=== PATIENT | female | born 1965 | race Caucasian/White ===

== ENCOUNTER 2019-10-18 15:41 | Outpatient (CLI) | payer OTHER, SELFPAY ==
--- NOTE | ~2019-10-18 | MR_ITS ---
EXAMINATION: MR ankle LT wo con DATE: 10/18/2019 17:11 INDICATION: Left ankle tendon pain. TECHNIQUE: Magnetic resonance imaging (MRI) of the left ankle was performed without intravenous contr ast. Sequences included sagittal, coronal, and axial proton-density weighted fast spin echo without a nd with fat saturation. COMPARISON: None. FINDINGS: Medial ankle ligaments: Deep and superficial deltoid ligaments as well as the spring ligament are normal. Lateral ankle ligaments: The anterior and posterior inferior tibiofibular ligaments are normal. The anterior talofibular, calc aneofibular and posterior talofibular ligaments are normal. Tendons: Small enthesophytes at the calcaneal insertion of the otherwise normal-appearing Achilles tendon. Sma ll amount of increased fluid along the otherwise normal peroneus longus and brevis tendons consistent with mild tenosynovitis. The tibialis anterior and extensor hallucis longus and extensor digitorum l ongus tendons are normal. The tibialis posterior, flexor digitorum longus and flexor hallucis longus tendons are normal. Plantar fascia: Moderate-sized plantar calcaneal spur with mild thickening of the proximal plantar aponeurosis withou t appreciable increased signal consistent with mild chronic enthesopathy without acute plantar fascii tis. Bones/other: Subtle increased fluid signal between irregular cortical margins consistent with likely fiber cartila ginous 3 calcaneal coalition between the medial calcaneus and the posterior aspect of the sustentacul um mian. There is mild subarticular edema along the calcaneal side of the coalition. Marrow signal re maining joint spaces are otherwise normal. No fracture or pathologic marrow replacing process. Fluid: Physiologic amount of fluid in the joint spaces. IMPRESSION: 1. 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 2. Mild peroneal tenosynovitis with normal appearing tendons. 3. Chronic mild Achilles and plantar calcaneal enthesopathy. Reviewed, dictated and finalized at location A.
== END 2019-10-18 15:42 | disposition home or self-care (01) ==
LOC: ANHIMG 15:53
PROVIDERS: PCP Family Medicine; Visit Provider Orthopaedic Surgery
DX: M25.572 Pain in left ankle and joints of left foot (principal); M65.872 Other synovitis and tenosynovitis, left ankle and foot; M77.32 Calcaneal spur, left foot
CPT/HCPCS: 73721

== ENCOUNTER 2020-04-26 07:34 | Outpatient (CLI) | payer OTHER, SELFPAY ==
--- NOTE | ~2020-04-26 | US_ITS ---
US right upper quadrant INDICATION: Right upper quadrant abdominal pain PROCEDURE: Realtime right upper abdominal ultrasound. COMPARISON: Ultrasound dated 12/11/2013 FINDINGS: The pancreas is normal without focal mass or pancreatic ductal dilation. Liver echotexture is normal without focal mass or intrahepatic biliary dilatation. There is normal directional flow i n the portal vein. The gallbladder is normal without stones, gallbladder wall thickening or pericholecystic fluid. Comm on bile duct measures 4 mm. No sonographic Ariza's sign. IMPRESSION: 1: Normal limited abdominal ultrasound. Reviewed, dictated and finalized at location A.
== END 2020-04-26 07:35 | disposition home or self-care (01) ==
PROVIDERS: PCP Family Medicine; Visit Provider Physician Assistant
DX: R10.11 Right upper quadrant pain (principal)
CPT/HCPCS: 76705

== ENCOUNTER 2020-05-06 17:50 | Outpatient (CLI) | payer OTHER, SELFPAY ==
--- NOTE | ~2020-05-06 | MM_ITS ---
EXAMINATION: MM screening [facility] BI w chanda HISTORY: Screening TECHNIQUE: Craniocaudal and mediolateral oblique 3-D tomosynthesis images were obtained and synthetic 2-D images were generated. CAD analysis was submitted and interpreted. COMPARISON: 07/12/2013 BREAST PARENCHYMAL COMPOSITION: There are scattered areas of fibroglandular density. FINDINGS: There is no evidence of suspicious mass, calcification, or architectural distortion to sugg est malignancy in either breast. There has been no suspicious interval change. IMPRESSION: 1. No mammographic evidence of malignancy. 2. Recommend routine screening mammography in one year. BI-RADS Category 1: Negative Reviewed, dictated and finalized at location A.
== END 2020-05-06 17:51 | disposition home or self-care (01) ==
PROVIDERS: PCP Family Medicine; Visit Provider Family Medicine
DX: Z12.31 Encounter for screening mammogram for malignant neoplasm of breast (principal)
CPT/HCPCS: 77063; 77067

== ENCOUNTER 2020-07-30 07:29 | Outpatient (CLI) | payer OTHER, SELFPAY ==
--- NOTE | ~2020-07-30 | NM_ITS ---
EXAMINATION: NM hepatobiliary w pharm EXAM DATE: 07/30/2020 09:55 INDICATION: R10.11 - Right upper quadrant pain. TECHNIQUE: 4.8 mCi Tc-99m mebrofenin (Choletec) was administered intravenously. Scintigraphic images of the abdomen were obtained for one hour. At the 1 hour time point, 2.5 mcg sincalide (Kinevac) was administered by slow intravenous infusion, and imaging was continued for 30 minutes. Gallbladder eje ction fraction was calculated by the technologist. Comparison is made to prior examination from 2007. FINDINGS: There is normal clearance of radiotracer from the blood pool. There is homogeneous tracer u ptake by the liver. Activity progresses to the gallbladder and bowel. The gallbladder ejection fract ion (GBEF) is 78 % (most patients with gallbladder dysfunction have GBEF < 35%, but there is overlap with the normal range of 10-90%). IMPRESSION: Gallbladder ejection fraction 78%, within normal range. Reviewed, dictated and finalized at location B. GNMENT MANAGER
== END 2020-07-30 07:30 | disposition home or self-care (01) ==
PROVIDERS: PCP Family Medicine; Visit Provider Physician Assistant
DX: R10.11 Right upper quadrant pain (principal)
CPT/HCPCS: 78227; A9537; J2805

== ENCOUNTER → 2020-10-23 06:59 | Outpatient (CLI) | payer OTHER, SELFPAY ==
[2020-10-23 16:42] LABS: SARS-CoV-2 RNA PCR Negative
== END ==
PROVIDERS: PCP Family Medicine; Visit Provider Family Medicine
DX: Z20.822 Contact with and (suspected) exposure to COVID-19 (principal)
CPT/HCPCS: C9803; U0003; U0005

== ENCOUNTER 2022-05-13 16:27 | Outpatient (CLI) | payer OTHER, SELFPAY ==
--- NOTE | ~2022-05-13 | DEXA_ITS ---
Bone Density Report Name: JHON HALL Age: 56 Sex: Female Ethnicity: White Date of : 1965 Indication: postmenopausal; screening for osteoporosis; asthma or emphysema; Referring Provider: AMBROSIO JIMÉNEZ Study: Bone densitometry was performed. Exam Date: May 13, 2022 Accession number: [id number] Bone Density: Region BMD T-score Z-score Classification AP Spine(L1-L4) 1.253 1.9 3.1 Normal Femoral Neck (Left) 0.879 0.3 1.5 Normal Total Hip (Left) 1.240 2.4 3.3 Normal Femoral Neck (Right) 0.895 0.4 1.6 Normal Total Hip (Right) 1.231 2.4 3.2 Normal Total Hip Mean 1.236 2.4 3.3 Normal World Health Organization criteria for BMD impression classify patients as: Normal (T-score at or above -1.0), Osteopenia (T-score between -1.0 and -2.5), or Osteoporosis (T-score at or below -2.5). 10-year Fracture Risk: FRAX not reported because: All T-scores for Spine Total, Hip Total, Femoral Neck at or above -1.0 Clinical Information Provided by Patient: Has used the following medications: Vitamin D Has the following medical conditions: Asthma or Emphysema Patient maximum height was 67 Menopause Age: 46 No regular weight bearing exercise Does not regularly consume dairy products Drinks caffeinated beverages Onset of menses at age 11 Number of children 3 Impression: The patient has normal bone mass. Discussion: BONE DENSITY IS ABOVE THE MINIMUM DESIRABLE LEVEL AT ALL SKELETAL SITES TESTED. This patient?s bone mineral density is above the minimum desirable level (T-score -1.0 or better) at all sites measured. The patient should follow a healthful lifestyle (good nutrition with adequate calcium and vitamin D, and appropriate weight-bearing exercise). Follow-Up: Consider repeating this study in 5 years or sooner if there is some new clinical indication. Reported by: JONI on 05/13/2022 4:53:00 PM. Reviewed, dictated and finalized at location AChantel COLLIER
--- NOTE | ~2022-05-13 | MM_ITS ---
EXAMINATION: MM screening [facility] BI w chanda HISTORY: Screening TECHNIQUE: Craniocaudal and mediolateral oblique 3-D tomosynthesis images were obtained and synthetic 2-D images were generated. CAD analysis was submitted and interpreted. COMPARISON: 07/12/2013 BREAST PARENCHYMAL COMPOSITION: Breast composition is almost entirely fatty FINDINGS: The right breast is stable without evidence for malignancy. There is a new focal mass in th e lower inner quadrant of the left breast, middle third. IMPRESSION: 1. New focal left breast mass, lower inner quadrant. 2. Additional mammographic views and possible breast ultrasound are recommended. BI-RADS Category 0: Incomplete: Needs additional imaging evaluation. Reviewed, dictated and finalized at location A. IMPRESSION: 1. New focal left breast mass, lower inner quadrant. 2. Additional mammographic views and possible breast ultrasound are recommended . BI-RADS Category 0: Incomplete: Needs additional imaging evaluation.
== END 2022-05-13 16:28 | disposition home or self-care (01) ==
LOC: ANHIMG 16:28
PROVIDERS: PCP Emergency Medicine; Visit Provider Physician Assistant
DX: Z12.31 Encounter for screening mammogram for malignant neoplasm of breast (principal); Z78.0 Asymptomatic menopausal state; R92.8 Other abnormal and inconclusive findings on diagnostic imaging of breast
CPT/HCPCS: 77063; 77067; 77080

== ENCOUNTER 2022-05-21 12:41 | Outpatient (CLI) | payer OTHER, SELFPAY ==
--- NOTE | ~2022-05-21 | MMUS_ITS ---
EXAMINATION: MM diagnostic elmer LT w chanda, US breast LT limited HISTORY: Follow-up left breast mass TECHNIQUE: Additional 3-D tomosynthesis images of the left breast were performed and synthetic 2-D im ages were generated. CAD analysis was submitted and interpreted. High resolution Limited left breast ultrasound was performed. COMPARISON: Comparison to multiple prior studies sequentially, with oldest reviewed study dated 07/01. BREAST PARENCHYMAL COMPOSITION: Breast composition is almost entirely fatty FINDINGS: MAMMOGRAPHIC FINDINGS: There is a 5 mm mass in the upper inner quadrant of the left breast, middle third. No suspicious calc ifications or architectural distortion. ULTRASOUND: Limited left breast ultrasound: At 11:00, 7 cm from the nipple there is a 4 mm hypoechoic mass with a ntiparallel configuration, no significant posterior features or internal vascularity. This correspond s to the mammographic finding. IMPRESSION: 1. 5 mm left breast mass, upper inner quadrant. 2. Stereotactic left breast biopsy recommended given the small size of the lesion and fatty replaceme nt of the breast. BI-RADS category 4, suspicious findings. Reviewed, dictated and finalized at location A. IMPRESSION: 1. 5 mm left breast mass, upper inner quadrant. 2. Stereotactic left breast biopsy recommended given the small size of the lesi on and fatty replacement of the breast. BI-RADS category 4, suspicious findings.
== END 2022-05-21 12:42 | disposition home or self-care (01) ==
LOC: ANHIMG 12:42
PROVIDERS: PCP Emergency Medicine; Visit Provider Physician Assistant
DX: R92.8 Other abnormal and inconclusive findings on diagnostic imaging of breast (principal)
CPT/HCPCS: 76642; 77061; 77065; G0279

== ENCOUNTER 2022-09-14 16:39 | Outpatient (CLI) | payer OTHER, SELFPAY ==
--- NOTE | ~2022-09-14 | XR_ITS ---
EXAMINATION: XR chest 2V Exam Date/Time: 09/14/2022 16:51 EQUITY DIRECTOR HISTORY: E55.9 - Vitamin D deficiency, unspecified. HISTORY OF ASTHMA Comparison: 11/20/2013. RESULT: Lines, tubes, and devices: Surgical clips in the left upper quadrant. Left humeral head soft tissue anchor. Lungs and pleura: Clear. Cardiomediastinal silhouette: Stable. Other: No acute osseous or upper abdominal finding. IMPRESSION: No acute cardiopulmonary process. Reviewed, dictated and finalized at location K. TY DIRECTOR
== END 2022-09-14 16:40 | disposition home or self-care (01) ==
PROVIDERS: PCP Emergency Medicine; Visit Provider Emergency Medicine
DX: E55.9 Vitamin D deficiency, unspecified (principal)
CPT/HCPCS: 71046

== ENCOUNTER 2022-10-11 12:45 | Outpatient (CLI) | payer OTHER, SELFPAY ==
--- NOTE | 2022-10-11 16:38 | WPDPFTINT ---
PFT Procedure Performed PFT Procedure Performed Plethysmography (Lung Vol) Diffusing Cap (DLCO) Flow Vol Loop Spirometry w/o Bronchodil PFT Interpretation This is a pulmonary function test with spirometry, plethysmography and diffusing capacity. The test was performed and results interpreted in accordance with the 2019 and 2005 ATS/ERS Task Force guidelines respectively using the Global Lung Function Initiative-2012 reference equations. Patient demonstrated good effort and cooperation. Reproducibility criteria were met. The quality of the spirometry maneuver was Grade A. Findings: Spirometry: the contour the inspiratory and expiratory flow tracing are normal. The FVC is 2.93 L, 82% predicted. The FEV1 is 2.40 L, 85% predicted. The FEV1: FVC ratio is 82%. Plethysmography: The total lung capacity is 4.37, 80% predicted. The functional residual capacity is 1.77, 57% predicted. The residual volume is 1.44, 69% predicted. Diffusing capacity: The diffusing capacity unadjusted for hemoglobin and carboxyhemoglobin is 16.0, 69% predicted. The diffusing capacity adjusted for alveolar volume is 5.12, 118% predicted. Impression: The spirometry is normal without evidence of an obstructive abnormality. The lung volumes are normal. The diffusing capacity is normal. Impression: There is a mild restrictive ventilatory abnormality with a normal FEV1. The spirometry is normal without evidence of an obstructive abnormality. The diffusing capacity unadjusted for hemoglobin and carboxyhemoglobin is mildly decreased and normalizes when adjusted for alveolar volume. There are no prior studies for comparison
== END 2022-10-11 12:46 | disposition home or self-care (01) ==
LOC: ANHPFT 12:48
PROVIDERS: PCP Emergency Medicine; Visit Provider Emergency Medicine
DX: J45.40 Moderate persistent asthma, uncomplicated (principal); J45.998 Other asthma; R94.2 Abnormal results of pulmonary function studies
CPT/HCPCS: 94375; 94726; 94729

== ENCOUNTER 2022-11-24 09:15 | Outpatient (CLI) | payer OTHER, SELFPAY ==
--- NOTE | ~2022-11-24 | XR_ITS ---
EXAMINATION: XR chest 2V DATE: 11/24/2022 09:27 INDICATION: Cough. TECHNIQUE: Frontal and lateral views of the chest were obtained. COMPARISON: Chest 2 views 09/14/2022 FINDINGS: The chest demonstrates clear lungs without pneumonia, pleural effusion, or pneumothorax. Th e heart size is normal. There are surgical clips in left abdomen. There is a suture anchor in left hu meral head. IMPRESSION: 1. No acute cardiopulmonary disease. Reviewed, dictated and finalized at location A.
== END 2022-11-24 09:16 | disposition home or self-care (01) ==
LOC: ANHIMG 09:18
PROVIDERS: PCP Emergency Medicine; Visit Provider Nurse Practitioner Family
DX: R05.9 Cough, unspecified (principal)
CPT/HCPCS: 71046

== ENCOUNTER 2023-04-20 15:28 | Outpatient (CLI) | payer OTHER, SELFPAY ==
--- NOTE | ~2023-04-20 | XR_ITS ---
XR chest 2V DATE: 04/20/2023 15:45 INDICATION: Dyspnea TECHNIQUE: PA and lateral views COMPARISON: November 24, 2022 2 view chest FINDINGS: Normal heart size. No hilar or mediastinal enlargement. No pulmonary infiltrate or consolidation, pleural effusion or pulmonary vascular congestion or pneumo thorax. Surgical clips of left breast. Whiteside device of left humeral head. IMPRESSION: No active cardiopulmonary disease Reviewed, dictated and finalized at location A.
== END 2023-04-20 15:29 | disposition home or self-care (01) ==
PROVIDERS: PCP Emergency Medicine; Visit Provider Emergency Medicine
DX: R06.00 Dyspnea, unspecified (principal)
CPT/HCPCS: 71046

== ENCOUNTER 2023-05-30 18:01 | Inpatient (IN) | payer OTHER, SELFPAY ==
--- NOTE | ~2023-05-30 | CT_ITS ---
EXAMINATION: CT soft tissue neck w con DATE: 05/30/2023 19:11 INDICATION: Neck swelling. Left-sided facial and neck swelling. TECHNIQUE: Computed tomography (CT) of the neck was performed with 75 mL Omnipaque-350 intravenous co ntrast. The dose-length product was 565.95 mGy-cm. Automated exposure control and iterative reconstru ction technique were employed. COMPARISON: None FINDINGS: There is mild stranding in the superficial soft tissues overlying the left mandible. There is mild left submandibular lymph node enlargement measuring 1.4 x 1.0 cm, likely reactive. No discret e walled off fluid collection to suggest abscess. The mucosal and parapharyngeal spaces are symmetric . Thyroid gland is unremarkable. No intracranial abnormality is seen. IMPRESSION: 1. Mild soft tissue stranding anterior to the left side of the mandible with submandibular lymphadeno anel. Consider cellulitis with reactive lymphadenopathy. No evidence for abscess. Reviewed, dictated and finalized at location A. IMPRESSION: 1. Mild soft tissue stranding anterior to the left side of the mandible with garrison bmandibular lymphadenopathy. Consider cellulitis with reactive lymphadenopathy. No evidence for abscess.
[2023-05-30 18:20] VITALS: BP 146/88; PULSE 78; RESP 16; TEMP 36.8; O2SAT 99
--- NOTE | 2023-05-30 18:28 | ED.GENADULT ---
HPI - General Adult General Chief complaint: Skin/Abscess/Foreign Body Stated complaint: swelling to face, abscess in nose Time Seen by Provider: 05/31/23 00:03 Related Data Home Medications Medication Instructions Recorded Confirmed acetaminophen 325 mg tablet 650 mg PO Q6H PRN Pain (Scale 02/05/20 05/31/23 (Tylenol) Score 1-3) letrozole 2.5 mg tablet 2.5 mg PO DAILY 09/14/22 05/31/23 fluoxetine 20 mg tablet 20 mg PO DAILY 05/31/23 05/31/23 meloxicam 7.5 mg tablet 7.5 mg PO DAILY 05/31/23 05/31/23 metformin 500 mg tablet 500 mg PO DAILY 05/31/23 05/31/23 omeprazole 40 mg capsule,delayed 40 mg PO DAILY 05/31/23 05/31/23 release Allergies Allergy/AdvReac Type Severity Reaction Status Date / Time lisinopril Allergy Mild Cough Verified 05/30/23 18:22 morphine Allergy Unknown Skin Verified 05/30/23 18:22 Reaction PMFSH Past Medical History Medical History (Updated 05/31/23 @ 09:06 by Rhona Alvarado DO) Acquired heel varus of left foot Amblyopia ex anopsia of both eyes With eye surgery x2 Asthma BMI greater than 40 Cancer of left breast Chronic acquired lymphedema Bilateral lower extremity Dizziness Fibromyalgia History of DVT (deep vein thrombosis) Associated with control Idiopathic urticaria Insomnia, unspecified Left knee DJD Osteoporosis Peroneal tendinitis of left lower leg Right knee DJD Rotator cuff tendonitis Seasonal allergies Sleep apnea Uses CPAP regularly Vertigo Vitamin D deficiency Wears glasses Surgical History Surgical History (Updated 05/31/23 @ 09:02 by Rhona Alvarado DO) History of lumpectomy of left breast (08/2022) History of shoulder surgery RTC and Biceps Tear repair-Dr. Krishna Chavis History of tonsillectomy and adenoidectomy Family History Family History (Updated 05/31/23 @ 09:03 by Rhona Alvarado DO) Father Hypertension Family history of cardiovascular disease Family history of dementia Arthritis Family history of mental disorder Diffuse large B-cell lymphoma Mother Arthritis Family history of malignant neoplasm of breast Sibling Arthritis Hypertension Cerebrovascular accident Atrial fibrillation CHF (congestive heart failure) Social History Social History (Updated 05/31/23 @ 08:54 by SHERI Brice Social History: She lives with her of 38 years. They have 3 healthy children. Patient is a lifelong nonsmoker. She denies significant alcohol use. 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 Code status: Full code Surrogate decision maker: Smoking status: Never smoker Alcohol intake: never Substance use: never Lack of Transportation: No Lack of Food: Never True Current Housing: I Have Housing Concerned About Future Housing: No Difficulty Paying Gas/Electric Bills: No Difficulty Paying for Meds: No Currently Unemployed: No Education: High School Diploma/GED Difficulty w/ Childcare or Family Care: No Living arrangements: with family Occupation/Education: occupation Gender identity (if verbalized by the patient): Female Spiritual care concerns: No Course Vital Signs Vital signs: Vital Signs Temperature 36.8 C 05/30/23 18:20 Pulse Rate 78 05/30/23 18:20 Respiratory Rate 16 05/30/23 18:20 Blood Pressure 146/88 H 05/30/23 18:20 Pulse Oximetry 99 05/30/23 18:20 Temperature 36.2 C L 06/05/23 06:00 Pulse Rate 72 06/05/23 06:00 Respiratory Rate 18 06/05/23 06:00 Blood Pressure 139/66 06/05/23 06:00 Pulse Oximetry 97 06/05/23 06:00 Oxygen Delivery Room Air 06/05/23 08:00 Fraction of Inspired Oxygen 21 06/04/23 19:59 Medical Decision Making Vital Signs Vital Signs: Vital Signs Temperature 36.8 C 05/30/23 18:20 Pulse Rate 78 05/30/23 18:20 Respiratory Rate 16 05/30/23 18:20 Blood Pressure 146/88 H 05/30/23 18:20 Pulse Oximetry 99 05/30/23 18:20 Temperature 36.2 C L 06/05/23 06
[2023-05-30 18:47] LABS: Basophils Percent Auto 0.2 % (0.2-1.2); Eosinophils Absolute Auto 0.2 K/mm3 (0-0.3); Hematocrit 42.7 % (37.0-47.0); Hemoglobin 13.9 g/dL (12.0-15.0); Immature Granulocyte Percent A 0.6 % (0-0.5); Lymphocytes Absolute Auto 1.76 K/mm3 (0.9-3.2); Lymphocytes Percent Auto 10.6 % (18.3-44.2); Mean Corpuscular HGB Conc 32.6 g/dl (32-36); Mean Corpuscular Volume 92.2 fl (80-100); Mean Platelet Volume 10.9 fl (7.4-10.4); Neutrophils Absolute Auto 12.6 K/mm3 (1.3-6.7); Neutrophils Percent Auto 75.6 % (45.5-73.1); Platelet Count Result 242 k/mm3 (150-375); Red Blood Count 4.63 M/mm3 (4.2-5.4); White Blood Count 16.6 K/mm3 (4.5-10.0)
[2023-05-30 18:55] LABS: Alanine Aminotransferase 24 U/L (6-35); Albumin Level 4.1 g/dL (3.5-5.1); Alkaline Phosphatase 70 U/L (38-126); Anion Gap 6 mmol/L (8-16); Aspartate Amino Transferase 22 U/L (14-36); Bilirubin,Total 0.7 mg/dL (0.2-1.3); Blood Urea Nitrogen 15 mg/dL (7-17); Carbon Dioxide 28 mmol/L (22-30); Chloride 101 mmol/L (98-107); Estimated CRCL calculation 120 ml/min; Estimated Glomerular Filt Rate > 60; Glucose 170 mg/dL (65-110); Potassium 4.3 mmol/L (3.4-5.0); Sodium 135 mmol/L (137-145)
[2023-05-30 18:57] LABS: Lactic Acid Reflex 1.2 mmol/L (0.7-2.0)
[2023-05-31] VITALS (8 sets, daily range): BP systolic 109–150; BP diastolic 41–89; PULSE 73–81; RESP 15–20; TEMP 36.1–36.9; O2SAT 95–100; BMI 45.4
--- NOTE | 2023-05-31 00:11 | ED.SKABFB ---
HPI - Skin/Abscess/Foreign Bdy General Chief complaint: Skin/Abscess/Foreign Body Stated complaint: swelling to face, abscess in nose Time Seen by Provider: 05/31/23 00:03 History of Present Illness HPI narrative: 57-year-old female with a history of type 2 diabetes reports for evaluation for left-sided facial pain, erythema and swelling x1 day. Patient states 4 days ago, she noticed a pimple inside her nose which developed aggravation the following day. States yesterday her face began to swell with worsening pain, warmth and redness. She denies difficulty breathing or known fevers. She reports some nausea but no emesis. She has never had this happen her before. Denies dental pain or sore throat. Related Data Home Medications Medication Instructions Recorded Confirmed acetaminophen 325 mg tablet 325 mg PO Q6H PRN 02/05/20 05/24/23 (Tylenol) letrozole 2.5 mg tablet 2.5 mg PO 09/14/22 05/24/23 Allergies Allergy/AdvReac Type Severity Reaction Status Date / Time lisinopril Allergy Mild Cough Verified 05/30/23 18:22 morphine Allergy Unknown Skin Verified 05/30/23 18:22 Reaction Review of Systems Review of Systems: CONSTITUTIONAL: Denies fever, chills EYES: Denies visual changes, redness, or discharge. ENT: See HPI CARDIOVASCULAR: Denies chest pain, palpitations, or edema. RESPIRATORY: Denies cough or dyspnea. GASTROINTESTINAL: Denies abdominal pain, nausea, vomiting, or diarrhea. GENITOURINARY: Denies dysuria or hematuria. SKIN: Denies rash or itching. MUSCULOSKELETAL: Denies back pain, joint pain, or myalgia. NEUROLOGIC: Denies headache, numbness, dizziness, or weakness. PSYCHIATRIC: Denies anxiety or depression. [facility] Past Medical History Medical History Acquired heel varus of left foot Asthma BMI greater than 40 Dizziness Fibromyalgia History of DVT (deep vein thrombosis) Left knee DJD Left knee pain Osteoporosis Peroneal tendinitis of left lower leg Right knee DJD Right knee DJD Right knee pain Right shoulder pain Rotator cuff tendonitis Seasonal allergies Sleep apnea Vertigo Wears glasses Surgical History Surgical History History of lumpectomy History of shoulder surgery RTC and Biceps Tear repair-Dr. Krishna Chavis Family History Family History Father Family history of mental disorder Hypertension Family history of cardiovascular disease Family history of dementia Mother Family history of malignant neoplasm of breast in first degree relative, Onset Age: 47 Other Acute myocardial infarction Arthritis Cerebrovascular accident Family history of malignant neoplasm of breast Social History Social History Smoking status: Never smoker Alcohol intake: never Substance use: never Lack of Transportation: No Lack of Food: Never True Current Housing: I Have Housing Concerned About Future Housing: No Difficulty Paying Gas/Electric Bills: No Difficulty Paying for Meds: No Currently Unemployed: No Education: High School Diploma/GED Difficulty w/ Childcare or Family Care: No Living arrangements: with family Occupation/Education: occupation Gender identity (if verbalized by the patient): Female Exam Narrative: GENERAL: Well-appearing, in no acute distress. Patient resting comfortably in exam bed. She is pleasant and conversational. HEAD: Normocephalic EYES: PERRLA ENT: Left nare with a scab and surrounding yellow crusting. Erythema, warmth and induration medial to the nose and inferior to the left zygoma that extends just beneath the mandible. No trismus. No dental pain, or lesions. Floor mouth is soft without crepitus. No crepitus to cheek. No areas of fluctuance. No overlying vesicles or other lesions
[2023-05-31] MEDS: ONDANSETRON INJ 4 MG/2 ML VIAL IV PUSH (00:45)
[2023-05-31] MEDS: SODIUM CHLORIDE 0.9% IV 1,000 ML 999 ML IV CONT (00:45)
--- NOTE | 2023-05-31 02:40 | ADMGEN ---
This patient, Autumn Martin, was admitted to Medical Room 257-01. Patient/family oriented to hospital policies and general routines including ID bracelet, bed and alarms, visiting hours, pain management, procedures, bathroom and other care routines, personal items, smoking policy, room service/diet, and visiting hours. Information on how to activate the Rapid Response Team has been discussed. Patient/Family are encouraged to report perceived risks to care and to ask questions if they do not understand what they are told or what they should do.
--- NOTE | 2023-05-31 02:58 | PM.IMHP ---
H&P: HPI History of Present Illness Date/Time: 05/31/23 01: 50 Chief Complaint: Infection and swelling on face Narrative: 57-year-old female with past medical history of pre diabetes, obesity, hypertension and breast cancer presents to the ER with worsening erythema and swelling on the left side of her face. The patient reported that now 4 days ago she had a small pimple in the inside of her left nostril. The following day she had some swelling and erythema to the nasal labial fold. In as the next 24-48 hours progressed a erythema moved down the inside of her cheek all the way down to her chin. Her yesterday they pain became so bad that she could not open her mouth to eating came to the ER. She has never had a history of skin infections. She has not been having any fevers or chills. She has had no other ill symptoms. In the ER CT scan was performed which demonstrated cellulitis without evidence of abscess. Patient reports the pain is as 6/10 intensity unless she accidentally touches her face or is trying to eat. Drainage aching and throbbing in quality. Tylenol and naproxen have only provided minimal relief. She does have obstructive sleep apnea and uses her CPAP regularly but is unable to do so due to the pain. Review of Systems Review of Systems: 12 systems were reviewed with pertinent positives and negatives per HPI. Except as documented in the HPI, all other systems were reviewed and are negative. She reports that she has asthma symptoms every day and has to use her rescue inhaler a couple times a day. She is being followed by pulmonology. She has not noticed any increased cough. She denies shortness breath currently. She has been placed on omeprazole as they here trying to rule out of whether not reflux may be part of her asthma symptoms. She has ago that had a echocardiogram and a CT of the chest on 05/31/2023 as outpatient. [facility] Past Medical History Medical History (Updated 05/31/23 @ 09:06 by Rhona Alvarado DO) Acquired heel varus of left foot Amblyopia ex anopsia of both eyes With eye surgery x2 Asthma BMI greater than 40 Cancer of left breast Chronic acquired lymphedema Bilateral lower extremity Dizziness Fibromyalgia History of DVT (deep vein thrombosis) Associated with control Idiopathic urticaria Insomnia, unspecified Left knee DJD Osteoporosis Peroneal tendinitis of left lower leg Right knee DJD Rotator cuff tendonitis Seasonal allergies Sleep apnea Uses CPAP regularly Vertigo Vitamin D deficiency Wears glasses Surgical History Surgical History (Updated 05/31/23 @ 09:02 by Rhona Alvarado DO) History of lumpectomy of left breast (08/2022) History of shoulder surgery RTC and Biceps Tear repair-Dr. Krishna Chavis History of tonsillectomy and adenoidectomy Family History Family History (Updated 05/31/23 @ 09:03 by Rhona Alvarado DO) Father Hypertension Family history of cardiovascular disease Family history of dementia Arthritis Family history of mental disorder Diffuse large B-cell lymphoma Mother Arthritis Family history of malignant neoplasm of breast Sibling Arthritis Hypertension Cerebrovascular accident Atrial fibrillation CHF (congestive heart failure) Social History Social History (Updated 05/31/23 @ 08:54 by Rhona Alvarado DO) Social History: She lives with her of 38 years. They have 3 healthy children. Patient is a lifelong nonsmoker. She denies significant alcohol use. 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 Code status: Full code Surrogate decision maker: Smoking status: Never smoker Alcohol intake: never Substance use: never Lack of Transportation: No Lack of Food: Never True Current Housing: I Have Housing Concerned About Future Housing: No Difficulty Paying Gas/Electric Bills: No Difficulty Paying for Meds: No Currently Unemployed: No Education: High School Diploma/GED
[2023-05-31] MEDS: ACETAMINOPHEN 325 MG TABLET 650 MG PO ×2 (04:09→09:25)
[2023-05-31] MEDS: KETOROLAC 30 MG/ML VIAL (*BKC) IV PUSH ×4 (05:02→23:58)
[2023-05-31 08:27] LABS: Glucose Point of Care 119 mg/dl (65-105)
[2023-05-31] MEDS: OLMESARTAN MEDOXOMIL 20 MG TABLET PO (09:06)
[2023-05-31] MEDS: MONTELUKAST SODIUM 10 MG TABLET PO (09:06)
[2023-05-31] MEDS: PANTOPRAZOLE 40 MG TABLET PO ×2 (09:06→22:29)
[2023-05-31] MEDS: FLUoxetine HCL 20 MG CAPSULE PO (09:06)
[2023-05-31] MEDS: ENOXAPARIN 40 MG/0.4 ML SYRINGE SUB-Q (09:07)
[2023-05-31] MEDS: LETROZOLE (*CHEMO) 2.5 MG TABLET PO (09:07)
[2023-05-31] MEDS: AZELASTINE HCL NASAL 0.1% 137 MCG/SPR 30 ML BTL 1 SPRAY NASAL ×2 (09:08→22:29)
[2023-05-31 10:51] LABS: Basophils Percent Auto 0.3 % (0.2-1.2); Eosinophils Absolute Auto 0.2 K/mm3 (0-0.3); Eosinophils Percent Auto 1.8 % (0-4.4); Hematocrit 40.6 % (37.0-47.0); Hemoglobin 12.9 g/dL (12.0-15.0); Immature Granulocyte Absolute 0.07 K/mm3 (0.00-0.031); Immature Granulocyte Percent A 0.6 % (0-0.5); Lymphocytes Absolute Auto 1.56 K/mm3 (0.9-3.2); Mean Corpuscular HGB Conc 31.8 g/dl (32-36); Mean Corpuscular Hemoglobin 29.8 pg (26-34); Mean Corpuscular Volume 93.8 fl (80-100); Mean Platelet Volume 10.9 fl (7.4-10.4); Monocytes Absolute Auto 1.4 K/mm3 (0.1-0.6); Monocytes Percent Auto 11.9 % (2.6-8.5); Neutrophils Absolute Auto 8.7 K/mm3 (1.3-6.7); Neutrophils Percent Auto 72.4 % (45.5-73.1); Platelet Count Result 202 k/mm3 (150-375); Red Blood Count 4.33 M/mm3 (4.2-5.4); Red Cell Distribution Width 13.2 % (11.5-14.5)
[2023-05-31 11:04] LABS: Alanine Aminotransferase 21 U/L (6-35); Albumin Level 3.6 g/dL (3.5-5.1); Alkaline Phosphatase 69 U/L (38-126); Anion Gap 7 mmol/L (8-16); Aspartate Amino Transferase 17 U/L (14-36); Bilirubin,Total 0.7 mg/dL (0.2-1.3); Blood Urea Nitrogen 13 mg/dL (7-17); Calcium 8.4 mg/dL (8.4-10.2); Carbon Dioxide 24 mmol/L (22-30); Chloride 102 mmol/L (98-107); Estimated CRCL calculation 123 ml/min; Estimated Glomerular Filt Rate > 60; Glucose 184 mg/dL (65-110); Potassium 3.9 mmol/L (3.4-5.0); Sodium 133 mmol/L (137-145)
[2023-05-31] MEDS: MUPIROCIN 2% OINT 22 GM TUBE 1 APPLIC TOPICAL (12:09)
[2023-05-31 12:42] LABS: Glucose Point of Care 113 mg/dl (65-105)
--- NOTE | 2023-05-31 12:42 | PM.IMPN ---
Progress Note: A&P Assessment and Plan (1) Cellulitis of face: Code(s): L03.211 - Cellulitis of face Status: Acute Assessment and Plan: Patient presents to the ED due to left facial swelling. soft tissue head and neck CT with soft tissue stranding anterior to the left side of the mandible with submandibular lymphadenopathy. Consider cellulitis with reactive lymphadenopathy. No abscess. Antibiotic coverage with vancomycin. Blood cultures pending Continue PPI therapy. Analgesics as needed. MRSA swab ordered White count trending down (2) Diabetes mellitus: Qualifiers: Diabetes mellitus type: type 2 Diabetes mellitus long-term insulin use: without long-term use Diabetes mellitus complication status: without complication Qualified Code(s): E11.9 - Type 2 diabetes mellitus without complications Code(s): E11.9 - Type 2 diabetes mellitus without complications Status: Acute Assessment and Plan: Will continue the patient's home metformin. Will add Accu-Cheks a.c. HS and hypoglycemia protocol. Will also add low-dose sliding scale insulin if patient develops hyperglycemia in the setting of acute infection. (3) Moderate persistent asthma: Qualifiers: Asthma complication type: uncomplicated Qualified Code(s): J45.40 - Moderate persistent asthma, uncomplicated Code(s): J45.40 - Moderate persistent asthma, uncomplicated Status: Acute Assessment and Plan: Will monitor and continue home medications. Subjective Date/time seen: 05/31/23 12:42 Interval history: Nose lesion developed 2 days ago and when she pushed on skin the lesion would start to ooze pus. Swelling progressed all the way down patient's left cheek and into her neck. She denies any difficulty breathing. Denies fever, chills, body aches, nausea and vomiting. She has no difficulty swallowing at this time. She is eating and drinking good. MRSA swab is pending. MRSA coverage for now. Monitor labs and vital signs. Exam Narrative: GENERAL: Comfortable, no acute distress HENMT: moist mucous membranes, left sided mandibular edema and redness, skin is hot and tender, no dental infection noted, sublingual gland soft and nontender. EYES: EOM intact b/l NECK: cervical and submandibular lymphadenopathy. RESPIRATORY: clear to auscultation CARDIO: RRR GI: soft, nontender, bowel sounds present SKIN: no rashes EXTREMITIES: no edema, redness or tenderness Objective Data Vital Signs Vital Signs: Vital Signs - 24 hr 05/30/23 18:20 05/31/23 00:48 05/31/23 01:06 Temperature 98.2 F Pulse Rate 78 81 79 Respiratory Rate 16 15 Blood Pressure 146/88 H 133/68 133/68 Pulse Oximetry 99 98 99 Oxygen Delivery 05/31/23 02:27 05/31/23 02:28 05/31/23 04:30 Temperature 98.4 F 98.0 F Pulse Rate 77 77 Respiratory Rate 20 16 Blood Pressure 133/41 L 133/52 L Pulse Oximetry 98 95 Oxygen Delivery Room Air 05/31/23 09:05 05/31/23 09:00 Temperature Pulse Rate 75 Respiratory Rate Blood Pressure 150/83 H Pulse Oximetry 99 Oxygen Delivery Room Air Intake/Output Intake/Output: Intake & Output 05/28/23 05/29/23 05/30/23 05/31/23 23:59 23:59 23:59 23:59 Intake Total 2050 Output Total 800 Balance 1250 Meds/Results Medications: Active Medications Generic Name Dose Route Start Last Admin Trade Name Freq PRN Reason Stop Dose Admin Acetaminophen 650 mg 05/31/23 04:01 05/31/23 09:25 Acetaminophen 325 Mg Tablet PO 650 mg Q4H PRN Administration Mild Pain (1-3) or Fever Acetaminophen 650 mg 05/31/23 07:05 Acetaminophen 325 Mg Tablet PO Q6H PRN Pain (Scale Score 1-3) Albuterol 2.5 mg 05/31/23 07:05 Albuterol Sulfate Neb 2.5 Mg/3 Ml Inh INHALATION Q6HRT PRN SOB OR WHEEZING Azelastine HCl 1 spray 05/31/23 09:00 05/31/23 09:08 Azelastine Hcl Nasal 0.1% 137 Mcg/Spr 30 Ml Btl
[2023-05-31] MEDS: FLUTICASONE/UMECLIDIN/VILANTER 200-62.5-25 MCG ELLIPTA 1 PUFF INHALATION (13:17)
[2023-05-31 17:16] LABS: Glucose Point of Care 201 mg/dl (65-105)
[2023-05-31] MEDS: GABAPENTIN 300 MG CAPSULE 600 MG PO (17:53)
[2023-05-31 22:19] LABS: Glucose Point of Care 141 mg/dl (65-105)
[2023-06-01 04:00] VITALS: BP 129/58; PULSE 62; RESP 20; TEMP 36.4; O2SAT 97
[2023-06-01] MEDS: KETOROLAC 30 MG/ML VIAL (*BKC) IV PUSH (05:52)
[2023-06-01 06:10] LABS: Basophils Percent Auto 0.5 % (0.2-1.2); Eosinophils Absolute Auto 0.2 K/mm3 (0-0.3); Hematocrit 39.9 % (37.0-47.0); Hemoglobin 12.9 g/dL (12.0-15.0); Immature Granulocyte Absolute 0.07 K/mm3 (0.00-0.031); Immature Granulocyte Percent A 0.9 % (0-0.5); Lymphocytes Absolute Auto 1.29 K/mm3 (0.9-3.2); Lymphocytes Percent Auto 16.1 % (18.3-44.2); Mean Corpuscular HGB Conc 32.3 g/dl (32-36); Mean Corpuscular Hemoglobin 30.1 pg (26-34); Mean Platelet Volume 10.6 fl (7.4-10.4); Monocytes Absolute Auto 1.1 K/mm3 (0.1-0.6); Monocytes Percent Auto 13.1 % (2.6-8.5); Neutrophils Absolute Auto 5.3 K/mm3 (1.3-6.7); Neutrophils Percent Auto 66.4 % (45.5-73.1); Platelet Count Result 202 k/mm3 (150-375); Red Blood Count 4.29 M/mm3 (4.2-5.4); Red Cell Distribution Width 12.9 % (11.5-14.5)
[2023-06-01 06:19] LABS: Alanine Aminotransferase 21 U/L (6-35); Albumin Level 3.5 g/dL (3.5-5.1); Alkaline Phosphatase 64 U/L (38-126); Anion Gap 5 mmol/L (8-16); Aspartate Amino Transferase 20 U/L (14-36); Bilirubin,Total 0.6 mg/dL (0.2-1.3); Blood Urea Nitrogen 11 mg/dL (7-17); Calcium 8.7 mg/dL (8.4-10.2); Carbon Dioxide 26 mmol/L (22-30); Chloride 102 mmol/L (98-107); Estimated CRCL calculation 123 ml/min; Estimated Glomerular Filt Rate > 60; Glucose 129 mg/dL (65-110); Potassium 4.1 mmol/L (3.4-5.0); Sodium 133 mmol/L (137-145)
[2023-06-01 08:00] VITALS: PULSE 62; RESP 20; O2SAT 95
[2023-06-01 08:28] LABS: Glucose Point of Care 144 mg/dl (65-105)
[2023-06-01 08:38] VITALS: O2SAT 95
[2023-06-01] MEDS: FLUTICASONE/UMECLIDIN/VILANTER 200-62.5-25 MCG ELLIPTA 1 PUFF INHALATION (08:38)
--- NOTE | 2023-06-01 08:52 | PM.IMPN ---
Progress Note: A&P Assessment and Plan (1) Cellulitis of face: Code(s): L03.211 - Cellulitis of face Status: Acute Assessment and Plan: 05/31/23: (copied from the chart) Patient presents to the ED due to left facial swelling. soft tissue head and neck CT with soft tissue stranding anterior to the left side of the mandible with submandibular lymphadenopathy. Consider cellulitis with reactive lymphadenopathy. No abscess. Antibiotic coverage with vancomycin. Blood cultures pending Continue PPI therapy. Analgesics as needed. MRSA swab ordered White count trending down 06/01/23: white blood cell count 8.0 continue vancomycin blood cultures and MRSA swab pending continue with pain control (2) Diabetes mellitus: Qualifiers: Diabetes mellitus complication status: without complication Diabetes mellitus long distance operator insulin use: without long distance operator use Diabetes mellitus type: type 2 Qualified Code(s): E11.9 - Type 2 diabetes mellitus without complications Code(s): E11.9 - Type 2 diabetes mellitus without complications Status: Acute Assessment and Plan: 05/31/23: (copied from the chart) Will continue the patient's home metformin. Will add Accu-Cheks a.c. HS and hypoglycemia protocol. Will also add low-dose sliding scale insulin if patient develops hyperglycemia in the setting of acute infection. 06/01/23: blood sugars ranging 129-144 continue with current treatment plan (3) Moderate persistent asthma: Qualifiers: Asthma complication type: uncomplicated Qualified Code(s): J45.40 - Moderate persistent asthma, uncomplicated Code(s): J45.40 - Moderate persistent asthma, uncomplicated Status: Acute Assessment and Plan: 05/31/23: (copied from the chart) Will monitor and continue home medications. 06/01/23: no change to current treatment plan Time Spent With Patient Time with patient: Greater than 35 minutes Subjective Date/time seen: 06/01/23 08:52 Interval history: Interval history: This is a 57 year old female who presented to the hospital on 05/31/2023 with worsening erythema and swelling on the left side of her face. She stated that she had a small pimple in the inside of her left nostril 4 days ago that popped and then she started to notice more swelling. Work up in hospital includes a CT of the soft tissue of the neck with contrast which revealed mild soft tissue stranding anterior to the left side of the mandible with submandibular lymphadenopathy resembling cellulitis. Patient was started on Vancomycin IV. MRSA and blood cultures pending. 05/31/23: Nose lesion developed 2 days ago and when she pushed on skin the lesion would start to ooze pus. Swelling progressed all the way down patient's left cheek and into her neck. She denies any difficulty breathing. Denies fever, chills, body aches, nausea and vomiting. She has no difficulty swallowing at this time. She is eating and drinking good. MRSA swab is pending. MRSA coverage for now. Monitor labs and vital signs. 06/01/23: on examination today patient is alert and oriented x4, she denies any pain at this time. Patient states that her swelling has gotten better. vitall signs are stable, she is afebrile , on room air. She has no new complaints today. Labs today revealed white blood cell count is 8.0, hemoglobin 12.9, hematocrit 39.9, sodium 133, potassium 4.1, BUN 11, creatinine 0.6, and had sugars have been ranging 129-144. Liver enzymes were normal. MRSA and blood cultures are still pending. she remains on vancomycin. Review of Systems Review of Systems: All systems reviewed & are unremarkable except as noted in HPI and below Constitutional: Constitutional: Reports as per HPI and Reports no additional constitutional complaints Eyes: Eyes: Reports as per HPI and Reports no additional eye complaints ENT: Reports system reviewed and no additi
[2023-06-01] MEDS: MONTELUKAST SODIUM 10 MG TABLET PO (09:17)
[2023-06-01] MEDS: AZELASTINE HCL NASAL 0.1% 137 MCG/SPR 30 ML BTL 1 SPRAY NASAL ×2 (09:17→20:13)
[2023-06-01] MEDS: MUPIROCIN 2% OINT 22 GM TUBE 1 APPLIC TOPICAL ×2 (09:17→17:12)
[2023-06-01] MEDS: FLUoxetine HCL 20 MG CAPSULE PO (09:17)
[2023-06-01] MEDS: OLMESARTAN MEDOXOMIL 20 MG TABLET PO (09:17)
[2023-06-01] MEDS: LETROZOLE (*CHEMO) 2.5 MG TABLET PO (09:17)
[2023-06-01] MEDS: ENOXAPARIN 40 MG/0.4 ML SYRINGE SUB-Q (09:17)
[2023-06-01] MEDS: PANTOPRAZOLE 40 MG TABLET PO ×2 (09:17→20:14)
[2023-06-01] MEDS: ACETAMINOPHEN 325 MG TABLET 650 MG PO (09:23)
[2023-06-01 12:11] LABS: Glucose Point of Care 145 mg/dl (65-105)
[2023-06-01 12:55] LABS: Vancomycin Trough 10.8 ug/mL (10.0-20.0)
[2023-06-01 14:29] VITALS: BP 138/75; PULSE 65; RESP 12; TEMP 36.3; O2SAT 98
[2023-06-01 16:54] LABS: Glucose Point of Care 113 mg/dl (65-105)
[2023-06-01] MEDS: GABAPENTIN 300 MG CAPSULE 600 MG PO (17:22)
[2023-06-01] MEDS: KETOROLAC 15 MG/ML VIAL (*BKC) IV PUSH (18:11)
[2023-06-01 20:24] VITALS: BP 127/66; PULSE 71; RESP 16; TEMP 36.6; O2SAT 98
[2023-06-01 21:55] LABS: Glucose Point of Care 137 mg/dl (65-105)
[2023-06-02] VITALS (7 sets, daily range): BP systolic 125–139; BP diastolic 45–63; PULSE 65–84; RESP 14–18; TEMP 36.4–36.9; O2SAT 97–100
[2023-06-02] MEDS: KETOROLAC 15 MG/ML VIAL (*BKC) IV PUSH ×3 (00:39→18:53)
[2023-06-02 06:08] LABS: Hematocrit 37.3 % (37.0-47.0); Mean Corpuscular HGB Conc 32.2 g/dl (32-36); Mean Corpuscular Hemoglobin 29.6 pg (26-34); Mean Corpuscular Volume 91.9 fl (80-100); Mean Platelet Volume 10.8 fl (7.4-10.4); Platelet Count Result 194 k/mm3 (150-375); Red Blood Count 4.06 M/mm3 (4.2-5.4); Red Cell Distribution Width 12.7 % (11.5-14.5); White Blood Count 6.3 K/mm3 (4.5-10.0)
[2023-06-02 06:32] LABS: Anion Gap 5 mmol/L (8-16); Blood Urea Nitrogen 12 mg/dL (7-17); Calcium 8.5 mg/dL (8.4-10.2); Carbon Dioxide 26 mmol/L (22-30); Chloride 100 mmol/L (98-107); Estimated CRCL calculation 123 ml/min; Estimated Glomerular Filt Rate > 60; Glucose 122 mg/dL (65-110); Potassium 4.2 mmol/L (3.4-5.0); Sodium 131 mmol/L (137-145)
[2023-06-02 07:57] LABS: Glucose Point of Care 126 mg/dl (65-105)
[2023-06-02] MEDS: FLUTICASONE/UMECLIDIN/VILANTER 200-62.5-25 MCG ELLIPTA 1 PUFF INHALATION (08:10)
[2023-06-02] MEDS: ACETAMINOPHEN 325 MG TABLET 650 MG PO (08:17)
[2023-06-02] MEDS: LETROZOLE (*CHEMO) 2.5 MG TABLET PO (08:18)
[2023-06-02] MEDS: MONTELUKAST SODIUM 10 MG TABLET PO (08:18)
[2023-06-02] MEDS: MUPIROCIN 2% OINT 22 GM TUBE 1 APPLIC TOPICAL ×2 (08:19→16:39)
[2023-06-02] MEDS: OLMESARTAN MEDOXOMIL 20 MG TABLET PO (08:19)
[2023-06-02] MEDS: PANTOPRAZOLE 40 MG TABLET PO ×2 (08:19→20:41)
[2023-06-02] MEDS: FLUoxetine HCL 20 MG CAPSULE PO (08:19)
[2023-06-02] MEDS: ENOXAPARIN 40 MG/0.4 ML SYRINGE SUB-Q (08:20)
[2023-06-02] MEDS: AZELASTINE HCL NASAL 0.1% 137 MCG/SPR 30 ML BTL 1 SPRAY NASAL ×2 (08:20→20:41)
[2023-06-02 11:42] LABS: Glucose Point of Care 121 mg/dl (65-105)
[2023-06-02] MEDS: ALBUTEROL SULFATE NEB 2.5 MG/3 ML INH INHALATION (13:03)
[2023-06-02] MEDS: IPRATROPIUM BR 0.02% INH SOLN 0.5 MG/2.5 ML VIAL INHALATION (13:03)
--- NOTE | 2023-06-02 13:15 | PC.NURSE ---
On 06/02/23, the student, [Maximiliano Candelario], provided care and completed [facility] patient. I have reviewed the student's documentation and agree with the findings.
--- NOTE | 2023-06-02 14:26 | PC.NURSE ---
On 06/02/23, the student, [Saurabh Mcfarland], provided care and completed [facility] documentation on this patient. I have reviewed the student's documentation and agree with the findings.
--- NOTE | 2023-06-02 14:37 | P.PNIM_ITS ---
Progress Note: A&P Assessment and Plan (1) Cellulitis of face: Code(s): L03.211 - Cellulitis of face Status: Acute Assessment and Plan: 05/31/23: (copied from the chart) * Patient presents to the ED due to left facial swelling. soft tissue head and neck CT with soft tissue stranding anterior to the left side of the mandible with submandibular lymphadenopathy. Consider cellulitis with reactive lymphadenopathy. No abscess. * Antibiotic coverage with vancomycin. * Blood cultures pending * Continue PPI therapy. * Analgesics as needed. * MRSA swab ordered * White count trending down 06/01/23: * white blood cell count 8.0 * continue vancomycin * blood cultures and MRSA swab pending * continue with pain control 06/02/23: * White blood cell count is 6.3 * blood culture showing no growth * MRSA swab was negative * continue with IV vancomycin, will add 2 g ceftriaxone daily * continue with pain medications (2) Diabetes mellitus: Qualifiers: Diabetes mellitus complication status: without complication Diabetes mellitus intermediate project manager insulin use: without longterm use Diabetes mellitus type: type 2 Qualified Code(s): E11.9 - Type 2 diabetes mellitus without complications Code(s): E11.9 - Type 2 diabetes mellitus without complications Status: Acute Assessment and Plan: 05/31/23: (copied from the chart) * Will continue the patient's home metformin. Will add Accu-Cheks a.c. HS and hypoglycemia protocol. Will also add low-dose sliding scale insulin if pat ient develops hyperglycemia in the setting of acute infection. 06/01/23: * blood sugars ranging 129-144 * continue with current treatment plan 06/02/23: * blood sugars ranging 113-137 * no change to current treatment plan (3) Moderate persistent asthma: Qualifiers: Asthma complication type: uncomplicated Qualified Code(s): J45.40 - Moderate persistent asthma, uncomplicated Code(s): J45.40 - Moderate persistent asthma, uncomplicated Status: Acute Assessment and Plan: 05/31/23: (copied from the chart) * Will monitor and continue home medications. 06/01/23: * no change to current treatment plan Time Spent With Patient Time with patient: 25 - 35 minutes Subjective Date/time seen: 06/02/23 14:37 Interval history: Interval history: This is a 57 year old female who presented to the hospital on 05/31/2023 with worsening erythema and swelling on the left side of her face. She stated that she had a small pimple in the inside of her left nostril 4 days ago that popped and then she started to notice more swelling. Work up in hospital includes a CT of the soft tissue of the neck with contrast which revealed mild soft tissue stranding anterior to the left side of the mandible with submandibular lymphadenopathy resembling cellulitis. Patient was started on Vancomycin IV. MRSA and blood cultures pending. 05/31/23: Nose lesion developed 2 days ago and when she pushed on skin the lesion would start to ooze pus. Swelling progressed all the way down patient's left cheek and into her neck. She denies any difficulty breathing. Denies fever, chills, body aches, nausea and vomiting. She has no difficulty swallowing at this time. She is eating and drinking good. MRSA swab is pending. MRSA coverage for now. Monitor labs and vital signs. 06/01/23: on examination today patient is alert and oriented x4, she denies any pain at this time. Patient states that her swelling has gotten better.
--- NOTE | 2023-06-02 14:37 | PM.IMPN ---
Progress Note: A&P Assessment and Plan (1) Cellulitis of face: Code(s): L03.211 - Cellulitis of face Status: Acute Assessment and Plan: 05/31/23: (copied from the chart) Patient presents to the ED due to left facial swelling. soft tissue head and neck CT with soft tissue stranding anterior to the left side of the mandible with submandibular lymphadenopathy. Consider cellulitis with reactive lymphadenopathy. No abscess. Antibiotic coverage with vancomycin. Blood cultures pending Continue PPI therapy. Analgesics as needed. MRSA swab ordered White count trending down 06/01/23: white blood cell count 8.0 continue vancomycin blood cultures and MRSA swab pending continue with pain control 06/02/23: White blood cell count is 6.3 blood culture showing no growth MRSA swab was negative continue with IV vancomycin, will add 2 g ceftriaxone daily continue with pain medications (2) Diabetes mellitus: Qualifiers: Diabetes mellitus complication status: without complication Diabetes mellitus fci insulin use: without longwall foreman use Diabetes mellitus type: type 2 Qualified Code(s): E11.9 - Type 2 diabetes mellitus without complications Code(s): E11.9 - Type 2 diabetes mellitus without complications Status: Acute Assessment and Plan: 05/31/23: (copied from the chart) Will continue the patient's home metformin. Will add Accu-Cheks a.c. HS and hypoglycemia protocol. Will also add low-dose sliding scale insulin if patient develops hyperglycemia in the setting of acute infection. 06/01/23: blood sugars ranging 129-144 continue with current treatment plan 06/02/23: blood sugars ranging 113-137 no change to current treatment plan (3) Moderate persistent asthma: Qualifiers: Asthma complication type: uncomplicated Qualified Code(s): J45.40 - Moderate persistent asthma, uncomplicated Code(s): J45.40 - Moderate persistent asthma, uncomplicated Status: Acute Assessment and Plan: 05/31/23: (copied from the chart) Will monitor and continue home medications. 06/01/23: no change to current treatment plan Time Spent With Patient Time with patient: 25 - 35 minutes Subjective Date/time seen: 06/02/23 14:37 Interval history: Interval history: This is a 57 year old female who presented to the hospital on 05/31/2023 with worsening erythema and swelling on the left side of her face. She stated that she had a small pimple in the inside of her left nostril 4 days ago that popped and then she started to notice more swelling. Work up in hospital includes a CT of the soft tissue of the neck with contrast which revealed mild soft tissue stranding anterior to the left side of the mandible with submandibular lymphadenopathy resembling cellulitis. Patient was started on Vancomycin IV. MRSA and blood cultures pending. 05/31/23: Nose lesion developed 2 days ago and when she pushed on skin the lesion would start to ooze pus. Swelling progressed all the way down patient's left cheek and into her neck. She denies any difficulty breathing. Denies fever, chills, body aches, nausea and vomiting. She has no difficulty swallowing at this time. She is eating and drinking good. MRSA swab is pending. MRSA coverage for now. Monitor labs and vital signs. 06/01/23: on examination today patient is alert and oriented x4, she denies any pain at this time. Patient states that her swelling has gotten better. vitall signs are stable, she is afebrile , on room air. She has no new complaints today. Labs today revealed white blood cell count is 8.0, hemoglobin 12.9, hematocrit 39.9, sodium 133, potassium 4.1, BUN 11, creatinine 0.6, and had sugars have been ranging 129-144. Liver enzymes were normal. MRSA and blood cultures are still pending. she remains on vancomycin. 06/02/23: on examination today patient is alert and orient
[2023-06-02] MEDS: cefTRIAXone 2 GM/NS 100 ML 2 GM/100 ML BAG IVPB (15:16)
[2023-06-02 17:09] LABS: Glucose Point of Care 135 mg/dl (65-105)
[2023-06-02] MEDS: GABAPENTIN 300 MG CAPSULE 600 MG PO (17:10)
[2023-06-02 21:10] LABS: Glucose Point of Care 134 mg/dl (65-105)
[2023-06-03] MEDS: KETOROLAC 15 MG/ML VIAL (*BKC) IV PUSH ×3 (03:47→21:42)
[2023-06-03 05:38] VITALS: BP 131/68; PULSE 65; RESP 16; TEMP 36.9; O2SAT 98
[2023-06-03 06:09] LABS: Hematocrit 39.1 % (37.0-47.0); Hemoglobin 12.5 g/dL (12.0-15.0); Mean Corpuscular Hemoglobin 29.8 pg (26-34); Mean Corpuscular Volume 93.1 fl (80-100); Mean Platelet Volume 10.7 fl (7.4-10.4); Platelet Count Result 200 k/mm3 (150-375); Red Cell Distribution Width 12.9 % (11.5-14.5); White Blood Count 6.4 K/mm3 (4.5-10.0)
[2023-06-03 06:23] LABS: Anion Gap 5 mmol/L (8-16); Blood Urea Nitrogen 10 mg/dL (7-17); Calcium 8.5 mg/dL (8.4-10.2); Carbon Dioxide 26 mmol/L (22-30); Chloride 102 mmol/L (98-107); Estimated CRCL calculation 123 ml/min; Estimated Glomerular Filt Rate > 60; Glucose 117 mg/dL (65-110); Potassium 4.1 mmol/L (3.4-5.0); Sodium 133 mmol/L (137-145)
[2023-06-03] MEDS: FLUTICASONE/UMECLIDIN/VILANTER 200-62.5-25 MCG ELLIPTA 1 PUFF INHALATION (07:25)
[2023-06-03 07:26] VITALS: PULSE 82; RESP 16; O2SAT 97
--- NOTE | 2023-06-03 07:33 | P.PNIM_ITS ---
Progress Note: A&P Assessment and Plan (1) Cellulitis of face: Code(s): L03.211 - Cellulitis of face Status: Acute Assessment and Plan: 05/31/23: (copied from the chart) * Patient presents to the ED due to left facial swelling. soft tissue head and neck CT with soft tissue stranding anterior to the left side of the mandible with submandibular lymphadenopathy. Consider cellulitis with reactive lymphadenopathy. No abscess. * Antibiotic coverage with vancomycin. * Blood cultures pending * Continue PPI therapy. * Analgesics as needed. * MRSA swab ordered * White count trending down 06/01/23: * white blood cell count 8.0 * continue vancomycin * blood cultures and MRSA swab pending * continue with pain control 06/02/23: * White blood cell count is 6.3 * blood culture showing no growth * MRSA swab was negative * continue with IV vancomycin, will add 2 g ceftriaxone daily * continue with pain medications 06/03/23: * White blood cell count today is 6.4 * Blood cultures still showing no growth * Continue with vancomycin and ceftriaxone * Continue with pain management (2) Diabetes mellitus: Qualifiers: Diabetes mellitus complication status: without complication Diabetes mellitus order entry clerk insulin use: without mcc use Diabetes mellitus type: type 2 Qualified Code(s): E11.9 - Type 2 diabetes mellitus without complications Code(s): E11.9 - Type 2 diabetes mellitus without complications Status: Acute Assessment and Plan: 05/31/23: (copied from the chart) * Will continue the patient's home metformin. Will add Accu-Cheks a.c. HS and hypoglycemia protocol. Will also add low-dose sliding scale insulin if patient develops hyperglycemia in the setting of acute infection. 06/01/23: * blood sugars ranging 129-144 * continue with current treatment plan 06/02/23: * blood sugars ranging 113-137 * no change to current treatment plan 06/03/23: * Blood sugars ranging 117-135 * No change to current treatment plan (3) Moderate persistent asthma: Qualifiers: Asthma complication type: uncomplicated Qualified Code(s): J45.40 - Moderate persistent asthma, uncomplicated Code(s): J45.40 - Moderate persistent asthma, uncomplicated Status: Acute Assessment and Plan: 05/31/23: (copied from the chart) * Will monitor and continue home medications. 06/01/23: * no change to current treatment plan Time Spent With Patient Time with patient: 15 - 25 minutes Subjective Date/time seen: 06/03/23 07:33 Interval history: Interval history: This is a 57 year old female who presented to the hospital on 05/31/2023 with worsening erythema and swelling on the left side of her face. She stated that she had a small pimple in the inside of her left nostril 4 days ago that popped and then she started to notice more swelling. Work up in hospital includes a CT of the soft tissue of the neck with contrast which revealed mild soft tissue stranding anterior to the left side of the mandible with submandibular lymphadenopathy resembling cellulitis. Patient was started on Vancomycin IV. MRSA and blood cultures pending. 05/31/23: Nose lesion developed 2 days ago and when she pushed on skin the lesion would start to ooze pus. Swelling progressed all the way down patient's left cheek and into her neck. She denies any difficulty breathing. Denies fever, chills, body aches, nausea and vomiting. She has no difficulty swallowing at this time
--- NOTE | 2023-06-03 07:33 | PM.IMPN ---
Progress Note: A&P Assessment and Plan (1) Cellulitis of face: Code(s): L03.211 - Cellulitis of face Status: Acute Assessment and Plan: 05/31/23: (copied from the chart) Patient presents to the ED due to left facial swelling. soft tissue head and neck CT with soft tissue stranding anterior to the left side of the mandible with submandibular lymphadenopathy. Consider cellulitis with reactive lymphadenopathy. No abscess. Antibiotic coverage with vancomycin. Blood cultures pending Continue PPI therapy. Analgesics as needed. MRSA swab ordered White count trending down 06/01/23: white blood cell count 8.0 continue vancomycin blood cultures and MRSA swab pending continue with pain control 06/02/23: White blood cell count is 6.3 blood culture showing no growth MRSA swab was negative continue with IV vancomycin, will add 2 g ceftriaxone daily continue with pain medications 06/03/23: White blood cell count today is 6.4 Blood cultures still showing no growth Continue with vancomycin and ceftriaxone Continue with pain management (2) Diabetes mellitus: Qualifiers: Diabetes mellitus complication status: without complication 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 Will add Accu-Cheks a.c. HS and hypoglycemia protocol. Will also add low-dose sliding scale insulin if patient develops hyperglycemia in the setting of acute infection. 06/01/23: blood sugars ranging 129-144 continue with current treatment plan 06/02/23: blood sugars ranging 113-137 no change to current treatment plan 06/03/23: Blood sugars ranging 117-135 No change to current treatment plan (3) Moderate persistent asthma: Qualifiers: Asthma complication type: uncomplicated Qualified Code(s): J45.40 - Moderate persistent asthma, uncomplicated Code(s): J45.40 - Moderate persistent asthma, uncomplicated Status: Acute Assessment and Plan: 05/31/23: (copied from the chart) Will monitor and continue home medications. 06/01/23: no change to current treatment plan Time Spent With Patient Time with patient: 15 - 25 minutes Subjective Date/time seen: 06/03/23 07:33 Interval history: Interval history: This is a 57 year old female who presented to the hospital on 05/31/2023 with worsening erythema and swelling on the left side of her face. She stated that she had a small pimple in the inside of her left nostril 4 days ago that popped and then she started to notice more swelling. Work up in hospital includes a CT of the soft tissue of the neck with contrast which revealed mild soft tissue stranding anterior to the left side of the mandible with submandibular lymphadenopathy resembling cellulitis. Patient was started on Vancomycin IV. MRSA and blood cultures pending. 05/31/23: Nose lesion developed 2 days ago and when she pushed on skin the lesion would start to ooze pus. Swelling progressed all the way down patient's left cheek and into her neck. She denies any difficulty breathing. Denies fever, chills, body aches, nausea and vomiting. She has no difficulty swallowing at this time. She is eating and drinking good. MRSA swab is pending. MRSA coverage for now. Monitor labs and vital signs. 06/01/23: on examination today patient is alert and oriented x4, she denies any pain at this time. Patient states that her swelling has gotten better. vitall signs are stable, she is afebrile , on room air. She has no new complaints today. Labs today revealed white blood cell count is 8.0, hemoglobin 12.9, hematocrit 39.9, sodium 133
[2023-06-03] MEDS: FLUoxetine HCL 20 MG CAPSULE PO (08:23)
[2023-06-03] MEDS: PANTOPRAZOLE 40 MG TABLET PO ×2 (08:23→19:54)
[2023-06-03] MEDS: ENOXAPARIN 40 MG/0.4 ML SYRINGE SUB-Q (08:23)
[2023-06-03] MEDS: MONTELUKAST SODIUM 10 MG TABLET PO (08:23)
[2023-06-03] MEDS: LETROZOLE (*CHEMO) 2.5 MG TABLET PO (08:23)
[2023-06-03] MEDS: OLMESARTAN MEDOXOMIL 20 MG TABLET PO (08:23)
[2023-06-03] MEDS: AZELASTINE HCL NASAL 0.1% 137 MCG/SPR 30 ML BTL 1 SPRAY NASAL ×2 (08:24→19:55)
[2023-06-03] MEDS: MUPIROCIN 2% OINT 22 GM TUBE 1 APPLIC TOPICAL ×2 (08:24→17:02)
[2023-06-03 08:37] LABS: Glucose Point of Care 181 mg/dl (65-105)
[2023-06-03 12:08] LABS: Glucose Point of Care 112 mg/dl (65-105)
[2023-06-03 13:56] VITALS: BP 128/51; PULSE 70; RESP 16; TEMP 36.8; O2SAT 97
[2023-06-03] MEDS: GABAPENTIN 300 MG CAPSULE 600 MG PO (17:02)
[2023-06-03] MEDS: cefTRIAXone 2 GM/NS 100 ML 2 GM/100 ML BAG IVPB (17:02)
[2023-06-03 17:09] LABS: Glucose Point of Care 117 mg/dl (65-105)
[2023-06-03 20:00] VITALS: PULSE 65; RESP 16; O2SAT 100
[2023-06-03 20:48] VITALS: BP 130/61; PULSE 65; RESP 16; TEMP 36.6; O2SAT 100
[2023-06-03 22:21] LABS: Glucose Point of Care 146 mg/dl (65-105)
[2023-06-04] VITALS (7 sets, daily range): BP systolic 121–136; BP diastolic 63–70; PULSE 60–83; RESP 14–18; TEMP 36–36.6; O2SAT 99–100
[2023-06-04] MEDS: ACETAMINOPHEN 325 MG TABLET 650 MG PO (04:45)
[2023-06-04 04:57] LABS: Hematocrit 38.6 % (37.0-47.0); Hemoglobin 12.6 g/dL (12.0-15.0); Mean Corpuscular HGB Conc 32.6 g/dl (32-36); Mean Corpuscular Hemoglobin 30.1 pg (26-34); Mean Corpuscular Volume 92.1 fl (80-100); Mean Platelet Volume 10.5 fl (7.4-10.4); Platelet Count Result 209 k/mm3 (150-375); Red Blood Count 4.19 M/mm3 (4.2-5.4); Red Cell Distribution Width 12.8 % (11.5-14.5); White Blood Count 6.9 K/mm3 (4.5-10.0)
[2023-06-04 05:07] LABS: Anion Gap 2 mmol/L (8-16); Blood Urea Nitrogen 11 mg/dL (7-17); Calcium 8.5 mg/dL (8.4-10.2); Carbon Dioxide 31 mmol/L (22-30); Chloride 100 mmol/L (98-107); Estimated CRCL calculation 107 ml/min; Estimated Glomerular Filt Rate > 60; Glucose 120 mg/dL (65-110); Sodium 133 mmol/L (137-145)
--- NOTE | 2023-06-04 07:18 | P.PNIM_ITS ---
Progress Note: A&P Assessment and Plan (1) Cellulitis of face: Code(s): L03.211 - Cellulitis of face Status: Acute Assessment and Plan: 05/31/23: (copied from the chart) * Patient presents to the ED due to left facial swelling. soft tissue head and neck CT with soft tissue stranding anterior to the left side of the mandible with submandibular lymphadenopathy. Consider cellulitis with reactive lymphadenopathy. No abscess. * Antibiotic coverage with vancomycin. * Blood cultures pending * Continue PPI therapy. * Analgesics as needed. * MRSA swab ordered * White count trending down 06/01/23: * white blood cell count 8.0 * continue vancomycin * blood cultures and MRSA swab pending * continue with pain control 06/02/23: * White blood cell count is 6.3 * blood culture showing no growth * MRSA swab was negative * continue with IV vancomycin, will add 2 g ceftriaxone daily * continue with pain medications 06/03/23: * White blood cell count today is 6.4 * Blood cultures still showing no growth * Continue with vancomycin and ceftriaxone * Continue with pain management 06/04/23: * WBC 6.9 * Blood cultures still showing no growth * continue with vancomycin and ceftriaxone IV * continue with pain management * area of cellulitis looking a lot better today, swelling and redness which has shown improvement, if continues to improve likely discharge tomorrow (2) Diabetes mellitus: Qualifiers: Diabetes mellitus complication status: without complication 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 Will add Accu-Cheks a.c. HS and hypoglycemia protocol. Will also add low-dose sliding scale insulin if patient develops hyperglycemia in the setting of acute infection. 06/01/23: * blood sugars ranging 129-144 * continue with current treatment plan 06/02/23: * blood sugars ranging 113-137 * no change to current treatment plan 06/03/23: * Blood sugars ranging 117-135 * No change to current treatment plan 06/04/23: * Blood sugars ranging 112-146 * No change to current treatment plan (3) Moderate persistent asthma: Qualifiers: Asthma complication type: uncomplicated Qualified Code(s): J45.40 - Moderate persistent asthma, uncomplicated Code(s): J45.40 - Moderate persistent asthma, uncomplicated Status: Acute Assessment and Plan: 05/31/23: (copied from the chart) * Will monitor and continue home medications. 06/01/23: * no change to current treatment plan 06/04/23: * patient reporting nonproductive coughing today, requesting breathing treatment * breathing treatments ordered q.6 hours and p.r.n. Time Spent With Patient Time with patient: 15 - 25 minutes Subjective Date/time seen: 06/04/23 07:18 Interval history: Interval history: This is a 57 year old female who presented to the hospital on 05/31/2023 with worsening erythema and swelling on the left side of her face. She stated that she had a small pimple in the inside of her left nostril 4 days ago that popped and then she started to notice more swelling. Work up in hospital includes a CT of the soft tissue of
--- NOTE | 2023-06-04 07:18 | PM.IMPN ---
Progress Note: A&P Assessment and Plan (1) Cellulitis of face: Code(s): L03.211 - Cellulitis of face Status: Acute Assessment and Plan: 05/31/23: (copied from the chart) Patient presents to the ED due to left facial swelling. soft tissue head and neck CT with soft tissue stranding anterior to the left side of the mandible with submandibular lymphadenopathy. Consider cellulitis with reactive lymphadenopathy. No abscess. Antibiotic coverage with vancomycin. Blood cultures pending Continue PPI therapy. Analgesics as needed. MRSA swab ordered White count trending down 06/01/23: white blood cell count 8.0 continue vancomycin blood cultures and MRSA swab pending continue with pain control 06/02/23: White blood cell count is 6.3 blood culture showing no growth MRSA swab was negative continue with IV vancomycin, will add 2 g ceftriaxone daily continue with pain medications 06/03/23: White blood cell count today is 6.4 Blood cultures still showing no growth Continue with vancomycin and ceftriaxone Continue with pain management 06/04/23: WBC 6.9 Blood cultures still showing no growth continue with vancomycin and ceftriaxone IV continue with pain management area of cellulitis looking a lot better today, swelling and redness which has shown improvement, if continues to improve likely discharge tomorrow (2) Diabetes mellitus: Qualifiers: Diabetes mellitus complication status: without complication Diabetes mellitus rope rider insulin use: without rope rider use Diabetes mellitus type: type 2 Qualified Code(s): E11.9 - Type 2 diabetes mellitus without complications Code(s): E11.9 - Type 2 diabetes mellitus without complications Status: Acute Assessment and Plan: 05/31/23: (copied from the chart) Will continue the patient's home metformin. Will add Accu-Cheks a.c. HS and hypoglycemia protocol. Will also add low-dose sliding scale insulin if patient develops hyperglycemia in the setting of acute infection. 06/01/23: blood sugars ranging 129-144 continue with current treatment plan 06/02/23: blood sugars ranging 113-137 no change to current treatment plan 06/03/23: Blood sugars ranging 117-135 No change to current treatment plan 06/04/23: Blood sugars ranging 112-146 No change to current treatment plan (3) Moderate persistent asthma: Qualifiers: Asthma complication type: uncomplicated Qualified Code(s): J45.40 - Moderate persistent asthma, uncomplicated Code(s): J45.40 - Moderate persistent asthma, uncomplicated Status: Acute Assessment and Plan: 05/31/23: (copied from the chart) Will monitor and continue home medications. 06/01/23: no change to current treatment plan 06/04/23: patient reporting nonproductive coughing today, requesting breathing treatment breathing treatments ordered q.6 hours and p.r.n. Time Spent With Patient Time with patient: 15 - 25 minutes Subjective Date/time seen: 06/04/23 07:18 Interval history: Interval history: This is a 57 year old female who presented to the hospital on 05/31/2023 with worsening erythema and swelling on the left side of her face. She stated that she had a small pimple in the inside of her left nostril 4 days ago that popped and then she started to notice more swelling. Work up in hospital includes a CT of the soft tissue of the neck with contrast which revealed mild soft tissue stranding anterior to the left side of the mandible with submandibular lymphadenopathy resembling cellulitis. Patient was started on Vancomycin IV. MRSA and blood cultures pending. 05/31/23: Nose lesion developed 2 days ago and when she pushed on skin the lesion would start to ooze pus. Swelling progressed all the way down patient's left cheek and into her neck. She denies any difficulty breathing. Denies fever, chills, body aches, shanthi
[2023-06-04] MEDS: AZELASTINE HCL NASAL 0.1% 137 MCG/SPR 30 ML BTL 1 SPRAY NASAL ×2 (08:21→20:53)
[2023-06-04] MEDS: LETROZOLE (*CHEMO) 2.5 MG TABLET PO (08:21)
[2023-06-04] MEDS: PANTOPRAZOLE 40 MG TABLET PO ×2 (08:22→20:53)
[2023-06-04] MEDS: MUPIROCIN 2% OINT 22 GM TUBE 1 APPLIC TOPICAL ×2 (08:22→17:04)
[2023-06-04] MEDS: MONTELUKAST SODIUM 10 MG TABLET PO (08:22)
[2023-06-04] MEDS: ENOXAPARIN 40 MG/0.4 ML SYRINGE SUB-Q (08:22)
[2023-06-04] MEDS: OLMESARTAN MEDOXOMIL 20 MG TABLET PO (08:22)
[2023-06-04] MEDS: FLUoxetine HCL 20 MG CAPSULE PO (08:22)
[2023-06-04 08:37] LABS: Glucose Point of Care 123 mg/dl (65-105)
[2023-06-04 12:09] LABS: Glucose Point of Care 150 mg/dl (65-105)
[2023-06-04] MEDS: ALBUTEROL SULFATE NEB 2.5 MG/3 ML INH INHALATION (15:19)
[2023-06-04] MEDS: IPRATROPIUM BR 0.02% INH SOLN 0.5 MG/2.5 ML VIAL INHALATION (15:19)
[2023-06-04 16:55] LABS: Glucose Point of Care 145 mg/dl (65-105)
[2023-06-04] MEDS: cefTRIAXone 2 GM/NS 100 ML 2 GM/100 ML BAG IVPB (17:04)
[2023-06-04] MEDS: GABAPENTIN 300 MG CAPSULE 600 MG PO (17:04)
[2023-06-05] MEDS: KETOROLAC 15 MG/ML VIAL (*BKC) IV PUSH (01:12)
[2023-06-05 05:33] LABS: Hematocrit 37.5 % (37.0-47.0); Mean Corpuscular Hemoglobin 29.9 pg (26-34); Mean Corpuscular Volume 93.3 fl (80-100); Mean Platelet Volume 10.8 fl (7.4-10.4); Platelet Count Result 190 k/mm3 (150-375); Red Blood Count 4.02 M/mm3 (4.2-5.4); Red Cell Distribution Width 13.1 % (11.5-14.5); White Blood Count 7.8 K/mm3 (4.5-10.0)
[2023-06-05 05:43] LABS: Anion Gap 5 mmol/L (8-16); Blood Urea Nitrogen 9 mg/dL (7-17); Calcium 8.6 mg/dL (8.4-10.2); Carbon Dioxide 27 mmol/L (22-30); Chloride 101 mmol/L (98-107); Estimated CRCL calculation 123 ml/min; Estimated Glomerular Filt Rate > 60; Glucose 113 mg/dL (65-110); Sodium 133 mmol/L (137-145)
[2023-06-05 06:00] VITALS: BP 139/66; PULSE 72; RESP 18; TEMP 36.2; O2SAT 97
--- NOTE | 2023-06-05 07:09 | PM.DS ---
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 watermaster insulin use: without watermaster use Diabetes mellitus type: type 2 Qualified Code(s): E11.9 - Type 2 diabetes mellitus without complications Code(s): E11.9 - Type 2 diabetes mellitus without complications Status: Acute (3) Moderate persistent asthma: Qualifiers: Asthma complication type: uncomplicated Qualified Code(s): J45.40 - Moderate persistent asthma, uncomplicated Code(s): J45.40 - Moderate persistent asthma, uncomplicated Status: Acute DS: Summary Hospital Course Reason for hospitalization: cellulitis of the face Hospital Course: This is a 57 year old female who presented to the hospital on 05/31/2023 with worsening erythema and swelling on the left side of her face. Patient stated that she had a small pimple in the inside of her last nostril 4 days ago that popped and then she noticed the swelling prompting her to come in for further evaluation. Work up in the hospital included a CT of the soft tissue of the neck with contrast which revealed mild soft tissue stranding anterior to the left side of the mandible with submandibular lymphadenopathy resembling cellulitis. MRSA and blood cultures were obtained and patient was initially started on Vancomycin IV. Her MRSA swab came back negative on 06/02/23 however the swelling and erythema has not receded. Rocephin IV was added in addition to the Vancomycin. She had 3 doses of IV Rocephin and now the erythema and swelling has gone down significantly. Today she is feeling much better. VSS, she is afebrile, she is on room air. Pain is well controlled. Labs today reveal WBC 7.8, Na+ 133, K+ 4.0, Cholride 101, BUN 9, Creatinine 0.60, BG ranging 113-154. Blood cultures x2 showing no growth day 6. Patient is stable for discharge. She will be sent home on a 7 day course of Cefdinir and will need to follow up with her PCP in 1 week. Status at Discharge Cognitive/behavioral status at discharge: Alert and oriented x4 Functional status at discharge: independent ambulation Overall status at discharge: patient is progressing back to baseline Time Spent with Patient Time attestation: Total time spent providing and/or coordinating discharge services: Time spent: Greater than 30 minutes Exam Narrative: GENERAL: Comfortable, no acute distress HENMT: moist mucous membranes, left sided mandibular edema and redness, skin is warm and tender, airway crowded however EYES: EOM intact b/l, PERRLA NECK: cervical and submandibular lymphadenopathy. supple, trachea midline RESPIRATORY:lungs clear to auscultation bilaterally, no adventitious lung sounds. Currently on room air. CARDIO: RRR, normal S1 and S2 . No murmur, gallop, or friction rub. Peripheral pulses intact. GI: soft, nontender, non-distended, normoactive bowel sounds present SKIN: no rashes, skin intact.Redness and swelling significantly reduced, she does have some peeling over cellulitis area. EXTREMITIES: no edema, redness or tenderness DS: Data Data Completed and Pending Completed studies during hospitalization: Soft tussue neck CT Pending studies at discharge: None Labs on day of discharge: Labs from last 24 hours 06/05/23 06/04/23 06/04/23 04:54 16:45 12:13 WBC 7.8 RBC 4.02 L Hgb 12.0 Hct 37.5 MCV 93.3 MCH 29.9 MCHC 32.0 RDW 13.1 Plt Count 190 MPV 10.8 H Sodium 133 L Potassium 4.0 Chloride 101 Carbon Dioxide 27 Anion Gap 5 L BUN 9 Creatinine 0.60 L Estim Creat Clear Calc 123 Estimated GFR > 60 Glucose 113 H POC Capil
[2023-06-05] MEDS: ERGOCALCIFEROL 50,000 UNITS CAPSULE 50000 UNITS PO (08:10)
[2023-06-05] MEDS: OLMESARTAN MEDOXOMIL 20 MG TABLET PO (08:10)
[2023-06-05] MEDS: MUPIROCIN 2% OINT 22 GM TUBE 1 APPLIC TOPICAL (08:10)
[2023-06-05] MEDS: LETROZOLE (*CHEMO) 2.5 MG TABLET PO (08:10)
[2023-06-05] MEDS: FLUoxetine HCL 20 MG CAPSULE PO (08:10)
[2023-06-05] MEDS: MONTELUKAST SODIUM 10 MG TABLET PO (08:10)
[2023-06-05] MEDS: PANTOPRAZOLE 40 MG TABLET PO (08:10)
[2023-06-05] MEDS: AZELASTINE HCL NASAL 0.1% 137 MCG/SPR 30 ML BTL 1 SPRAY NASAL (08:10)
[2023-06-05] MEDS: ENOXAPARIN 40 MG/0.4 ML SYRINGE SUB-Q (08:11)
[2023-06-05 08:38] LABS: Glucose Point of Care 142 mg/dl (65-105)
== END 2023-06-05 10:00 | disposition home or self-care (01) | DRG 603 ==
LOC: ANHED 05-31 00:45 → ANH2MED 05-31 01:03
PROVIDERS: Internal Medicine Critical Care Medicine; Nurse Practitioner Family; Admitting Provider Internal Medicine; Emergency Provider Physician Assistant; PCP Emergency Medicine; Visit Provider Nurse Practitioner Acute Care
DX: L03.211 Cellulitis of face (principal); Z68.42 Body mass index [BMI] 45.0-49.9, adult; J45.40 Moderate persistent asthma, uncomplicated; E11.9 Type 2 diabetes mellitus without complications; M81.0 Age-related osteoporosis without current pathological fracture; G47.30 Sleep apnea, unspecified; M79.7 Fibromyalgia; R59.1 Generalized enlarged lymph nodes; M17.0 Bilateral primary osteoarthritis of knee; E66.9 Obesity, unspecified; Z23 Encounter for immunization; Z86.718 Personal history of other venous thrombosis and embolism
CPT/HCPCS: 36415; 70491; 80048; 80053; 80202; 82948; 83605; 85025; 85027; 87040; 87081; 90471; 90694; 94640; 96361; 96365; 96366; 96367; 96372; 96374; 96375; 96376; 99285; A9270; G0008; G0378; J0696; J1650; J1885; J2405; J3370; J7030; Q9967

== ENCOUNTER 2023-07-06 14:59 | Outpatient (CLI) | payer OTHER, SELFPAY ==
--- NOTE | ~2023-07-06 | CT_ITS ---
Clinical Indication: Breast cancer, cough CT Scan of the Chest with Contrast: Technique: Contiguous sections were acquired throughout the chest after intravenous administration of 75 cc of Omnipaque 350. Dose reduction technique was used on this scan by utilizing automated exposu re control and iterative reconstruction technique. The dose-length product (DLP) was 612.39 mGy-cm. Findings: Shotty superior mediastinal lymph nodes are unchanged from prior neck CT dated 05/03/2023. No axillary lymphadenopathy. Mildly enlarged subcarinal lymph node present. There is no filling defect in the pu lmonary arterial tree to suggest pulmonary embolus. There is no evidence of aortic dissection or aneu rysm. There is no evidence of pleural or pericardial effusion. The lungs are clear. No pulmonary nodules or infiltrates are noted. Images through the upper abdomen reveal probable small left hepatic lobe cysts. Impression: Mildly prominent mediastinal lymph nodes, largest in the subcarinal region. These are nonspecific. Di agnostic considerations include infectious/inflammatory reactive lymph nodes, mildly prominent normal lymph nodes, or possibly metastatic disease. Correlate with relevant treatment history. Comparison w ith any more remote chest CTs would be useful to assess for chronicity of these findings. Reviewed, dictated and finalized at [facility]. 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 The se are nonspecific. Diagnostic considerations include infectious/inflammatory r eactive lymph nodes, mildly prominent normal lymph nodes, or possibly metastati c disease. Correlate with relevant treatment history. Comparison with any more remote chest CTs would be useful to assess for chronicity of these findings.
[2023-07-06 15:37] LABS: Estimated Glomerular Filt Rate > 60
== END 2023-07-06 15:00 | disposition home or self-care (01) ==
PROVIDERS: PCP Emergency Medicine; Visit Provider Internal Medicine Pulmonary Disease
DX: C50.919 Malignant neoplasm of unspecified site of unspecified female breast (principal); J45.998 Other asthma; R93.89 Abnormal findings on diagnostic imaging of other specified body structures
CPT/HCPCS: 71260; Q9967

== ENCOUNTER 2023-07-18 15:12 | Outpatient (CLI) | payer OTHER, SELFPAY ==
--- NOTE | 2023-07-18 15:16 | ECHO_ITS ---
Patient Info Name: Autumn Martin Age: 58 years : 1965 Gender: Female Ht: 67 in Wt: 289 lbs BSA: 2.56 m2 HR: 61 bpm BP: 120 / 80 mmHg Technical Quality: Fair Exam Date: 07/18/2023 3:22 PM Exam Location: Echo Lab Patient Status: Outpatient Admit Date: 07/18/2023 Staff Ordering Physician: Norbert Gonzalez MD Attending Provider: Norbert Gonzalez MD Referring Physician: Carlos DOWNEY; Exam Type: CA echo doppler color flow Study Info Indications R06.02 - Shortness of breath Complete two-dimensional, color flow and Doppler transthoracic echocardiogram is performed. Summary 1. Complete two-dimensional, color flow and Doppler transthoracic echocardiogram is performed. 2. Left ventricular chamber dimension is normal. 3. Left ventricular systolic function is normal, estimated at 60-65%. 4. The left ventricular diastolic function is abnormal. 5. E/e' 11 is mildly elevated. 6. Left atrial chamber dimension is mildly enlarged. 7. There is trace mitral valve regurgitation. 8. There is trace tricuspid valve regurgitation. 9. No pulmonary hypertension, estimated pulmonary arterial systolic pressure is 32 mmHg. 10. There is trace pulmonic regurgitation. 11. Dilated inferior vena cava with >50% collapse upon inspiration consistent with elevated right atrial pressure, 10 mmHg. Left Ventricle E/e' 11 is mildly elevated. Left ventricular chamber dimension is normal. Left ventricular systolic function is normal, estimated at 60-65%. The left ventricular diastolic function is abnormal. Right Ventricle Right ventricular systolic function is normal and with normal TAPSE 2.8 cm. Right ventricular chamber dimension is normal. Left Atria Left atrial chamber dimension is mildly enlarged. Right Atria Right atrial chamber dimension is normal. Aortic Valve The aortic valve is trileaflet. There is no aortic valve stenosis. There is no aortic valve regurgitation. Pulmonic Valve There is trace pulmonic regurgitation. Mitral Valve There is no mitral valve stenosis. There is trace mitral valve regurgitation. Tricuspid Valve There is trace tricuspid valve regurgitation. No pulmonary hypertension, estimated pulmonary arterial systolic pressure is 32 mmHg. Pericardium/Pleural There is no pericardial effusion. Inferior Vena Cava Dilated inferior vena cava with >50% collapse upon inspiration consistent with elevated right atrial pressure, 10 mmHg. Aorta The aortic root size at the sinus of Valsalva is normal. Left Ventricular Outflow Tract Name Value Normal LVOT 2D LVOT Diameter 2.0 cm LVOT Doppler LVOT Peak Gradient 6 mmHg LVOT Mean Gradient 3 mmHg LVOT VTI 29 cm LVOT VTI/AV VTI Ratio 0.8 LVOT Stroke Volume 93 ml LVOT CO 5.8 l/min LVOT CI 2.3 l/min/m2 Pulmonic Valve Name Value Normal PV Doppler -----
== END 2023-07-18 15:13 | disposition home or self-care (01) ==
LOC: ANHCARD 15:15
PROVIDERS: PCP Emergency Medicine; Visit Provider Internal Medicine Pulmonary Disease
DX: R93.1 Abnormal findings on diagnostic imaging of heart and coronary circulation (principal); I34.0 Nonrheumatic mitral (valve) insufficiency; I07.1 Rheumatic tricuspid insufficiency; I37.1 Nonrheumatic pulmonary valve insufficiency; R06.02 Shortness of breath
CPT/HCPCS: 93306

== ENCOUNTER 2024-09-07 16:11 | Outpatient (CLI) | payer OTHER, SELFPAY ==
--- NOTE | ~2024-09-07 | US_ITS ---
EXAMINATION: US venous doppler LE RT DATE: 09/07/2024 16:55 INDICATION: Pain TECHNIQUE: Grayscale ultrasound images without and with compression and Doppler ultrasound images of the right lower extremity veins were obtained. COMPARISON: None. FINDINGS: The visualized portions of right common femoral vein, profunda (deep) femoral vein, femoral vein, pop liteal vein, peroneal veins, posterior tibial veins, and greater saphenous vein outflow are patent. IMPRESSION: 1. No deep venous thrombosis. Reviewed, dictated and finalized at location A. IC RELATIONS ANALYST
--- OUTSIDE RECORDS SUMMARY | 2024-09-07 16:14 | XMS_ITS | Referral Summary ---
Author Organization [facility] Address [address] [place] [address] Care Team Providers Care Senior Mobile Developer Name Role Phone Max Guerrero MD Primary Care Provider [phone] Sowmya Arana MD Unavailable [phone] Williams Mcfarland DO Unavailable [phone] Norbert Arreguin MD Unavailable [phone] Encounters Date Type Department Care Team Description 07/02/2024 3:45 PM SPECIALIST FIELD ENGINEER Lab [facility] at [address] [address] Malignant neoplasm of upper-inner quadrant of left breast in female, estrogen receptor positive (HCC) 07/02/2024 4:15 PM SPECIALIST FIELD ENGINEER Office Visit [facility] [address] [place] [address] [address] [place] [address] Williams Mcfarland DO Malignant neoplasm of upper-inner quadrant of left breast in female, estrogen receptor positive (HCC) (Primary Dx) from Last 3 Months Allergies Active Allergy Reactions Criticality Noted Date Comments Lisinopril Cough Low 12/01/2018 Morphine Rash Medium 03/30/2018 Medications VENTOLIN HFA 90 mcg/actuation inhaler Inhale 2 puffs every 6 (six) hours as needed 8 Active VITAMIN D2 50,000 unit capsule 1 capsule (50,000 Units total) Takes twice monthly 8 Active BREO ELLIPTA 200-25 mcg/dose diskus inhaler 1 puff daily 8 Active FLUoxetine (PROzac) 20 mg capsule Take 1 capsule (20 mg total) by mouth daily 8 Active gabapentin (NEURONTIN) 300 mg capsule Take 2 capsules (600 mg total) by mouth nightly Active metFORMIN (GLUCOPHAGE) 500 mg tablet Take 1 tablet (500 mg total) by mouth daily with breakfast 2 Active montelukast (SINGULAIR) 10 mg tablet Take 1 tablet (10 mg total) by mouth daily 2 Active olmesartan (BENICAR) 20 mg tablet Take 1 tablet (20 mg total) by mouth daily 2 Active meloxicam (MOBIC) 7.5 mg tablet Take 1 tablet (7.5 mg total) by mouth daily Active cetirizine 10 mg capsule Take 1 tablet by mouth daily Active acetaminophen ER (TYLENOL) 650 mg 8 hr tablet Take 1 tablet (650 mg total) by mouth every 8 (eight) hours as needed for pain Active ipratropium-albu teroL (DUO-NEB) 0.5-2.5 mg/3 mL nebulizer solution 3 Active azelastine (ASTELIN) 137 mcg (0.1 %) nasal spray USE 1 SPRAY IN EACH NOSTRIL EVERY 12 HOURS 3 Active Trelegy Ellipta 200-62.5-25 mcg inhaler 3 Active EPINEPHrine 0.3 mg/0.3 mL auto-injection syringe INJECT IN THE MUSCLE ONCE NEEDED DIRECTED 4 Active omeprazole (PriLOSEC) 40 mg capsule 4 Active nystatin powderIndication s:cutaneous candidiasis Apply topically 4 (four) times a day 30 g 1 4 11/15/19 25 Active benzonatate (TESSALON) 200 mg capsule TAKE 1 CAPSULE BY MOUTH THREE TIMES DAILY NEEDED FOR COUGH 4 Active triamcinolone (KENALOG) 0.1 % ointment APPLY TOPICALLY TO THE AFFECTED AREA THREE TIMES DAILY FOR 7 DAYS 4 Active vitamin E 1,000 unit capsule Take 1 capsule (1,000 Units total) by mouth daily Active tezepelumab-ekko (Tezspire) 210 mg/1.91 mL (110 mg/mL) syringe Inject 1.91 mL (210 mg total) under the skin every 28 (twenty-eight) days Active letrozole (FEMARA) 2.5 mg tablet TAKE 1 TABLET DAILY 90 tablet 2 4 Active Active Problems Problem Noted Date Diagnosed Date Personal history of radiation therapy 12/22/2022 Malignant neoplasm of upper- inner quadrant of left breast in female, estrogen receptor positive 07/16/2022 Cancer Staging:Clinical stage from 07/18/2022:Stage IA(cT1a, cN0, cM0, G2, ER+, IA+, HER2-) - Signed by Sowmya Arana MD on 07/18/2022 Pathologic stage from 10/26/2022:Stage IA(pT1a, pN0(sn), cM0, G2, ER+, IA+, HER2- ) - Signed by Sowmya Arana MD on 10/26/2022 Left leg DVT 06/09/2020 Assessment & Plan (06/09/2020 11:12 AM SPECIALIST FIELD ENGINEER): Impression: Prior DVT per patient report that was diagnosed at outside institution approximately 12 years ago. DVT scan performed today in office was negative for acute DVT. She does have mild hyperpigmentation of both lower extremities. I had a lengthy discussion with the patient on the importance of complying with a daily compression regimen for prevention of a progressive post phlebitic syndrome. Plan: No further vascular surgical workup or intervention currently needed. Recommend ongoing compression regimen consisting of medical grade knee-high compression stockings 20 30 mm mercury in strength with leg elevation p.r.n.. Patient follow-up on as-needed basis. Generalized edema 06/09/2020 Assessment & Plan (06/09/2020 11:13 AM SPECIALIST FIELD ENGINEER): Impression: Chronic lower extremity edema with subjective report of prior left lower extremity DVT. She has mild hyperpigmentation of both lower extremities. No acute DVT on scan today. She is not compliant with a formal daily compression regimen. Plan: Daily compression regimen for edema control in progression of post phlebitic syndrome. Stiffness of left shoulder joint 08/30/2018 Overview (08/30/2018): Added automatically from request for surgery [id number] Adhesive capsulitis of left shoulder 08/30/2018 Overview (08/30/2018): Added automatically from request for surgery [id number] Incomplete tear of left rotator cuff 03/07/2018 Overview (03/07/2018): Added automatically from request for surgery [id number] Left shoulder pain 03/07/2018 Overview (03/07/2018): Added automatically from request for surgery [id number] Bursitis of left shoulder 03/07/2018 Overview (03/07/2018): Added automatically from request for surgery [id number] Varicose veins of bilateral lower extremities wi th pain 06/08/2017 Essential hypertension 02/02/2013 Chest pain 02/14/2012 Difficulty breathing 02/14/2012 Immunizations Name Administration Dates Next Due Influenza, Quadrivalent, Rec ombinant, Egg Free, Preservative Free, Intramuscular 06/03/2020,05/14/2019 Influenza, Quadrivalent, Spl it, Preservative Free, Intramuscular 06/06/2018 Influenza, Trivalent, Preservative Free, Intramu scular 05/03/2016,05/21/2015 Tdap 03/21/2020 Social History Tobacco Use Types Packs/Day Years Used Date Smoking Tobacco: Never Passive Smoke Exposure: Never Smokeless Tobacco: Never Tobacco Cessation:Counseling Given: Not Answered Alcohol Use Standard Drinks/Week Comments No 0 (1 standard drink = 0.6 oz pur e alcohol) AUDIT-C Answer Date Recorded Q1: How often do you have a drink containing alcohol? Never 08/30/2022 Q2: How many drinks containi ng alcohol do you have on a typical day when you are drinking? Patient does not drink Q3: How often do you have si x or more drinks on one occasion? 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 Not on file Not on file Not on file Last Filed Vital Signs Vital Sign Reading Time Taken Comments Blood Pressure 130/82 07/02/2024 3:57 PM SPECIALIST FIELD ENGINEER Pulse 76 07/02/2024 3:57 PM SPECIALIST FIELD ENGINEER Temperature 36.5 C (97.7 F) 07/02/2024 3:57 PM SPECIALIST FIELD ENGINEER Respiratory Rate 18 07/02/2024 3:57 PM SPECIALIST FIELD ENGINEER Oxygen Saturation 98% 07/02/2024 3:57 PM SPECIALIST FIELD ENGINEER Inhaled Oxygen Concentration - - Weight 131.5 kg (290 lb) 07/02/2024 3:57 PM SPECIALIST FIELD ENGINEER with shoes Height 170.2 cm (5' 7 ) 07/04/2023 4:07 PM SPECIALIST FIELD ENGINEER Body Mass Index 45.42 07/04/2023 4:07 PM SPECIALIST FIELD ENGINEER Plan of Treatment Not on file Medical Devices Implanted Type Area Keymodule Assembly Machine Tender Device Identifier Shelf Expiration Date Model / Serial / Lot [employer] Partnership Marker Biospy Site Top Hat Shape Senomark [id number] - [id number] Implanted:Qty: 1 on 07/01/2022 at [facility] Clip Left: Breast [employer] [id number] 10/06/2022 SMARK-CE LERO-2S / / [id number] [employer] Ar-2324 Bcm Swivelock 4.75mm 24.5mm Self Punch Vent Shoulder [place] Suture - [id number] Implanted:Qty: 1 on 03/30/2018 by Charbel Chavis MD at [facility] Left: Shoulder [employer] 10/30/2019 AR-2324 BCM / / [id number] [employer] Juncos 20ga 7.5cm 2 Part Stabilizer Repositionable Depth Krishna [id number] - [id number] Implanted:Qty: 1 on 08/30/2022 at [facility] Coal [employer] [id number] 04/08/2027 [id number] / / [id number] [employer] Ligaclip Extra 6.2mm Ligate Open Large Clip Internal Titanium Latex Free Lt400 - [id number] Implanted:Qty: 1 on 08/30/2022 by Norbert Arreguin MD at [facility] [employer] LT400 / / Procedures Procedure Name Priority Date/Time Associated Diagnosis Comments EGFR Routine 07/02/2024 3:46 PM SPECIALIST FIELD ENGINEER Malignant neoplasm of upper-inner quadrant of left breast in female, estrogen receptor positive (HCC) DIFFERENTIAL AUTO Routine 07/02/2024 3:4 6 PM SPECIALIST FIELD ENGINEER Malignant neoplasm of upper-inner quadrant of left breast in female, estrogen receptor positive (HCC) CBC WITH AUTO DIFFERENTIAL Routine 07/02/2024 3:46 PM SPECIALIST FIELD ENGINEER Malignant neoplasm of upper-inner quadrant of left breast in female, estrogen receptor positive (HCC) COMPREHENSIVE METABOLIC PANEL Routine 07/02/2024 3:46 PM SPECIALIST FIELD ENGINEER Malignant neoplasm of upper-inner quadrant of left breast in female, estrogen receptor positive (HCC) DIAGNOSTIC MAMMOGRAM BILATERAL W OMAR Schedule Routine, Read Routine (OP Routine) 05/31/2024 9:19 AM CDT History of breast conservation therapy from Last 3 Months or Most Recently Relevant to Health Maintenance Results * eGFR (07/02/2024 3:46 PM SPECIALIST FIELD ENGINEER) eGFR >90 >=60 mL/min/1. 73 m2 Comment: Interpretive Data Reference Interval Normal >/= 90 mL/min/1.73m2 Mildly decreased* 60 - 89 mL/min/1.73m2 Mildly to moderately decreased 45 - 59 mL/min/1.73m2 Moderately to severely decreased 30 - 44 mL/min/1.73m2 Severely decreased 15 - 29 mL/min/1.73m2 Kidney Failure < 15 mL/min/1.73m2 *Relative to young adult level Estimated glomerular filtration rate is determined by the 2020 CKD-EPI equation recommended by the National Kidney Foundation (A Unifying Approach to GFR Estimation: Recommendations of the NKF-ASK Task Force on Reassessing the Inclusion of Race in Diagnosing Kidney Disease, JASN 2020). The CKD-EPI equation should not be used for patients with unstable renal function and has not been validated in children and those over 70. Current interpretive data was last reviewed 2021. Testing performed by: [address] [address] Blood 07/02/2024 3:46 PM SPECIALIST FIELD ENGINEER 07/02/2024 3:49 PM SPECIALIST FIELD ENGINEER us Williams Mcfarland DO LAB BLOOD ORDERABLES Final R esult [facility] [address] [facility] [place] [address] * (ABNORMAL) Differential, auto (07/02/2024 3:46 PM SPECIALIST FIELD ENGINEER) Neutrophil abs 3.7 1.5 - 6.5 K/cumm Comment:Testing performed by : [address] [address] Imm gran abs 0.0 0.0 - 0.1 K/cumm [facility] Comment:Testing performed by : [address] [address] Lymphocyte abs 2.4 0.8 - 3.3 K/cumm [facility] Comment:Testing performed by : [address] [address] Monocyte abs 1.1(H) 0.2 - 0.8 K/cumm [facility] Comment:Testing performed by : [address] [address] Eosinophil abs 0.1 0.0 - 0.5 K/cumm [facility] Comment:Testing performed by : [address] [address] Basophil abs 0.0 0.0 - 0.1 K/cumm [facility] Comment:Testing performed by : [address] [address] Neutrophil pct 50.0 % [facility] Comment: Interpretive Data Percent cell count reference ranges are not reported, since discordance with absolute values may lead to misinterpretation of CBC data. Current Interpretive Data was last revised on 2017. Testing performed by: [address] [address] Imm gran pct 0.4 % [facility] Comment: Interpretive Data Percent cell count reference ranges are not reported, since discordance with absolute values may lead to misinterpretation of CBC data. Current Interpretive Data was last revised on 2017. Testing performed by: [address] [address] Lymphocyte pct 31.8 % [facility] Comment: Interpretive Data Percent cell count reference ranges are not reported, since discordance with absolute values may lead to misinterpretation of CBC data. Current Interpretive Data was last revised on 2017. Testing performed by: [address] [address] Monocyte pct 15.4 % [facility] Comment: Interpretive Data Percent cell count reference ranges are not reported, since discordance with absolute values may lead to misinterpretation of CBC data. Current Interpretive Data was last revised on 2017. Testing performed by: [address] [address] Eosinophil pct 1.9 % [facility] Comment: Interpretive Data Percent cell count reference ranges are not reported, since discordance with absolute values may lead to misinterpretation of CBC data. Current Interpretive Data was last revised on 2017. Testing performed by: [address] [address] Basophil pct 0.5 % [facility] Comment: Interpretive Data Percent cell count reference ranges are not reported, since discordance with absolute values may lead to misinterpretation of CBC data. Current Interpretive Data was last revised on 2017. Testing performed by: [address] [address] Blood 07/02/2024 3:46 PM SPECIALIST FIELD ENGINEER 07/02/2024 3:49 PM SPECIALIST FIELD ENGINEER us Williams Mcfarland DO LAB BLOOD ORDERABLES Final R esult [facility] [address] [facility] [place] [address] * CBC with auto differential (07/02/2024 3:46 PM SPECIALIST FIELD ENGINEER) WBC 7.4 3.8 - 9.9 K/cumm Comment:Testing performed by : [address] [address] Hgb 13.7 11.9 - 15.5 g/dL [facility] Comment:Testing performed by : [address] [address] Hct 40.5 35.6 - 45.5 % [facility] Comment:Testing performed by : [address] [address] Plt 202 150 - 400 K/cumm [facility] Comment:Testing performed by : [address] [address] MPV 10.5 9.1 - 12.3 fL [facility] Comment:Testing performed by : [address], [address] RBC 4.65 3.90 - 5.20 M/cumm [facility] Comment:Testing performed by : [address] [address] MCV 87.1 81.3 - 96.4 fL [facility] Comment:Testing performed by : [address], [address] MCH 29.5 27.1 - 33.3 pg [facility] Comment:Testing performed by : [address] [address] MCHC 33.8 32.3 - 35.7 g/dL [facility] Comment:Testing performed by : [address], [address] RDW CV 13.2 11.1 - 14.9 % [facility] Comment:Testing performed by : [address], [address] RDW SD 41.5 35.7 - 48.1 fL [facility] Comment:Testing performed by : [address] [address] NRBC abs 0.00 0.00 - 0.01 K/cumm [facility] Comment:Testing performed by : [address], [address] Blood 07/02/2024 3:46 PM SPECIALIST FIELD ENGINEER 07/02/2024 3:49 PM SPECIALIST FIELD ENGINEER Williams Mcfarland DO LAB BLOOD ORDERABLES Final R esult [facility] [address] [facility] Department [place] [address] * Comprehensive metabolic panel (07/02/2024 3:46 PM SPECIALIST FIELD ENGINEER) Sodium 136 135 - 145 mmol/L Comment:Testing performed by : [address] [address] Potassium, pl 4.9 3.3 - 4.9 mmol/L [facility] Comment:Testing performed by : [address] [address] Chloride 101 97 - 110 mmol/L [facility] Comment:Testing performed by : [address] [address] CO2 25 22 - 32 mmol/L [facility] Comment:Testing performed by : [address] [address] Anion gap 10 2 - 15 mmol/L [facility] Comment:Testing performed by : [address] [address] BUN 20 6 - 25 mg/dL [facility] Comment:Testing performed by : [address] [address] Creatinine 0.70 0.60 - 1.10 mg/dL [facility] Comment:Testing performed by : [address] [address] Glucose 111 70 - 199 mg/dL [facility] Comment: Interpretive Data Fasting glucose >/= 126 mg/dl is diagnostic for diabetes. Fasting is defined as no caloric intake for at least 8 hours. Fasting glucose between 100 mg/dl to 125 mg/dl is diagnostic of prediabetes. In a patient with classic symptoms of hyperglycemia or hyperglycemic crisis, a random glucose >/= 200 mg/dl is diagnostic for diabetes. In the absence of unequivocal hyperglycemia, results should be confirmed by repeat testing. The classification and Diagnosis of Diabetes Diabetes Care 202; 46: S19-S40. Current interpretive data was last revised 2022. Testing performed by: [address] [address] Calcium 9.5 8.5 - 10.3 mg/dL [facility] Comment:Testing performed by : [address] [address] Bilirubin, total 0.3 0.1 - 1.2 mg/dL [facility] Comment:Testing performed by : [address] [address] Protein, pl 7.4 6.5 - 8.5 g/dL [facility] Comment:Testing performed by : [address] [address] Albumin 4.3 3.5 - 5.0 g/dL [facility] Comment:Testing performed by : [address] [address] Alk phos 77 40 - 130 Units/L [facility] Comment:Testing performed by : [address] [address] ALT 15 7 - 45 Units/L [facility] Comment:Testing performed by : [address] [address] AST 16 10 - 45 Units/L [facility] Comment:Testing performed by : [address] [address] Blood 07/02/2024 3:46 PM SPECIALIST FIELD ENGINEER 07/02/2024 3:49 PM SPECIALIST FIELD ENGINEER us Williams Mcfarland DO LAB BLOOD ORDERABLES Final R esult [facility] [address] [facility] Department [place] [address] * Diagnostic Mammogram Bilateral W Omar (05/31/2024 9:19 AM CDT) Anatomical Region Laterality Modality Breast Bilateral Mammography 05/31/2024 5:09 PM CDT Narrative 06/01/2024 4:02 PM CDT EXAM DESCRIPTION: DIAGNOSTIC MAMMOGRAM BILATERAL W OMAR REASON FOR STUDY: Lobular CA on the left COMPARISON: May 30, 2023 MAMMOGRAM TECHNIQUE: 2D and 3D tomosynthesis mammographic images were obtained. Computer aided detection was utilized. MAMMOGRAM FINDINGS: DENSITY: There are scattered areas of fibroglandular density. There are no suspicious masses. There are no suspicious calcifications. There is no unexplained architectural distortion. There is distortion in the lumpectomy bed with evidence of fat necrosis again noted. IMPRESSION: No findings to suggest malignancy are seen. 12 month follow-up bilateral mammogram is recommended, per hospital protocol. BI-RADS 2 - Benign findings. THIS IS AN ELECTRONICALLY VERIFIED FINAL REPORT 06/01/2024 4:02 PM - Electronically signed by Marilu Waterman M.D. LD: STEVE Report ID: [id number] Reading Location: [facility] Norbert Arreguin MD IMG MAMMO PROCEDURES Final Res ult from Last 3 Months or Most Recently Relevant to Health Maintenance Insurance [facility] Advance Directives For more information, please contact: [phone] * Full Code (Latest Code Status on File) Date Activated Date Inactivated Comments 08/30/2022 10:12 AM 08/30/2022 5:19 PM Care Teams Senior Mobile Developer Relationship Specialty Start Date End Date Max Guerrero MD PCP - General Family Medicine 05/24/22 Sowmya Arana MD Radiation Oncologist Radiation Oncology 07/18/22 Williams Mcfarland DO [address] [place] [address] Medical Oncologist/Cosmetology Educator Hematology and Oncology 07/18/22 Norbert Arreguin MD [address] [place] [address] Surgeon General Surgery 07/18/22
--- OUTSIDE RECORDS SUMMARY | 2024-09-07 16:14 | XMS_ITS | Clinical Summary ---
Author Organization [facility] Address [address] [place] [address] Care Team Providers Care Restoration Ecologist Name Role Phone Max Guerrero MD Primary Care Provider [phone] Sowmya Arana MD Unavailable [phone] Williams Mcfarland DO Unavailable [phone] Norbert Arreguin MD Unavailable [phone] Allergies Active Allergy Reactions Criticality Noted Date [...] from 07/18/2022:Stage IA(cT1a, cN0, cM0, G2, ER+, [place]+, HER2-) - Signed by Sowmya Arana MD on 07/18/2022 Pathologic stage from 10/26/2022:Stage IA(pT1a, pN0(sn), cM0, G2, ER+, OH+, HER2- ) - Signed by Sowmya Arana MD on 10/26/2022 Left leg DVT 06/09/2020 Assessment & Plan (06/09/2020 11:12 AM EASEMENT WORKER): Impression: Prior DVT per patient report that [...] 06/09/2020 Assessment & Plan (06/09/2020 11:13 AM EASEMENT WORKER): Impression: Chronic lower extremity edema with subjective [...] (08/30/2018): Added automatically from request for surgery [id number] Adhesive capsulitis of left shoulder 08/30/2018 Overview (08/30/2018): Added automatically from request for surgery [id number] Incomplete tear of left rotator cuff 03/07/2018 Overview (03/07/2018): Added automatically from request for surgery [id number] Left shoulder pain 03/07/2018 Overview (03/07/2018): Added automatically from request for surgery [id number] Bursitis of left shoulder 03/07/2018 Overview (03/07/2018): Added automatically from request for surgery [id number] Varicose veins of bilateral lower extremities wi th pain 06/08/2017 Essential hypertension 02/02/2013 Chest pain 02/14/2012 Difficulty breathing 02/14/2012 Encounters Date Type Department Care Team Description 07/02/2024 4:15 PM EASEMENT WORKER Office Visit [facility] On[facility] [address] [place] [address] [address] [place] [id number] Williams Mcfarland DO Malignant neoplasm of upper-inner quadrant of left breast in female, estrogen receptor positive (HCC) (Primary Dx) 07/02/2024 3:45 PM EASEMENT WORKER Lab [facility] at [address] [address] Malignant neoplasm of upper-inner quadrant of left breast in female, estrogen receptor positive (HCC) from Last 3 Months Immunizations Name Administration Dates Next Due Influenza, Quadrivalent, Rec ombinant, Egg Free, Preservative Free, Intramuscular 06/03/2020,05/14/2019 Influenza, Quadrivalent, Spl it, Preservative Free, Intramuscular 06/06/2018 Influenza, Trivalent, Preservative Free, Intramu scular 05/03/2016,05/21/2015 Tdap 03/21/2020 Surgical History Surgery Date Site/Laterality Comments ANAL FISSURECTOMY 08/01/2006 - 07/31/2007 Anal Fissurectomy - (Added by TW Conv) [place] DELIVERY ONLY Section - (Added by TW Conv) WISDOM TOOTH EXTRACTION TONSILLECTOMY EYE MUSCLE SURGERY Bilateral x 2; childhood and again in 2001 SHOULDER ARTHROSCOPY W/ ROTATOR CUFF REPAIR 03/01/2018 - 03/31/2018 Right FLUORO GUIDED ASPIRATION OR INJECTION INTERMEDIATE JOINT LEFT 12/26/2018 Left BREAST BIOPSY 07/01/2022 Left BREAST LUMPECTOMY Medical History Medical History Date Comments HTN (hypertension) Vertigo Asthma well controlled DVT (deep venous thrombosis) (CMS/HCC) (HCC) 200 4 left; spontaneous Neuropathy (CMS/HCC) rubi LE Fibromyalgia Edema of both legs Obesity BMI - 43.85 Seasonal allergies Sleep apnea wears cpap Arthritis Motion sickness Type 2 diabetes mellitus (HCC) Breast cancer (HCC) 2021 lobular/left History of radiation therapy lef t breast Family History Medical History Relation Name Comments Breast cancer Cousin Diffuse Large B-Cell lymphoma Father Heart disease Father Heart disease Father's Brother x3 Diabetes Father's Sister Breast cancer Mother Lung cancer Mother Breast cancer Mother's Sister x2 Diabetes Mother's Sister x2 Breast cancer Other 1 Maternal Cousin Lung cancer Other 1 Maternal Cousin Malignant Ne oplasm Bronchus and Lung - mom (Added by TW Conv) Breast cancer Other 2 Breast Cancer - mom (Added by TW Conv) Hypertension Other 3 Hypertension - 3 siblings (Added by TW Conv) Coronary artery disease Other 4 Hannah nary Artery Bypass Graft (CABG) - father (Added by TW Conv) Relation Name Status Comments Cousin Father Father's Brother x3 Father's Sister Mother Mother's Sister x2 Other 1 Maternal Cousin Other 2 Other 3 Other 4 Social History Tobacco Use Types Packs/Day Years [...] on file Legal Sex Female 12:15 AM EASEMENT WORKER Gender Identity Female 11/16/2023 1:34 PM CDT Sexual Orientation Not on file 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 Not on file Not on file Not on file Obstetrics History Para Term AB IAB SAB Ectopic Multiple Livin g Live Births 4 3 3 Date Outcome GA Total Labor Labor/2nd/3rd Weight Sex Type Anes PTL Estrella A1 A5 Name Clin Term Term Term Last Filed Vital Signs Vital Sign Reading Time Taken Comments Blood Pressure 130/82 07/02/2024 3:57 PM EASEMENT WORKER Pulse 76 07/02/2024 3:57 PM EASEMENT WORKER Temperature 36.5 C (97.7 F) 07/02/2024 3:57 PM EASEMENT WORKER Respiratory Rate 18 07/02/2024 3:57 PM EASEMENT WORKER Oxygen Saturation 98% 07/02/2024 3:57 PM EASEMENT WORKER Inhaled Oxygen Concentration - - Weight 131.5 kg (290 lb) 07/02/2024 3:57 PM EASEMENT WORKER with shoes Height 170.2 cm (5' 7 ) 07/04/2023 4:07 PM EASEMENT WORKER Body Mass Index 45.42 07/04/2023 4:07 PM EASEMENT WORKER Plan of Treatment Health Maintenance Due Date Last Done Comments Cervical Cancer Screening 1964 Colon Cancer Screening-Colonoscopy 1964 Depression Screening 1964 Hepatitis C Screening 1964 Hepatitis B Screening 1982 Regular Well Visit/Exam 18-64 1982 Zoster Vaccine (1 of 2) 1983 Breast Cancer Screening-Mammogram 05/31/2025 024, 05/30/2023 DTaP/Tdap/Td Vaccine (2 - Td or Tdap) 03/21/2030 03/21/2020 Pneumococcal vaccine <65 Completed 09/21/2023 Influenza Vaccine Completed 06/23/2024, , 06/03/2020, Additional history exists Medical Devices Implanted Type Area Real Estate Agency Licensee Device Identifier Shelf Expiration Date Model / Serial / Lot Hologic Limited Partnership Marker Biospy Site Top Hat Shape Senomark [id number] - [id number] Implanted:Qty: 1 on 07/01/2022 at [facility] Left: Breast [employer] [id number] 10/06/2022 PADMINIK-CE LERO-2S / / [id number] [employer] Ar-2324 Bcm Swivelock 4.75mm 24.5mm Self Punch Vent Shoulder Fordoche Suture - [id number] Implanted:Qty: 1 on 03/30/2018 by Charbel Chavis MD at [facility] Left: Shoulder [employer] 10/30/2019 AR-2324 BCM / / [id number] [employer] [place] 20ga 7.5cm 2 Part Stabilizer Repositionable Depth Krishna [id number] - [id number] Implanted:Qty: 1 on 08/30/2022 at [facility] [place] [employer] [id number] 04/08/2027 [id number] / / [id number] Ethicon Endo Surgery Ligaclip Extra 6.2mm Ligate Open Large Clip Internal Titanium Latex Free Lt400 - [id number] Implanted:Qty: 1 on 08/30/2022 by Norbert Arreguin MD at [facility] [place] [employer] LT400 / / Procedures Procedure Name Priority Date/Time Associated Diagnosis Comments EGFR Routine 07/02/2024 3:46 PM EASEMENT WORKER Malignant neoplasm of upper-inner quadrant of left breast in female, estrogen receptor positive (HCC) DIFFERENTIAL AUTO Routine 07/02/2024 3:4 6 PM EASEMENT WORKER Malignant neoplasm of upper-inner quadrant of left breast in female, estrogen receptor positive (HCC) CBC WITH AUTO DIFFERENTIAL Routine 07/02/2024 3:46 PM EASEMENT WORKER Malignant neoplasm of upper-inner quadrant of left breast in female, estrogen receptor positive (HCC) COMPREHENSIVE METABOLIC PANEL Routine 07/02/2024 3:46 PM EASEMENT WORKER Malignant neoplasm of upper-inner quadrant of left breast in female, estrogen receptor positive (HCC) DIAGNOSTIC MAMMOGRAM BILATERAL W GRANT Schedule Routine, Read Routine (OP Routine) 05/31/2024 9:19 AM CDT History of breast conservation therapy from Last 3 Months or Most Recently Relevant to Health Maintenance Results * eGFR (07/02/2024 3:46 PM EASEMENT WORKER) eGFR >90 >=60 mL/min/1. 73 m2 Comment: [...] was last reviewed 2021. Testing performed by: [address] [address] Blood 07/02/2024 3:46 PM EASEMENT WORKER 07/02/2024 3:49 PM EASEMENT WORKER us Williams Mcfarland DO LAB BLOOD ORDERABLES Final R esult [facility] Department [place] [address] * (ABNORMAL) Differential, auto (07/02/2024 3:46 PM EASEMENT WORKER) Neutrophil abs 3.7 1.5 - 6.5 K/cumm Comment:Testing performed by : [address] [address] Imm gran abs 0.0 0.0 - 0.1 K/cumm [facility] Comment:Testing performed by : [address] [address] Lymphocyte abs 2.4 0.8 - 3.3 K/cumm [facility] Comment:Testing performed by : [address] [address] Monocyte abs 1.1(H) 0.2 - 0.8 K/cumm [facility] Comment:Testing performed by : [address] [address] Eosinophil abs 0.1 0.0 - 0.5 K/cumm [facility] Comment:Testing performed by : [address] [address] Basophil abs 0.0 0.0 - 0.1 K/cumm [facility] Comment:Testing performed by : [address] [address] Neutrophil pct 50.0 % [facility] Comment: Interpretive Data Percent cell count reference ranges are not reported, since discordance with absolute values may lead to misinterpretation of CBC data. Current Interpretive Data was last revised on 2017. Testing performed by: [address] [address] Imm gran pct 0.4 % [facility] Comment: Interpretive Data Percent cell count reference ranges are not reported, since discordance with absolute values may lead to misinterpretation of CBC data. Current Interpretive Data was last revised on 2017. Testing performed by: [address] [address] Lymphocyte pct 31.8 % [facility] Comment: Interpretive Data Percent cell count reference ranges are not reported, since discordance with absolute values may lead to misinterpretation of CBC data. Current Interpretive Data was last revised on 2017. Testing performed by: [address] [address] Monocyte pct 15.4 % [facility] Comment: Interpretive Data Percent cell count reference ranges are not reported, since discordance with absolute values may lead to misinterpretation of CBC data. Current Interpretive Data was last revised on 2017. Testing performed by: [address] [address] Eosinophil pct 1.9 % [facility] Comment: Interpretive Data Percent cell count reference ranges are not reported, since discordance with absolute values may lead to misinterpretation of CBC data. Current Interpretive Data was last revised on 2017. Testing performed by: [address] [address] Basophil pct 0.5 % [facility] Comment: Interpretive Data Percent cell count reference ranges are not reported, since discordance with absolute values may lead to misinterpretation of CBC data. Current Interpretive Data was last revised on 2017. Testing performed by: [address] [address] Blood 07/02/2024 3:46 PM EASEMENT WORKER 07/02/2024 3:49 PM EASEMENT WORKER us Williams L. Bartolo DO LAB BLOOD ORDERABLES Final R esult [facility] [address] [facility] Department [place] [address] * CBC with auto differential (07/02/2024 3:46 PM EASEMENT WORKER) [facility] Signature WBC 7.4 3.8 - 9.9 K/cumm Comment:Testing performed by : [address] [address] Hgb 13.7 11.9 - 15.5 g/dL [facility] Comment:Testing performed by : [address] [address] Hct 40.5 35.6 - 45.5 % [facility] Comment:Testing performed by : [address] [address] Plt 202 150 - 400 K/cumm [facility] Comment:Testing performed by : [address] [address] MPV 10.5 9.1 - 12.3 fL [facility] Comment:Testing performed by : [address] [address] RBC 4.65 3.90 - 5.20 M/cumm [facility] Comment:Testing performed by : [address] [address] MCV 87.1 81.3 - 96.4 fL [facility] Comment:Testing performed by : [address] [address] MCH 29.5 27.1 - 33.3 pg [facility] Comment:Testing performed by : [address] [address] MCHC 33.8 32.3 - 35.7 g/dL [facility] Comment:Testing performed by : [address] [address] RDW CV 13.2 11.1 - 14.9 % [facility] Comment:Testing performed by : [address] [address] RDW SD 41.5 35.7 - 48.1 fL [facility] Comment:Testing performed by : [address] [address] NRBC abs 0.00 0.00 - 0.01 K/cumm [facility] Comment:Testing performed by : [address] [address] Blood 07/02/2024 3:46 PM EASEMENT WORKER 07/02/2024 3:49 PM EASEMENT WORKER Williams Mcfarland DO LAB BLOOD ORDERABLES Final R esult [facility] [address] [facility] Department [place] [address] * Comprehensive metabolic panel (07/02/2024 3:46 PM EASEMENT WORKER) Sodium 136 135 - 145 mmol/L Comment:Testing performed by : [address] [address] Potassium, pl 4.9 3.3 - 4.9 mmol/L [facility] Comment:Testing performed by : [address] [address] Chloride 101 97 - 110 mmol/L [facility] Comment:Testing performed by : [address] [address] CO2 25 22 - 32 mmol/L [facility] Comment:Testing performed by : [address] [address] Anion gap 10 2 - 15 mmol/L [facility] Comment:Testing performed by : [address] [address] BUN 20 6 - 25 mg/dL [facility] Comment:Testing performed by : [address] [address] Creatinine 0.70 0.60 - 1.10 mg/dL [facility] Comment:Testing performed by : [address] [address] Glucose 111 70 - 199 mg/dL [facility] [...] classification and Diagnosis of Diabetes Diabetes Care 2021; 46: S19-S40. Current interpretive data was last revised 2022. Testing performed by: [address] [address] Calcium 9.5 8.5 - 10.3 mg/dL [facility] Comment:Testing performed by : [address] [address] Bilirubin, total 0.3 0.1 - 1.2 mg/dL [facility] Comment:Testing performed by : [address] [address] Protein, pl 7.4 6.5 - 8.5 g/dL [facility] Comment:Testing performed by : [address] [address] Albumin 4.3 3.5 - 5.0 g/dL [facility] Comment:Testing performed by : [address] [address] Alk phos 77 40 - 130 Units/L [facility] Comment:Testing performed by : [address] [address] ALT 15 7 - 45 Units/L [facility] Comment:Testing performed by : [address] [address] AST 16 10 - 45 Units/L [facility] Comment:Testing performed by : [address] [address] Blood 07/02/2024 3:46 PM EASEMENT WORKER 07/02/2024 3:49 PM EASEMENT WORKER us Williams Mcfarland DO LAB BLOOD ORDERABLES Final R esult [facility] [address] [facility] Department of Laboratories [place], [place] [id number] [phone] * Diagnostic Mammogram Bilateral W Grant (05/31/2024 9:19 AM CDT) Anatomical Region Laterality Modality Breast Bilateral Mammography 05/31/2024 5:09 PM CDT Narrative 06/01/2024 4:02 PM CDT EXAM DESCRIPTION: DIAGNOSTIC MAMMOGRAM BILATERAL W GRANT REASON FOR STUDY: Lobular CA on the [...] Marilu Waterman M.D. LD: STEVE Report ID: [id number] Reading Location: [facility] Norbert Arreguin MD IMG MAMMO PROCEDURES Final Res ult from Last 3 Months or Most Recently Relevant to Health Maintenance Insurance [facility] CHOICE PLUS CHOICE PLUS CHOICE PLUS Advance Directives For more information, please contact: [phone] * Full Code (Latest Code Status on File) Date Activated Date Inactivated Comments 08/30/2022 10:12 AM 08/30/2022 5:19 PM Care Teams Restoration Ecologist Relationship Specialty Start Date End Date Max Guerrero MD PCP - General Family Medicine 05/24/22 Sowmya Arana MD Radiation Oncologist Radiation Oncology 07/18/22 Williams Mcfarland DO [address] [address] Medical Oncologist/Casing Flusher Hematology and Oncology 07/18/22 Norbert Arreguin MD [address] [id number] Surgeon General Surgery 07/18/22
--- OUTSIDE RECORDS SUMMARY | 2024-09-07 16:14 | XMS_ITS ---
Author Organization [facility] Address [address] [place] [address] Care Team Providers Care Forming Operator Name Role Phone Max Guerrero MD Primary Care Provider [phone] Sowmya Arana MD Unavailable [phone] Williams Mcfarland DO Unavailable [phone] Norbert Arreguin MD Unavailable Active Problems Problem Noted Date Diagnosed Date Personal history of radiation therapy 12/22/2022 Malignant neoplasm of upper- inner quadrant of left breast in female, estrogen receptor positive 07/16/2022 Cancer Staging:Clinical stage from 07/18/2022:Stage IA(cT1a, cN0, cM0, G2, ER+, [place]+, HER2-) - Signed by Sowmya Arana MD on 07/18/2022 Pathologic stage from 10/26/2022:Stage IA(pT1a, pN0(sn), cM0, G2, ER+, [place]+, HER2- ) - Signed by Sowmya Arana MD on 10/26/2022 Left leg DVT 06/09/2020 Assessment & Plan (06/09/2020 11:12 AM RADIATION SAFETY OFFICER): Impression: Prior DVT per patient report that [...] 06/09/2020 Assessment & Plan (06/09/2020 11:13 AM RADIATION SAFETY OFFICER): Impression: Chronic lower extremity edema with subjective [...] (08/30/2018): Added automatically from request for surgery [id number] Adhesive capsulitis of left shoulder 08/30/2018 Overview (08/30/2018): Added automatically from request for surgery [id number] Incomplete tear of left rotator cuff 03/07/2018 Overview (03/07/2018): Added automatically from request for surgery [id number] Left shoulder pain 03/07/2018 Overview (03/07/2018): Added automatically from request for surgery [id number] Bursitis of left shoulder 03/07/2018 Overview (03/07/2018): Added automatically from request for surgery [id number] Varicose veins of bilateral lower extremities wi th pain 06/08/2017 Essential hypertension 02/02/2013 Chest pain 02/14/2012 Difficulty breathing 02/14/2012 Current Oncology Plans No current plan information found. Past Plans No past plan information found. Radiation Treatments * Plan Last Treated On Elapsed Days Fractions Treated Prescribed Fraction Dose Prescribed Total Dose LT BREAST 11/16/2022 21 14 267 cGy 4,005 cGy Reference Point Last Treated On Elapsed Days Session Dose Total Dose DPV_LT BREAST 11/16/2022 21 267 cGy 3,738 cGy Lifetime Dose Tracking * Chemical Lifetime Dose Automatic Entry Manual Entr y Fluoro Time 1 minutes 1 minutes 0 minutes DLP 336 mGycm 336 mGycm 0 mGycm
--- OUTSIDE RECORDS SUMMARY | 2024-09-07 16:14 | XMS_ITS | Patient Health Record ---
Author Organization [facility] Address [address] [place] [address] Care Team Providers Care Bathing Suit Maker Name Role Phone Max Guerrero Primary Care Provider UnavailEarl Batista Unavailable [phone] Norbert Gonzalez Unavailable Unavailable Supa Zheng Unavailable [phone] Yamila Mora Unavailable [phone] [facility], Provider Unavailable Unavailab le Allergies Allergen (clinical drug ingredient) Drug/Non Drug Allergy documented on EMR Reaction Allergy Type Onset Date Status lisinopril Lisinopril other reaction Drug Allergy Active morphine Morphine rash Drug Allergy Active Results Component Value Reference Range Notes Spirometry Reviewed date:02/06/2024 01:10:46 PM Interpretation:Abnormal - FEV1 significantly improved Performing Lab: Notes/Report: Abnormal - FEV1 significantly improved SpiroPreBronchodilator_FVC 2.7 SpiroPostBronchodilator_FE F25_75 2.72 SpiroPreBronchodilator_FEF 25_75 2.53 SpiroPreBronchodilator_FEV 1 2.24 SpiroPrecentPredictionPost _FEF25_75 103.8 SpiroPrecentPredictionPost _FEV1 78.6 SpiroPrecentPredictionPost _FEV1_OVER_FVC 108.8 SpiroPrecentPredictionPost _FVC 73.5 SpiroPrecentPredictionPre_ WBU18_21 96.6 SpiroPrecentPredictionPre_ FEV1 80 SpiroPrecentPredictionPre_ FEV1_OVER_FVC 108 SpiroPrecentPredictionPre_ FVC 75.4 SpiroPredicted_FEF25_75 2.62 SpiroPreBronchodilator_FEV 1_OVER_FVC 83.1 SpiroPreBronchodilator_PEF 5.22 SpiroPostBronchodilator_FV C 2.63 SpiroPostBronchodilator_FE V1 2.2 SpiroPostBronchodilator_FE V1_OVER_FVC 83.7 SpiroPostBronchodilator_PE F 5.75 SpiroPredicted_FVC 3.58 SpiroPredicted_FEV1 2.8 SpiroPredicted_FEV1_OVER_F VC 76.95 SpiroPredicted_PEF 6.22 H. INFLUENZAE TYPE B AB Reviewed date:07/09/2024 08:23:08 AM Interpretation:Abnormal Performing Lab:[facility],, [address] [facility], [place], [address] Nicole Kennedy MD,PhD,AMADO Notes/Report: NON-FASTING HAEMOPHILUS INFLUENZA TYPE B ANTIBODY (IGG) <0.15 REFERENCE RANGE: > or = 1.00 mcg/mL INTERPRETIVE CRITERIA: <0.15 mcg/mL Nonprotective Antibody Level 0.15 - 0.99 mcg/mL Indeterminate for protective antibody > or = 1.00 mcg/mL Protective Antibody Level IgG antibody to polyribosylribitol phosphate (PRP), the capsular polysaccharide of Haemophilus influenzae type b, is measured in micrograms/mL (mcg/mL), based on correlations with a reference Gamal radioimmunoprecipitation assay (SAGRARIO). The exact level of antibody needed for protection from infection has not been clarified; values ranging from 0.15 mcg/mL to 1.00 mcg/mL have been reported. A four-fold increase in the PRP IgG antibody level between pre-vaccination and post-vaccination sera is considered evidence of effective immunization. Spirometry Reviewed date:04/18/2024 12:12:30 PM Interpretation:Abnormal Performing Lab: Notes/Report: Abnormal SpiroPreBronchodilator_FVC 2.43 SpiroPostBronchodilator_FE F25_75 0 SpiroPreBronchodilator_FEF 25_75 2.52 SpiroPreBronchodilator_FEV 1 2 SpiroPrecentPredictionPost _FEF25_75 0 SpiroPrecentPredictionPost _FEV1 0 SpiroPrecentPredictionPost _FEV1_OVER_FVC 0 SpiroPrecentPredictionPost _FVC 0 SpiroPrecentPredictionPre_ VQV66_22 96.2 SpiroPrecentPredictionPre_ FEV1 71.4 SpiroPrecentPredictionPre_ FEV1_OVER_FVC 106.7 SpiroPrecentPredictionPre_ FVC 67.9 SpiroPredicted_FEF25_75 2.62 SpiroPreBronchodilator_FEV 1_OVER_FVC 82.13 SpiroPreBronchodilator_PEF 5.2 SpiroPostBronchodilator_FV C 0 SpiroPostBronchodilator_FE V1 0 SpiroPostBronchodilator_FE V1_OVER_FVC 0 SpiroPostBronchodilator_PE F 0 SpiroPredicted_FVC 3.58 SpiroPredicted_FEV1 2.8 SpiroPredicted_FEV1_OVER_F VC 76.95 SpiroPredicted_PEF 6.22 Reason For Referral Reason Tezspire 210mg q 4 w eeks Diagnosis 1 Severe persistent as thma, uncomplicated (J45.50) Referral Organization [facility] Referring Provider First Name Earl Referring Provider Last Name Anders Referring Provider Speciality Allergy/Im munology Referral Priority Routine Medications Medication SIG (Take, Route, Frequency, Duration) Notes Start Date End Date Status Gabapentin 300 MG 2 cap(s) orally once a day Active MONTELUKAST 10 mg 1 tab(s) orally once a day Active Letrozole 2.5 MG 1 tab(s) orally once a day Active FLUoxetine HCl 20 MG 1 tab(s) orally once a day Active ALBUTEROL 2.5 mg/3 mL (0.083%) 3 mL by nebulizer every 6 hours Active Meloxicam 7.5 MG 1 tab(s) orally once a day Active VENTOLIN HFA 90 mcg/inh 2 puff(s) inhaled every 6 hours for 30 days Active metFORMIN HCl ER 500 MG 1 tab(s) orally once a day Active CETIRIZINE 10 mg 1 tab(s) orally once a day for 30 days Active Omeprazole 40 MG 1 cap(s) orally once a day Active FLUTICASONE NASAL 50 mcg/inh 2 spray(s) in each nostril twice a day for 30 days Active Olmesartan Medoxomil 20 MG 1 tab(s) orally once a day Active NASAL WASHES N/A as directed intranasally as needed for 30 days Active Triamcinolone Acetonide 0.1 % 1 candi applied topically 3 times a day for 7 days 12/20/2023 Active TEZSPIRE PRE-FILLED PEN ekko 210 mg/1.91 mL as directed subcutaneously every 4 weeks Active SIT (Traditional) variable - see record per schedule subcutaneous per schedule for 999 days 02/06/2024 Active TRIAMCINOLONE TOPICAL 0.1% 1 candi applied topically 3 times a day for 7 days Active SIT (Traditional) variable - see record per schedule subcutaneous per schedule for 05/29/2024 Active Trelegy Ellipta 200-62.5-25 MCG/ACT 1 puff Inhalation Once a day for 30 days Active Amoxicillin-Pot Clavulanate 875-125 MG 1 tablet Orally every 12 hrs for 10 days 06/04/2024 Not-Taking Ipratropium [place] 0.06 % 2 sprays in each nostril Nasally Four times a day for 30 days Active SIT (CLUSTER) variable per schedule per schedule for 999 days Active FAMOTIDINE 40 mg 1 tab(s) orally 30 mins prior to SCIT for 30 days Active EPIPEN 2-PAUL 0.3 mg as directed intramuscularly once for 30 days Active Ipratropium [place] 0.06 % 2 sprays in each nostril Nasally Four times a day for 30 days 06/04/2024 Not-Taking SIT (CLUSTER) VARIABLE PER SCHEDULE SC PER SCHEDULE for TO BE DETERMINED *Please review for potential replacement for e-prescription and drug interaction check* 09/19/2023 Not-Taking Tezspire 210 MG/1.91ML as directed Subcutaneous Active Breztri Aerosphere 160-9-4.8 MCG/ACT 2 puffs Inhalation Twice a day Not-Taking Albuterol Sulfate (2.5 MG/3ML) 0.083% 3 mL by nebulizer every 6 hours Active ZyrTEC Allergy 10 MG 1 tablet PO QD Not-Taking Cetirizine HCl 10 MG 1 tab(s) orally once a day for 30 days Active TRELEGY ELLIPTA 200 mcg-62.5 mcg-25 mcg/inh 1 puff(s) inhaled once a day Not-Taking Fluticasone Propionate 50 MCG/ACT 2 spray(s) in each nostril twice a day for 30 days Active HIBERIX (HIB) - 0.5 mL intramuscularly once for 1 dose(s) Not-Taking Trelegy Ellipta 200 MCG-62.5 MCG-25 MCG/INH 1 PUFF(S) INHALED ONCE A DAY *Please review and pick correct strength-formula tion from [employer] options. If intended option is not shown, discontinue and re-order from Quick Search* Not-Taking Pneumovax 23 - 0.5 ML INTRAMUSCULARLY ONCE for 1 DAYS *Please review and pick correct strength-formula tion from [employer] options. If intended option is not shown, discontinue and re-order from Quick Search* Not-Taking Montelukast Sodium 10 MG 1 tab(s) orally once a day Active Pepcid 20 MG 1 tab(s) orally 60 minutes prior to SCIT 09/19/2023 Not-Taking Ventolin HFA 108 (90 Base) MCG/ACT 2 puff(s) inhaled every 6 hours for 30 days Active SIT (Traditional) variable - see record per schedule subcutaneous per schedule for 999 days 08/14/2024 Active EpiPen 2-Paul 0.3 mg as directed intramuscularly once for 30 days Active Vitamin D3 *Please review and pick correct strength-formula tion from [employer] options. If intended option is not shown, discontinue and re-order from Quick Search* Active Azelastine HCl 137 MCG/SPRAY 2 sprays in each nostril Nasally Twice a day for 90 days Active Famotidine 40 mg 1 tab(s) orally 30 mins prior to SCIT for 30 days Active Benzonatate 200 MG 1 cap(s) orally 3 times a day Active Immunizations Vaccine Route Administration Date Status Comme nts Influenza Unknown 06/05/2023 Administered Portal [facility] NOC PedvaxHIB IM Intramuscular 03/08/2024 Administered NOC PedvaxHIB IM Intramuscular 08/20/2024 Administered Social History Tobacco Use: Social History Observation Description Date Details (start date - stop date) Never Smoker NA - NA Tobacco Control (Standard) Question Answer Notes Tobacco use: Nonsmoker Problems Problem Type SNOMED Code ICD Code Onset Dates Problem Status W/U Status Risk Notes Problem Chronic allergic conjunctivitis (65172109) Other chronic allergic conjunctivitis (H10.45) Active confirmed Problem Essential hypertension (93790073) Essential (primary) hypertension (I10) Active confirmed Problem Allergic rhinitis caused by pollen (disorder) (01788289) Allergic rhinitis due to pollen (J30.1) Active confirmed Problem Allergic rhinitis (00310857) Other allergic rhinitis (J30.89) Active confirmed Problem Uncomplicated severe persistent asthma (271532558) Severe persistent asthma, uncomplicated (J45.50) Active confirmed Problem Allergic rhinitis caused by animal hair and dander (692559709885311) Allergic rhinitis due to animal (cat) (dog) hair and dander (J30.81) Active confirmed Problem Bronchitis (38444321) Bronchitis, not specified as acute or chronic (J40) Active confirmed Problem Cough (finding) (24533619) Cough, unspecified (R05.9) Active confirmed Vital Signs Respiratory Rate 9 /min 07/03/2024 Oximetry 99 % 08/14/2024 Blood pressure diastolic 64 mm Hg 08/14/2024 Height 67.75 in 08/14/2024 Blood pressure systolic 113 mm Hg 08/14/2024 Weight 293.4 lbs 08/14/2024 BMI 44.94 kg/m2 08/14/2024 Encounters Encounter Location Date Provider Diagnosis [address] [phone] 01/14/2024 Provider [facility] Allergic rhinitis due to pollen J30.1 and Severe persistent asthma, uncomplicated J45.50 [facility] [employer] [address] [phone] 09/13/2023 Earl Mcnamara Allergic rhinitis du e to animal (cat) (dog) hair and dander J30.81 ; Other allergic rhinitis J30.89 ; Other chronic allergic conjunctivitis H10.45 ; Severe persistent asthma, uncomplicated J45.50 ; Cough, unspecified R05.9 ; Bronchitis, not specified as acute or chronic J40 and Allergic rhinitis due to pollen J30.1 [facility] [address] [employer] [address] [place] [phone] 09/19/2023 Yamila Mora Allergic rhinitis du e to animal (cat) (dog) hair and dander J30.81 ; Other allergic rhinitis J30.89 ; Other chronic allergic conjunctivitis H10.45 ; Severe persistent asthma, uncomplicated J45.50 ; Cough, unspecified R05.9 ; Bronchitis, not specified as acute or chronic J40 ; Allergic rhinitis due to pollen J30.1 and Essential (primary) hypertension I10 [facility] [address] [place] [address] [employer] [address] [place] [phone] 09/27/2023 Supa Norm Allergic rhinitis du e to pollen J30.1 ; Allergic rhinitis due to animal (cat) (dog) hair and dander J30.81 ; Other allergic rhinitis J30.89 and Other chronic allergic conjunctivitis H10.45 [facility] [address] [place] [address] [employer] [address] [address] 10/04/2023 Supa Zheng Allergic rhinitis du e to pollen J30.1 ; Allergic rhinitis due to animal (cat) (dog) hair and dander J30.81 ; Other allergic rhinitis J30.89 and Other chronic allergic conjunctivitis H10.45 [facility] [address] [place] [address] [employer] [address] [phone] 10/11/2023 Supa Norm Allergic rhinitis du e to pollen J30.1 ; Allergic rhinitis due to animal (cat) (dog) hair and dander J30.81 ; Other allergic rhinitis J30.89 and Other chronic allergic conjunctivitis H10.45 [facility] [address] [place] [address] [employer] [address] [phone] 10/18/2023 Supa Norm Allergic rhinitis du e to pollen J30.1 ; Allergic rhinitis due to animal (cat) (dog) hair and dander J30.81 ; Other allergic rhinitis J30.89 and Other chronic allergic conjunctivitis H10.45 [facility] [address] [place] [address] [employer] [address] [address] 11/01/2023 Supatarik Zheng Allergic rhinitis du e to pollen J30.1 ; Allergic rhinitis due to animal (cat) (dog) hair and dander J30.81 ; Other allergic rhinitis J30.89 and Other chronic allergic conjunctivitis H10.45 [facility] [address] [place], [place] [address] [address] [place] [phone] 11/08/2023 Supatarik Zheng Allergic rhinitis du e to pollen J30.1 ; Allergic rhinitis due to animal (cat) (dog) hair and dander J30.81 ; Other allergic rhinitis J30.89 and Other chronic allergic conjunctivitis H10.45 [facility] [address] [place], [place] [address] [address] [place] [phone] 11/15/2023 Earl Mcnamara Severe persistent asthma, uncomplicated J45.50 ; Allergic rhinitis due to pollen J30.1 ; Allergic rhinitis due to animal (cat) (dog) hair and dander J30.81 ; Other allergic rhinitis J30.89 ; Other chronic allergic conjunctivitis H10.45 ; Cough, unspecified R05.9 and Bronchitis, not specified as acute or chronic J40 [facility] [address] [place] [phone] 11/16/2023 Supa Zheng Allergic rhinitis du e to pollen J30.1 ; Allergic rhinitis due to animal (cat) (dog) hair and dander J30.81 ; Other allergic rhinitis J30.89 and Other chronic allergic conjunctivitis H10.45 [facility] [address] [place] [phone] 11/22/2023 Supa Zheng Allergic rhinitis du e to pollen J30.1 ; Allergic rhinitis due to animal (cat) (dog) hair and dander J30.81 ; Other allergic rhinitis J30.89 and Other chronic allergic conjunctivitis H10.45 [facility] [address] [place] [phone] 11/29/2023 Supa Zheng Allergic rhinitis du e to pollen J30.1 ; Other allergic rhinitis J30.89 ; Allergic rhinitis due to animal (cat) (dog) hair and dander J30.81 and Other chronic allergic conjunctivitis H10.45 [facility] [address] [place] [phone] 12/13/2023 Supa Zheng Allergic rhinitis du e to pollen J30.1 ; Other allergic rhinitis J30.89 ; Allergic rhinitis due to animal (cat) (dog) hair and dander J30.81 and Other chronic allergic conjunctivitis H10.45 [facility] [address] [place] [phone] 12/19/2023 Supa Zheng Allergic rhinitis du e to pollen J30.1 ; Other allergic rhinitis J30.89 ; Allergic rhinitis due to animal (cat) (dog) hair and dander J30.81 and Other chronic allergic conjunctivitis H10.45 [facility] [address] [place] [phone] 12/20/2023 Earl Mcnamara Severe persistent asthma, uncomplicated J45.50 ; Allergic rhinitis due to pollen J30.1 ; Allergic rhinitis due to animal (cat) (dog) hair and dander J30.81 ; Other allergic rhinitis J30.89 ; Other chronic allergic conjunctivitis H10.45 ; Cough, unspecified R05.9 and Bronchitis, not specified as acute or chronic J40 [facility] [address] [place] [phone] 12/27/2023 Supa Zheng Allergic rhinitis du e to pollen J30.1 ; Other allergic rhinitis J30.89 ; Allergic rhinitis due to animal (cat) (dog) hair and dander J30.81 and Other chronic allergic conjunctivitis H10.45 [facility] [address] [place] [phone] 01/11/2024 Supa Zheng Allergic rhinitis du e to pollen J30.1 ; Other allergic rhinitis J30.89 ; Allergic rhinitis due to animal (cat) (dog) hair and dander J30.81 and Other chronic allergic conjunctivitis H10.45 [facility] [address] [place] [phone] 01/25/2024 Supa Zheng Allergic rhinitis du e to pollen J30.1 ; Other allergic rhinitis J30.89 ; Allergic rhinitis due to animal (cat) (dog) hair and dander J30.81 and Other chronic allergic conjunctivitis H10.45 [facility] [address] [place] [phone] 01/31/2024 Supa Zheng Severe persistent asthma, uncomplicated J45.[address] [address] 02/06/2024 Earl Mcnamara Severe persistent asthma, uncomplicated J45.50 ; Allergic rhinitis due to pollen J30.1 ; Chronic cough R05.3 ; Allergic rhinitis due to animal (cat) (dog) hair and dander J30.81 ; Other allergic rhinitis J30.89 ; Other chronic allergic conjunctivitis H10.45 and Bronchitis, not specified as acute or chronic J40 [facility] [address] [phone] 02/08/2024 Supa Zheng Allergic rhinitis du e to pollen J30.1 ; Other allergic rhinitis J30.89 ; Allergic rhinitis due to animal (cat) (dog) hair and dander J30.81 and Other chronic allergic conjunctivitis H10.45 [facility] [address] [place] [phone] 03/05/2024 Earl Mcnamara Severe persistent asthma, uncomplicated J45.50 ; Allergic rhinitis due to pollen J30.1 ; Allergic rhinitis due to animal (cat) (dog) hair and dander J30.81 ; Other allergic rhinitis J30.89 ; Other chronic allergic conjunctivitis H10.45 ; Cough, unspecified R05.9 and Bronchitis, not specified as acute or chronic J40 [facility] [address] [place] [phone] 03/07/2024 Supa Zheng Allergic rhinitis du e to pollen J30.1 ; Other allergic rhinitis J30.89 ; Allergic rhinitis due to animal (cat) (dog) hair and dander J30.81 and Other chronic allergic conjunctivitis H10.45 [facility] [address] [place] [phone] 03/08/2024 Supa Zheng Encounter for immunization Z23 and Encounter for antibody response examination Z01.[address] [address] 04/04/2024 Supa Zheng Allergic rhinitis du e to pollen J30.1 ; Other allergic rhinitis J30.89 ; Allergic rhinitis due to animal (cat) (dog) hair and dander J30.81 and Other chronic allergic conjunctivitis H10.[address] [address] 04/09/2024 Yamila Mora Severe persistent asthma, uncomplicated J45.50 ; Allergic rhinitis due to pollen J30.1 ; Allergic rhinitis due to animal (cat) (dog) hair and dander J30.81 ; Other allergic rhinitis J30.89 ; Other chronic allergic conjunctivitis H10.45 ; Cough, unspecified R05.9 and Bronchitis, not specified as acute or chronic J40 [facility] [address] [place] [phone] 04/10/2024 Supa Norm Allergic rhinitis du e to pollen J30.1 ; Other allergic rhinitis J30.89 ; Allergic rhinitis due to animal (cat) (dog) hair and dander J30.81 and Other chronic allergic conjunctivitis H10.[address] [address] 04/17/2024 Supa Zheng Allergic rhinitis du e to pollen J30.1 ; Other allergic rhinitis J30.89 ; Allergic rhinitis due to animal (cat) (dog) hair and dander J30.81 and Other chronic allergic conjunctivitis H10.45 [facility] [address] [place] [phone] 05/07/2024 Earl Mcnamara Severe persistent asthma, uncomplicated J45.50 ; Allergic rhinitis due to pollen J30.1 ; Allergic rhinitis due to animal (cat) (dog) hair and dander J30.81 ; Other allergic rhinitis J30.89 ; Other chronic allergic conjunctivitis H10.45 ; Cough, unspecified R05.9 and Bronchitis, not specified as acute or chronic J40 [facility] [address] [place] [phone] 05/15/2024 Supa Norm Allergic rhinitis du e to pollen J30.1 ; Other allergic rhinitis J30.89 ; Allergic rhinitis due to animal (cat) (dog) hair and dander J30.81 and Other chronic allergic conjunctivitis H10.[address] [address] 05/29/2024 Earl Mcnamara Severe persistent asthma, uncomplicated J45.50 ; Allergic rhinitis due to pollen J30.1 ; Allergic rhinitis due to animal (cat) (dog) hair and dander J30.81 ; Other allergic rhinitis J30.89 ; Other chronic allergic conjunctivitis H10.45 ; Cough, unspecified R05.9 and Bronchitis, not specified as acute or chronic J40 [address] [address] 06/04/2024 Supa Zheng Severe persistent asthma, uncomplicated J45.[address] [address] 06/12/2024 Supa Zheng Allergic rhinitis du e to pollen J30.1 ; Other allergic rhinitis J30.89 ; Allergic rhinitis due to animal (cat) (dog) hair and dander J30.81 and Other chronic allergic conjunctivitis H10.[address] [address] 07/03/2024 Earl Mcnamara Severe persistent asthma, uncomplicated J45.50 ; Allergic rhinitis due to pollen J30.1 ; Allergic rhinitis due to animal (cat) (dog) hair and dander J30.81 ; Other allergic rhinitis J30.89 ; Other chronic allergic conjunctivitis H10.45 ; Cough, unspecified R05.9 and Bronchitis, not specified as acute or chronic J40 [facility] [address] [place] [phone] 07/10/2024 Supa Zheng Allergic rhinitis du e to pollen J30.1 ; Other allergic rhinitis J30.89 ; Allergic rhinitis due to animal (cat) (dog) hair and dander J30.81 and Other chronic allergic conjunctivitis H10.45 [facility] [address] [place] [phone] 08/14/2024 Earl Mcnamara Severe persistent asthma, uncomplicated J45.50 ; Allergic rhinitis due to pollen J30.1 ; Allergic rhinitis due to animal (cat) (dog) hair and dander J30.81 ; Other allergic rhinitis J30.89 ; Other chronic allergic conjunctivitis H10.45 ; Cough, unspecified R05.9 and Bronchitis, not specified as acute or chronic J40 [address] [address] 08/16/2024 Supa Zheng Allergic rhinitis du e to pollen J30.1 ; Other allergic rhinitis J30.89 ; Allergic rhinitis due to animal (cat) (dog) hair and dander J30.81 and Other chronic allergic conjunctivitis H10.[address] [address] 08/20/2024 Supa Zheng Encounter for immunization Z23 and Encounter for antibody response examination Z01.84 [facility] [address] [place] [phone] 09/04/2024 Supa Zheng Allergic rhinitis du e to pollen J30.1 ; Other allergic rhinitis J30.89 ; Allergic rhinitis due to animal (cat) (dog) hair and dander J30.81 and Other chronic allergic conjunctivitis H10.[address] [address] 10/25/2023 Earl Machadopretty [address] [address] 02/01/2024 Earl Mcnamara [address] [address] 03/21/2024 Earl Carterpretty Allergic rhinitis du e to pollen J30.[address] [address] 06/04/2024 Earl Mcnamara Acute upper respiratory infection, unspecified J06.9 Assessments Encounter Date Diagnosis (ICD Code) Assessment Notes Treatment Notes Treatment Clinical Notes Section Notes 09/13/2023 Allergic rhinitis due to animal (cat) (dog) hair and dander (ICD-10 - J30.81) Follow allergen avoidance, meds and consider SCIT as an adjunctive treatment to current regimen 09/19/2023 Allergic rhinitis due to animal (cat) (dog) hair and dander (ICD-10 - J30.81) Follow allergen avoidance, meds and continue SCIT as an adjunctive treatment to current regimen 09/27/2023 Allergic rhinitis due to pollen (ICD-10 - J30.1) 10/04/2023 Allergic rhinitis due to pollen (ICD-10 - J30.1) 10/11/2023 Allergic rhinitis due to pollen (ICD-10 - J30.1) 10/18/2023 Allergic rhinitis due to pollen (ICD-10 - J30.1) 11/01/2023 Allergic rhinitis due to pollen (ICD-10 - J30.1) 11/08/2023 Allergic rhinitis due to pollen (ICD-10 - J30.1) 11/15/2023 Allergic rhinitis due to pollen (ICD-10 - J30.1) Autumn clearly suffers from atopic disease based upon our skin testing and clinical history. Accordingly, we have introduced a new, aggressive medication regimen, discussed nasal washes and allergy-specific avoidance measures. Currently on cluster buil-up. Not due for SCIt today. Keep on hand 2 hours after SCIT. Premedicate with Zyrtec 11/15/2023 Severe persistent asthma, uncomplicated (ICD-10 - J45.50) Hisotry of asthma, treated with Dr. Gonzalez. Currently on Trelegy 200 and Singulair with continued SOB, wheezing and cough. AEC earlier this year was was >200 and IgE was 4. Repeat work-up with comparable levels. Given for recurrent steroids for lower airway issues she qualifies for biologic. Initial spirometry was perfromed showing obstruction with post-BD showed 8% improvement in FEV1. Given this, will continue current regimen. We elected to start Tezspire today of which she tolerated the procedure without issue. Plan to return in 4 weeks for E&M and Tezspire dosing 11/16/2023 Allergic rhinitis due to pollen (ICD-10 - J30.1) 11/22/2023 Allergic rhinitis due to pollen (ICD-10 - J30.1) 11/29/2023 Allergic rhinitis due to pollen (ICD-10 - J30.1) 11/29/2023 Other allergic rhinitis (ICD-10 - J30.89) 12/13/2023 Allergic rhinitis due to pollen (ICD-10 - J30.1) 12/13/2023 Other allergic rhinitis (ICD-10 - J30.89) 12/19/2023 Allergic rhinitis due to pollen (ICD-10 - J30.1) 12/19/2023 Other allergic rhinitis (ICD-10 - J30.89) 12/20/2023 Allergic rhinitis due to pollen (ICD-10 - J30.1) Autumn clearly suffers from atopic disease based upon our skin testing and clinical history. Accordingly, we have introduced a new, aggressive medication regimen, discussed nasal washes and allergy-specific avoidance measures. Set to reach MM soon. Not due for SCIT today. Due to LLRs, will send out TAC. Keep on hand 2 hours after SCIT. Continue to triple premedicate 12/20/2023 Severe persistent asthma, uncomplicated (ICD-10 - J45.50) Hisotry of asthma, treated with Dr. Gonzalez. Currently on Trelegy 200 and Singulair with continued SOB, wheezing and cough. AEC earlier this year was was >200 and IgE was 4. Repeat work-up with comparable levels. Given for recurrent steroids for lower airway issues she qualifies for biologic. Initial spirometry was perfromed showing obstruction with post-BD showed 8% improvement in FEV1. Given this, will continue current regimen. We elected to start Tezspire last visit. Procedured tolerated today without issue. Will continue to monitor for improvement on Tezspire. Plan to return in 4 weeks for E&M and Tezspire dosing 12/27/2023 Allergic rhinitis due to pollen (ICD-10 - J30.1) 12/27/2023 Other allergic rhinitis (ICD-10 - J30.89) 01/11/2024 Allergic rhinitis due to pollen (ICD-10 - J30.1) 01/11/2024 Other allergic rhinitis (ICD-10 - J30.89) 01/14/2024 Allergic rhinitis due to pollen (ICD-10 - J30.1) 01/14/2024 Severe persistent asthma, uncomplicated (ICD-10 - J45.50) 01/25/2024 Allergic rhinitis due to pollen (ICD-10 - J30.1) 01/25/2024 Other allergic rhinitis (ICD-10 - J30.89) 01/31/2024 Severe persistent asthma, uncomplicated (ICD-10 - J45.50) 02/06/2024 Allergic rhinitis due to pollen (ICD-10 - J30.1) Autumn clearly suffers from atopic disease based upon our skin testing and clinical history. Accordingly, we have introduced a new, aggressive medication regimen, discussed nasal washes and allergy-specific avoidance measures. Not due for SCIT today. Keep on hand 2 hours after SCIT. Plan to increase azelastine to assist with presumed PND as above. Already on omeprazole for GERD. Continue to triple premedicate 02/06/2024 Severe persistent asthma, uncomplicated (ICD-10 - J45.50) Hisotry of asthma, treated with Dr. Gonzalez. Currently on Trelegy 200 and Singulair with continued SOB, wheezing and cough. AEC earlier this year was was >200 and IgE was 4. Repeat work-up with comparable levels. Given for recurrent steroids for lower airway issues she qualifies for biologic. Initial spirometry was perfromed showing obstruction with post-BD showed 8% improvement in FEV1. Given this, will continue current regimen. Now on Tezspire with benefit. That said, she has had increased cough and SOB of breath for the past 3 weeks. Given this, repeat spiromtery was perfromed that was actially imporved from her inital with 220cc imporvement in FEV1. Lungs clear on exam today. Nebulized albuterol treatment provided today. Given mild productive aspect, I suspect PND is partially playing a role in her symtpoms. Plan to treat as below. Otherwise continue TENZIN q 4 hours PRN while cough is present. Plan to return in 3 weeks for E&M and Tezspire dosing. Consider trial of Breztri 02/08/2024 Allergic rhinitis due to pollen (ICD-10 - J30.1) 02/08/2024 Other allergic rhinitis (ICD-10 - J30.89) 03/05/2024 Allergic rhinitis due to pollen (ICD-10 - J30.1) Autumn clearly suffers from atopic disease based upon our skin testing and clinical history. Accordingly, we have introduced a new, aggressive medication regimen, discussed nasal washes and allergy-specific avoidance measures. Not due for SCIT today. Keep on hand 2 hours after SCIT. Continue to triple premedicate 03/05/2024 Severe persistent asthma, uncomplicated (ICD-10 - J45.50) Hisotry of asthma, treated with Dr. Gonzalez. Currently on Trelegy 200 and Singulair with continued SOB, wheezing and cough. AEC earlier this year was was >200 and IgE was 4. Repeat work-up with comparable levels. Given for recurrent steroids for lower airway issues she qualifies for biologic. Initial spirometry was perfromed showing obstruction with post-BD showed 8% improvement in FEV1. Given this, will continue current regimen. We elected to start Tezspire which she feels improvement since starting. That said, she is intereting in trial of Breztri after dsicsussion with her pulmonolgist. Procedured tolerated today without issue. Will continue to monitor for improvement on Tezspire. Plan to return in 4 weeks for E&M and Tezspire dosing. Plan on trial of Breztri with plan on repeat spirometry next week. Advsied obtaining RSV vaccine 03/07/2024 Allergic rhinitis due to pollen (ICD-10 - J30.1) 03/07/2024 Other allergic rhinitis (ICD-10 - J30.89) 03/08/2024 Encounter for immunization (ICD-10 - Z23) 03/21/2024 Allergic rhinitis due to pollen (ICD-10 - J30.1) 04/04/2024 Allergic rhinitis due to pollen (ICD-10 - J30.1) 04/04/2024 Other allergic rhinitis (ICD-10 - J30.89) 04/09/2024 Allergic rhinitis due to pollen (ICD-10 - J30.1) Autumn clearly suffers from atopic disease based upon our skin testing and clinical history. Accordingly, we encouraged her medication regimen, discussed nasal washes and allergy-specific avoidance measures. Not due for SCIT today. Keep on hand 2 hours after SCIT. Continue to triple premedicate 04/09/2024 Severe persistent asthma, uncomplicated (ICD-10 - J45.50) Hisotry of asthma, treated with Dr. Gonzalez. This past month trialed Breztri with Singulair. AEC earlier this year was >200 and IgE was 4. Repeat work-up with comparable levels. Given for recurrent steroids for lower airway issues she qualifies for biologic. Initial spirometry was performed showing obstruction with post-BD showed 8% improvement in FEV1. Given this, will continue current regimen. - We previously elected to start Tezspire, which was continued today. She again reports subjective improvement since starting. - Last month Autumn voiced interested in trialing Breztri, today she reports no subjective change in symptoms. Spirometry today shows slight decrease in FVC and FEV1, due to this will stop Breztri and restart Trelegy. - Procedure tolerated today without issue. Will continue to monitor for improvement on Tezspire. - Advised obtaining RSV vaccine. - Plan to return in 4 weeks for evaluation and management and Tezspire dosing 04/10/2024 Allergic rhinitis due to pollen (ICD-10 - J30.1) 04/10/2024 Other allergic rhinitis (ICD-10 - J30.89) 04/17/2024 Allergic rhinitis due to pollen (ICD-10 - J30.1) 04/17/2024 Other allergic rhinitis (ICD-10 - J30.89) 05/07/2024 Allergic rhinitis due to pollen (ICD-10 - J30.1) Autumn clearly suffers from atopic disease based upon our skin testing and clinical history. Accordingly, we encouraged her medication regimen, discussed nasal washes and allergy-specific avoidance measures. Not due for SCIT today. Keep on hand 2 hours after SCIT. Continue to triple premedicate 05/07/2024 Severe persistent asthma, uncomplicated (ICD-10 - J45.50) Hisotry of asthma, treated with Dr. Gonzalez. Continues Trelegy with Singulair having trialed Breztri without benefit.. AEC earlier this year was >200 and IgE was 4. Repeat work-up with comparable levels. Given for recurrent steroids for lower airway issues she qualifies for biologic. Initial spirometry was performed showing obstruction with post-BD showed 8% improvement in FEV1. Given this, will continue current regimen. - We previously elected to start Tezspire, which was continued today. She again reports subjective improvement since starting. I would normally have steroids by this point. - Prior trial of Breztri resulted in little difference noted with spirometry at the time showing slight decrease in FVC and FEV1 - Procedure tolerated today without issue. Will continue to monitor for improvement on Tezspire. - Advised obtaining RSV vaccine. - Plan to return in 4 weeks for evaluation and management and Tezspire dosing 05/15/2024 Allergic rhinitis due to pollen (ICD-10 - J30.1) 05/15/2024 Other allergic rhinitis (ICD-10 - J30.89) 05/29/2024 Allergic rhinitis due to pollen (ICD-10 - J30.1) Autumn clearly suffers from atopic disease based upon our skin testing and clinical history. Accordingly, we encouraged her medication regimen, discussed nasal washes and allergy-specific avoidance measures. Not due for SCIT today. Keep on hand 2 hours after SCIT. Continue to triple premedicate 05/29/2024 Severe persistent asthma, uncomplicated (ICD-10 - J45.50) Hisotry of asthma, treated with Dr. Gonzalez. Continues Trelecaryn with Singulair having trialed Breztri without benefit.. AEC earlier this year was >200 and IgE was 4. Repeat work-up with comparable levels.Initial spirometry was performed showing obstruction with post-BD showed 8% improvement in FEV1. Given this, will continue current regimen. - We previously elected to start Tezspire, which was continued today. She again reports subjective improvement since starting. Lung clear on exam today - Not due for Tezspire today, return next week for dosing 06/04/2024 Severe persistent asthma, uncomplicated (ICD-10 - J45.50) 06/04/2024 Acute upper respiratory infection, unspecified (ICD-10 - J06.9) 06/12/2024 Allergic rhinitis due to pollen (ICD-10 - J30.1) 06/12/2024 Other allergic rhinitis (ICD-10 - J30.89) 07/03/2024 Allergic rhinitis due to pollen (ICD-10 - J30.1) Autumn clearly suffers from atopic disease based upon our skin testing and clinical history. Accordingly, we encouraged her medication regimen, discussed nasal washes and allergy-specific avoidance measures. Plan to continue ipratropium given noted benefit. Not due for SCIT today. Keep on hand 2 hours after SCIT. Continue to triple premedicate 07/03/2024 Severe persistent asthma, uncomplicated (ICD-10 - J45.50) Hisotry of asthma, treated with Dr. Gonzalez. Continues Trelegy with Singhirair having trialed Breztri without benefit.. AEC earlier this year was >200 and IgE was 4. Repeat work-up with comparable levels. Given for recurrent steroids for lower airway issues she qualifies for biologic. Initial spirometry was performed showing obstruction with post-BD showed 8% improvement in FEV1. Given this, will continue current regimen. - We previously elected to start Tezspire, which was continued today. She again reports subjective improvement since starting. I would normally have steroids by this point. That said, did need an additional round of abx in the interval. Feels she is amost back to baseline today. - Prior trial of Breztri resulted in little difference noted with spirometry at the time showing slight decrease in FVC and FEV1 - Procedure tolerated today without issue. Will continue to monitor for improvement on Tezspire. - RSV vaccine abtained in the interval - Plan to return in 4 weeks for evaluation and management and Tezspire dosing 07/10/2024 Allergic rhinitis due to pollen (ICD-10 - J30.1) 07/10/2024 Other allergic rhinitis (ICD-10 - J30.89) 08/14/2024 Allergic rhinitis due to pollen (ICD-10 - J30.1) Autumn clearly suffers from atopic disease based upon our skin testing and clinical history. Accordingly, we encouraged her medication regimen, discussed nasal washes and allergy-specific avoidance measures. Plan to continue ipratropium given noted benefit. Not due for SCIT today. Keep on hand 2 hours after SCIT. Continue to triple premedicate 08/14/2024 Severe persistent asthma, uncomplicated (ICD-10 - J45.50) Hisotry of asthma, treated with Dr. Gonzalez. Continues Trelegy with Singulair having trialed Breztri without benefit.. AEC earlier this year was >200 and IgE was 4. Repeat work-up with comparable levels. Given for recurrent steroids for lower airway issues she qualifies for biologic. Initial spirometry was performed showing obstruction with post-BD showed 8% improvement in FEV1. Given this, will continue current regimen. - We previously elected to start Tezspire, which was continued today. No interval abx or steroids. - Prior trial of Breztri resulted in little difference noted with spirometry at the time showing slight decrease in FVC and FEV1 - Procedure tolerated today without issue. Will continue to monitor for improvement on Tezspire. - Plan to return in 4 weeks for Tezspire dosing and 8 weeks for evaluation and management and 08/16/2024 Allergic rhinitis due to pollen (ICD-10 - J30.1) 08/16/2024 Other allergic rhinitis (ICD-10 - J30.89) 08/20/2024 Encounter for immunization (ICD-10 - Z23) 09/04/2024 Allergic rhinitis due to pollen (ICD-10 - J30.1) 09/04/2024 Other allergic rhinitis (ICD-10 - J30.89) 09/04/2024 Allergic rhinitis due to animal (cat) (dog) hair and dander (ICD-10 - J30.81) 08/20/2024 Encounter for antibody response examination (ICD-10 - Z01.84) 08/16/2024 Allergic rhinitis due to animal (cat) (dog) hair and dander (ICD-10 - J30.81) 08/14/2024 Allergic rhinitis due to animal (cat) (dog) hair and dander (ICD-10 - J30.81) Follow allergen avoidance, meds and continue SCIT as an adjunctive treatment to current regimen 07/10/2024 Allergic rhinitis due to animal (cat) (dog) hair and dander (ICD-10 - J30.81) 07/03/2024 Allergic rhinitis due to animal (cat) (dog) hair and dander (ICD-10 - J30.81) Follow allergen avoidance, meds and continue SCIT as an adjunctive treatment to current regimen 06/12/2024 Allergic rhinitis due to animal (cat) (dog) hair and dander (ICD-10 - J30.81) 05/29/2024 Allergic rhinitis due to animal (cat) (dog) hair and dander (ICD-10 - J30.81) Follow allergen avoidance, meds and continue SCIT as an adjunctive treatment to current regimen 05/15/2024 Allergic rhinitis due to animal (cat) (dog) hair and dander (ICD-10 - J30.81) 05/07/2024 Allergic rhinitis due to animal (cat) (dog) hair and dander (ICD-10 - J30.81) Follow allergen avoidance, meds and continue SCIT as an adjunctive treatment to current regimen 04/17/2024 Allergic rhinitis due to animal (cat) (dog) hair and dander (ICD-10 - J30.81) 04/10/2024 Allergic rhinitis due to animal (cat) (dog) hair and dander (ICD-10 - J30.81) 04/09/2024 Allergic rhinitis due to animal (cat) (dog) hair and dander (ICD-10 - J30.81) Follow allergen avoidance, meds and continue SCIT as an adjunctive treatment to current regimen 04/04/2024 Allergic rhinitis due to animal (cat) (dog) hair and dander (ICD-10 - J30.81) 03/08/2024 Encounter for antibody response examination (ICD-10 - Z01.84) 03/07/2024 Allergic rhinitis due to animal (cat) (dog) hair and dander (ICD-10 - J30.81) 03/05/2024 Allergic rhinitis due to animal (cat) (dog) hair and dander (ICD-10 - J30.81) Follow allergen avoidance, meds and continue SCIT as an adjunctive treatment to current regimen 02/08/2024 Allergic rhinitis due to animal (cat) (dog) hair and dander (ICD-10 - J30.81) 02/06/2024 Chronic cough (ICD-10 - R05.3) Recurrent cough likely multifactorial with history of ARC, Asthma and possible VCD. Plan to treat as above. Continue VCD exercises in the interval 01/25/2024 Allergic rhinitis due to animal (cat) (dog) hair and dander (ICD-10 - J30.81) 01/11/2024 Allergic rhinitis due to animal (cat) (dog) hair and dander (ICD-10 - J30.81) 12/27/2023 Allergic rhinitis due to animal (cat) (dog) hair and dander (ICD-10 - J30.81) 12/20/2023 Allergic rhinitis due to animal (cat) (dog) hair and dander (ICD-10 - J30.81) Follow allergen avoidance, meds and continue SCIT as an adjunctive treatment to current regimen 12/19/2023 Allergic rhinitis due to animal (cat) (dog) hair and dander (ICD-10 - J30.81) 12/13/2023 Allergic rhinitis due to animal (cat) (dog) hair and dander (ICD-10 - J30.81) 11/29/2023 Allergic rhinitis due to animal (cat) (dog) hair and dander (ICD-10 - J30.81) 11/22/2023 Allergic rhinitis due to animal (cat) (dog) hair and dander (ICD-10 - J30.81) 11/16/2023 Allergic rhinitis due to animal (cat) (dog) hair and dander (ICD-10 - J30.81) 11/15/2023 Allergic rhinitis due to animal (cat) (dog) hair and dander (ICD-10 - J30.81) Follow allergen avoidance, meds and continue SCIT as an adjunctive treatment to current regimen 11/08/2023 Allergic rhinitis due to animal (cat) (dog) hair and dander (ICD-10 - J30.81) 11/01/2023 Allergic rhinitis due to animal (cat) (dog) hair and dander (ICD-10 - J30.81) 10/18/2023 Allergic rhinitis due to animal (cat) (dog) hair and dander (ICD-10 - J30.81) 10/11/2023 Allergic rhinitis due to animal (cat) (dog) hair and dander (ICD-10 - J30.81) 10/04/2023 Allergic rhinitis due to animal (cat) (dog) hair and dander (ICD-10 - J30.81) 09/27/2023 Allergic rhinitis due to animal (cat) (dog) hair and dander (ICD-10 - J30.81) 09/19/2023 Other allergic rhinitis (ICD-10 - J30.89) Follow allergen avoidance, meds and continue SCIT as an adjunctive treatment to current regimen 09/13/2023 Other allergic rhinitis (ICD-10 - J30.89) Follow allergen avoidance, meds and consider SCIT as an adjunctive treatment to current regimen 09/13/2023 Other chronic allergic conjunctivitis (ICD-10 - H10.45) Given ocular signs and symptoms I encouraged allergy avoidance measures and meds as above. If symptoms persist, consider adding additional medications including intraocular antihistamine/mast cell stabilizer, PRN and consider SCIT as an adjunctive measure 09/19/2023 Other chronic allergic conjunctivitis (ICD-10 - H10.45) Given ocular signs and symptoms I encouraged allergy avoidance measures and meds as above. If symptoms persist, consider adding additional medications including intraocular antihistamine/mast cell stabilizer, PRN and continue SCIT as an adjunctive measure 09/27/2023 Other allergic rhinitis (ICD-10 - J30.89) 10/04/2023 Other allergic rhinitis (ICD-10 - J30.89) 10/11/2023 Other allergic rhinitis (ICD-10 - J30.89) 10/18/2023 Other allergic rhinitis (ICD-10 - J30.89) 11/01/2023 Other allergic rhinitis (ICD-10 - J30.89) 11/15/2023 Other allergic rhinitis (ICD-10 - J30.89) Follow allergen avoidance, meds and continue SCIT as an adjunctive treatment to current regimen 11/29/2023 Other chronic allergic conjunctivitis (ICD-10 - H10.45) 11/08/2023 Other allergic rhinitis (ICD-10 - J30.89) 11/16/2023 Other allergic rhinitis (ICD-10 - J30.89) 12/13/2023 Other chronic allergic conjunctivitis (ICD-10 - H10.45) 12/19/2023 Other chronic allergic conjunctivitis (ICD-10 - H10.45) 12/20/2023 Other allergic rhinitis (ICD-10 - J30.89) Follow allergen avoidance, meds and continue SCIT as an adjunctive treatment to current regimen 11/22/2023 Other allergic rhinitis (ICD-10 - J30.89) 01/11/2024 Other chronic allergic conjunctivitis (ICD-10 - H10.45) 01/25/2024 Other chronic allergic conjunctivitis (ICD-10 - H10.45) 02/06/2024 Allergic rhinitis due to animal (cat) (dog) hair and dander (ICD-10 - J30.81) Follow allergen avoidance, meds and continue SCIT as an adjunctive treatment to current regimen 02/08/2024 Other chronic allergic conjunctivitis (ICD-10 - H10.45) 03/05/2024 Other allergic rhinitis (ICD-10 - J30.89) Follow allergen avoidance, meds and continue SCIT as an adjunctive treatment to current regimen 12/27/2023 Other chronic allergic conjunctivitis (ICD-10 - H10.45) 04/04/2024 Other chronic allergic conjunctivitis (ICD-10 - H10.45) 04/09/2024 Other allergic rhinitis (ICD-10 - J30.89) Follow allergen avoidance, meds and continue SCIT as an adjunctive treatment to current regimen 03/07/2024 Other chronic allergic conjunctivitis (ICD-10 - H10.45) 04/17/2024 Other chronic allergic conjunctivitis (ICD-10 - H10.45) 05/07/2024 Other allergic rhinitis (ICD-10 - J30.89) Follow allergen avoidance, meds and continue SCIT as an adjunctive treatment to current regimen 04/10/2024 Other chronic allergic conjunctivitis (ICD-10 - H10.45) 05/29/2024 Other allergic rhinitis (ICD-10 - J30.89) Follow allergen avoidance, meds and continue SCIT as an adjunctive treatment to current regimen 05/15/2024 Other chronic allergic conjunctivitis (ICD-10 - H10.45) 06/12/2024 Other chronic allergic conjunctivitis (ICD-10 - H10.45) 07/10/2024 Other chronic allergic conjunctivitis (ICD-10 - H10.45) 07/03/2024 Other allergic rhinitis (ICD-10 - J30.89) Follow allergen avoidance, meds and continue SCIT as an adjunctive treatment to current regimen 08/14/2024 Other allergic rhinitis (ICD-10 - J30.89) Follow allergen avoidance, meds and continue SCIT as an adjunctive treatment to current regimen 08/16/2024 Other chronic allergic conjunctivitis (ICD-10 - H10.45) 09/04/2024 Other chronic allergic conjunctivitis (ICD-10 - H10.45) 08/14/2024 Other chronic allergic conjunctivitis (ICD-10 - H10.45) Given ocular signs and symptoms I encouraged allergy avoidance measures and meds as above. If symptoms persist, consider adding additional medications including intraocular antihistamine/mast cell stabilizer, PRN and continue SCIT as an adjunctive measure 07/03/2024 Other chronic allergic conjunctivitis (ICD-10 - H10.45) Given ocular signs and symptoms I encouraged allergy avoidance measures and meds as above. If symptoms persist, consider adding additional medications including intraocular antihistamine/mast cell stabilizer, PRN and continue SCIT as an adjunctive measure 05/29/2024 Other chronic allergic conjunctivitis (ICD-10 - H10.45) Given ocular signs and symptoms I encouraged allergy avoidance measures and meds as above. If symptoms persist, consider adding additional medications including intraocular antihistamine/mast cell stabilizer, PRN and continue SCIT as an adjunctive measure 05/07/2024 Other chronic allergic conjunctivitis (ICD-10 - H10.45) Given ocular signs and symptoms I encouraged allergy avoidance measures and meds as above. If symptoms persist, consider adding additional medications including intraocular antihistamine/mast cell stabilizer, PRN and continue SCIT as an adjunctive measure 04/09/2024 Other chronic allergic conjunctivitis (ICD-10 - H10.45) Given ocular signs and symptoms I encouraged allergy avoidance measures and meds as above. If symptoms persist, consider adding additional medications including intraocular antihistamine/mast cell stabilizer, PRN and continue SCIT as an adjunctive measure 03/05/2024 Other chronic allergic conjunctivitis (ICD-10 - H10.45) Given ocular signs and symptoms I encouraged allergy avoidance measures and meds as above. If symptoms persist, consider adding additional medications including intraocular antihistamine/mast cell stabilizer, PRN and continue SCIT as an adjunctive measure 02/06/2024 Other allergic rhinitis (ICD-10 - J30.89) Follow allergen avoidance, meds and continue SCIT as an adjunctive treatment to current regimen 12/20/2023 Other chronic allergic conjunctivitis (ICD-10 - H10.45) Given ocular signs and symptoms I encouraged allergy avoidance measures and meds as above. If symptoms persist, consider adding additional medications including intraocular antihistamine/mast cell stabilizer, PRN and continue SCIT as an adjunctive measure 11/16/2023 Other chronic allergic conjunctivitis (ICD-10 - H10.45) 11/22/2023 Other chronic allergic conjunctivitis (ICD-10 - H10.45) 11/08/2023 Other chronic allergic conjunctivitis (ICD-10 - H10.45) 11/15/2023 Other chronic allergic conjunctivitis (ICD-10 - H10.45) Given ocular signs and symptoms I encouraged allergy avoidance measures and meds as above. If symptoms persist, consider adding additional medications including intraocular antihistamine/mast cell stabilizer, PRN and continue SCIT as an adjunctive measure 11/01/2023 Other chronic allergic conjunctivitis (ICD-10 - H10.45) 10/18/2023 Other chronic allergic conjunctivitis (ICD-10 - H10.45) 09/27/2023 Other chronic allergic conjunctivitis (ICD-10 - H10.45) 10/04/2023 Other chronic allergic conjunctivitis (ICD-10 - H10.45) 10/11/2023 Other chronic allergic conjunctivitis (ICD-10 - H10.45) 09/19/2023 Severe persistent asthma, uncomplicated (ICD-10 - J45.50) Hisotry of asthma, treated with Dr. Gonzalez. Currently on Trelegy 200 and Singulair with continued SOB, wheezing and cough. AEC earlier this year was was >200 and IgE was 4. Repeat work-up with comparable levels. Given for recurrent steroids for lower airway issues she qualifies for biologic. Initial spirometry was performed showing obstruction with post-BD showed 8% improvement in FEV1. Given this, will continue current regimen. At this point consider Tezspire based on current results. BI started last visit. AAP reviewed. - Briefly discussed that we may need to hold SCIT until lower airway symptoms are better controlled, return next week for further evaluation of lower airway symptoms 09/13/2023 Severe persistent asthma, uncomplicated (ICD-10 - J45.50) Hisotry of asthma, treated with Dr. Gonzalez. Currently on Trelegy 200 and Singulair with continued SOB, wheezing and cough. AEC earlier this year was was >200 and IgE was 4. Repeat work-up with comparable levels. Given for recurrent steroids for lower airway issues she qualifies for biologic. Initial spirometry was perfromed showing obstruction with post-BD showed 8% improvement in FEV1. Given this, will continue current regimen. At this point consider Tezspire based on current results. BI started today. AAP reviewed 09/13/2023 Cough, unspecified (ICD-10 - R05.9) Recurrent cough likely multifactorial with history of ARC, Asthma and possible VCD. Plan to treat as above. Plan on trial of VCD exercises in the interval 09/19/2023 Cough, unspecified (ICD-10 - R05.9) Recurrent cough likely multifactorial with history of ARC, Asthma and possible VCD. Plan to treat as above. Plan on trial of VCD exercises in the interval 11/15/2023 Cough, unspecified (ICD-10 - R05.9) Recurrent cough likely multifactorial with history of ARC, Asthma and possible VCD. Plan to treat as above. Plan on trial of VCD exercises in the interval 12/20/2023 Cough, unspecified (ICD-10 - R05.9) Recurrent cough likely multifactorial with history of ARC, Asthma and possible VCD. Plan to treat as above. Continue VCD exercises in the interval 02/06/2024 Other chronic allergic conjunctivitis (ICD-10 - H10.45) Given ocular signs and symptoms I encouraged allergy avoidance measures and meds as above. If symptoms persist, consider adding additional medications including intraocular antihistamine/mast cell stabilizer, PRN and continue SCIT as an adjunctive measure 03/05/2024 Cough, unspecified (ICD-10 - R05.9) Recurrent cough likely multifactorial with history of ARC, Asthma and possible VCD. Plan to treat as above. Continue VCD exercises in the interval 04/09/2024 Cough, unspecified (ICD-10 - R05.9) Recurrent cough likely multifactorial with history of ARC, Asthma and possible VCD. Plan to treat as above. Continue VCD exercises in the interval 05/07/2024 Cough, unspecified (ICD-10 - R05.9) Recurrent cough likely multifactorial with history of ARC, Asthma and possible VCD. Plan to treat as above. Continue VCD exercises in the interval 07/03/2024 Cough, unspecified (ICD-10 - R05.9) Recurrent cough likely multifactorial with history of ARC, Asthma and possible VCD. Plan to treat as above. Continue VCD exercises in the interval 05/29/2024 Cough, unspecified (ICD-10 - R05.9) Recurrent cough likely multifactorial with history of ARC, Asthma and possible VCD. Plan to treat as above. Continue VCD exercises in the interval 08/14/2024 Cough, unspecified (ICD-10 - R05.9) Recurrent cough likely multifactorial with history of ARC, Asthma and possible VCD. Plan to treat as above. Continue VCD exercises in the interval 08/14/2024 Bronchitis, not specified as acute or chronic (ICD-10 - J40) Recurrent lower airway infections occurring 3-4 times a year meeting JMF criteria for modified PIDD work-up. PI work-up returned with inadequate protection to Hib and S. pneumo. Has now obtained Pneumovax and HiB. - Repeat titer retuned only for HIB which was still unprotected. S, pneumo was not obtained. Given this, plan on repeat HIB vaccine and recheck HIB and S, pneumo titer 4-6 weeks after 05/29/2024 Bronchitis, not specified as acute or chronic (ICD-10 - J40) Recurrent lower airway infections occurring 3-4 times a year meeting JMF criteria for modified PIDD work-up. PI work-up returned with inadequate protection to Hib and S. pneumo. Has now obtained Pneumovax and HiB. - Recently treated fur URI, having just finished steroids and z pack. Reprots mucus color and improved and priro wheezing has resolved. Lungs clear on exam today. Advised use of nasal wash and DayQuil to help overcome residual symptoms. Continue SCIT and Tezspire schdule. - Due for repeat titers, advised obtaining in a few weeks given oral steroid use 07/03/2024 Bronchitis, not specified as acute or chronic (ICD-10 - J40) Recurrent lower airway infections occurring 3-4 times a year meeting JMF criteria for modified PIDD work-up. PI work-up returned with inadequate protection to Hib and S. pneumo. Has now obtained Pneumovax and HiB. - Due for repeat titers, advised obtaining 05/07/2024 Bronchitis, not specified as acute or chronic (ICD-10 - J40) Recurrent lower airway infections occurring 3-4 times a year meeting JMF criteria for modified PIDD work-up. PI work-up returned with inadequate protection to Hib and S. pneumo. Has now obtained Pneumovax and HiB. - Due for repeat titers, advised obtaining 04/09/2024 Bronchitis, not specified as acute or chronic (ICD-10 - J40) Recurrent lower airway infections occurring 3-4 times a year meeting JMF criteria for modified PIDD work-up. PI work-up returned with inadequate protection to Hib and S. pneumo. Has now obtained Pneumovax and HiB. - Due for repeat titers, order sent today 03/05/2024 Bronchitis, not specified as acute or chronic (ICD-10 - J40) Recurrent lower airway infections occurring 3-4 times a year meeting JMF criteria for modified PIDD work-up. PI work-up returned with inadequate protection to Hib and S. pneumo. Has obtianed Pneumovax thus far but still needs Hib. Plan to return to clinic for hib vaccine 02/06/2024 Bronchitis, not specified as acute or chronic (ICD-10 - J40) Recurrent lower airway infections occurring 3-4 times a year meeting JMF criteria for modified PIDD work-up. PI work-up returned with inadequate protection to Hib and S. pneumo. Has obtianed Pneumovax thus far but still needs Hib. Consider [facility], otherwise obtain in office 12/20/2023 Bronchitis, not specified as acute or chronic (ICD-10 - J40) Recurrent lower airway infections occurring 3-4 times a year meeting JMF criteria for modified PIDD work-up. PI work-up returned with inadequate protection to Hib and S. pneumo. Has obtianed Pneumovax thus far but still needs Hib. Consider [facility], otherwise obtain in office 11/15/2023 Bronchitis, not specified as acute or chronic (ICD-10 - J40) Recurrent lower airway infections occurring 3-4 times a year meeting JMF criteria for modified PIDD work-up. PI work-up returned with inadequate protection to Hib and S. pneumo. Has obtianed Pneumovax thus far but still needs Hib. Consider [facility], otherwise obtain in office 09/19/2023 Allergic rhinitis due to pollen (ICD-10 - J30.1) Autumn clearly suffers from atopic disease based upon our prior skin testing and clinical history. Accordingly, we have encouraged her aggressive medication regimen, discussed nasal washes and allergy-specific avoidance measures. After discussing subcutaneous, specific allergen immunotherapy as relates to the treatment and prevention of atopic disease and after considering the risks, benefits and alternatives to this treatment, we started today. - Autumn received first dose of cluster one today. After her first dose she reported tingling on her head, which fully resolved 15 minutes later. After discussion, decided to hold remaining doses and proceed next week pending lower airway symptoms. Physical exam was WNL, vital signs normal. No other symptoms reported. - Autumn is to premedicate with Zyrtec, Pepcid and Singulair moving forward. - Autumn is aware to carry AIE to all SCIT visit and for two hours after, education was provided today. - Autumn is to follow-up in one week for SCIT and 7 weeks for further evaluation and management 09/19/2023 Bronchitis, not specified as acute or chronic (ICD-10 - J40) Recurrent lower airway infections occurring 3-4 times a year meeting JMF criteria for modified PIDD work-up. PI work-up returned with inadequate protection to Hib and S. pneumo. Advised obtaining Pneumovax and Hib. Appreciate PCP's help in coordinating care 09/13/2023 Bronchitis, not specified as acute or chronic (ICD-10 - J40) Recurrent lower airway infections occurring 3-4 times a year meeting JMF criteria for modified PIDD work-up. PI work-up returned with inadequate protection to Hib and S. pneumo. Advised obtaining Pneumovax and Hib. Appreciate PCP's help in coordinating care 09/13/2023 Allergic rhinitis due to pollen (ICD-10 - J30.1) Autumn clearly suffers from atopic disease based upon our skin testing and clinical history. Accordingly, we have introduced a new, aggressive medication regimen, discussed nasal washes and allergy-specific avoidance measures. She is set to start SCIT soon. AIE education given today. Keep on hand 2 hours after SCIT. Premedicate with Zyrtec 09/19/2023 Essential (primary) hypertension (ICD-10 - I10) BP elevated on PE. Recheck at follow-up and discuss with PMD. No symptoms of hypertensive crisis. Consider avoiding beta-blockers if meds are necessary as they are a relative contraindication to SCIT 09/27/2023 Other 10/04/2023 Other 10/11/2023 Other 10/18/2023 Other 11/01/2023 Other 11/08/2023 Other 11/16/2023 Other 11/22/2023 Other 01/31/2024 Other 06/04/2024 Other Plan Of Treatment Pending Test Test Name Order Date STREPTOCOCCUS PNEUMONIAE IGG AB (23 SERO TYPES) 07/04/2023 TETANUS ANTITOXOID ANTIBODY (EIA) 2022 DIPHTHERIA ANTITOXOID ANTIBODY IMMUNOGLOBULIN E 07/04/2023 CBC (INCLUDES DIFF/PLT) 07/04/2023 IMMUNOGLOBULINS G/A/M 07/04/2023 VITAMIN D, 25-OH, TOTAL, IA 07/04/2023 HAEMOPHILUS INFLUENZAE B ANTIBODY, IGG 0 04/09/2024 HAEMOPHILUS INFLUENZAE B ANTIBODY, IGG 1 09/04/2022 S. PNEUMONIAE IGG AB, 23 SEROTYPES, S Next Appt Details Provider Name:Supa HChantel Zheng , 09/13/2024 03:30:00 PM, [address] [facility], [address], [address], Provider Name:Supa Zheng , 10/02/2024 03:20:00 PM, [address] [employer], [address], [address], Provider Name:Earl reeves, 10/15/2024 02:45:00 PM, [email or web address], [address], [address], Provider Name:Jessica Dunn , 11/15/2024 01:30:00 PM, [facility], [address], [address], Insurance Providers Payer Name Payer Address Payer Phone Subscriber Number Group Number Insured Name Patient Relationship to Insured Coverage Start Date Coverage End Date [facility] [address] [address] [place] [address] [id number] Autumn Martin Self - patient is the insured 3 Medical (General) History Medical History History ICD Code Essential (primary) hypertension I10 Severe persistent asthma, uncomplicated J45.50 Chronic rhinitis J31.0 Hypertrophy of nasal turbinates J34.3 Bronchitis, not specified as acute or ch ronic J40 Cough, unspecified R05.9 Surgical History Surgery Date(Month/Year) Eye strabismus 06/25/1965 C section 05/19/1992 Eye strabismus Rotator cuff and bicept repair 8 Breast lumpectomy 08/30/2022 Hospitalization History Reason Date(Month/Year) Facial cellulitis 05/30/2023
--- OUTSIDE RECORDS SUMMARY | 2024-09-07 16:14 | XMS_ITS | Continuity of Care Document ---
Author Organization [facility] Address [address] [place] [address] [address] [place] [address] Phone Care Team Providers Care Supervisor Train Operations Name Role Phone Anne Ahumada Unavailable Unavailable Procedures Procedure Date Office Consultation Advance Directives Directive Yes / No Effective Date File Name No Information Encounters Encounter Description Practice Location Reason(s) For Visit Diagnoses Date Provider Providers Copied on Encounter Office Consultation [facility], [address] [place] [address] [address], [place], [place], [id number], [place] tel:[phone] [facility] No Information 6-[address] Zita Rodríguez. [address] , [address], [place], [address], [place]. tel:[phone] Referring Provider: Braydon Campbell MD [facility], [address] [place] [address], [address]. tel:[phone] Family History Family Member Type Diagnosis Age At Onset No Information Payers Payer name Insurance type Covered green party ID Authorefraina jazmine(s) [facility] Commercial CI [id number] Social History Type Description Quantity Date Captured Comments Sex Female Smoking Status No Information Chief Complaint And Reason For Visit No Information Reason For Referral Reason For Referral No Information History Of Present Illness Encounter Date Complaint History Of Prese nt Illness No Information Functional Status Date Functional Assessmen t No Information Instructions Date Instruction Additional Infor mation No Information Assessments Type Assessment Date No Information Patient Care Teams Name Effective Dates (start - stop) Status Members No Information
--- OUTSIDE RECORDS SUMMARY | 2024-09-07 16:14 | XMS_ITS | Encounter Summary ---
Author Organization [facility] Address [address] [place] [address] Care Team Providers Care Homicide Squad Lieutenant Name Role Phone Lorenzo Campbell MD Primary Care Provider [phone] Lorenzo Campbell MD Primary Care Provider [phone] Lorenzo Campbell MD Unavailable Max Guerrero MD Primary Care Provider [phone] Sowmya Arana MD Unavailable [phone] Williams Mcfarland DO Unavailable [phone] Norbert Arreguin MD Unavailable [phone] Encounter Details Date Type Department Care Team (Late st Contact Info) Description 03/21/[address] 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 Gender Identity Female 11/16/2023 1:34 PM CDT Sexual Orientation Not on file documented as of this encounter Plan of Treatment Not on file documented as of this encounter Visit Diagnoses Not on filedocumented in this encounter Care Teams Homicide Squad Lieutenant Relationship Specialty Start Date End Date Lorenzo Campbell MD [address] [place] [address] PCP - General Family Medicine 02/02/18 06/04/20 Lorenzo Campbell MD [address] [place] [address] PCP - General 06/05/20 05/23/22 Max Guerrero MD [address] [place] [address] PCP - General Family Medicine 05/24/22 Lorenzo Campbell MD [address] [place] [address] Family Medicine 06/05/20 07/01/24 Sowmya Arana MD [address] [place] [address] Radiation Oncologist Radiation Oncology 07/18/22 Williams Mcfarland DO [address] [place] [address] [address] [place], [place] [id number] Medical Oncologist/Movie Shot Camera Operator Hematology and Oncology 07/18/22 Norbert Arreguin MD [address] [place] [address] Surgeon General Surgery 07/18/22 documented as of this encounter
== END 2024-09-07 16:12 | disposition home or self-care (01) ==
PROVIDERS: PCP Family Medicine; Visit Provider Student in an Organized Health Care Education/Training Program
DX: M79.604 Pain in right leg (principal)
CPT/HCPCS: 93971

== ENCOUNTER 2024-10-23 13:31 | Outpatient (CLI) | payer OTHER, SELFPAY ==
--- NOTE | ~2024-10-23 | XR_ITS ---
EXAMINATION: XR lg joint inject/asp w image DATE: 10/23/2024 14:32 INDICATION: Right hip arthritis. TECHNIQUE: A time-out was performed to verify the patient's name, date of , and procedure to b e performed. The procedure including the risks, benefits, and alternatives was discussed with the pat ient. Risks discussed included bleeding and infection. The patient understood the risks and agreed to proceed. The skin overlying the right hip joint was prepped and draped in usual sterile fashion. A nesthetic was administered with 1% lidocaine subcutaneously. A 22 G needle was advanced under fluoro scopic guidance into the joint. Subsequently, injectate consisting of 2 mL 0.5% bupivacaine and 1 mL 80 mg/mL Depo-Medrol was instilled. The needle was removed and the entry site was cleaned and dresse d. There were no immediate complications. Fluoroscopy exposure time was 0.1 minutes. The total numbe r of images was 1. FINDINGS: Real-time fluoroscopy demonstrates the needle in the right hip joint. Patient's pain prior to procedure:2/10. Patient's pain following the procedure: 2/10. IMPRESSION: 1. Fluoroscopy guided right hip joint injection of local anesthetic and steroid. Reviewed, dictated and finalized at location A. IMPRESSION: 1. Fluoroscopy guided right hip joint injection of local anesthetic and steroid .
--- OUTSIDE RECORDS SUMMARY | 2024-10-23 15:49 | XMS_ITS ---
Author Organization [facility] Address [address] [place] [address] Care Team Providers Care Big 6 Dealer Name Role Phone Alex NAVARRETE, Susan Primary Care Provider Vika MachadoprettyEarl Unavailable [phone] Norbert Gonzalez Unavailable Unavailable Allergies Allergen (clinical drug ingredient) Drug/Non Drug Allergy documented on EMR Reaction Allergy Type Onset Date Status lisinopril Lisinopril other reaction Drug Allergy Active morphine Morphine rash Drug Allergy Active Results Component Value Reference Range Notes Spirometry Reviewed date:10/08/2024 04:12:08 PM Interpretation:Abnormal Performing Lab: Notes/Report: Abnormal SpiroPreBronchodilator_FVC 2.48 SpiroPostBronchodilator_FEF25_75 0 SpiroPreBronchodilator_FEF25_75 2.4 SpiroPreBronchodilator_FEV1 2.03 SpiroPrecentPredictionPost_FEF25_75 0 SpiroPrecentPredictionPost_FEV1 0 SpiroPrecentPredictionPost_FEV1_OVER_FVC 0 SpiroPrecentPredictionPost_FVC 0 SpiroPrecentPredictionPre_FEF25_75 93.4 SpiroPrecentPredictionPre_FEV1 73 SpiroPrecentPredictionPre_FEV1_OVER_FVC 106.7 SpiroPrecentPredictionPre_FVC 69.7 SpiroPredicted_FEF25_75 2.57 SpiroPreBronchodilator_FEV1_OVER_FVC 81.86 SpiroPreBronchodilator_PEF 5 SpiroPostBronchodilator_FVC 0 SpiroPostBronchodilator_FEV1 0 SpiroPostBronchodilator_FEV1_OVER_FVC 0 SpiroPostBronchodilator_PEF 0 SpiroPredicted_FVC 3.56 SpiroPredicted_FEV1 2.78 SpiroPredicted_FEV1_OVER_FVC 76.7 SpiroPredicted_PEF 6.2 REASON FOR VISIT Chronic lower airways symptoms concerning for possible asthma; followed by Dr. Gonzalez of pul for Asthma with AEC >200. Continues Tezspire with benefit. Prior trial of Breztri was without benefit.Continues Trelegy and Singulair. Noted increased congestion, throat clearing, recurrent cough. ACT = 8, ARC follow-up; continues allergy avoidance, on meds and continues SCIT with benefit. Feels Ipratropium has been beneficial though not using consistently, Treated with abx and steroids for lower airway infections 3-4 times a year. PI work-up with inadequate protection to S. pneumo and Hib. Has received both boosters. Only titer for Hib returned without difference, She has not obtained booster for both Medications Medication SIG (Take, Route, Frequency, Duration) Notes Start Date End Date Status TRELEGY ELLIPTA 200 mcg-62.5 mcg-25 mcg/inh 1 puff(s) inhaled once a day Not-Taking ZyrTEC Allergy 10 MG 1 tablet PO QD Not-Taking Pneumovax 23 - 0.5 ML INTRAMUSCULARLY ONCE for 1 DAYS *Please review and pick correct strength-formula tion from [employer] options. If intended option is not shown, discontinue and re-order from Quick Search* Not-Taking HIBERIX (HIB) - 0.5 mL intramuscularly once for 1 dose(s) Not-Taking Pepcid 20 MG 1 tab(s) orally 60 minutes prior to SCIT 09/19/2023 Not-Taking Ipratropium [place] 0.06 % 2 sprays in each nostril Nasally Four times a day for 30 days 06/04/2024 Not-Taking Amoxicillin-Pot Clavulanate 875-125 MG 1 tablet Orally every 12 hrs for 10 days 06/04/2024 Not-Taking Breztri Aerosphere 160-9-4.8 MCG/ACT 2 puffs Inhalation Twice a day Not-Taking SIT (CLUSTER) VARIABLE PER SCHEDULE SC PER SCHEDULE for TO BE DETERMINED *Please review for potential replacement for e-prescription and drug interaction check* 09/19/2023 Not-Taking Trelegy Ellipta 200 MCG-62.5 MCG-25 MCG/INH 1 PUFF(S) INHALED ONCE A DAY *Please review and pick correct strength-formula tion from [employer] options. If intended option is not shown, discontinue and re-order from Quick Search* Not-Taking TRIAMCINOLONE TOPICAL 0.1% 1 candi applied topically 3 times a day for 7 days Active Ipratropium [place] 0.06 % 2 sprays in each nostril Nasally Four times a day for 30 days Active SIT (Traditional) variable - see record per schedule subcutaneous per schedule for 999 days Active Amoxicillin-Pot Clavulanate 875-125 MG 1 tablet Orally every 12 hrs for 7 days 10/08/2024 Active Trelegy Ellipta 200-62.5-25 MCG/ACT 1 puff Inhalation Once a day for 30 days Active FAMOTIDINE 40 mg 1 tab(s) orally 30 mins prior to SCIT for 30 days Active Benzonatate 200 MG TAKE 1 CAPSULE BY MOUTH THREE TIMES DAILY NEEDED FOR COUGH Oral for 30 Days Active EPIPEN 2-PAUL 0.3 mg as directed intramuscularly once for 30 days Active TEZSPIRE PRE-FILLED PEN ekko 210 mg/1.91 mL as directed subcutaneously every 4 weeks Active Albuterol Sulfate HFA 108 (90 Base) MCG/ACT INHALE 2 PUFFS BY MOUTH EVERY 6 HOURS Inhalation for 25 Days Active FLUTICASONE NASAL 50 mcg/inh 2 spray(s) in each nostril twice a day for 30 days Active NASAL WASHES N/A as directed intranasally as needed for 30 days Active SIT (Traditional) variable - see record per schedule subcutaneous per schedule for 999 05/29/2024 Active CETIRIZINE 10 mg 1 tab(s) orally once a day for 30 days Active Azelastine HCl 137 MCG/SPRAY 2 sprays in each nostril Nasally Twice a day for 90 days Active Triamcinolone Acetonide 0.1 % 1 candi applied topically 3 times a day for 7 days 12/20/2023 Active Olmesartan Medoxomil 20 MG 1 tab(s) orally once a day Active VENTOLIN HFA 90 mcg/inh 2 puff(s) inhaled every 6 hours for 30 days Active SIT (Traditional) variable - see record per schedule subcutaneous per schedule for 999 days 02/06/2024 Active ALBUTEROL 2.5 mg/3 mL (0.083%) 3 mL by nebulizer every 6 hours Active Meloxicam 7.5 MG 1 tab(s) orally once a day Active FLUoxetine HCl 20 MG 1 tab(s) orally once a day Active Omeprazole 40 MG 1 cap(s) orally once a day Active metFORMIN HCl ER 500 MG 1 tab(s) orally once a day Active MONTELUKAST 10 mg 1 tab(s) orally once a day Active Vitamin D3 *Please review and pick correct strength-formula tion from [employer] options. If intended option is not shown, discontinue and re-order from Quick Search* Active Ventolin HFA 108 (90 Base) MCG/ACT 2 puff(s) inhaled every 6 hours for 30 days Active Gabapentin 300 MG 2 cap(s) orally once a day Active Benzonatate 200 MG 1 cap(s) orally 3 times a day Active Letrozole 2.5 MG 1 tab(s) orally once a day Active Tezspire 210 MG/1.91ML as directed Subcutaneous Active Cetirizine HCl 10 MG 1 tab(s) orally once a day for 30 days Active Albuterol Sulfate (2.5 MG/3ML) 0.083% 3 mL by nebulizer every 6 hours Active Montelukast Sodium 10 MG 1 tab(s) orally once a day Active Fluticasone Propionate 50 MCG/ACT 2 spray(s) in each nostril twice a day for 30 days Active Famotidine 40 mg 1 tab(s) orally 30 mins prior to SCIT for 30 days Active EpiPen 2-Paul 0.3 mg as directed intramuscularly once for 30 days Active SIT (CLUSTER) variable per schedule per schedule for 999 days Active Social History Tobacco Use: Social History Observation Description Date Details (start date - stop date) Never Smoker NA - NA Tobacco Control (Standard) Question Answer Notes Tobacco use: Nonsmoker Vital Signs Blood pressure systolic 117 mm Hg 10/09/19 25 Blood pressure diastolic 74 mm Hg 025 Height 67.75 in 10/08/2024 Weight 294.8 lbs 10/08/2024 BMI 45.15 kg/m2 10/08/2024 Oximetry 96 % 10/08/2024 Encounters Encounter Location Date Provider Diagnosis [facility] [address] [id number] 10/08/2024 Earl Mcnamara Severe persistent asthma, uncomplicated J45.50 ; Acute upper respiratory infection, unspecified J06.9 ; Allergic rhinitis due to pollen J30.1 ; Allergic rhinitis due to animal (cat) (dog) hair and dander J30.81 ; Other allergic rhinitis J30.89 ; Other chronic allergic conjunctivitis H10.45 ; Cough, unspecified R05.9 and Bronchitis, not specified as acute or chronic J40 Assessments Encounter Date Diagnosis (ICD Code) Assessment Notes Treatment Notes Treatment Clinical Notes Section Notes 10/08/2024 Severe persistent asthma, uncomplicated (ICD-10 - J45.50) History of asthma, treated with Dr. Gonzalez. Continues [...] time showing slight decrease in FVC and FEV1. Spirometry today comparable to last, still with moderate restriction. Advised f/u with Dr. Gonzalez. - Not due for Tezspire today. - Plan to return in 1 week for Tezspire dosing and 8 weeks for evaluation and management er 10/08/2024 Acute upper respiratory infection, unspecified (ICD-10 - J06.9) Initally with recurrent cough x 2 weeks that has evolved into increase sinus pressure and yellow-green drainage. Given timespan of symptoms, plan on treatment with abx. Restart nasal washes and nasal ipratropium to asssist with upper airway symptoms er 10/08/2024 Allergic rhinitis due to pollen (ICD-10 - J30.1) Autumn clearly suffers from atopic disease based upon our skin testing and clinical history. Accordingly, we encouraged her medication regimen, discussed nasal washes and allergy-specific avoidance measures. Plan to continue ipratropium given noted benefit. Currnetly holding SCIT due to illness. Keep on hand 2 hours after SCIT. Continue to triple premedicate er 10/08/2024 Allergic rhinitis due to animal (cat) (dog) hair and dander (ICD-10 - J30.81) Follow allergen avoidance, meds and continue SCIT as an adjunctive treatment to current regimen er 10/08/2024 Other allergic rhinitis (ICD-10 - J30.89) Follow allergen avoidance, meds and continue SCIT as an adjunctive treatment to current regimen er 10/08/2024 Other chronic allergic conjunctivitis (ICD-10 - H10.45) Given ocular signs and symptoms I encouraged allergy avoidance measures and meds as above. If symptoms persist, consider adding additional medications including intraocular antihistamine/mast cell stabilizer, PRN and continue SCIT as an adjunctive measure er 10/08/2024 Cough, unspecified (ICD-10 - R05.9) Recurrent cough likely multifactorial with history of ARC, Asthma and possible VCD. Plan to treat as above. Continue VCD exercises in the interval er 10/08/2024 Bronchitis, not specified as acute or chronic (ICD-10 - J40) Recurrent lower airway infections occurring 3-4 times a year meeting JMF criteria for modified PIDD work-up. PI work-up returned with inadequate protection to Hib and S. pneumo. Has now obtained Pneumovax and HiB. - Repeat titer retuned only for HIB which was still unprotected. S, pneumo was not obtained. She has obtained repeat HIB vaccine. Plan to recheck HIB and S, pneumo titer after finishing abx er Plan Of Treatment Medication Medication Name Sig Start Date Stop Date Notes TRIAMCINOLONE TOPICAL 0.1% 1 candi applied topically 3 times a day for 7 days Ipratropium [place] 0.06 % 2 sprays in e ach nostril Nasally Four times a day for 30 days SIT (Traditional) variable - see record per schedule subcutaneous per schedule for 999 days Amoxicillin-Pot Clavulanate 875-125 MG 1 tablet Orally every 12 hrs for 7 days 10/08/2024 Trelegy Ellipta 200-62.5-25 MCG/ACT 1 puff Inhalation Once a day for 30 days FAMOTIDINE 40 mg 1 tab(s) orally 30 m ins prior to SCIT for 30 days EPIPEN 2-PAUL 0.3 mg as directed intramus cularly once for 30 days TEZSPIRE PRE-FILLED PEN ekko 210 mg/1.91 mL as directed subcutaneously every 4 weeks FLUTICASONE NASAL 50 mcg/inh 2 spray(s) in each nostril twice a day for 30 days NASAL WASHES N/A as directed intranas ally as needed for 30 days CETIRIZINE 10 mg 1 tab(s) orally once a day for 30 days VENTOLIN HFA 90 mcg/inh 2 puff(s) inhale d every 6 hours for 30 days ALBUTEROL 2.5 mg/3 mL (0.083%) 3 mL by nebulizer every 6 hours MONTELUKAST 10 mg 1 tab(s) orally once a day Treatment Notes Assessment Notes Severe persistent asthma, uncomplicated History of asthma, treated with Dr. Gonzalez. Continues Trelegy with Leonard having trialed Breztri without benefit.. AEC earlier [...] time showing slight decrease in FVC and FEV1. Spirometry today comparable to last, still with moderate restriction. Advised f/u with Dr. Gonzalez. - Not due for Tezspire today. - Plan to return in 1 week for Tezspire dosing and 8 weeks for evaluation and management Acute upper respiratory infe ction, unspecified Initally with recurrent cough x 2 weeks that has evolved into increase sinus pressure and yellow-green drainage. Given timespan of symptoms, plan on treatment with abx. Restart nasal washes and nasal ipratropium to asssist with upper airway symptoms Allergic rhinitis due to pollen Autumn clearly suffers from atopic disease based upon our skin testing and clinical history. Accordingly, we encouraged her medication regimen, discussed nasal washes and allergy-specific avoidance measures. Plan to continue ipratropium given noted benefit. Currnetly holding SCIT due to illness. Keep on hand 2 hours after SCIT. Continue to triple premedicate Allergic rhinitis due to ani mal (cat) (dog) hair and dander Follow allergen avoidance, meds and continue SCIT as an adjunctive treatment to current regimen Other allergic rhinitis Follow allergen avoidance, meds and continue SCIT as an adjunctive treatment to current regimen Other chronic allergic conjunctivitis Gi bro ocular signs and symptoms I encouraged allergy avoidance measures and meds as above. If symptoms persist, consider adding additional medications including intraocular antihistamine/mast cell stabilizer, PRN and continue SCIT as an adjunctive measure Cough, unspecified Recurrent cough like ly multifactorial with history of ARC, Asthma and possible VCD. Plan to treat as above. Continue VCD exercises in the interval Bronchitis, not specified as acute or chronic Recurrent lower airway infections occurring 3-4 times a year meeting F criteria for modified PIDD work-up. PI work-up returned with inadequate protection to Hib and S. pneumo. Has now obtained Pneumovax and HiB. - Repeat titer retuned only for HIB which was still unprotected. S, pneumo was not obtained. She has obtained repeat HIB vaccine. Plan to recheck HIB and S, pneumo titer after finishing abx Pending Test Test Name Order Date STREPTOCOCCUS PNEUMONIAE IGG AB (23 SERO TYPES) 10/08/2024 HAEMOPHILUS INFLUENZAE B ANTIBODY, IGG 0 10/08/2024 Next Appt Details Follow Up: 1 Week,5 Weeks, Violeta pantoja: Evaluation and Management,[facility] Administration Provider Name:Supa SuarezChantel Zheng , 10/30/2024 03:00:00 PM, [address], [address] [place] [address], [phone], Provider Name:Supa DanielaChantel Zheng , 11/22/2024 03:00:00 PM, [address], [address] [place] [address], [phone], Provider Name:Supa DanielaChantel Zheng , 11/27/2024 03:00:00 PM, [address], [address], [place], [address], Progress Notes * Atuumn MARTINDOB:1965 (59 yo F)Acc No.[id number]:10/08/2024 Asthma F/U Patient: Autumn DAMON Provider: Clarita Mcnamara PA-C :1965 A ge:59 Y S ex:Female Date:10/08/2024 Address:[address] Pcp:Susan Johnson MD Subjective: * Chief Complaints: * C hronic lower airways symptoms concerning for possible asthma; followed by Dr. Gonzalez of pul for Asthma with AEC >200. Continues Tezspire with benefit. Prior trial of Breztri was without benefit. Continues Trelegy and Singulair. Noted increased congestion, throat clearing, recurrent cough. ACT = 8ARC follow-up; continues allergy avoidance, on meds and continues SCIT with benefit. Feels Ipratropium has been beneficial though not using consistentlyTreated with abx and steroids for lower airway infections 3-4 times a year. PI work-up with inadequate protection to S. pneumo and Hib. Has received both boosters. Only titer for Hib returned without difference, She has not obtained booster for both * HPI: * Introduction: I had the pleasure of seeing Yudelka Martin, a 59-year-old female with history of asthma, DIOMEDES, and breast cancer s/p lumpectomy returning in consultation with Dr. Norbert Gonzalez for interval evaluation and management. She is alone for today's visit. Of note, prior AEC = 209 on 11/24/22 with IgE = 4 on 12/10/22. Kedar has been on Trelegy and Singulair, with prior trial Breztri with questionable additional benefit. She continues to report SOB and cough typically productive with clear sputum. Previously using nebulizer multiple times a day, with occasional TENZIN HFA use as well. Prior NIOX testing normal with unremarkable CXR. No prior smoking history. She was treated with oral steroids April 2023, which she typically requires 3-4 times per year. Continues Tezspire which she has been tolerating without issue. Autumn has also reported dyspnea on exertion, with recent echo this past July 2023 with f/u lung CT: both normal. Seasonal changes and exercises are note triggers. Spirometry at initial visit showed obstruction present.. She feels SCIT and Tezspire has been beneficial. I normally have steroids by this point. She has had increased cough, sinus congestion, and PND with yellow-green phlgem that has been worsening, Currently holding SCIT for the past few weeks due to this. Aeroallergen skin testing was completed at prior visit, and was positive to multiple seasonal and perennial allergens. Has had continued drainage she treats with azelastine with benefit; now switched to ipratropium though not using consistently. She will take Zyrtec with minimal benefit though azelastine is also beneficial. Feels Summer is her worst season. She has no pets at home. She continues on SCIT with benefit. She is currently triple premedicating. PI work-up ordered previously and returned with inadequate protection to S. pnuemo and Hib, she has received both boosters with repeat titers only returning for HIB without difference. She has since obtained additiaonl Hib booster and is due for recheck of both. Today, she reports no fevers, chills, night sweats or other constitutional symptoms. * ROS: A LLERGY: Positive p er the HPI and history, otherwise unremarkable.? S PECIAL SENSES: Positve for n one. C ONSTITUTIONAL: fatigue Y es. P ositive for n one. E NT: cough Y es. P ositive p er the HPI and history, otherwise unremarkable. R ESPIRATORY: shortness of breath Y es. c hest congestion Y es.?cough Y es. P ositive p er the HPI and history, otherwise unremakable. ? O PHTHALMOLOGY: blurring of vision Y es. P ositive for p er the HPI and history, otherwise unremarkable. E NDOCRINOLOGY: sleep disturbance Y es. h eat intolerance Y es.?Positive for n one. C ARDIOLOGY: leg edema Y es. s hortness of breath Y es. P ositive for n one. G ASTROENTEROLOGY: hemorrhoids Y es. P ositive for n one. ? U ROLOGY: Positive for n one. D ERMATOLOGY: dry or sensitive skin Y es. P ositive for p er the HPI and history, otherwise unremakable. N EUROLOGY: Positive for n one. H EMATOLOGY/LYMPH: Positive for n one. M USCULOSKELETAL: joint swelling Y es. j oint pain Y es. l eg cramps Y es. j oint stiffness Y es. P ositive for n one. P SYCHOLOGY: sleep disturbances Y es. P ositive for n one. ? A ll other review of systems per the HPI and history, otherwise unremarkable. * Medical History: * Surgical History: E ye strabismus 06/25/1965C section 05/19/1992Eye strabismus Rotator cuff and bicept repair 12/10/2017Breast lumpectomy 08/30/2022 * Hospitalization/Major Diagno stic Procedure: F acial cellulitis 05/30/2023 * Family History: F ather: , Yes, diagnosed with Cancer, Hypertension. M other: , Yes, diagnosed with Cancer. S iblings: alive, Yes, diagnosed with Hypertension, Atopic asthma w/o mention of status asthmaticus or acute exacerbation. C hildren: Yes. 1 brother(s) , 2 sister(s) - healthy. 2 son(s) , 1 daughter(s) - healthy. . * Social History: M arital Status What is your marital status? m arried A lcohol Screening Do you ever drink alcoholic beverages? N o S moking Have you ever smoked tobacco: n ever smoked Additional Findings: Tobacco Non-User N on-smoker for yarsanism reasons Are you a : n ever smoker R ecreational drug use Have you ever used recreational drugs? N o D etails on consumption of certain products? Do you regularly consume products with aspartame; Equal or NutraSweet? Y es Do you regularly consume products with artificial coloring??Yes Have you ever noticed worsening of your rash with these food items? N o A re any of the following personal care products containing fragrance, dye or preservatives used regularly? Shampoo: Y es Conditioner: Y es Soap: Y es Laundry Detergent: Y es Fabric Softener: Y es Deodorant: Y es Air freshners or other scented products: Y es Hair coloring dyes or rinses: Y es O ccupation Are you currenly employed? Y es Employment status? 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 number of years?24 Do you believe that your current or previous occupation has any bearing on your illness? N o How much work have you missed due to breathing difficulty within the past year? 1 week Please describe the effect of your illness on your job l oss of work Do you have any pending or planned legal action against your current or former employer which pertains to your medical illness? N o Do you anticipate that your evaluation will be used in any legal action against your current employer or former employer? N o Have you had any job with high exposure to fumes, chemicals, dust or other noxious substances? N o Are you currently a student? N o E nvironmental History Living environment: p rivate home Where is the home located? r [place] Age of home: 3 7 How long have you lived there? 5 years or more How many people live in the home? 2 H ome description Basement: N o Smokers in the home? N o Smokers outside the home? N o Air Conditioning? Y es Central Air? Y es Forced air heating? Y es Gas or electric? g as Fireplace? N o Wood burning stove? N o Do you vacuum the home? Y es Air purification systems? N o Pillow and mattress dust-proof encasings? N o Do you use a humidifier? N o Do you own any pets? N o Fabric softeners used? Y es Plants in the home? Y es How many? 2 Where are they kept? o ther room in home Is there carpeting in your bedroom? Y es Age of carpet? 1 3 Do you have etnr-hi-yxgc carpeting? N o What is the age of your mattress (years)? 1 3 What material(s) are used to manufacture your bedding and pillow? o ther What is the age of your pillow (years)? 3 What material are your bedding items made of? n atural fiber (e.g. cotton) Do you sleep with quilts or blankets or a duvet? Y es What material? n atural fiber (e.g. cotton) T obacco Control (Standard) Tobacco use: N onsmoker * Medications: T akingEpiPen 2-Paul 0.3 mg kit as directed intramuscularly once Famotidine 40 mg tablet 1 tab(s) orally 30 mins prior to SCIT TEZSPIRE PRE-FILLED PEN ekko 210 mg/1.91 mL solution as directed subcutaneously every 4 weeks Trelegy Ellipta 200-62.5-25 MCG/ACT Aerosol Powder Breath Activated 1 puff Inhalation Once a day Ipratropium Mill[place] 0.06 % Solution 2 sprays in each nostril Nasally Four times a day SIT ([facility]) variable see record per schedule per schedule Tezspire 210 MG/1.91ML Solution Prefilled Syringe as directed Subcutaneous Albuterol Sulfate (2.5 MG/3ML) 0.083% Nebulization Solution 3 mL by nebulizer every 6 hours Cetirizine HCl 10 MG Tablet 1 tab(s) orally once a day Fluticasone Propionate 50 MCG/ACT Suspension 2 spray(s) in each nostril twice a day Montelukast Sodium 10 MG Tablet 1 tab(s) orally once a day Ventolin HFA 108 (90 Base) MCG/ACT Aerosol Solution 2 puff(s) inhaled every 6 hours Vitamin D3 , Notes to Pharmacist: *Please review and pick correct strength-formulation from [employer] options. If intended option is not shown, discontinue and re-order from Quick Search*Benzonatate 200 MG Capsule 1 cap(s) orally 3 times a day Gabapentin 300 MG Capsule 2 cap(s) orally once a day Letrozole 2.5 MG Tablet 1 tab(s) orally once a day FLUoxetine HCl 20 MG Tablet 1 tab(s) orally once a day Meloxicam 7.5 MG Tablet 1 tab(s) orally once a day metFORMIN HCl ER 500 MG Tablet Extended Release 24 Hour 1 tab(s) orally once a day Omeprazole 40 MG Capsule Delayed Release 1 cap(s) orally once a day Olmesartan Medoxomil 20 MG Tablet 1 tab(s) orally once a day Triamcinolone Acetonide 0.1 % Ointment 1 candi applied topically 3 times a day SIT ([facility]) variable - see record variable - see record per schedule subcutaneous per schedule SIT (Traditional) variable - see record variable - see record per schedule subcutaneous per schedule SIT (Traditional) variable - see record variable - see record per schedule subcutaneous per schedule Azelastine HCl 137 MCG/SPRAY Solution 2 sprays in each nostril Nasally Twice a day Albuterol Sulfate HFA 108 (90 Base) MCG/ACT Aerosol Solution INHALE 2 PUFFS BY MOUTH EVERY 6 HOURS Inhalation Benzonatate 200 MG Capsule TAKE 1 CAPSULE BY MOUTH THREE TIMES DAILY NEEDED FOR COUGH Oral Taking EpiPen 2-Paul 0.3 mg kit as directed intramuscularly once Taking Famotidine 40 mg tablet 1 tab(s) orally 30 mins prior to SCIT Taking TEZSPIRE PRE-FILLED PEN ekko 210 mg/1.91 mL solution as directed subcutaneously every 4 weeks Taking Trelegy Ellipta 200-62.5-25 MCG/ACT Aerosol Powder Breath Activated 1 puff Inhalation Once a day Taking Ipratropium [place] 0.06 % Solution 2 sprays in each nostril Nasally Four times a day Taking SIT (CLUSTER) variable see record per schedule per schedule Taking Tezspire 210 MG/1.91ML Solution Prefilled Syringe as directed Subcutaneous Taking Albuterol Sulfate (2.5 MG/3ML) 0.083% Nebulization Solution 3 mL by nebulizer every 6 hours Taking Cetirizine HCl 10 MG Tablet 1 tab(s) orally once a day Taking Fluticasone Propionate 50 MCG/ACT Suspension 2 spray(s) in each nostril twice a day Taking Montelukast Sodium 10 MG Tablet 1 tab(s) orally once a day Taking Ventolin HFA 108 (90 Base) MCG/ACT Aerosol Solution 2 puff(s) inhaled every 6 hours Taking Vitamin D3 , Notes to Pharmacist: *Please review and pick correct strength-formulation from [employer] options. If intended option is not shown, discontinue and re-order from Quick Search*Taking Benzonatate 200 MG Capsule 1 cap(s) orally 3 times a day Taking Gabapentin 300 MG Capsule 2 cap(s) orally once a day Taking Letrozole 2.5 MG Tablet 1 tab(s) orally once a day Taking FLUoxetine HCl 20 MG Tablet 1 tab(s) orally once a day Taking Meloxicam 7.5 MG Tablet 1 tab(s) orally once a day Taking metFORMIN HCl ER 500 MG Tablet Extended Release 24 Hour 1 tab(s) orally once a day Taking Omeprazole 40 MG Capsule Delayed Release 1 cap(s) orally once a day Taking Olmesartan Medoxomil 20 MG Tablet 1 tab(s) orally once a day Taking Triamcinolone Acetonide 0.1 % Ointment 1 candi applied topically 3 times a day Taking SIT (Traditional) variable - see record variable - see record per schedule subcutaneous per schedule Taking SIT (Traditional) variable - see record variable - see record per schedule subcutaneous per schedule Taking SIT (Traditional) variable - see record variable - see record per schedule subcutaneous per schedule Taking Azelastine HCl 137 MCG/SPRAY Solution 2 sprays in each nostril Nasally Twice a day Taking Albuterol Sulfate HFA 108 (90 Base) MCG/ACT Aerosol Solution INHALE 2 PUFFS BY MOUTH EVERY 6 HOURS Inhalation Taking Benzonatate 200 MG Capsule TAKE 1 CAPSULE BY MOUTH THREE TIMES DAILY NEEDED FOR COUGH Oral Not-Taking/PRNEpiPen 2-Paul 0.3 mg kit as directed intramuscularly once Famotidine 40 mg tablet 1 tab(s) orally 30 mins prior to SCIT MONTELUKAST 10 mg tablet 1 tab(s) orally once a day ALBUTEROL 2.5 mg/3 mL (0.083%) solution 3 mL by nebulizer every 6 hours VENTOLIN HFA 90 mcg/inh aerosol 2 puff(s) inhaled every 6 hours CETIRIZINE 10 mg tablet 1 tab(s) orally once a day FLUTICASONE NASAL 50 mcg/inh spray 2 spray(s) in each nostril twice a day NASAL WASHES N/A 1 quart of sterilized tap water or distilled water, 1 tsp NaCl, 1 pinch of baking soda as directed intranasally as needed TRIAMCINOLONE TOPICAL 0.1% ointment 1 candi applied topically 3 times a day Trelegy Ellipta 200 MCG-62.5 MCG-25 MCG/INH POWDER 1 PUFF(S) INHALED ONCE A DAY , Notes to Pharmacist: *Please review and pick correct strength-formulation from [employer] options. If intended option is not shown, discontinue and re-order from Quick Search*Amoxicillin-Pot Clavulanate 875-125 MG Tablet 1 tablet Orally every 12 hrs Ipratropium [place] 0.06 % Solution 2 sprays in each nostril Nasally Four times a day SIT (CLUSTER) VARIABLE SEE RECORD PER SCHEDULE SC PER SCHEDULE , Notes to Pharmacist: *Please review for potential replacement for e-prescription and drug interaction check*Breztri Aerosphere 160-9-4.8 MCG/ACT Aerosol 2 puffs Inhalation Twice a day ZyrTEC Allergy 10 MG Tablet 1 tablet PO QD TRELEGY ELLIPTA 200 mcg- 62.5 mcg-25 mcg/inh powder 1 puff(s) inhaled once a day HIBERIX (HIB) - powder for injection 0.5 mL intramuscularly once Pneumovax 23 - SOLUTION 0.5 ML INTRAMUSCULARLY ONCE , Notes to Pharmacist: *Please review and pick correct strength-formulation from [employer] options. If intended option is not shown, discontinue and re-order from Quick Search*Pepcid 20 MG Tablet 1 tab(s) orally 60 minutes prior to SCIT Medication List reviewed and reconciled with the patientNot-Taking/PRN EpiPen 2-Paul 0.3 mg kit as directed intramuscularly once Not-Taking/PRN Famotidine 40 mg tablet 1 tab(s) orally 30 mins prior to SCIT Not-Taking/PRN MONTELUKAST 10 mg tablet 1 tab(s) orally once a day Not-Taking/PRN ALBUTEROL 2.5 mg/3 mL (0.083%) solution 3 mL by nebulizer every 6 hours Not-Taking/PRN VENTOLIN HFA 90 mcg/inh aerosol 2 puff(s) inhaled every 6 hours Not-Taking/PRN CETIRIZINE 10 mg tablet 1 tab(s) orally once a day Not-Taking/PRN FLUTICASONE NASAL 50 mcg/inh spray 2 spray(s) in each nostril twice a day Not-Taking/PRN NASAL WASHES N/A 1 quart of sterilized tap water or distilled water, 1 tsp NaCl, 1 pinch of baking soda as directed intranasally as needed Not-Taking/PRN TRIAMCINOLONE TOPICAL 0.1% ointment 1 candi applied topically 3 times a day Not-Taking/PRN Trelegy Ellipta 200 MCG-62.5 MCG-25 MCG/INH POWDER 1 PUFF(S) INHALED ONCE A DAY , Notes to Pharmacist: *Please review and pick correct strength-formulation from [employer] options. If intended option is not shown, discontinue and re-order from Quick Search*Not-Taking/PRN Amoxicillin-Pot Clavulanate 875-125 MG Tablet 1 tablet Orally every 12 hrs Not-Taking/PRN Ipratropium [place] 0.06 % Solution 2 sprays in each nostril Nasally Four times a day Not-Taking/PRN SIT (CLUSTER) VARIABLE SEE RECORD PER SCHEDULE SC PER SCHEDULE , Notes to Pharmacist: *Please review for potential replacement for e-prescription and drug interaction check*Not-Taking/PRN Breztri Aerosphere 160-9-4.8 MCG/ACT Aerosol 2 puffs Inhalation Twice a day Not-Taking/PRN ZyrTEC Allergy 10 MG Tablet 1 tablet PO QD Not- Taking/PRN TRELEGY ELLIPTA 200 mcg-62.5 mcg-25 mcg/inh powder 1 puff(s) inhaled once a day Not-Taking/PRN HIBERIX (HIB) - powder for injection 0.5 mL intramuscularly once Not-Taking/PRN Pneumovax 23 - SOLUTION 0.5 ML INTRAMUSCULARLY ONCE , Notes to Pharmacist: *Please review and pick correct strength-formulation from [employer] options. If intended option is not shown, discontinue and re-order from Quick Search*Not-Taking/PRN Pepcid 20 MG Tablet 1 tab(s) orally 60 minutes prior to SCIT Medication List reviewed and reconciled with the patient * Allergies: L isinopril: other reactionMorphine: rashno[Allergies Verified] Objective: * Vitals: B P:117/74mm Hg, HR:82/min, Pulse Oximetry:96%, Ht: 67.75 in, Wt: 294.8 lbs, BMI:45.15Index. * Examination: G eneral examination: General appearance: p leasant, well-developed, well-nourished, female, i n no apparent distress, speaking in full sentences. HEENT: c onjunctiva are normal bilaterally. Oral cavity: n ormal, no lesions. Breasts : n ot performed. Heart: R RR, S1-S2, no murmurs, no rubs, no gallops. Lungs: c lear to auscultation in all lung epstein, no wheezes, no crackles, no rhonchi. Neurologic exam: u nremarkable. Skin: n ormal, no visible rash, dermatographism, urticaria, angioedema. Back: n ormal. Extremities: n ormal ROM, no clubbing, no cyanosis, no edema. Genitalia: n ot performed. Assessment: * Assessment: 1. A cute upper respiratory infection, unspecified - J06.9 (Primary) 2 . S evere persistent asthma, uncomplicated - J45.50 3 . A llergic rhinitis due to pollen - J30.1 4 . A llergic rhinitis due to animal (cat) (dog) hair and dander - J30.81 5 . O ther allergic rhinitis - J30.89 6 . O ther chronic allergic conjunctivitis - H10.45 7 . C ough, unspecified - R05.9 ?8. B ronchitis, not specified as acute or chronic - J40 er Plan: * Treatment: 2. S evere persistent asthma, uncomplicated Continue MONTELUKAST tablet, 10 mg, 1 tab(s), orally, once a day; C ontinue ALBUTEROL solution, 2.5 mg/3 mL (0.083%), 3 mL, by nebulizer, every 6 hours; C ontinue VENTOLIN HFA aerosol, 90 mcg/inh, 2 puff(s), inhaled, every 6 hours, 30 days, 1, Refills 0; C ontinue TEZSPIRE PRE-FILLED PEN solution, ekko 210 mg/1.91 mL, as directed, subcutaneously, every 4 weeks; C ontinue Trelegy Ellipta Aerosol Powder Breath Activated, 200-62.5-25 MCG/ACT, 1 puff, Inhalation, Once a day, 30 days, 1, Refills 2. I maging: Spirometry (Performed Date - 10/08/2024) Value Reference Range S piroPreBronchodilator_FVC 2.48 * S piroPreBronchodilator_FEF25_75 2.4 * S piroPreBronchodilator_FEV1 2.03 * S piroPrecentPredictionPre_FEF25_75 93.4 * S piroPrecentPredictionPre_FEV1 73 * S piroPrecentPredictionPre_FEV1_OVER_FVC 106.7 * S piroPrecentPredictionPre_FVC 69.7 * S piroPredicted_FEF25_75 2.57 * S piroPreBronchodilator_FEV1_OVER_FVC 81.86 * S piroPreBronchodilator_PEF 5 * S piroPredicted_FVC 3.56 * S piroPredicted_FEV1 2.78 * S piroPredicted_FEV1_OVER_FVC 76.7 * S piroPredicted_PEF 6.2 * Moderate restriction marked by decreased FEV1 and FVC tough TLC not measured. Normal FEV1%. FVL shows scalloping near the end of exhalation c/w small airway disease. Advanced lung age. Notes: History of asthma, treated with Dr. Gonzalez. Continues [...] time showing slight decrease in FVC and FEV1. Spirometry today comparable to last, still with moderate restriction.Advised f/u with Dr. Gonzalez. - Not due for Tezspire today. - Plan to return in 1 week for Tezspire dosing and 8 weeks for evaluation and management??3.?Allergic rhinitis due to pollen? Continue CETIRIZINE tablet, 10 mg, 1 tab(s), orally, once a day, 30 days, 30, Refills 0;?Continue FLUTICASONE NASAL spray, 50 mcg/inh, 2 spray(s), in each nostril, twice a day, 30 days, Refills 0;?Restart NASAL WASHES 1 quart of sterilized tap water or distilled water, 1 tsp NaCl, 1 pinchof baking soda, N/A, as directed, intranasally, as needed, 30 days, Refills 0;?Continue EPIPEN2-PAUL kit, 0.3 mg, as directed, intramuscularly, once, 30 days, 1, Refills 0;?Continue FAMOTIDINE tablet, 40 mg, 1 tab(s), orally, 30 mins prior to SCIT, 30 days, 30, Refills 0;?Continue TRIAMCINOLONE TOPICAL ointment, 0.1%, 1 candi, applied topically, 3 times a day, 7 days, 60, Refills 0; Restart Ipratropium [place] Solution, 0.06 %, 2 sprays in each nostril, Nasally, Four times a day, 30 days, 1, Refills 2;?Increase SIT (Traditional) variable - see record, variable - see record, per schedule, subcutaneous, per schedule, 999 days.?? Notes: Autumn clearly suffers from atopic disease based upon our skin testing and clinical history. Accordingly, we encouraged her medication regimen, discussed nasal washes and allergy-specific avoidance measures. Plan to continue ipratropium given noted benefit. Currnetly holding SCIT due to illness. Keep on hand 2 hours after SCIT. Continue to triple premedicate??4.?Allergic rhinitis due to animal (cat) (dog) hair and dander? Notes: Follow allergen avoidance, meds and continue SCIT as an adjunctive treatment to current regimen??5.?Other allergic rhinitis? Notes: Follow allergen avoidance, meds and continue SCIT as an adjunctive treatment to current regimen??6.?Other chronic allergic conjunctivitis? Notes: Given ocular signs and symptoms I encouraged allergy avoidance measures and meds as above. If symptoms persist, consider adding additional medications including intraocular antihistamine/mast cell stabilizer, PRN and continue SCIT as an adjunctive measure??7.?Cough, unspecified? Notes: Recurrent cough likely multifactorial with history of ARC, Asthma and possible VCD. Plan to treat as above. Continue VCD exercises in the interval?? 8.?Bronchitis, not specified as acute or chronic?LAB: STREPTOCOCCUS PNEUMONIAE IGG AB (23 SEROTYPES) ?LAB: HAEMOPHILUS INFLUENZAE B ANTIBODY, IGG Notes: Recurrent lower airway infections occurring 3-4 times a year meeting F criteria for modified PIDD work-up. PI work-up returned with inadequate protection to Hib and S. pneumo. Has now obtained Pneumovax and HiB. - Repeat titer retuned only for HIB which was still unprotected. S, pneumo was not obtained. She has obtained repeat HIB vaccine. Plan to recheck HIB and S, pneumo titer after finishing abx? * Procedure Codes: 9 6160 PT-FOCUSED HLTH RISK [id number] DOC MEDS VERIFIED W/PT OR [id number] Moreno Mcnamara - Incident-[id number] RESPIRATORY FLOW VOLUME [id number] TOT # ED VSTS & IP HOSP<2 PAST 12 M * Preventive Medicine: Counseling: M edication instruction: W atch for side effects of prescribed medications, Nasal steroid/antihistamine instruction: avoid septum. E ducation: G ENERAL EDUCATION: Our staff spent an additional 30 minutes in direct contact with the patient educating them on their current diagnoses and proper treatment and prevention of symptoms and the proper use of medications, ASTHMA EDUCATION:, Our staff discussed pulmonary function testing and results with the patient/family, Our staff trained the patient on the appropriate use of MDI/DPI/Respimat/spacer/nebulizer treatments for future use.? P atient education material sent to portal? Y es C are goal follow up plan BMI management provided Y es Above Normal BMI Follow-up D ietary management education, guidance, and counseling B P Management: PRE-HYPERTENSIVE FOLLOW-UP PLAN: F ollow-up 1 month REFERRAL TO ALTERNATIVE / PRIMARY CARE PROVIDER: R eferral to general physician * Follow Up: 1 Week,5 Weeks (Reason: Evaluation and Management,TEZSPIRE Administration) * Billing Information: * Visit Code: 11226 Office Visit, Est Pt., Level 4. Modifiers: 25 * Procedure Codes: 11345 PT-FOCUSED HLTH RISK ASSMT. G8427 DOC MEDS VERIFIED W/[place]. [address] Moreno Mcnaamra - Incident-to. A4617 Mouthpiece. 26313 RESPIRATORY FLOW VOLUME LOOP. G9521 TOT # ED VSTS & IP HOSP<2 PAST 12 M. * Sign off status: Completed true * Provider: Clarita Mcnamara PA-C Date: 0 10/08/2024 Generated for Printi ng/Faxing/eTransmitting on: 0 10/23/2024 03:49 PM CDT History and Physical Notes * HPI (History of Present Illness) Category Sub-Category Detail Notes Category Not es *Introduction I had the pleasure o f seeing Autumn Martin, a 59-year-old female with history of asthma, DIOMEDES, and breast cancer s/p lumpectomy returning in consultation with Dr. Norbert Gonzalez for interval evaluation and management. She is alone for today's visit. Of note, prior AEC = 209 on 11/24/22 with IgE = 4 on 12/10/22. Kedar has been on Trelegy and Singulair, with prior trial Breztri with questionable additional benefit. She continues to report SOB and cough typically productive with clear sputum. Previously using nebulizer multiple times a day, with occasional TENZIN HFA use as well. Prior NIOX testing normal with unremarkable CXR. No prior smoking history. She was treated with oral steroids April 2023, which she typically requires 3-4 times per year. Continues Tezspire which she has been tolerating without issue. Autumn has also reported dyspnea on exertion, with recent echo this past July 2023 with f/u lung CT: both normal. Seasonal changes and exercises are note triggers. Spirometry at initial visit showed obstruction present.. She feels SCIT and Tezspire has been beneficial. I normally have steroids by this point. She has had increased cough, sinus congestion, and PND with yellow-green phlgem that has been worsening, Currently holding SCIT for the past few weeks due to this. Aeroallergen skin testing was completed at prior visit, and was positive to multiple seasonal and perennial allergens. Has had continued drainage she treats with azelastine with benefit; now switched to ipratropium though not using consistently. She will take Zyrtec with minimal benefit though azelastine is also beneficial. Feels Summer is her worst season. She has no pets at home. She continues on SCIT with benefit. She is currently triple premedicating. PI work-up ordered previously and returned with inadequate protection to S. pnuemo and Hib, she has received both boosters with repeat titers only returning for HIB without difference. She has since obtained additiaonl Hib booster and is due for recheck of both. Today, she reports no fevers, chills, night sweats or other constitutional symptoms Examination Category Sub-Category Detail Notes Category Not es General examination HEENT: conjunctiva are jaren l bilaterally Heart: RRR, S1-S2, no murmu rs, no rubs, no gallops Lungs: clear to auscultatio n in all lung epstein, no wheezes, no crackles, no rhonchi Extremities: normal ROM, no clubb ing, no cyanosis, no edema General appearance: pleasant, well-devel oped, well-nourished, female, in no apparent distress, speaking in full sentences Skin: normal, no visible r jose, dermatographism, urticaria, angioedema Neurologic exam: unremarkable Oral cavity: normal, no lesions Breasts : not performed Back: normal Genitalia: not performed
--- OUTSIDE RECORDS SUMMARY | 2024-10-23 15:49 | XMS_ITS ---
Author Organization [facility] Address [address] [place] [address] Care Team Providers Care Wire Coating Machine Operator Name Role Phone Alex NAVARRETE, Susan Primary Care Provider Earl Mendez Unavailable [phone] Norbert Gonzalez Unavailable Unavailable Supa Zheng Unavailable [phone] REASON FOR VISIT Asthma w/o mention of status asthmaticus or acute exacerbation follow-up, TEZSPIRE administration scheduled today, Needs evaluation for pre-TEZSPIRE health questionaire to assess health status and medication review Medications Medication SIG (Take, Route, Frequency, Duration) Notes Start Date End Date Status Pneumovax 23 - 0.5 ML INTRAMUSCULARLY ONCE for 1 DAYS *Please review and pick correct strength-formula tion from Medispan options. If intended option is not shown, discontinue and re-order from Quick Search* Not-Taking HIBERIX (HIB) - 0.5 mL intramuscularly once for 1 dose(s) Not-Taking Pepcid 20 MG 1 tab(s) orally 60 minutes prior to SCIT 09/19/2023 Not-Taking Amoxicillin-Pot Clavulanate 875-125 MG 1 tablet Orally every 12 hrs for 7 days 10/08/2024 Active TRELEGY ELLIPTA 200 mcg-62.5 mcg-25 mcg/inh 1 puff(s) inhaled once a day Not-Taking Ipratropium [place] 0.06 % 2 sprays in each nostril [...] e-prescription and drug interaction check* 09/19/2023 Not-Taking ZyrTEC Allergy 10 MG 1 tablet PO QD Not-Taking Azelastine HCl 137 MCG/SPRAY 2 sprays in each nostril Nasally Twice a day for 90 days Active SIT (Traditional) variable - see record per schedule subcutaneous per schedule for 999 05/29/2024 Active Albuterol Sulfate HFA 108 (90 Base) MCG/ACT INHALE 2 PUFFS BY MOUTH EVERY 6 HOURS Inhalation for 25 Days Active Trelegy Ellipta 200 MCG-62.5 MCG-25 MCG/INH 1 PUFF(S) INHALED ONCE A DAY *Please review and pick correct strength-formula tion from Ushi options. If intended option is not shown, discontinue and re-order from Quick Search* Not-Taking Benzonatate 200 MG TAKE 1 CAPSULE BY MOUTH THREE TIMES DAILY NEEDED FOR COUGH Oral for 30 Days Active metFORMIN HCl ER 500 MG 1 tab(s) orally once a day Active Olmesartan Medoxomil 20 MG 1 tab(s) orally once a day Active Omeprazole 40 MG 1 cap(s) orally once a day Active SIT (Traditional) variable - see record per schedule subcutaneous per schedule for 999 days 02/06/2024 Active Triamcinolone Acetonide 0.1 % 1 candi applied topically 3 times a day for 7 days 12/20/2023 Active Benzonatate 200 MG 1 cap(s) orally 3 times a day Active Letrozole 2.5 MG 1 tab(s) orally once a day Active Gabapentin 300 MG 2 cap(s) orally once a day Active FLUoxetine HCl 20 MG 1 tab(s) orally once a day Active Meloxicam 7.5 MG 1 tab(s) orally once a day Active Vitamin D3 *Please review and pick correct strength-formula tion from Ushi options. If intended option is not shown, discontinue and re-order from Quick Search* Active Fluticasone Propionate 50 MCG/ACT 2 spray(s) in each nostril twice a day for 30 days Active Cetirizine HCl 10 MG 1 tab(s) orally once a day for 30 days Active Ventolin HFA 108 (90 Base) MCG/ACT 2 puff(s) inhaled every 6 hours for 30 days Active Montelukast Sodium 10 MG 1 tab(s) orally once a day Active SIT (Traditional) variable - see record per schedule subcutaneous per schedule for 999 days Active Ipratropium [place] 0.06 % 2 sprays in each nostril Nasally Four times a day for 30 days Active SIT (CLUSTER) variable per schedule per schedule for 999 days Active Albuterol Sulfate (2.5 MG/3ML) 0.083% 3 mL by nebulizer every 6 hours Active Tezspire 210 MG/1.91ML as directed Subcutaneous Active EpiPen 2-Brian 0.3 mg as directed intramuscularly once for 30 days Active Famotidine 40 mg 1 tab(s) orally 30 mins prior to SCIT for 30 days Active TEZSPIRE PRE-FILLED PEN ekko 210 mg/1.91 mL as directed subcutaneously every 4 weeks Active Trelegy Ellipta 200-62.5-25 MCG/ACT 1 puff Inhalation Once a day for 30 days Active TRIAMCINOLONE TOPICAL 0.1% 1 candi applied topically 3 times a day for 7 days Active ALBUTEROL 2.5 mg/3 mL (0.083%) 3 mL by nebulizer every 6 hours Active CETIRIZINE 10 mg 1 tab(s) orally once a day for 30 days Active VENTOLIN HFA 90 mcg/inh 2 puff(s) inhaled every 6 hours for 30 days Active NASAL WASHES N/A as directed intranasally as needed for 30 days Active FLUTICASONE NASAL 50 mcg/inh 2 spray(s) in each nostril twice a day for 30 days Active MONTELUKAST 10 mg 1 tab(s) orally once a day Active Vital Signs Blood pressure systolic 138 mm Hg 10/19/19 25 Blood pressure diastolic 78 mm Hg 025 Height 67.75 in 10/18/2024 Oximetry 97 % 10/18/2024 Encounters Encounter Location Date Provider Diagnosis [facility] [address] [place] [address] 10/18/2024 Supa Zheng Severe persistent asthma, uncomplicated J45.50 Assessments Encounter Date Diagnosis (ICD Code) Assessment Notes Treatment Notes Treatment Clinical Notes Section Notes 10/18/2024 Severe persistent asthma, uncomplicated (ICD-10 - J45.50) 10/18/2024 Other Plan Of Treatment Next Appt Details Follow Up: As scheduled for tezspire, Reason: Provider Name:Supa HChantel Zheng , 10/30/2024 03:00:00 PM, [address] [facility], [address], [place], [address], Provider Name:Supa Zheng , 11/22/2024 03:00:00 PM, [address] [facility], [address], [place], [address], Provider Name:Supa Zheng , 11/27/2024 03:00:00 PM, [address] [facility], [address] [facility], [place], [address], Procedure Notes * Category Sub-Category Detail Notes TEZSPIRE (tezepelumab-ekko) Administration Dosing Time / Vitals See initial vitalsJuan Karley 10/18/2024 03:10:00 PM CDT > Dose Concentration/Dosing : 210 mg (110 mg/mL) / 1.91 mL subcutaneous injection Location RADHA Reaction None Frequency Interval:: Monthly Lot Number / Expiration Lot Number: [id number], Expiration:04/30/2026 Post-procedural check-out: Vital signs t aken 30 minutes after dosing: BP: 118/78 P: 70 O2: 95 Medication Source TEZSPIRE Source: Buy and Bill Source Verification:: Who pulled drug (p lease type staff name in notes)? October Medical necessity for in-off ice administration The patient or caregiver is not suitable , not competent or is physically unable to administer the TEZSPIRE product for the following reason(s):: lack of suitable supervision and oversight given the risk of hypersensitivty reaction, as listed in the prescribing information Progress Notes * Autumn MARTINDOB:1965 (59 yo F)Acc No.[id number]:10/18/2024 TEZSPIRE Only Patient: Yudelka KUMARI Autumn Provider: Aguila Zheng MD :1965 A ge:59 Y S ex:Female Date:10/18/2024 Address:[facility] [address] [facility] Pcp:Ssuan Johnson MD Subjective: * Chief Complaints: * A sthma w/o mention of status asthmaticus or acute exacerbation follow-up, TEZSPIRE administration scheduled todayNeeds evaluation for pre-TEZSPIRE health questionaire to assess health status and medication review * HPI: * Introduction: The patient is here for scheduled immunotherapy with TEZSPIRE. Please see the attached specialty form regarding the specifics of the administration of this medication. As per our protocol, they must undergo a screening health questionnaire (medication changes, reaction(s) to last immunotherapy dose(s), current health status, ACT (if appropriate), self-injectable epinephrine on patient(?) and peak flow (if appropriate)). * Medical History: * Surgical History: * Hospitalization/Major Diagno stic Procedure: * Medications: T akingMONTELUKAST 10 mg tablet 1 tab(s) orally once [...] baking soda as directed intranasally as needed EpiPen 2-Brian 0.3 mg kit as directed intramuscularly once TEZSPIRE PRE-FILLED PEN ekko 210 mg/1.91 mL solution as directed subcutaneously every 4 weeks Famotidine 40 mg tablet 1 tab(s) orally 30 mins prior to SCIT TRIAMCINOLONE TOPICAL 0.1% ointment 1 candi applied topically 3 times a day Trelegy Ellipta 200-62.5-25 MCG/ACT Aerosol Powder Breath Activated 1 puff Inhalation Once a day Ipratropium [place] 0.06 % Solution 2 sprays in each nostril Nasally Four times a day SIT (Traditional) variable - see record variable - see record per schedule subcutaneous per schedule EpiPen 2-Brian 0.3 mg kit as directed intramuscularly once Famotidine 40 mg tablet 1 tab(s) orally 30 mins prior to SCIT SIT (CLUSTER) variable see record per schedule [...] *Please review and pick correct strength-formulation from Ushi options. If intended option is not shown, [...] applied topically 3 times a day SIT (Traditional) variable - see record variable [...] THREE TIMES DAILY NEEDED FOR COUGH Oral Amoxicillin-Pot Clavulanate 875-125 MG Tablet 1 tablet Orally every 12 hrs Taking MONTELUKAST 10 mg tablet 1 tab(s) orally once a day Taking ALBUTEROL 2.5 mg/3 mL (0.083%) solution 3 mL by nebulizer every 6 hours Taking VENTOLIN HFA 90 mcg/inh aerosol 2 puff(s) inhaled every 6 hours Taking CETIRIZINE 10 mg tablet 1 tab(s) orally once a day Taking FLUTICASONE NASAL 50 mcg/inh spray 2 spray(s) in each nostril twice a day Taking NASAL WASHES N/A 1 quart of sterilized tap water or distilled water, 1 tsp NaCl, 1 pinch of baking soda as directed intranasally as needed Taking EpiPen 2-Brian 0.3 mg kit as directed intramuscularly once Taking TEZSPIRE PRE-FILLED PEN ekko 210 mg/1.91 mL solution as directed subcutaneously every 4 weeks Taking Famotidine 40 mg tablet 1 tab(s) orally 30 mins prior to SCIT Taking TRIAMCINOLONE TOPICAL 0.1% ointment 1 candi applied topically 3 times a day Taking Trelegy Ellipta 200-62.5-25 MCG/ACT Aerosol Powder Breath Activated 1 puff Inhalation Once a day Taking Ipratropium [place] 0.06 % Solution 2 sprays in each nostril Nasally Four times a day Taking SIT (Traditional) variable - see record variable - see record per schedule subcutaneous per schedule Taking EpiPen 2-Brian 0.3 mg kit as directed intramuscularly once Taking Famotidine 40 mg tablet 1 tab(s) orally 30 mins prior to SCIT Taking SIT (CLUSTER) variable see record per [...] TIMES DAILY NEEDED FOR COUGH Oral Taking Amoxicillin- Pot Clavulanate 875-125 MG Tablet 1 tablet Orally every 12 hrs Not-Taking/PRNTrelegy Ellipta 200 MCG-62.5 MCG-25 MCG/INH POWDER 1 PUFF(S) INHALED ONCE A DAY , Notes to Pharmacist: *Please review and pick correct strength-formulation from Ushi options. If intended option is not shown, discontinue and re-order from Quick Search*Amoxicillin-Pot Clavulanate 875-125 MG Tablet 1 tablet Orally every 12 hrs Ipratropium [place] 0.06 % Solution 2 sprays in each nostril Nasally Four times a day SIT (CLUSTER) VARIABLE SEE RECORD PER SCHEDULE SC PER SCHEDULE , Notes to Pharmacist: *Please review for potential replacement for e-prescription and drug interaction check*Breztri Aerosphere 160-9-4.8 MCG/ACT Aerosol 2 puffs Inhalation Twice a day ZyrTEC Allergy 10 MG Tablet 1 tablet PO QD TRELEGY ELLIPTA 200 mcg-62.5 mcg-25 mcg/inh powder 1 puff(s) inhaled once a day HIBERIX (HIB) - powder for injection 0.5 mL intramuscularly once Pneumovax 23 - SOLUTION 0.5 ML INTRAMUSCULARLY ONCE , Notes to Pharmacist: *Please review and pick correct strength-formulation from mapp2linkspan options. If intended option is not shown, discontinue and re-order from Quick Search*Pepcid 20 MG Tablet 1 tab(s) orally 60 minutes prior to SCIT Not- Taking/PRN Trelegy Ellipta 200 MCG-62.5 MCG-25 MCG/INH POWDER 1 PUFF(S) INHALED ONCE A DAY , Notes to Pharmacist: *Please review and pick correct strength-formulation from mapp2linkspan options. If intended option is not shown, discontinue and re-order from Quick Search*Not-Taking/PRN Amoxicillin-Pot Clavulanate 875-125 MG Tablet 1 tablet Orally every 12 hrs Not-Taking/PRN Ipratropium [place] 0.06 % Solution 2 sprays in each nostril Nasally Four times a day Not-Taking/PRN SIT (CLUSTER) VARIABLE SEE RECORD PER SCHEDULE SC PER SCHEDULE , Notes to Pharmacist: *Please review for potential replacement for e-prescription and drug interaction check*Not- Taking/PRN Breztri Aerosphere 160-9-4.8 MCG/ACT Aerosol 2 puffs Inhalation Twice a day Not-Taking/PRN ZyrTEC Allergy 10 MG Tablet 1 tablet PO QD Not-Taking/PRN TRELEGY ELLIPTA 200 mcg-62.5 mcg-25 mcg/inh powder 1 puff(s) inhaled once a day Not-Taking/PRN HIBERIX (HIB) - powder for injection 0.5 mL intramuscularly once Not-Taking/PRN Pneumovax 23 - SOLUTION 0.5 ML INTRAMUSCULARLY ONCE , Notes to Pharmacist: *Please review and pick correct strength-formulation from Celmatixan options. If intended option is not shown, discontinue and re-order from Quick Search*Not-Taking/PRN Pepcid 20 MG Tablet 1 tab(s) orally 60 minutes prior to SCIT Objective: * Vitals: B P:138/78mm Hg, HR:74/min, Pulse Oximetry:97%, ACT:19, Ht: 67.75 in. Assessment: * Assessment: 1. S evere persistent asthma, uncomplicated - J45.50 (Primary) Plan: * Treatment: * Procedures: T EZSPIRE (tezepelumab-ekko) Administration: Dosing Time / Vitals S ee initial vitals, Mirella Martinez 10/18/2024 03:10:00 PM CDT >. Dose C oncentration/Dosing 2 10 mg (110 mg/mL) / 1.91 mL subcutaneous injection Location R UA. Reaction N one. Frequency I nterval: M arslan Lot Number / Expiration L ot Number: [id number], Expiration:04/30/2026. Post-procedural check-out: V ital signs taken 30 minutes after dosing: BP: 118/78 P: 70 O2: 95. Medication Source T EZSPIRE Source B uy and Bill S samuel Verification: W ho pulled drug (please type staff name in notes)? October Medical necessity for in-ammunition officer T he patient or caregiver is not suitable, not competent or is physically unable to administer the TEZSPIRE product for the following reason(s):?lack of suitable supervision and oversight given the risk of hypersensitivty reaction, as listed in the prescribing information * Procedure Codes: 9 6401 CHEMO, ANTI-NEOPL, SQ/[id number] PT-FOCUSED HLTH RISK [id number] TEZSPIRE 210 mg - 1 unit (1 mg), Units: 210.00 , Modifiers: JZ * Follow Up: A s scheduled for tezspire * Billing Information: * Visit Code: * Procedure Codes: 63271 CHEMO, ANTI-NEOPL, SQ/IM. 84125 PT-FOCUSED HLTH RISK ASSMT. J2356 TEZSPIRE 210 mg - 1 unit (1 mg). Units: 210.00. Modifiers: JZ * Sign off status: Completed true * Provider: Aguila Zheng MD Date: 0 10/18/2024 Generated for Lidya ashley/Zayda/Klaudia on: 0 10/23/2024 03:49 PM CDT History and Physical Notes * HPI (History of Present Illness) Category Sub-Category Detail Notes Category Not es *Introduction The patient is here for scheduled immunotherapy with TEZSPIRE. Please see the attached specialty form regarding the specifics of the administration of this medication. As per our protocol, they must undergo a screening health questionnaire (medication changes, reaction(s) to last immunotherapy dose(s), current health status, ACT (if appropriate), self-injectable epinephrine on patient(?) and peak flow (if appropriate)).
--- OUTSIDE RECORDS SUMMARY | 2024-10-23 15:49 | XMS_ITS | Encounter Summary ---
Author Organization [facility] Healthcare Address [address] [place] [address] Care Team Providers Care Smoking Pipe Liner Name Role Phone Lorenzo Campbell MD Primary Care Provider [phone] Lorenzo Campbell MD Primary Care Provider [phone] Lorenzo Campbell MD Unavailable Max Guerrero MD Primary Care Provider [phone] Sowmya Arana MD Unavailable [phone] Williams Mcfarland DO Unavailable [phone] Norbert Arreguin MD Unavailable [phone] Encounter Details Date Type Department Care Team (Late st Contact Info) Description 03/21/2018 Documentation [facility] [address] [place] [address] [id number] Dee Gold, SHAILESH [address] [facility] [address] [place] [address] Social History Tobacco Use Types Packs/Day Years Used Date Smoking Tobacco: Never Smokeless Tobacco: Never Alcohol Use Standard Drinks/Week Comments No 0 (1 standard drink = 0.6 oz pur e alcohol) Comments Unknown Sex and Gender Information Value Date Recorded Sex Assigned at Not on file Legal Sex Female 12:15 AM CONTACT CENTER AGENT Gender Identity Female 11/16/2023 1:34 PM CDT Sexual Orientation Not on file documented as of this encounter Plan of Treatment Not on file documented as of this encounter Visit Diagnoses Not on filedocumented in this encounter Care Teams Smoking Pipe Liner Relationship Specialty Start Date End Date Lorenzo Campbell MD [address] [place] [address] PCP - General Family Medicine 02/02/18 06/04/20 Lorenzo Campbell MD [address] [place] [address] PCP - General 06/05/20 05/23/22 Max Guerrero MD [address] [place] [address] PCP - General Family Medicine 05/24/22 Lorenzo Campbell MD [address] [place] [address] Family Medicine 06/05/20 07/01/24 Sowmya Arana MD [address] [place] [address] Radiation Oncologist Radiation Oncology 07/18/22 Williams Mcfarland DO [address] [place] [address] [address] [place], [place] [id number] Medical Oncologist/Extender Hematology and Oncology 07/18/22 Norbert Arreguin MD [address] [place] [address] Surgeon General Surgery 07/18/22 documented as of this encounter
--- OUTSIDE RECORDS SUMMARY | 2024-10-23 15:49 | XMS_ITS ---
Author Organization [facility] Address [address] [place] [address] Care Team Providers Care Brake Liner Name Role Phone Max Guerrero MD Primary Care Provider [phone] Sowmya Arana MD Unavailable [phone] Williams Mcfarland DO Unavailable [phone] Norbert Arreguin MD Unavailable [phone] Active Problems Problem Noted Date Diagnosed Date Personal history of radiation therapy 12/22/2022 Malignant neoplasm of upper- inner quadrant of left breast in female, estrogen receptor positive 07/16/2022 Cancer Staging:Clinical stage from 07/18/2022:Stage IA(cT1a, cN0, cM0, G2, ER+, SD+, HER2-) - Signed by Sowmya Arana MD on 07/18/2022 Pathologic stage from 10/26/2022:Stage IA(pT1a, pN0(sn), cM0, G2, ER+, SD+, HER2- ) - Signed by Sowmya Arana MD on 10/26/2022 Left leg DVT 06/09/2020 Assessment & Plan (06/09/2020 11:12 AM REMOTE RECRUITER): Impression: Prior DVT per patient report that [...] 06/09/2020 Assessment & Plan (06/09/2020 11:13 AM REMOTE RECRUITER): Impression: Chronic lower extremity edema with subjective [...] (08/30/2018): Added automatically from request for surgery [id number] Adhesive capsulitis of left shoulder 08/30/2018 Overview (08/30/2018): Added automatically from request for surgery [id number] Incomplete tear of left rotator cuff 03/07/2018 Overview (03/07/2018): Added automatically from request for surgery [id number] Left shoulder pain 03/07/2018 Overview (03/07/2018): Added automatically from request for surgery [id number] Bursitis of left shoulder 03/07/2018 Overview (03/07/2018): Added automatically from request for surgery [id number] Varicose veins of bilateral lower extremities wi th pain 06/08/2017 Essential hypertension 02/02/2013 Chest pain 02/14/2012 Difficulty breathing 02/14/2012 Current Treatment and Therapy Plans No current plan information found. Past Treatment and Therapy Plans No past plan information found. Radiation Treatments * Course C1_L_Breast_202210/26/2022 - 11/16/2022 Treatment Period Energy Fraction Dose Fractions Total Dose Plans Planned LT BREAST 10/26/2022 - 11/16/2022 267 14 / 4,005 Reference Points Delivered DPV_LT BREAST 10/26/2022 - 11/16/2022 3,738 Lifetime Dose Tracking * Chemical Lifetime Dose Automatic Entry Manual Entr y Fluoro Time 1 minutes 1 minutes 0 minutes DLP 336 mGycm 336 mGycm 0 mGycm
--- OUTSIDE RECORDS SUMMARY | 2024-10-23 15:49 | XMS_ITS | Referral Summary ---
Author Organization [facility] Address [address] [place] [address] Care Team Providers Care Special Effects Person Name Role Phone Max Guerrero MD Primary Care Provider [phone] Sowmya Arana MD Unavailable [phone] Williams Mcfarland DO Unavailable [phone] Norbert Arreguin MD Unavailable [phone] Allergies Active Allergy Reactions Criticality Noted [...] from 07/18/2022:Stage IA(cT1a, cN0, cM0, G2, ER+, OR+, HER2-) - Signed by Sowmya Arana MD on 07/18/2022 Pathologic stage from 10/26/2022:Stage IA(pT1a, pN0(sn), cM0, G2, ER+, OR+, HER2- ) - Signed by Sowmya Arana MD on 10/26/2022 Left leg DVT 06/09/2020 Assessment & Plan (06/09/2020 11:12 AM CAUSTICISER): Impression: Prior DVT per patient report that [...] 06/09/2020 Assessment & Plan (06/09/2020 11:13 AM CAUSTICISER): Impression: Chronic lower extremity edema with subjective [...] (08/30/2018): Added automatically from request for surgery [id number] Adhesive capsulitis of left shoulder 08/30/2018 Overview (08/30/2018): Added automatically from request for surgery [id number] Incomplete tear of left rotator cuff 03/07/2018 Overview (03/07/2018): Added automatically from request for surgery [id number] Left shoulder pain 03/07/2018 Overview (03/07/2018): Added automatically from request for surgery [id number] Bursitis of left shoulder 03/07/2018 Overview (03/07/2018): Added automatically from request for surgery [id number] Varicose veins of bilateral lower extremities wi th pain 06/08/2017 Essential hypertension 02/02/2013 Chest pain 02/14/2012 Difficulty breathing 02/14/2012 Immunizations Immunization Administration Dates Next Due Influenza, Quadrivalent, Rec [...] on file Legal Sex Female 12:15 AM CAUSTICISER Gender Identity Female 11/16/2023 1:34 PM CDT Sexual Orientation Not on file 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 Not on file Not on file Not on file Last Filed Vital Signs Vital Sign Reading Time Taken Comments Blood Pressure 130/82 07/02/2024 3:57 PM CAUSTICISER Pulse 76 07/02/2024 3:57 PM CAUSTICISER Temperature 36.5 C (97.7 F) 07/02/2024 3:57 PM CAUSTICISER Respiratory Rate 18 07/02/2024 3:57 PM CAUSTICISER Oxygen Saturation 98% 07/02/2024 3:57 PM CAUSTICISER Inhaled Oxygen Concentration - - Weight 131.5 kg (290 lb) 07/02/2024 3:57 PM CAUSTICISER with shoes Height 170.2 cm (5' 7 ) 07/04/2023 4:07 PM CAUSTICISER Body Mass Index 45.42 07/04/2023 4:07 PM CAUSTICISER Plan of Treatment Not on file Medical Devices Implanted Type Area Toaster Operator Device Identifier Shelf Expiration Date Model / Serial / Lot JustFab Limited Partnership Marker Biospy Site Top Hat Shape Senomark [id number] - [id number] Implanted:Qty: 1 on 07/01/2022 at [facility] Clip Left: Breast Hologic Limited Partnership [id number] 10/06/2022 SMARK-CE LERO-2S / / [id number] Arthrex Inc Ar-2324 Bcm Swivelock 4.75mm 24.5mm Self Punch Vent Shoulder [place] Suture - [id number] Implanted:Qty: 1 on 03/30/2018 by Charbel Chavis MD at [facility] Left: Shoulder Arthrex Inc 10/30/2019 AR-2324 BCM / / [id number] 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 [employer] Lawtons 20ga 7.5cm 2 Part Stabilizer Repositionable Depth Krishna [id number] - [id number] Implanted:Qty: 1 on 08/30/2022 at [facility] 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 [id number] 04/08/2027 [id number] / / [id number] Ethicon Endo Surgery Ligaclip Extra 6.2mm Ligate Open Large Clip Internal Titanium Latex Free Lt400 - [id number] Implanted:Qty: 1 on 08/30/2022 by Norbert Arreguin MD at [facility] Ethicon Endo Surgery LT400 / / Procedures Procedure Name Priority Date/Time Associated Diagnosis Comments DIAGNOSTIC MAMMOGRAM BILATERAL W GRANT Schedule Routine, Read Routine (OP Routine) 05/31/2024 9:19 AM CDT History of breast conservation therapy from Last 3 Months or Most Recently Relevant to Health Maintenance Results * Diagnostic Mammogram Bilateral W Grant (05/31/2024 [...] Marilu Waterman M.D. LD: STEVE Report ID: [id number] Reading Location: [facility] Norbert Arreguin MD IMG MAMMO PROCEDURES Final Res ult from Last 3 Months or Most Recently Relevant to Health Maintenance Insurance [facility] CHOICE PLUS [facility] CHOICE PLUS [facility] CHOICE PLUS Advance Directives For more information, please contact: [phone] * Full Code (Latest Code Status on File) Date Activated Date Inactivated Comments 08/30/2022 10:12 AM 08/30/2022 5:19 PM Care Teams Special Effects Person Relationship Specialty Start Date End Date Max Guerrero MD PCP - General Family Medicine 05/24/22 Sowmya Arana MD Radiation Oncologist Radiation Oncology 07/18/22 Williams Mcfarland DO [address] [place] [address] Medical Oncologist/Waiter/Waitress Informal Hematology and Oncology 07/18/22 Norbert Arreguin MD [address] [place] [address] Surgeon General Surgery 07/18/22
--- OUTSIDE RECORDS SUMMARY | 2024-10-23 15:49 | XMS_ITS ---
Author Organization [facility] Address [address] [place] [address] Care Team Providers Care Refrigeration Repair Supervisor Name Role Phone Susan Johnson MD Primary Care Provider Earl Mendez Unavailable [phone] Norbert Gonzalez Unavailable Unavailable REASON FOR VISIT TEZSPIRE Follow-up Encounters Encounter Location Date Provider Diagnosis [facility] [address] [place] [address] 10/15/2024 Earl Mcnamara Plan Of Treatment Next Appt Details Provider Name:Supa Zheng , 10/30/2024 03:00:00 PM, [address], [address], [place], [address], Provider Name:Supa Zheng , 11/22/2024 03:00:00 PM, [address], [address] [place] [address], [address], Provider Name:Supa Zheng , 11/27/2024 03:00:00 PM, [address], [place], [address], Progress Notes * Autumn MARTINDOB:1965 (59 yo F)Acc No.[id number]:10/15/2024 TEZSPIRE Adiministration Vis it Patient: Autumn DAMON Provider: Clarita Mcnamara PA-C :1965 A ge:59 Y S ex:Female Date:10/15/2024 Address:[address] [facility] Pcp:Susan Johnson MD Subjective: * Chief Complaints: * 1 . TEZSPIRE Follow-up. * Medical History: Objective: * Vitals: Assessment: Plan: * Treatment: * Billing Information: * Visit Code: * Procedure Codes: * Electronic signature of Moreno Mcnamara PA-C on 10/23/2024 at 03:48 PM CDT Sign off status: Pending * Provider: Clarita Mcnamara PA-C Date: 0 10/15/2024 Generated for Lidya ashley/Zayda/Klaudia on: 0 10/23/2024 03:48 PM CDT
--- OUTSIDE RECORDS SUMMARY | 2024-10-23 15:49 | XMS_ITS | Continuity of Care Document ---
Author Organization [facility] Address [address] [place] [address] [address] [place] [address] Phone Care Team Providers Care Flare Maker Name Role Phone Anne Ahumada Unavailable Unavailable Procedures Procedure Date Office Consultation Advance Directives Directive Yes / No Effective Date File Name No Information Encounters Encounter Description Practice Location Reason(s) For Visit Diagnoses Date Provider Providers Copied on Encounter Office Consultation [facility], [address] [place] [address] [address], [place], [place], [id number], [place] tel:[phone] [facility] No Information [address] Zita Rodríguez. [address] , [address], [place], [address], [place]. tel:[phone] Referring Provider: Braydon Campbell MD [place], [address] [place] [address], [address]. tel:[phone] Family History Family Member Type Diagnosis Age At Onset No Information Payers Payer name Insurance type Covered alliance party ID Authorefraina jazmine(s) [facility] Commercial CI [id number] Social History Type Description Quantity Date Captured [...]
--- OUTSIDE RECORDS SUMMARY | 2024-10-23 15:49 | XMS_ITS | Clinical Summary ---
Author Organization [facility] Address [address] [place] [address] Care Team Providers Care Internal Consultant Name Role Phone Max Guerrero MD Primary Care Provider [phone] Sowmya Arana MD Unavailable [phone] Williams Mcfarland DO Unavailable [phone] Norbert Arreguin MD Unavailable [phone] Allergies Active Allergy Reactions Criticality Noted [...] from 07/18/2022:Stage IA(cT1a, cN0, cM0, G2, ER+, SC+, HER2-) - Signed by Sowmya Arana MD on 07/18/2022 Pathologic stage from 10/26/2022:Stage IA(pT1a, pN0(sn), cM0, G2, ER+, SC+, HER2- ) - Signed by Sowmya Arana MD on 10/26/2022 Left leg DVT 06/09/2020 Assessment & Plan (06/09/2020 11:12 AM TRAVELING REPAIR ACCOUNTANT): Impression: Prior DVT per patient report that [...] 06/09/2020 Assessment & Plan (06/09/2020 11:13 AM TRAVELING REPAIR ACCOUNTANT): Impression: Chronic lower extremity edema with subjective [...] (08/30/2018): Added automatically from request for surgery [id number] Adhesive capsulitis of left shoulder 08/30/2018 Overview (08/30/2018): Added automatically from request for surgery [id number] Incomplete tear of left rotator cuff 03/07/2018 Overview (03/07/2018): Added automatically from request for surgery [id number] Left shoulder pain 03/07/2018 Overview (03/07/2018): Added automatically from request for surgery [id number] Bursitis of left shoulder 03/07/2018 Overview (03/07/2018): Added automatically from request for surgery [id number] Varicose veins of bilateral lower extremities wi [...] Anal Fissurectomy - (Added by TW Conv) SC DELIVERY ONLY Section - (Added by TW [...] Asthma well controlled DVT (deep venous thrombosis) ([facility]) 2003 left; spontaneous Neuropathy rubi LE Fibromyalgia Edema of both legs [...] on file Legal Sex Female 12:15 AM TRAVELING REPAIR ACCOUNTANT Gender Identity Female 11/16/2023 1:34 PM CDT Sexual Orientation Not on file 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 Not on file [...] Comments Blood Pressure 130/82 07/02/2024 3:57 PM TRAVELING REPAIR ACCOUNTANT Pulse 76 07/02/2024 3:57 PM TRAVELING REPAIR ACCOUNTANT Temperature 36.5 C (97.7 F) 07/02/2024 3:57 PM TRAVELING REPAIR ACCOUNTANT Respiratory Rate 18 07/02/2024 3:57 PM TRAVELING REPAIR ACCOUNTANT Oxygen Saturation 98% 07/02/2024 3:57 PM TRAVELING REPAIR ACCOUNTANT Inhaled Oxygen Concentration - - Weight 131.5 kg (290 lb) 07/02/2024 3:57 PM TRAVELING REPAIR ACCOUNTANT with shoes Height 170.2 cm (5' 7 ) 07/04/2023 4:07 PM TRAVELING REPAIR ACCOUNTANT Body Mass Index 45.42 07/04/2023 4:07 PM TRAVELING REPAIR ACCOUNTANT Plan of Treatment Health Maintenance Due Date [...] history exists Medical Devices Implanted Type Area Automobile Mechanic Device Identifier Shelf Expiration Date Model / Serial / Lot SpaceList Partnership Marker Biospy Site Top Hat Shape Senomark Gibbp-Qquyhl-[id number] - [id number] Implanted:Qty: 1 on 07/01/2022 at [facility] Clip Left: Breast SpaceList Partnership [id number] 10/06/2022 SMARK-CE LERO-2S / / [id number] Arthrex Inc Ar-2324 Bcm Swivelock 4.75mm 24.5mm Self Punch Vent Shoulder [place] Suture - [id number] Implanted:Qty: 1 on 03/30/2018 by Charbel Chavis MD at [facility] Left: Shoulder Arthrex Inc 10/30/2019 AR-2324 BCM / / [id number] Transportation Design Engineer Technologies [place] 20ga 7.5cm 2 Part Stabilizer Repositionable Depth Krishna [id number] - [id number] Implanted:Qty: 1 on 08/30/2022 at [facility] Transportation [employer] Engineer [employer] [id number] 04/08/2027 [id number] / / [id number] Ethicon Endo Surgery Ligaclip Extra 6.2mm Ligate Open Large Clip Internal Titanium Latex Free Lt400 - [id number] Implanted:Qty: 1 on 08/30/2022 by Norbert Arreguin MD at [facility] Ethicon Endo Surgery LT400 / / Procedures [...] Marilu Waterman M.D. LD: STEVE Report ID: [id number] Reading Location: [facility] Norbert Arreguin MD IMG MAMMO PROCEDURES Final Res ult from Last 3 Months or Most Recently Relevant to Health Maintenance Insurance [facility] CHOICE PLUS CHOICE PLUS CHOICE PLUS Advance Directives For more information, please contact: [phone] * Full Code (Latest Code Status on File) Date Activated Date Inactivated Comments 08/30/2022 10:12 AM 08/30/2022 5:19 PM Care Teams Internal Consultant Relationship Specialty Start Date End Date Max Guerrero MD PCP - General Family Medicine 05/24/22 Sowmya Arana MD Radiation Oncologist Radiation Oncology 07/18/22 Williams Mcfarland DO [address] [address] Medical Oncologist/Sales Driver Hematology and Oncology 07/18/22 Norbert Arreguin MD [address] [id number] Surgeon General Surgery 07/18/22
== END 2024-10-23 13:32 | disposition home or self-care (01) ==
PROVIDERS: PCP Family Medicine; Visit Provider Nurse Practitioner Family
DX: M16.11 Unilateral primary osteoarthritis, right hip (principal)
CPT/HCPCS: 20610; 77002; J1010

== ENCOUNTER 2024-11-22 09:00 | Outpatient (CLI) | payer OTHER, SELFPAY ==
--- OUTSIDE RECORDS SUMMARY | 2024-11-22 09:39 | XMS_ITS | Clinical Summary ---
Author Organization [facility] Address [address] [place] [address] Care Team Providers Care Dramatic Coach Name Role Phone Max Guerrero MD Primary Care Provider [phone] Sowmya Arana MD Unavailable [phone] Williams Mcfarland DO Unavailable [phone] Norbert Arreguin MD Unavailable [phone] Sowmya Arana MD Unavailable [phone] Allergies Active Allergy Reactions Criticality Noted Date Comments Lisinopril Cough Low 12/01/2018 Morphine Rash Medium 03/30/2018 Medications VENTOLIN HFA 90 mcg/actuation inhaler Inhale 2 puffs every 6 (six) hours as needed 02/24/20 18 Active VITAMIN D2 50,000 unit capsule 1 capsule (50,000 Units total) Takes twice monthly 12/08/19 18 Active BREO ELLIPTA 200-25 mcg/dose diskus inhaler 1 puff daily 12/14/19 18 Active FLUoxetine (PROzac) 20 mg capsule Take 1 capsule (20 mg total) by mouth daily 02/29/20 18 Active gabapentin (NEURONTIN) 300 mg capsule Take 2 capsules (600 mg total) by mouth nightly Active metFORMIN (GLUCOPHAGE) 500 mg tablet Take 1 tablet (500 mg total) by mouth daily with breakfast 06/10/20 22 Active montelukast (SINGULAIR) 10 mg tablet Take 1 tablet (10 mg total) by mouth daily 05/21/20 22 Active olmesartan (BENICAR) 20 mg tablet Take 1 tablet (20 mg total) by mouth daily 06/27/20 22 Active meloxicam (MOBIC) 7.5 mg tablet Take 1 tablet (7.5 mg total) by mouth daily Active cetirizine 10 mg capsule Take 1 tablet by mouth daily Active acetaminophen ER (TYLENOL) 650 mg 8 hr tablet Take 1 tablet (650 mg total) by mouth every 8 (eight) hours as needed for pain Active ipratropium-alb uteroL (DUO-NEB) 0.5-2.5 mg/3 mL nebulizer solution 10/13/19 23 Active azelastine (ASTELIN) 137 mcg (0.1 %) nasal spray USE 1 SPRAY IN EACH NOSTRIL EVERY 12 HOURS 12/10/19 23 Active Trelegy Ellipta 200-62.5-25 mcg inhaler 11/27/19 23 Active EPINEPHrine 0.3 mg/0.3 mL auto-injection syringe INJECT IN THE MUSCLE ONCE NEEDED DIRECTED 09/08/19 24 Active omeprazole (PriLOSEC) 40 mg capsule 09/15/19 24 Active benzonatate (TESSALON) 200 mg capsule TAKE 1 CAPSULE BY MOUTH THREE TIMES DAILY NEEDED FOR COUGH 11/23/19 24 Active triamcinolone (KENALOG) 0.1 % ointment APPLY TOPICALLY TO THE AFFECTED AREA THREE TIMES DAILY FOR 7 DAYS 12/20/19 24 Active vitamin E 1,000 unit capsule Take 1 capsule (1,000 Units total) by mouth daily Active tezepelumab-ekk o (Tezspire) 210 mg/1.91 mL (110 mg/mL) syringe Inject 1.91 mL (210 mg total) under the skin every 28 (twenty-eight ) days Active letrozole (FEMARA) 2.5 mg tablet TAKE 1 TABLET DAILY 90 tablet 10/30/19 25 Active nystatin powderIndicatio ns:cutaneous candidiasis Apply topically 4 (four) times a day 30 g 1 11/15/19 24 025 letrozole (FEMARA) 2.5 mg tablet TAKE 1 TABLET DAILY 90 tablet 2 02/01/20 24 025 Discontinued Active Problems Problem Noted Date Diagnosed Date [...] 06/09/2020 Assessment & Plan (06/09/2020 11:12 AM OTTER TRAWLER BOATSWAIN): Impression: Prior DVT per patient report that [...] 06/09/2020 Assessment & Plan (06/09/2020 11:13 AM OTTER TRAWLER BOATSWAIN): Impression: Chronic lower extremity edema with subjective [...] (08/30/2018): Added automatically from request for surgery [id number] Adhesive capsulitis of left shoulder 08/30/2018 Overview (08/30/2018): Added automatically from request for surgery [id number] Incomplete tear of left rotator cuff 03/07/2018 Overview (03/07/2018): Added automatically from request for surgery [id number] Left shoulder pain 03/07/2018 Overview (03/07/2018): Added automatically from request for surgery [id number] Bursitis of left shoulder 03/07/2018 Overview (03/07/2018): Added automatically from request for surgery [id number] Varicose veins of bilateral lower extremities wi [...] Anal Fissurectomy - (Added by TW Conv) [place] DELIVERY ONLY Section - (Added by TW [...] Asthma well controlled DVT (deep venous thrombosis) (H[facility]) 2003 left; spontaneous Neuropathy rubi LE Fibromyalgia [...] on file Legal Sex Female 12:15 AM OTTER TRAWLER BOATSWAIN Gender Identity Female 11/16/2023 1:34 PM CDT Sexual Orientation Not on file 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 Job 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 Not on file Not on file Not on file Obstetrics History Para Term AB IAB SAB Ectopic Multiple Livin g Live Births 4 3 3 Date Outcome GA Total Labor Labor/2nd/3rd Weight Sex Type Anes PTL Estrella A1 A5 Name Clin Term Term Term Last Filed Vital Signs Vital Sign Reading Time Taken Comments Blood Pressure 130/82 07/02/2024 3:57 PM OTTER TRAWLER BOATSWAIN Pulse 76 07/02/2024 3:57 PM OTTER TRAWLER BOATSWAIN Temperature 36.5 C (97.7 F) 07/02/2024 3:57 PM OTTER TRAWLER BOATSWAIN Respiratory Rate 18 07/02/2024 3:57 PM OTTER TRAWLER BOATSWAIN Oxygen Saturation 98% 07/02/2024 3:57 PM OTTER TRAWLER BOATSWAIN Inhaled Oxygen Concentration - - Weight 131.5 kg (290 lb) 07/02/2024 3:57 PM OTTER TRAWLER BOATSWAIN with shoes Height 170.2 cm (5' 7 ) 07/04/2023 4:07 PM OTTER TRAWLER BOATSWAIN Body Mass Index 45.42 07/04/2023 4:07 PM OTTER TRAWLER BOATSWAIN Plan of Treatment Health Maintenance Due Date Last Done Comments Cervical Cancer Screening 1965 Colon Cancer Screening-Colonoscopy 1965 Depression Screening 1965 Hepatitis C Screening 1965 Hepatitis B Screening 1982 Regular Well Visit/Exam 18-64 1982 Zoster Vaccine (1 of 2) 1983 Breast Cancer Screening-Mammogram 05/31/2025 024, 05/30/2023 DTaP/Tdap/Td Vaccine (2 - Td or Tdap) 03/21/2030 03/21/2020 Influenza Vaccine Completed 06/23/2024, , 06/03/2020, Additional history exists Pneumococcal vaccine <65 Completed 11/21/2024, 09/02 Medical Devices Implanted Type Area Machine Maintenance Mechanic Device Identifier Shelf Expiration Date Model / Serial / Lot YouGotListings Limited Partnership Marker Biospy Site Top Hat Shape Senomark Eewop-Rdhvyh-0r - [id number] Implanted:Qty: 1 on 07/01/2022 at [facility] Clip Left: Breast [employer]GotListings Limited Partnership [id number] 10/06/2022 SMARK-CE LERO-2S / / [id number] Arthrex Inc Ar-2324 Bcm Swivelock 4.75mm 24.5mm Self Punch Vent Shoulder [place] Suture - [id number] Implanted:Qty: 1 on 03/30/2018 by Charbel Chavis MD at [facility] Left: Shoulder Arthrex Inc 10/30/2019 AR-2324 BCM / / [id number] Flatbed Stitcher [employer] [place] 20ga 7.5cm 2 Part Stabilizer Repositionable Depth Krishna [id number] - [id number] Implanted:Qty: 1 on 08/30/2022 at [facility] [employer] [id number] 04/08/2027 [id number] / / [id number] Ethicon Endo Surgery Ligaclip Extra 6.2mm Ligate Open Large Clip Internal Titanium Latex Free Lt400 - [id number] Implanted:Qty: 1 on 08/30/2022 by Norbert Arreguin MD at [facility] Eth[employer] Endo Surgery LT400 / / [...] Marilu Waterman M.D. LD: STEVE Report ID: [id number] Reading Location: [facility] Norbert Arreguin MD IMG MAMMO PROCEDURES Final Res ult from Last 3 Months or Most Recently Relevant to Health Maintenance Insurance [facility] CHOICE PLUS CHOICE PLUS CHOICE PLUS Advance Directives For more information, please contact: [phone] * Full Code (Latest Code Status on File) Date Activated Date Inactivated Comments 08/30/2022 10:12 AM 08/30/2022 5:19 PM Care Teams Dramatic Coach Relationship Specialty Start Date End Date Max Guerrero MD PCP - General Family Medicine 05/24/22 Sowmya Arana MD Radiation Oncologist Radiation Oncology 07/18/22 [place] [address] [place] [address] [address] [place], [place] [id number] Medical Oncologist/Dietary Aide Hematology and Oncology 07/18/22 [place] [address] [place] [address] [address] [place], [place] [id number] Surgeon General Surgery 07/18/22 [place] [address] [place] [address] [address] [place], [place] [phone] Radiation Oncologist Radiation Oncology 10/29/24
--- OUTSIDE RECORDS SUMMARY | 2024-11-22 09:39 | XMS_ITS ---
Author Organization [facility] Address [address] [place] [address] Care Team Providers Care Plug Grower Name Role Phone Max Guerrero MD Primary Care Provider [phone] Sowmya Arana MD Unavailable [phone] Williams Mcfarland DO Unavailable [phone] Norbert Arreguin MD Unavailable [phone] Sowmya Arana MD Unavailable [phone] Active Problems Problem Noted Date Diagnosed Date Personal history of radiation therapy 12/22/2022 Malignant neoplasm of upper- inner quadrant of left breast in female, estrogen receptor positive 07/16/2022 Cancer Staging:Clinical stage from 07/18/2022:Stage IA(cT1a, cN0, cM0, G2, ER+, [place]+, HER2-) - Signed by Sowmya Arana MD on 07/18/2022 Pathologic stage from 10/26/2022:Stage IA(pT1a, pN0(sn), cM0, G2, ER+, WY+, HER2- ) - Signed by Sowmya Arana MD on 10/26/2022 Left leg DVT 06/09/2020 Assessment & Plan (06/09/2020 11:12 AM STEEL TURNER): Impression: Prior DVT per patient report that [...] 06/09/2020 Assessment & Plan (06/09/2020 11:13 AM STEEL TURNER): Impression: Chronic lower extremity edema with subjective [...] (08/30/2018): Added automatically from request for surgery [id number] Adhesive capsulitis of left shoulder 08/30/2018 Overview (08/30/2018): Added automatically from request for surgery [id number] Incomplete tear of left rotator cuff 03/07/2018 Overview (03/07/2018): Added automatically from request for surgery [id number] Left shoulder pain 03/07/2018 Overview (03/07/2018): Added automatically from request for surgery [id number] Bursitis of left shoulder 03/07/2018 Overview (03/07/2018): Added automatically from request for surgery [id number] Varicose veins of bilateral lower extremities wi [...]
--- OUTSIDE RECORDS SUMMARY | 2024-11-22 09:39 | XMS_ITS | Continuity of Care Document ---
Author Organization [facility] Address [address] [place] [address] [address] [place] [address] Phone Care Team Providers Care Marketing Summer Intern Name Role Phone Anne Ahumada Unavailable Unavailable Procedures Procedure Date Office Consultation Advance Directives Directive Yes / No Effective Date File Name No Information Encounters Encounter Description Practice Location Reason(s) For Visit Diagnoses Date Provider Providers Copied on Encounter Office Consultation [facility], [id number] [place] [address] [address], [place], [place], [id number], [place] tel:[phone] [facility] No Information [phone] Zita Rodríguez. [address] , [address], [place], [address], [place]. tel:[phone] Referring Provider: Braydon Campbell MD [place], [address] [place] [address], [address]. tel:[phone] Family History Family Member Type Diagnosis Age At Onset No Information Payers Payer name Insurance type Covered green party ID Authorefraina jazmine(s) [facility] Commercial CI [id number] Social History Type Description Quantity Date Captured [...]
--- OUTSIDE RECORDS SUMMARY | 2024-11-22 09:39 | XMS_ITS | Referral Summary ---
Author Organization [facility] Address [address] [place] [address] Care Team Providers Care Development Geologist Name Role Phone Max Guerrero MD Primary Care Provider [phone] Sowmya Arana MD Unavailable [phone] Williams Mcfarland DO Unavailable [phone] Norbert Arreguin MD Unavailable [phone] Sowmya Arana MD Unavailable [phone] Allergies Active Allergy Reactions Criticality Noted [...] from 07/18/2022:Stage IA(cT1a, cN0, cM0, G2, ER+, NE+, HER2-) - Signed by Sowmya Arana MD on 07/18/2022 Pathologic stage from 10/26/2022:Stage IA(pT1a, pN0(sn), cM0, G2, ER+, NE+, HER2- ) - Signed by Sowmya Arana MD on 10/26/2022 Left leg DVT 06/09/2020 Assessment & Plan (06/09/2020 11:12 AM DESIGN CELL ENGINEER): Impression: Prior DVT per patient report [...] 06/09/2020 Assessment & Plan (06/09/2020 11:13 AM DESIGN CELL ENGINEER): Impression: Chronic lower extremity edema with [...] (08/30/2018): Added automatically from request for surgery [id number] Adhesive capsulitis of left shoulder 08/30/2018 Overview (08/30/2018): Added automatically from request for surgery [id number] Incomplete tear of left rotator cuff 03/07/2018 Overview (03/07/2018): Added automatically from request for surgery [id number] Left shoulder pain 03/07/2018 Overview (03/07/2018): Added automatically from request for surgery [id number] Bursitis of left shoulder 03/07/2018 Overview (03/07/2018): Added automatically from request for surgery [id number] Varicose veins of bilateral lower extremities wi [...] on file Legal Sex Female 12:15 AM DESIGN CELL ENGINEER Gender Identity Female 11/16/2023 1:34 PM CDT Sexual Orientation Not on file 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 Job End Date 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 Not on file Not on file Not on file Last Filed Vital Signs Vital Sign Reading Time Taken Comments Blood Pressure 130/82 07/02/2024 3:57 PM DESIGN CELL ENGINEER Pulse 76 07/02/2024 3:57 PM DESIGN CELL ENGINEER Temperature 36.5 C (97.7 F) 07/02/2024 3:57 PM DESIGN CELL ENGINEER Respiratory Rate 18 07/02/2024 3:57 PM DESIGN CELL ENGINEER Oxygen Saturation 98% 07/02/2024 3:57 PM DESIGN CELL ENGINEER Inhaled Oxygen Concentration - - Weight 131.5 kg (290 lb) 07/02/2024 3:57 PM DESIGN CELL ENGINEER with shoes Height 170.2 cm (5' 7 ) 07/04/2023 4:07 PM DESIGN CELL ENGINEER Body Mass Index 45.42 07/04/2023 4:07 PM DESIGN CELL ENGINEER Plan of Treatment Not on file Medical Devices Implanted Type Area Social Media Content Manager Device Identifier Shelf Expiration Date Model / Serial / Lot [employer] Marker Biospy Site Top Hat Shape Senomark [id number] - [id number] Implanted:Qty: 1 on 07/01/2022 at [facility] Clip Left: Breast [employer] Partnership [id number] 10/06/2022 SMARK-CE LERO-2S / / [id number] [employer] Ar-2324 Bcm Swivelock 4.75mm 24.5mm Self Punch Vent Shoulder Hernando Suture - [id number] Implanted:Qty: 1 on 03/30/2018 by Charbel Chavis MD at [facility] Left: Shoulder [employer] 10/30/2019 AR-2324 BCM / / [id number] [employer] [place] 20ga 7.5cm 2 Part Stabilizer Repositionable Depth Krishna [id number] - [id number] Implanted:Qty: 1 on 08/30/2022 at [facility] [employer] [id number] 04/08/2027 [id number] / / [id number] Eth[employer] End[employer] Surgery Ligaclip Extra 6.2mm Ligate Open Large Clip Internal Titanium Latex Free Lt400 - [id number] Implanted:Qty: 1 on 08/30/2022 by Norbert Arreguin MD at [facility] [employer] Endo Surgery LT400 / / [...] Marilu Waterman M.D. LD: STEVE Report ID: [id number] Reading Location: [facility] Norbert Arreguin MD IM MAMMO PROCEDURES Final Res ult from Last 3 Months or Most Recently Relevant to Health Maintenance Insurance [facility] CHOICE PLUS [facility]/PPO Address: [facility] [address] [place] [address] CHOICE PLUS [facility] HMO/PPO Address: [address] [place] [address] [facility] H[facility]/PPO Address: [address] [place] [address] Advance Directives For more information, please contact: [phone] * Full Code (Latest Code Status on File) Date Activated Date Inactivated Comments 08/30/2022 10:12 AM 08/30/2022 5:19 PM Care Teams Development Geologist Relationship Specialty Start Date End Date Max Guerrero MD PCP - General Family Medicine 05/24/22 Sowmya Arana MD Radiation Oncologist Radiation Oncology 07/18/22 Williams Mcfarland DO [address] [facility] [address] [place] [address] Medical Oncologist/Golf Caddie Hematology and Oncology 07/18/22 Norbert Arreguin MD [address] [facility] [address] [place] [address] Surgeon General Surgery 07/18/22 Sowmya Arana MD [address] [facility] [address] [place] [address] Radiation Oncologist Radiation Oncology 10/29/24
--- OUTSIDE RECORDS SUMMARY | 2024-11-22 09:40 | XMS_ITS | Encounter Summary ---
Author Organization [facility] Address [address] [place] [address] Care Team Providers Care Bellows Filler Name Role Phone Lorenzo Campbell MD Primary Care Provider [phone] Lorenzo Campbell MD Primary Care Provider [phone] Lorenzo Campbell MD Unavailable Max Guerrero MD Primary Care Provider [phone] Sowmya Arana MD Unavailable [phone] Williams Mcfarland DO Unavailable [phone] Norbert Arreguin MD Unavailable [phone] Sowmya Arana MD Unavailable [phone] Encounter Details Date Type Department Care Team (Late st Contact Info) Description 03/21/2018 Documentation 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 Gender Identity Female 11/16/2023 1:34 PM CDT Sexual Orientation Not on file documented as of this encounter Plan of Treatment Not on file documented as of this encounter Visit Diagnoses Not on filedocumented in this encounter Care Teams Bellows Filler Relationship Specialty Start Date End Date Lorenzo Campbell MD [address] [place] [address] PCP - General Family Medicine 02/02/18 06/04/20 Lorenzo Campbell MD [address] [place], [place] [id number] PCP - General 06/05/20 05/23/22 Max Guerrero MD [address] [place], [place] [id number] PCP - General Family Medicine 05/24/22 Lorenzo Campbell MD [address] [place] [address] Family Medicine 06/05/20 07/01/24 Sowmya Arana MD [address] [place] [address] Radiation Oncologist Radiation Oncology 07/18/22 Williams Mcfarland DO [address] [place] [id number] Medical Oncologist/Building Official Hematology and Oncology 07/18/22 Norbert Arreguin MD [address] [place] [address] [address] [place], [place] [id number] Surgeon General Surgery 07/18/22 [place] [address] [place] [address] Radiation Oncologist Radiation Oncology 10/29/24 documented as of this encounter
--- OUTSIDE RECORDS SUMMARY | 2024-11-22 09:40 | XMS_ITS ---
Author Organization [employer] [facility] ([address]) Address [address] [place] [address] Care Team Providers Care [place]fgrass Technician Name Role Phone Susan Johnson MD Primary Care Provider Unav Earl Bang Unavailable [phone] Norbert Gonzalez Unavailable Unavailable Allergies Allergen (clinical drug ingredient) Drug/Non Drug Allergy documented on EMR Reaction Allergy Type Onset Date Status Lisinopril other reaction Drug Allergy A ctive morphine Morphine rash Drug Allergy Active REASON FOR VISIT Chronic lower airways symptoms concerning for possible asthma; followed by Dr. Gonzalez of pulm for Asthma with AEC >200. Continues Tezspire with benefit. Prior trial of Breztri was without benefit.Continues Trelegy and Singulair. Treated with abx, ARC follow-up; continues allergy avoidance, on meds and continues SCIT with benefit. Feels Ipratropium has been beneficial though not using consisten tly, Treated with abx and steroids for lower airway infections 3-4 times a year. PI work-up with inadequate protection to S. pneumo and Hib. Has received both boosters. Only titer for Hib returned without difference, She has now obtained booster for both, with repeat titers still with inadequate protection Medications Medication SIG (Take, Route, Frequency, Duration) Notes Start Date End Date Status HIBERIX (HIB) - 0.5 mL intramuscularly once for 1 dose(s) Not-Taking Prevnar 20 0.5 ML as directed Intramuscular 11/20/2024 Active Pneumovax 23 - 0.5 ML INTRAMUSCULARLY ONCE for 1 DAYS *Please review and pick correct strength-formula tion from [employer] options. If intended option is not shown, discontinue and re-order from Quick Search* Not-Taking Pepcid 20 MG 1 tab(s) orally 60 minutes prior to SCIT 09/19/2023 Not-Taking TRELEGY ELLIPTA 200 mcg-62.5 mcg-25 mcg/inh 1 puff(s) inhaled once a day Not-Taking Ipratropium Ossian 0.06 % 2 sprays in each nostril Nasally Four times a day for 30 days 06/04/2024 Not-Taking SIT (Traditional) variable - see record per schedule subcutaneous per schedule for 999 days Active SIT (CLUSTER) VARIABLE PER SCHEDULE SC PER SCHEDULE for TO BE DETERMINED *Please review for potential replacement for e-prescription and drug interaction check* 09/19/2023 Not-Taking Breztri Aerosphere 160-9-4.8 MCG/ACT 2 puffs Inhalation Twice a day Not-Taking ZyrTEC Allergy 10 MG 1 tablet PO QD Not-Taking Amoxicillin-Pot Clavulanate 875-125 MG 1 tablet Orally every 12 hrs for 7 days 10/08/2024 Not-Taking Ipratropium Ossian 0.06 % 2 sprays in each nostril Nasally Four times a day for 30 days Active Trelegy Ellipta 200 MCG-62.5 MCG-25 MCG/INH 1 PUFF(S) INHALED ONCE A DAY *Please review and pick correct strength-formula tion from [employer] options. If intended option is not shown, discontinue and re-order from Quick Search* Not-Taking Trelegy Ellipta 200-62.5-25 MCG/ACT 1 puff Inhalation Once a day for 30 days Active Amoxicillin-Pot Clavulanate 875-125 MG 1 tablet Orally every 12 hrs for 10 days 06/04/2024 Not-Taking Albuterol Sulfate HFA 108 (90 Base) MCG/ACT INHALE 2 PUFFS BY MOUTH EVERY 6 HOURS Inhalation for 25 Days Not-Taking Benzonatate 200 MG TAKE 1 CAPSULE BY MOUTH THREE TIMES DAILY NEEDED FOR COUGH Oral for 30 Days Not-Taking TEZSPIRE PRE-FILLED PEN ekko 210 mg/1.91 mL as directed subcutaneously every 4 weeks Active TRIAMCINOLONE TOPICAL 0.1% 1 candi applied topically 3 times a day for 7 days Active FAMOTIDINE 40 mg 1 tab(s) orally 30 mins prior to SCIT for 30 days Active Azelastine HCl 137 MCG/SPRAY 2 sprays in each nostril Nasally Twice a day for 90 days Not-Taking EPIPEN 2-PAUL 0.3 mg as directed intramuscularly once for 30 days Active NASAL WASHES N/A as directed intranasally as needed for 30 days Active FLUTICASONE NASAL 50 mcg/inh 2 spray(s) in each nostril twice a day for 30 days Active SIT (Traditional) variable - see record per schedule subcutaneous per schedule for 999 05/29/2024 Active CETIRIZINE 10 mg 1 tab(s) orally once a day for 30 days Active VENTOLIN HFA 90 mcg/inh 2 puff(s) inhaled every 6 hours for 30 days Active Olmesartan Medoxomil 20 MG 1 tab(s) orally once a day Active Triamcinolone Acetonide 0.1 % 1 candi applied topically 3 times a day for 7 days 12/20/2023 Active SIT (Traditional) variable - see record per schedule subcutaneous per schedule for 999 days 02/06/2024 Active MONTELUKAST 10 mg 1 tab(s) orally once a day Active Meloxicam 7.5 MG 1 tab(s) orally once a day Active metFORMIN HCl ER 500 MG 1 tab(s) orally once a day Active Omeprazole 40 MG 1 cap(s) orally once a day Active ALBUTEROL 2.5 mg/3 mL (0.083%) 3 mL by nebulizer every 6 hours Active Benzonatate 200 MG 1 cap(s) orally 3 times a day Active Gabapentin 300 MG 2 cap(s) orally once a day Active Letrozole 2.5 MG 1 tab(s) orally once a day Active FLUoxetine HCl 20 MG 1 tab(s) orally once a day Active Vitamin D3 *Please review and pick correct strength-formula tion from [employer] options. If intended option is not shown, discontinue and re-order from Quick Search* Active Albuterol Sulfate (2.5 MG/3ML) 0.083% 3 mL by nebulizer every 6 hours Active Cetirizine HCl 10 MG 1 tab(s) orally once a day for 30 days Active Fluticasone Propionate 50 MCG/ACT 2 spray(s) in each nostril twice a day for 30 days Active Montelukast Sodium 10 MG 1 tab(s) orally once a day Active Ventolin HFA 108 (90 Base) MCG/ACT 2 puff(s) inhaled every 6 hours for 30 days Active SIT (CLUSTER) variable per schedule per schedule for 999 days Active Tezspire 210 MG/1.91ML as directed Subcutaneous Active EpiPen 2-Paul 0.3 mg as directed intramuscularly once for 30 days Active Famotidine 40 mg 1 tab(s) orally 30 mins prior to SCIT for 30 days Active Social History Tobacco Use: Social History Observation Description Date Details (start date - stop date) Never Smoker NA - NA Tobacco Control (Standard) Question Answer Notes Tobacco use: Nonsmoker Vital Signs Blood pressure systolic 133 mm Hg 11/21/19 25 Blood pressure diastolic 77 mm Hg 025 Height 67.75 in 11/20/2024 Weight 295.2 lbs 11/20/2024 BMI 45.21 kg/m2 11/20/2024 Oximetry 96 % 11/20/2024 Encounters Encounter Location Date Provider Diagnosis [facility] [address] [address] 11/20/2024 Earl Anders Severe persistent asthma, uncomplicated J45.50 ; Allergic rhinitis due to pollen J30.1 ; Allergic rhinitis due to animal (cat) (dog) hair and dander J30.81 ; Other allergic rhinitis J30.89 ; Other chronic allergic conjunctivitis H10.45 ; Cough, unspecified R05.9 and Bronchitis, not specified as acute or chronic J40 Assessments Encounter Date Diagnosis (ICD Code) Assessment Notes Treatment Notes Treatment Clinical Notes Section Notes 11/20/2024 Severe persistent asthma, uncomplicated (ICD-10 - J45.50) [...] - Not due for Tezspire today. - ACT up to 19 from 8 after additional abx last visit - Plan to return in 1 week for Tezspire dosing and 8 weeks for evaluation and management 11/20/2024 Allergic rhinitis due to pollen (ICD-10 - J30.1) Autumn clearly suffers from atopic disease based upon our skin testing and clinical history. Accordingly, we encouraged her medication regimen, discussed nasal washes and allergy-specific avoidance measures. Plan to continue ipratropium given noted benefit. Procedure tolerated today without issue. Keep on hand 2 hours after SCIT. Continue to triple premedicate 11/20/2024 Allergic rhinitis due to animal (cat) (dog) hair and dander (ICD-10 - J30.81) Follow allergen avoidance, meds and continue SCIT as an adjunctive treatment to current regimen 11/20/2024 Other allergic rhinitis (ICD-10 - J30.89) Follow allergen avoidance, meds and continue SCIT as an adjunctive treatment to current regimen 11/20/2024 Other chronic allergic conjunctivitis (ICD-10 - H10.45) Given ocular signs and symptoms I encouraged allergy avoidance measures and meds as above. If symptoms persist, consider adding additional medications including intraocular antihistamine/mast cell stabilizer, PRN and continue SCIT as an adjunctive measure 11/20/2024 Cough, unspecified (ICD-10 - R05.9) Recurrent cough likely multifactorial with history of ARC, Asthma and possible VCD. Plan to treat as above. Continue VCD exercises in the interval 11/20/2024 Bronchitis, not specified as acute or chronic (ICD-10 - J40) Recurrent lower airway infections occurring 3-4 times a year meeting JMF criteria for modified PIDD work-up. PI work-up returned with inadequate protection to Hib and S. pneumo. Has now obtained Pneumovax x 1 and HiB x 2. - Repeat titer retuned with both still unprotected. She has obtained repeat HIB vaccine. Titers returned both inadequately protects. Plan to return for Prevnar 20 and repeat titer. Consider underlying SADNI Plan Of Treatment Medication Medication Name Sig Start Date Stop Date Notes Prevnar 20 0.5 ML as directed Intramuscular 11/20/2024 SIT (Traditional) variable - see record per schedule subcutaneous per schedule for 999 days Ipratropium Ossian 0.06 % 2 sprays in e ach nostril Nasally Four times a day for 30 days Trelegy Ellipta 200-62.5-25 MCG/ACT 1 puff Inhalation Once a day for 30 days TEZSPIRE PRE-FILLED PEN ekko 210 mg/1.91 mL as directed subcutaneously every 4 weeks TRIAMCINOLONE TOPICAL 0.1% 1 candi applied topically 3 times a day for 7 days FAMOTIDINE 40 mg 1 tab(s) orally 30 m ins prior to SCIT for 30 days EPIPEN 2-PAUL 0.3 mg as directed intramus cularly once for 30 days NASAL WASHES N/A as directed intranas ally as needed for 30 days FLUTICASONE NASAL 50 mcg/inh 2 spray(s) in each nostril twice a day for 30 days CETIRIZINE 10 mg 1 tab(s) orally once a day for 30 days VENTOLIN HFA 90 mcg/inh 2 puff(s) inhale d every 6 hours for 30 days MONTELUKAST 10 mg 1 tab(s) orally once a day ALBUTEROL 2.5 mg/3 mL (0.083%) 3 mL by nebulizer every 6 hours Treatment Notes Assessment Notes Severe persistent asthma, [...] - Not due for Tezspire today. - ACT up to 19 from 8 after additional abx last visit - Plan to return in 1 week for Tezspire dosing and 8 weeks for evaluation and management Allergic rhinitis due to pollen Autumn clearly suffers from atopic disease based upon our skin testing and clinical history. Accordingly, we encouraged her medication regimen, discussed nasal washes and allergy-specific avoidance measures. Plan to continue ipratropium given noted benefit. Procedure tolerated today without issue. Keep on hand 2 hours after SCIT. [...] and S. pneumo. Has now obtained Pneumovax x 1 and HiB x 2. - Repeat titer retuned with both still unprotected. She has obtained repeat HIB vaccine. Titers returned both inadequately protects. Plan to return for Prevnar 20 and repeat titer. Consider underlying SADNI Next Appt Details Follow Up: 1 Week, 4 Weeks, Reason: Evaluation and Management,TEZSPIRE Administration Provider Name:Supa Zheng , 11/22/2024 03:00:00 PM, [address] [facility], [address], [place], [address], Procedure Notes * Category Sub-Category Detail Notes SCIT Traditional Aeroallergen Schedul e Administration:: Full dosing administered per SOP and AAIC's titration schedule and/or specific instructions as outlined on the patient's shot record; see attached for specifics re: content, concentration, volume and location of injection(s). Progress Notes * Autumn MARTINDOB:1965 (59 yo F)Acc No.[id number]:11/20/2024 Progress Notes Patient: Autumn DAMON Provider: Clarita Mcnamara PA-C :1965 A ge:59 Y S ex:Female Date:11/20/2024 Address:[address] [place], [place] [address] Pcp:Susan Johnson MD Subjective: * Chief Complaints: * C hronic lower airways symptoms concerning for possible asthma; followed by Dr. Gonzalez of pul for Asthma with AEC >200. Continues Tezspire with benefit. Prior trial of Breztri was without benefit. Continues Trelegy and Singulair. Treated with abxARC follow-up; continues allergy avoidance, on meds and continues SCIT with benefit. Feels Ipratropium has been beneficial though not using consistentlyTreated with abx and steroids for lower airway infections 3-4 times a year. PI work-up with inadequate protection to S. pneumo and Hib. Has received both boosters. Only titer for Hib returned without difference, She has now obtained booster for both, with repeat titers still with inadequate protection * HPI: * Introduction: I had the [...] I normally have steroids by this point. Aeroallergen skin testing was completed at prior [...] has received both boosters with repeat titers showing minimal difference. She has since obtained additional Hib booster and is due for recheck of both. Today, she reports no fevers, chills, night sweats or other constitutional symptoms. The patient is here for scheduled specific allergen immunotherapy. Please see the attached specialty form regarding the specifics of the administration of these vaccines. As per our protocol, they must undergo a screening health questionnaire (medication changes, reaction(s) to last immunotherapy dose(s), current health status, ACT (if appropriate), self-injectable epinephrine on patient(?) and peak flow (if appropriate)). Also, the patient must wait in our office for 30 minutes after receiving immunotherapy. Furthermore, every patient must have an epinephrine pen (self-injectable) with them at the time of administration--and carry if for the following 1.5 hours after they leave our office. The patient must also have taken their antihistamine the day of the injection, preferably 2 hours prior. The consent form for SCIT (subcutaneous immunotherapy) is on file. * ROS: A LLERGY: Positive p er the HPI and history, otherwise unremarkable. S PECIAL SENSES: Positve for n one. C ONSTITUTIONAL: fatigue Y es. P ositive for n one. E NT: cough Y es. P ositive p er the HPI and history, otherwise unremarkable. R ESPIRATORY: shortness of breath Y es. c hest congestion Y es. cough Y es. P ositive p er the HPI and history, otherwise unremakable. O PHTHALMOLOGY: blurring of vision Y es. P ositive for p er the HPI and history, otherwise unremarkable. E NDOCRINOLOGY: sleep disturbance Y es. h eat intolerance Y es. Positive for n one. C ARDIOLOGY: leg edema Y es. s hortness of breath Y es. P ositive for n one. G ASTROENTEROLOGY: hemorrhoids Y es. P ositive for n one. U ROLOGY: Positive for n one. D [...] Y es. P ositive for n one. A ll other review of systems per [...] Additional Findings: Tobacco Non-User N on-smoker for faith reasons Are you a : n ever smoker R ecreational drug use Have you ever used recreational drugs? N o D etails on consumption of certain products? Do you regularly consume products with aspartame; Equal or NutraSweet? Y es Do you regularly consume products with artificial coloring? Yes Have you ever noticed worsening of your [...] your worked in this occupation? number of years 24 Do you believe that your current or [...] of carpet? 1 3 Do you have yvlg-rl-papf carpeting? N o What is the age [...] tab(s) orally 30 mins prior to SCIT Trelegy Ellipta 200-62.5-25 MCG/ACT Aerosol Powder Breath Activated 1 puff Inhalation Once a day Ipratropium Ossian 0.06 % Solution 2 sprays in each nostril Nasally Four times a day SIT (Traditional) variable - see record variable - see record per schedule subcutaneous per schedule SIT (CLUSTER) variable see record per schedule [...] per schedule subcutaneous per schedule Taking EpiPen 2-Paul 0.3 mg kit as directed intramuscularly once Taking Famotidine 40 mg tablet 1 tab(s) orally 30 mins prior to SCIT Taking Trelegy Ellipta 200-62.5-25 MCG/ACT Aerosol Powder Breath Activated 1 puff Inhalation Once a day Taking Ipratropium Ossian 0.06 % Solution 2 sprays in each nostril Nasally Four times a day Taking SIT (Traditional) variable - see record variable - see record per schedule subcutaneous per schedule Taking SIT (CLUSTER) variable see record per [...] *Please review and pick correct strength-formulation from [employer] options. If intended option is not shown, [...] see record per schedule subcutaneous per schedule Not-Taking/PRNEpiPen 2-Paul 0.3 mg kit as directed [...] baking soda as directed intranasally as needed TEZSPIRE PRE-FILLED PEN ekko 210 mg/1.91 mL solution as directed subcutaneously every 4 weeks TRIAMCINOLONE TOPICAL 0.1% ointment 1 candi applied topically 3 times a day Azelastine HCl 137 MCG/SPRAY Solution 2 sprays in each nostril Nasally Twice a day Albuterol Sulfate HFA 108 (90 Base) MCG/ACT Aerosol Solution INHALE 2 PUFFS BY MOUTH EVERY 6 HOURS Inhalation Benzonatate 200 MG Capsule TAKE 1 CAPSULE BY MOUTH THREE TIMES DAILY NEEDED FOR COUGH Oral Amoxicillin- Pot Clavulanate 875-125 MG Tablet 1 tablet Orally every 12 hrs Trelegy Ellipta 200 MCG-62.5 MCG-25 MCG/INH POWDER 1 PUFF(S) INHALED ONCE A DAY , Notes to Pharmacist: *Please review and pick correct strength-formulation from [employer] options. If intended option is not shown, discontinue and re-order from [employer] Search*Amoxicillin-Pot Clavulanate 875-125 MG Tablet 1 tablet Orally every 12 hrs Ipratropium Ossian 0.06 % Solution 2 sprays in each [...] baking soda as directed intranasally as needed Not- Taking/PRN TEZSPIRE PRE-FILLED PEN ekko 210 mg/1.91 mL solution as directed subcutaneously every 4 weeks Not-Taking/PRN TRIAMCINOLONE TOPICAL 0.1% ointment 1 candi applied topically 3 times a day Not-Taking/PRN Azelastine HCl 137 MCG/SPRAY Solution 2 sprays in each nostril Nasally Twice a day Not-Taking/PRN Albuterol Sulfate HFA 108 (90 Base) MCG/ACT Aerosol Solution INHALE 2 PUFFS BY MOUTH EVERY 6 HOURS Inhalation Not-Taking/PRN Benzonatate 200 MG Capsule TAKE 1 CAPSULE BY MOUTH THREE TIMES DAILY NEEDED FOR COUGH Oral Not-Taking/PRN Amoxicillin-Pot Clavulanate 875-125 MG Tablet 1 tablet Orally every 12 hrs Not-Taking/PRN Trelegy Ellipta 200 MCG-62.5 MCG-25 MCG/INH POWDER 1 PUFF(S) INHALED ONCE A DAY , Notes to Pharmacist: *Please review and pick correct strength-formulation from [employer] options. If intended option is not shown, discontinue and re-order from Quick Search*Not-Taking/PRN Amoxicillin-Pot Clavulanate 875-125 MG Tablet 1 tablet Orally every 12 hrs Not-Taking/PRN Ipratropium Ossian 0.06 % Solution 2 sprays in each [...] *Please review and pick correct strength-formulation from [email or web address] options. If intended option is not shown, discontinue and re-order from Quick Search*Not-Taking/PRN Pepcid 20 MG Tablet 1 tab(s) orally 60 minutes prior to SCIT Medication List reviewed and reconciled with the patient * Allergies: L isinopril: other reactionMorphine: rashno[Allergies Verified] Objective: * Vitals: B P:133/77mm Hg, HR:73/min, Pulse Oximetry:96%, ACT:19, Ht: 67.75 in, Wt: 295.2 lbs, BMI:45.21Index. * Examination: G eneral examination: General appearance: [...] n ot performed. Assessment: * Assessment: 1. S evere persistent asthma, uncomplicated - J45.50 (Primary) 2 . A llergic rhinitis due to pollen - J30.1 3 . A llergic rhinitis due to animal (cat) (dog) hair and dander - J30.81 4 . O ther allergic rhinitis - J30.89 5. O ther chronic allergic conjunctivitis - H10.45 6 . C ough, unspecified - R05.9 7 . B ronchitis, not specified as acute or chronic - J40 Plan: * Treatment: 2. A llergic rhinitis due to pollen Continue CETIRIZINE tablet, 10 mg, 1 tab(s), orally, once a day, 30 days, 30, Refills 0; C ontinue FLUTICASONE NASAL spray, 50 mcg/inh, 2 spray(s), in each nostril, twice a day, 30 days, Refills 0; C ontinue NASAL WASHES 1 quart of sterilized tap water or distilled water, 1 tsp NaCl, 1 pinch of baking soda, N/A, as directed, intranasally, as needed, 30 days, Refills 0; C ontinue EPIPEN 2-PAUL kit, 0.3 mg, as directed, intramuscularly, once, 30 days, 1, Refills 0; C ontinue FAMOTIDINE tablet, 40 mg, 1 tab(s), orally, 30 mins prior to SCIT, 30 days, 30, Refills 0; C ontinue TRIAMCINOLONE TOPICAL ointment, 0.1%, 1 candi, applied topically, 3 times a day, 7 days, 60, Refills 0; Continue Ipratropium Ossian Solution, 0.06 %, 2 sprays in each nostril, Nasally, Four times a day, 30 days, 1, Refills 2; I ncrease SIT (Traditional) variable - see record, variable - see record, per schedule, subcutaneous, per schedule, 999 days. Notes: Autumn clearly suffers from atopic disease based upon our skin testing and clinical history. Accordingly, we encouraged her medication regimen, discussed nasal washes and allergy-specific avoidance measures. Plan to continue ipratropium given noted benefit. Procedure tolerated today without issue. Keep on hand 2 hours after SCIT. Continue to triple premedicate 3. A llergic rhinitis due to animal (cat) (dog) hair and dander Notes: Follow allergen avoidance, meds and continue SCIT as an adjunctive treatment to current regimen 4. O ther allergic rhinitis Notes: Follow allergen avoidance, meds and continue SCIT as an adjunctive treatment to current regimen 5. O ther chronic allergic conjunctivitis Notes: Given ocular signs and symptoms I encouraged allergy avoidance measures and meds as above. If symptoms persist, consider adding additional medications including intraocular antihistamine/mast cell stabilizer, PRN and continue SCIT as an adjunctive measure 6. C ough, unspecified Notes: Recurrent cough likely multifactorial with history of ARC, Asthma and possible VCD. Plan to treat as above. Continue VCD exercises in the interval 7. B ronchitis, not specified as acute or chronic Start Prevnar 20 Suspension Prefilled Syringe, 0.5 ML, as directed, Intramuscular. Notes: Recurrent lower airway infections occurring 3-4 times a year meeting JMF criteria for modified PIDD work-up. PI work-up returned with inadequate protection to Hib and S. pneumo. Has now obtained Pneumovax x 1 and HiB x 2. - Repeat titer retuned with both still unprotected. She has obtained repeat HIB vaccine. Titers returned both inadequately protects. Plan to return for Prevnar 20 and repeat titer. Consider underlying SADNI * Procedures: S CIT: Traditional Aeroallergen Schedule A dministration: F ull dosing administered per SOP and AAIC's titration schedule and/or specific instructions as outlined on the patient's shot record; see attached for specifics re: content, concentration, volume and location of injection(s). * Procedure Codes: 9 6160 PT-FOCUSED HLTH RISK [id number] DOC MEDS VERIFIED W/PT OR [id number] Moreno Carterff - Incident-[id number] TOT # ED VSTS & IP HOSP<2 PAST 12 [id number] IMMUNOTHERAPY INJECTIONS * Preventive Medicine: Counseling: M edication instruction: [...] appropriate use of MDI/DPI/Respimat/spacer/nebulizer treatments for future use. P atient education material sent to portal? Y es C are goal follow up plan BMI management provided Y es Above Normal BMI Follow-up D ietary management education, guidance, and counseling B P Management: PRE-HYPERTENSIVE FOLLOW-UP PLAN: F ollow-up 1 month REFERRAL TO ALTERNATIVE / PRIMARY CARE PROVIDER: R meka to general physician * Follow Up: 1 Week, 4 Weeks (Reason: Evaluation and Management,TEZSPIRE Administration) * Billing Information: * Visit Code: 02927 Office Visit, Est Pt., Level 4. Modifiers: 25 * Procedure Codes: 30905 PT-FOCUSED HLTH RISK ASSMT. G8427 DOC MEDS VERIFIED W/[place]. [address] Moreno Mcnamara - Incident-to. G9521 TOT # ED VSTS & IP HOSP<2 PAST 12 M. 86545 IMMUNOTHERAPY INJECTIONS. * Sign off status: Completed true * Provider: Clarita Mcnamara PA-C Date: 0 11/20/2024 Generated for Josei ng/Faxing/eTransmitting on: 0 11/22/2024 09:40 AM CDT History and Physical Notes * HPI (History of Present Illness) Category Sub-Category Detail Notes Category Notes *Introduction I had the pleasure of seeing Autumn Martin, a 59-year-old female with [...] I normally have steroids by this point. Aeroallergen skin testing was completed at prior [...] triple premedicating. PI work-up ordered previously and re [id number]|2024-12-18 10:32:00|2024-12-18 10:32:00|ANNE_CARLOS|WILL|Health Information Management|[id number]|"Sleep Study Date of Study: 11/22/24 Ordering Provider: Ever Redmond APRN Interpreting Physician: Kristel Diamond DO Sleep Study Type: CPAP Titration Height: 1.7 m Weight: 133.81 kg Body Mass Index: 46.2 Neck Circumference (inches): 16 [place]: 11 Reason for Sleep Study Difficulty tolerating her CPAP at current pressure settings Sleep History The patient is a 59-year-old female with previously diagnosed DIOMEDES on CPAP that had a titration study ordered by the pulmonary group for difficulty tolerating her current pressure settings. The patient occasionally awakens from sleep short breath. She occasionally awakens at night with heartburn, belching or cough. She constantly snores loudly enough that others complain. She constantly has trouble sleeping when she has a cold. She rarely wakes up gasping for air throughout the night. She frequently has breathing problems at night observed by herself or others. She frequently sweats excessively at night. She rarely has heart palpitations or irregular heartbeats during the night. She rarely falls asleep during the day but never while driving. She denies sleep paralysis, cataplexy and hypnagogic/ hypnopompic hallucinations. She rarely has trouble at school or work due to sleepiness. She denies feeling afraid of going to sleep. She denies having nightmares. She rarely remembers her dreams. She occasionally has thoughts racing through her mind. She denies feeling sad, depressed or anxious. She occasionally has muscular tension. She denies noticing parts of her body jerk. She denies kicking during the night. She constantly has crawling and aching feelings in her legs and frequently has leg pain during the night. She denies grinding her teeth during sleep and denies awakening with morning jaw pain. She is constantly bothered by pain during the day but frequently awakened by pain during the night. She constantly wakes up feeling stiff in the morning. She constantly wakes up with sore or achy muscles. She constantly wakes up with pain in the neck, spine and other joints. She goes to bed between 9-10 p.m. on both weekdays and weekends. It takes her 20 30 minutes to fall asleep. She wakes up 2-3 times throughout the night to urinate and is able to fall back asleep within 5-10 minutes. She wakes up at 5:15 a.m. on weekdays and between 7-8 a.m. on the weekends. She typically gets 5-7 hours of sleep per night. She will stay in bed for 5 minutes after waking up in the morning. She currently lives with her she will drink a diet Coke within 2 hours of going to bed. She denies engaging in physical exercise before bedtime. She denies reading and watching television before falling asleep. She will take naps in afternoon or the evening but they are not refreshing. She consumes 3 cans of diet Coke per day. She denies tobacco, alcohol and recreational drug use. 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, thumb, degenerative Trigger thumb of both hands Desensitization to allergy shot Chronic acquired lymphedema Bilateral lower extremity Insomnia, unspecified Idiopathic urticaria Cancer of left breast Amblyopia ex anopsia of both eyes With eye surgery x2 BMI greater than 40 Rotator cuff tendonitis Left knee DJD Vitamin D deficiency Right knee DJD Dizziness Seasonal allergies Fibromyalgia Osteoporosis Sleep apnea Uses CPAP regularly Asthma Wears glasses Vertigo Peroneal tendinitis of left lower leg Acquired heel varus of left foot History of DVT (deep vein thrombosis) Associated with control Surgical History Surgical History History of lumpectomy of left breast (08/2022) History of tonsillectomy and adenoidectomy History of shoulder surgery RTC and Biceps Tear repair-Dr. Krishna Chavis Family History Family History Father Hypertension Family history of cardiovascular disease Family history of dementia Arthritis Family history of mental disorder Diffuse large B-cell lymphoma Mother Arthritis Family history of malignant neoplasm of breast Sibling Arthritis Hypertension Cerebrovascular accident Atrial fibrillation CHF (congestive heart failure) Social History Social History Social History: She lives with her of 38 years. They have 3 healthy children. Patient is a lifelong nonsmoker. She denies significant alcohol use. 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 Code status: Full code Surrogate decision maker: Smoking status: Never smoker Alcohol intake: never Substance use: never Lack of Transportation: No Lack of Food: Never True Current Housing: I Have Housing Concerned About Future Housing: No Difficulty Paying Gas/Electric Bills: No Difficulty Paying for Meds: No Currently Unemployed: No Education: High School Diploma/GED Difficulty w/ Childcare or Family Care: No Living arrangements: with family Occupation/Education: occupation Gender identity (if verbalized by the patient): Female Spiritual care concerns: No Medications Home Medications Medication Instructions Recorded Confirmed Type acetaminophen 325 mg tablet 650 mg PO Q6H PRN Pain (Scale 02/05/20 11/24/24 History (Tylenol) Score 1-3) albuterol sulfate 90 mcg/actuation See Rx Instructions .Route 08/10/21 11/24/24 Rx aerosol inhaler (Ventolin HFA) .COMPLEX #144 grams letrozole 2.5 mg tablet 2.5 mg PO DAILY 09/14/22 11/24/24 History ergocalciferol (vitamin D2) 1,250 See Rx Instructions .Route 08/02/23 11/24/24 Rx mcg (50,000 unit) capsule .COMPLEX #12 caps fluticasone fur. 200 mcg-umeclid 1 inh inhalation DAILY #180 02/01/24 11/24/24 Rx 62.5 mcg-vilant 25 mcg blisters inhalat.powder (Trelegy Ellipta) azelastine 137 mcg (0.1 %) nasal 2 spray intranasal Q12H 02/23/24 11/24/24 History spray benzonatate 200 mg capsule 200 mg PO TID PRN cough #90 caps 02/23/24 11/24/24 Rx fluticasone propionate 50 2 spray intranasal DAILY 02/23/24 11/24/24 History mcg/actuation nasal spray,suspension (Flonase Allergy Relief) omeprazole 40 mg capsule,delayed 40 mg PO DAILY #90 caps 03/19/24 11/24/24 Rx release albuterol sulfate 2.5 mg/3 mL 2.5 mg (3 mL) inhalation Q4-6H PRN 03/26/24 11/24/24 Rx (0.083 %) solution for nebulization shortness of breath or wheezing #360 mL montelukast 10 mg tablet See Rx Instructions .Route 05/14/24 11/24/24 Rx .COMPLEX #90 tabs meloxicam 7.5 mg tablet 15 mg (2 x 7.5 mg) PO DAILY #180 05/15/24 11/24/24 Rx tabs tezepelumab-ekko 210 mg/1.91 mL 210 mg subcut ONCE 05/25/24 11/24/24 History (110 mg/mL) subcutaneous syringe (Tezspire) gabapentin 300 mg capsule 600 mg (2 x 300 mg) PO QPM #180 06/05/24 11/24/24 Rx caps metformin 500 mg tablet See Rx Instructions .Route 08/28/24 11/24/24 Rx .COMPLEX #90 tabs betamethasone valerate 0.1 % 1 applic topical TID PRN nasal 10/31/24 11/24/24 Rx topical cream septal ulceration #15 grams fluoxetine 20 mg tablet 10 mg PO .COMPLEX 10/31/24 11/24/24 History olmesartan 20 mg tablet 20 mg PO DAILY #90 tabs 12/10/24 Rx Sleep Procedure A full night CPAP Titration using the [email or web address] multi-channel system recorded the standard physiologic parameters including EEG, EOG, submentalis EMG, anterior tibialis EMG, EKG, body position, nasal and oral airflow using nasal pressure sensor and thermistor. Respiratory parameters of chest and abdominal movements were recorded with Respiratory Inductance Plethysmography belts. Oxygen saturation was recorded by pulse oximetry. Video monitoring was also performed. Sleep stages, periodic limb movements, and EEG arousals were scored in 30 second epochs according to the criteria of the AASM Scoring Manual. The Apnea-Hypopnea Index was calculated using [facility] guidelines for definition of hypopnea with 4% O2 desaturations while scoring respiratory events. Sleep Architecture The total recording time was 461.2 minutes. The total sleep time was 429.0 minutes. Sleep latency was 9.1 minutes. REM latency was 103.0 minutes. Sleep efficiency was 93.0%. The patient had 20 awakenings for an awakening index of 2.8. Wake after Sleep Onset time was 23.0 minutes. The patient spent 26.5 minutes, 6.2% of total sleep time in Stage N1. The patient spent 259.5 minutes, 60.5% in Stage N2. The patient spent 25.5 minutes, 5.9% in Stage N3. The patient spent 117.5 minutes, 27.4% in Stage REM. Respiratory Analysis The patient had 25 hypopneas, 2 obstructive apneas, 15 mixed apneas, and 8 central apneas for an overall Apnea Hypopnea Index of 7.0 events per hour. The REM Apnea Hypopnea Index was 8.2. The NREM Apnea Hypopnea Index was 6.5. The pa migel had a Central Apnea Hypopnea Index of 1.1. There was no evidence of Lalit-Morgan Respirations. The patient was started on CPAP 5 cm H2O and titrated to CPAP 15 cm H2O with EPR of 3 due to central apneas, mixed apneas and hypopneas. The patient was able fall asleep starting on CPAP 5 cm H2O. The patient was able to achieve REM sleep starting on CPAP 9 cm H2O. The patient was able to achieve a residual AHI less than 5 with both NREM and REM sleep in the supine position on 14 cm H2O. On CPAP 14 cm H2O with EPR of 3, the patient spent 91 minutes in NREM and 49.5 minutes in REM with 2 central apneas, 6 mixed apneas and 2 hypopneas, resulting in an AHI of 4.3 The patient had a sleep efficiency of 97.9% on this pressure setting. Arousals There were 62 total arousals for an arousal index of 8.7. There were 27 spontaneous arousals for an index of 3.8. There were 9 arousals due to respiratory events for an index of 1.3. There were 15 arousals due to periodic limb movements for an index of 2.1. There were 9 arousals due to isolated limb movements for an index of 1.3. Periodic Limb Movements The patient had 17 isolated limb movements with an index of 2.4. The patient had 70 periodic limb movements with index of 9.8. Patient had a total of 87 limb movements with a total limb movement index of 12.2. Oximetry Data The patient had an average oxygen saturation of 92.6% in sleep with a minimum oxygen saturation of 80.0% and a maximum oxygen saturation of 97.0%. The patient had 38 oxygen desaturations that were 4% or greater resulting in an Oxygen Desaturation Index of 5.3. The patient spent 6.2 minutes, 1.3% of total sleep time with an oxygen saturation below 88%. Snoring Profile Moderate snoring was present in the beginning of the study. The snoring resolved once the patient was titrated to 11 cm H2O. Cardiac Profile The EKG showed normal sinus rhythm. No arrhythmias or premature beats were seen. The patient had an average pulse rate of 67.2 bpm with a minimum pulse rate of 52.0 bpm and a maximum pulse rate of 87.0 bpm. EEG Profile No signs of seizure activity seen. Assessment and Plan Assessment and Plan (1) DIOMEDES (obstructive sleep apnea): Code(s): G47.33 - Obstructive sleep apnea (adult) (pediatric) Status: Acute Assessment and Plan: The patient was started on CPAP 5 cm H2O and titrated to CPAP 15 cm H2O with EPR of 3 due to central apneas, mixed apneas and hypopneas. We were able to find a CPAP pressure that resolved the patient's sleep apnea with a high sleep efficiency. I recommend that the patient be prescribed CPAP 14 cm H2O with EPR of 3, size medium Resmed AirTouch F20 full face mask, CPAP filters/tubing and heated humidity. This should be used with all episodes of sleep. Compliance should be reviewed within 31-90 days of starting therapy for usage greater than 4 hours per night greater than 70% of the nights. The patient should be asked about symptoms such as excessive daytime sleepiness, quality of sleep, decreased nocturia, increased mental functioning such as memory, mood, and concentration. The patient's sleep history is somewhat suggestive of Restless Leg Syndrome. I recommend that the patient have a serum ferritin drawn for evaluation of iron deficiency anemia. If the patient has a serum ferritin less than 75 ng/mL, I recommend starting a daily iron supplement and a Vitamin C supplement for better absorption. If the serum ferritin is greater than 75 ng/mL, I recommend starting a dopamine agonist and titrating the dose until symptoms resolve. There are nonpharmacological methods to treat limb movements including daily exercise, stretching calf muscles before bed, avoiding excessive amounts of caffeine and alcohol, vitamin B supplementation, magnesium lotion massaged into legs before bed, and use of a weighted blanket. Data The data obtained during this sleep study is adequate for interpretation. Certification This sleep study has been reviewed by a board certified sleep medicine physician. "
--- OUTSIDE RECORDS SUMMARY | 2024-11-22 09:40 | XMS_ITS | Patient Health Record ---
Author Organization [facility] [place] ([address]) Address [address] [place] [address] Care Team Providers Care Power Technician Name Role Phone Alex NAVARRETE, Susan Primary Care Provider Unav Earl Bang Unavailable [phone] Norbert Gonzalez Unavailable Unavailable Supa Zheng Unavailable [phone] Jessica Dunn Unavailable [phone] Yamila Mora Unavailable [phone] [facility], Provider Unavailable Unavailab le Allergies Allergen (clinical drug ingredient) Drug/Non Drug Allergy documented on EMR Reaction Allergy Type Onset Date Status Lisinopril other reaction Drug Allergy A ctive morphine Morphine rash Drug Allergy Active Results Component Value Reference Range Notes Spirometry Reviewed date:02/06/2024 01:10:46 PM Interpretation:Abnormal - FEV1 significantly improved Performing Lab: Notes/Report: Abnormal - FEV1 significantly improved SpiroPreBronchodilator_FVC 2.7 SpiroPostBronchodilator_FE F25_75 2.72 SpiroPreBronchodilator_FEF 25_75 2.53 SpiroPreBronchodilator_FEV 1 2.24 SpiroPrecentPredictionPost _FEF25_75 103.8 SpiroPrecentPredictionPost _FEV1 78.6 SpiroPrecentPredictionPost _FEV1_OVER_FVC 108.8 SpiroPrecentPredictionPost _FVC 73.5 SpiroPrecentPredictionPre_ DNI71_93 96.6 SpiroPrecentPredictionPre_ FEV1 80 SpiroPrecentPredictionPre_ FEV1_OVER_FVC 108 SpiroPrecentPredictionPre_ FVC 75.4 SpiroPredicted_FEF25_75 2.62 SpiroPreBronchodilator_FEV 1_OVER_FVC 83.1 SpiroPreBronchodilator_PEF 5.22 SpiroPostBronchodilator_FV C 2.63 SpiroPostBronchodilator_FE V1 2.2 SpiroPostBronchodilator_FE V1_OVER_FVC 83.7 SpiroPostBronchodilator_PE F 5.75 SpiroPredicted_FVC 3.58 SpiroPredicted_FEV1 2.8 SpiroPredicted_FEV1_OVER_F VC 76.95 SpiroPredicted_PEF 6.22 Spirometry Reviewed date:04/18/2024 12:12:30 PM Interpretation:Abnormal Performing Lab: Notes/Report: Abnormal SpiroPreBronchodilator_FVC 2.43 SpiroPostBronchodilator_FE F25_75 0 SpiroPreBronchodilator_FEF 25_75 2.52 SpiroPreBronchodilator_FEV 1 2 SpiroPrecentPredictionPost _FEF25_75 0 SpiroPrecentPredictionPost _FEV1 0 SpiroPrecentPredictionPost _FEV1_OVER_FVC 0 SpiroPrecentPredictionPost _FVC 0 SpiroPrecentPredictionPre_ FBV56_09 96.2 SpiroPrecentPredictionPre_ FEV1 71.4 SpiroPrecentPredictionPre_ FEV1_OVER_FVC 106.7 SpiroPrecentPredictionPre_ FVC 67.9 SpiroPredicted_FEF25_75 2.62 SpiroPreBronchodilator_FEV 1_OVER_FVC 82.13 SpiroPreBronchodilator_PEF 5.2 SpiroPostBronchodilator_FV C 0 SpiroPostBronchodilator_FE V1 0 SpiroPostBronchodilator_FE V1_OVER_FVC 0 SpiroPostBronchodilator_PE F 0 SpiroPredicted_FVC 3.58 SpiroPredicted_FEV1 2.8 SpiroPredicted_FEV1_OVER_F VC 76.95 SpiroPredicted_PEF 6.22 H. INFLUENZAE TYPE B AB Reviewed date:07/09/2024 08:23:08 AM Interpretation:Abnormal Performing Lab:EZ, [facility],, [address] [place], [place] [address], [place], [address] Nicole Kennedy MD,PhD,AMADO Notes/Report: NON-FASTING HAEMOPHILUS INFLUENZA [...] considered evidence of effective immunization. Spirometry Reviewed date:10/08/2024 04:12:08 PM Interpretation:Abnormal Performing Lab: Notes/Report: Abnormal SpiroPreBronchodilator_FVC 2.48 SpiroPostBronchodilator_FE F25_75 0 SpiroPreBronchodilator_FEF 25_75 2.4 SpiroPreBronchodilator_FEV 1 2.03 SpiroPrecentPredictionPost _FEF25_75 0 SpiroPrecentPredictionPost _FEV1 0 SpiroPrecentPredictionPost _FEV1_OVER_FVC 0 SpiroPrecentPredictionPost _FVC 0 SpiroPrecentPredictionPre_ FNC34_69 93.4 SpiroPrecentPredictionPre_ FEV1 73 SpiroPrecentPredictionPre_ FEV1_OVER_FVC 106.7 SpiroPrecentPredictionPre_ FVC 69.7 SpiroPredicted_FEF25_75 2.57 SpiroPreBronchodilator_FEV 1_OVER_FVC 81.86 SpiroPreBronchodilator_PEF 5 SpiroPostBronchodilator_FV C 0 SpiroPostBronchodilator_FE V1 0 SpiroPostBronchodilator_FE V1_OVER_FVC 0 SpiroPostBronchodilator_PE F 0 SpiroPredicted_FVC 3.56 SpiroPredicted_FEV1 2.78 SpiroPredicted_FEV1_OVER_F VC 76.7 SpiroPredicted_PEF 6.2 STREPTOCOCCUS PNEUMONIAE AB (IGG) (23 SEROTYPES) Reviewed date:10/29/2024 08:46:28 AM Interpretation:Abnormal Performing Lab:EZ, [facility],, [address], [place], [address] Nicole Kennedy MD,PhD,AMADO Notes/Report: NON-FASTING SEROTYPE 1 (1) <0.3 SEROTYPE 2 (2) <0.3 SEROTYPE 3 (3) <0.3 SEROTYPE 4 (4) <0.3 SEROTYPE 5 (5) <0.3 SEROTYPE 8 (8) 0.4 SEROTYPE 9 (9N) <0.3 SEROTYPE 12 (12F) <0.3 SEROTYPE 14 (14) <0.3 SEROTYPE 17 (17F) 0.4 SEROTYPE 19 (19F) 0.3 SEROTYPE 20 (20) <0.3 SEROTYPE 22 (22F) 1.3 SEROTYPE 23 (23F) <0.3 SEROTYPE 26 (6B) <0.3 SEROTYPE 34 (10A) <0.3 SEROTYPE 43 (11A) 2.5 SEROTYPE 51 (7F) <0.3 SEROTYPE 54 (15B) <0.3 SEROTYPE 56 (18C) 3.0 SEROTYPE 57 (19A) 0.6 SEROTYPE 68 (9V) <0.3 SEROTYPE 70 (33F) 0.6 Serologic correlates of protection against pneumococcal disease have not been rigorously established for all patient populations. Published data and expert consensus (including WHO) suggest protection from invasive disease usually occurs at levels >or =0.3-0.50 mcg/mL for healthy children receiving pneumococcal conjugate vaccines. Higher titers may be necessary to protect from non-invasive infection (e.g., pneumonia, otitis, sinusitis). Expert opinion suggests that a cut-off of >= 1.3 mcg/mL may be a more relevant value to assess antibody responses after pneumococcal polysaccharide vaccines or for immunocompromised patients. In addition to antibody quantity, protection also depends on antibody avidity and opsonophagocytic activity. Some experts consider that post-vaccination (4-6 weeks) IgG seroconversion and/or 2- to 4-fold rise in IgG titers for >50% to 70% of vaccine serotypes demonstrates a normal post-vaccine serologic response. Persons with high initial serotype-specific titers may have less robust responses. [facility] uses a multi-analyte immunodetection (MAID) method. The method employs the [employer] flow cytometric system which measures multiple analytes simultaneously. The FDA standard reference serum 89-S is used as the calibration standard. Results are reported in mcg/mL. This assay detects all of the 23 of the serotypes in the 23-valent polysaccharide vaccine and 12 of the 13 serotypes in the 13-valent conjugate vaccine. This test was developed and its analytical performance characteristics have been determined by [facility]. It has not been cleared or approved by FDA. This assay has been validated pursuant to the CLIA regulations and used for clinical purposes. For additional information, please refer to http://education.[employer] /faq/XNF271 (This link is being provided for informational/ educational purposes only.) H. INFLUENZAE TYPE B AB Reviewed date:10/31/2024 08:19:49 AM Interpretation:Abnormal Performing Lab:ANGELLA, [facility],, [address] [place], [address] Nicloe Kennedy MD,PhD,AMADO Notes/Report: NON-FASTING HAEMOPHILUS INFLUENZA TYPE [...] sera is considered evidence of effective immunization. Reason For Referral No Information Medications Medication SIG (Take, Route, Frequency, Duration) Notes Start Date End Date Status MONTELUKAST 10 mg 1 tab(s) orally once a day Active Ventolin HFA 108 (90 Base) MCG/ACT 2 puff(s) inhaled every 6 hours for 30 days Active ALBUTEROL 2.5 mg/3 mL (0.083%) 3 mL by nebulizer every 6 hours Active TEZSPIRE PRE-FILLED PEN ekko 210 mg/1.91 mL as directed subcutaneously every 4 weeks Active Omeprazole 40 MG 1 cap(s) orally once a day Active EpiPen 2-Brian 0.3 mg as directed intramuscularly once for 30 days Active metFORMIN HCl ER 500 MG 1 tab(s) orally once a day Active TRIAMCINOLONE TOPICAL 0.1% 1 candi applied topically 3 times a day for 7 days Active Triamcinolone Acetonide 0.1 % 1 candi applied topically 3 times a day for 7 days 12/20/2023 Active Famotidine 40 mg 1 tab(s) orally 30 mins prior to SCIT for 30 days Active Olmesartan Medoxomil 20 MG 1 tab(s) orally once a day Active CETIRIZINE 10 mg 1 tab(s) orally once a day for 30 days Active Letrozole 2.5 MG 1 tab(s) orally once a day Active Pepcid 20 MG 1 tab(s) orally 60 minutes prior to SCIT 09/19/2023 Not-Taking VENTOLIN HFA 90 mcg/inh 2 puff(s) inhaled every 6 hours for 30 days Active Gabapentin 300 MG 2 cap(s) orally once a day Active Pneumovax 23 - 0.5 ML INTRAMUSCULARLY ONCE for 1 DAYS *Please review and pick correct strength-formula tion from [employer]pan options. If intended option is not shown, discontinue and re-order from Quick Search* Not-Taking NASAL WASHES N/A as directed intranasally as needed for 30 days Active Meloxicam 7.5 MG 1 tab(s) orally once a day Active FLUTICASONE NASAL 50 mcg/inh 2 spray(s) in each nostril twice a day for 30 days Active FLUoxetine HCl 20 MG 1 tab(s) orally once a day Active Prevnar 20 0.5 ML as directed Intramuscular 11/20/2024 Active ZyrTEC Allergy 10 MG 1 tablet PO QD Not-Taking Breztri Aerosphere 160-9-4.8 MCG/ACT 2 puffs Inhalation Twice a day Not-Taking Benzonatate 200 MG 1 cap(s) orally 3 times a day Active HIBERIX (HIB) - 0.5 mL intramuscularly once for 1 dose(s) Not-Taking Vitamin D3 *Please review and pick correct strength-formula tion from [employer] options. If intended option is not shown, discontinue and re-order from Quick Search* Active TRELEGY ELLIPTA 200 mcg-62.5 mcg-25 mcg/inh 1 puff(s) inhaled once a day Not-Taking Ipratropium Bee 0.06 % 2 sprays in each nostril Nasally Four times a day for 30 days Active Trelegy Ellipta 200-62.5-25 MCG/ACT 1 puff Inhalation Once a day for 30 days Active Cetirizine HCl 10 MG 1 tab(s) orally once a day for 30 days Active Ipratropium Bee 0.06 % 2 sprays in each nostril Nasally Four times a day for 30 days 06/04/2024 Not-Taking Albuterol Sulfate (2.5 MG/3ML) 0.083% 3 mL by nebulizer every 6 hours Active Amoxicillin-Pot Clavulanate 875-125 MG 1 tablet Orally every 12 hrs for 10 days 06/04/2024 Not-Taking Montelukast Sodium 10 MG 1 tab(s) orally once a day Active Fluticasone Propionate 50 MCG/ACT 2 spray(s) in each nostril twice a day for 30 days Active SIT (CLUSTER) VARIABLE PER SCHEDULE SC PER SCHEDULE for TO BE DETERMINED *Please review for potential replacement for e-prescription and drug interaction check* 09/19/2023 Not-Taking Benzonatate 200 MG TAKE 1 CAPSULE BY MOUTH THREE TIMES DAILY NEEDED FOR COUGH Oral for 30 Days Not-Taking Albuterol Sulfate HFA 108 (90 Base) MCG/ACT INHALE 2 PUFFS BY MOUTH EVERY 6 HOURS Inhalation for 25 Days Not-Taking Tezspire 210 MG/1.91ML as directed Subcutaneous Active Trelegy Ellipta 200 MCG-62.5 MCG-25 MCG/INH 1 PUFF(S) INHALED ONCE A DAY *Please review and pick correct strength-formula tion from [employer] options. If intended option is not shown, discontinue and re-order from Quick Search* Not-Taking SIT (CLUSTER) variable per schedule per schedule for 999 days Active Amoxicillin-Pot Clavulanate 875-125 MG 1 tablet Orally every 12 hrs for 7 days 10/08/2024 Not-Taking SIT (Traditional) variable - see record per schedule subcutaneous per schedule for 999 days 02/06/2024 Active SIT (Traditional) variable - see record per schedule subcutaneous per schedule for 999 days Active Azelastine HCl 137 MCG/SPRAY 2 sprays in each nostril Nasally Twice a day for 90 days Not-Taking SIT (Traditional) variable - see record per schedule subcutaneous per schedule for 999 05/29/2024 Active Immunizations Vaccine Route Administration Date Status Comme nts Influenza Unknown 06/05/2023 Administered Portal Infor mation NOC PedvaxHIB IM Intramuscular 03/08/2024 Administered NOC PedvaxHIB IM Intramuscular 08/20/2024 Administered NOC Prevnar 20 IM Intramuscular 11/21/2024 Administered Social History Tobacco Use: Social History Observation Description Date Details (start date - stop date) Never Smoker NA - NA Tobacco Control (Standard) Question Answer Notes Tobacco use: Nonsmoker Problems Problem Type SNOMED Code ICD Code Onset Dates Problem Status W/U Status Risk Notes Problem Chronic allergic conjunctivitis (98478404) Other chronic allergic conjunctivitis (H10.45) Active confirmed Problem Essential hypertension (68668210) Essential (primary) hypertension (I10) Active confirmed Problem Allergic rhinitis caused by pollen (disorder) (04917147) Allergic rhinitis due to pollen (J30.1) Active confirmed Problem Allergic rhinitis (09095619) Other allergic rhinitis (J30.89) Active confirmed Problem Uncomplicated severe persistent asthma (315750431) Severe persistent asthma, uncomplicated (J45.50) Active confirmed Problem Allergic rhinitis caused by animal hair and dander (825628207187563) Allergic rhinitis due to animal (cat) (dog) hair and dander (J30.81) Active confirmed Problem Bronchitis (84427661) Bronchitis, not specified as acute or chronic (J40) Active confirmed Problem Cough (finding) (61426657) Cough, unspecified (R05.9) Active confirmed Vital Signs Respiratory Rate 9 /min 07/03/2024 Oximetry 96 % 11/20/2024 Blood pressure diastolic 77 mm Hg 11/20/2024 Height 67.75 in 11/20/2024 Blood pressure systolic 133 mm Hg 11/20/2024 Weight 295.2 lbs 11/20/2024 BMI 45.21 kg/m2 11/20/2024 Encounters Encounter Location Date Provider Diagnosis [facility] [address] [place] [address] 01/14/2024 Provider Bridger[facility]-Angel Allergic rhinitis due to pollen J30.1 and Severe persistent asthma, uncomplicated J45.50 [facility] [address] [place] [address] 11/21/2024 Supa Zheng Encounter for immunization Z23 and Encounter for antibody response examination Z01.[address] [address] 11/29/2023 Supa Zheng Allergic rhinitis du e to pollen J30.1 ; Other allergic rhinitis J30.89 ; Allergic rhinitis due to animal (cat) (dog) hair and dander J30.81 and Other chronic allergic conjunctivitis H10.[address] [address] 12/13/2023 Supa Zheng Allergic rhinitis du e to pollen J30.1 ; Other allergic rhinitis J30.89 ; Allergic rhinitis due to animal (cat) (dog) hair and dander J30.81 and Other chronic allergic conjunctivitis H10.45 [facility] [address] [place] [address] 12/19/2023 Supa Zheng Allergic rhinitis du e to pollen J30.1 ; Other allergic rhinitis J30.89 ; Allergic rhinitis due to animal (cat) (dog) hair and dander J30.81 and Other chronic allergic conjunctivitis H10.[address] [address] 12/20/2023 Earl Mcnamara Severe persistent asthma, uncomplicated J45.50 ; Allergic rhinitis due to pollen J30.1 ; Allergic rhinitis due to animal (cat) (dog) hair and dander J30.81 ; Other allergic rhinitis J30.89 ; Other chronic allergic conjunctivitis H10.45 ; Cough, unspecified R05.9 and Bronchitis, not specified as acute or chronic J40 [address] [address] 12/27/2023 Supa Zheng Allergic rhinitis du e to pollen J30.1 ; Other allergic rhinitis J30.89 ; Allergic rhinitis due to animal (cat) (dog) hair and dander J30.81 and Other chronic allergic conjunctivitis H10.[address] [address] 01/11/2024 Supa Zheng Allergic rhinitis du e to pollen J30.1 ; Other allergic rhinitis J30.89 ; Allergic rhinitis due to animal (cat) (dog) hair and dander J30.81 and Other chronic allergic conjunctivitis H10.[address] [address] 01/25/2024 Supa Zheng Allergic rhinitis du e to pollen J30.1 ; Other allergic rhinitis J30.89 ; Allergic rhinitis due to animal (cat) (dog) hair and dander J30.81 and Other chronic allergic conjunctivitis H10.[address] [address] 01/31/2024 Supa Zheng Severe persistent asthma, uncomplicated J45.[address] [address] 02/06/2024 Earl Mcnamara Severe persistent asthma, uncomplicated J45.50 ; Allergic rhinitis due to pollen J30.1 ; Chronic cough R05.3 ; Allergic rhinitis due to animal (cat) (dog) hair and dander J30.81 ; Other allergic rhinitis J30.89 ; Other chronic allergic conjunctivitis H10.45 and Bronchitis, not specified as acute or chronic J40 [address] [address] 02/08/2024 Supa Zheng Allergic rhinitis du e to pollen J30.1 ; Other allergic rhinitis J30.89 ; Allergic rhinitis due to animal (cat) (dog) hair and dander J30.81 and Other chronic allergic conjunctivitis H10.[address] [address] 03/05/2024 Earl Mcnamara Severe persistent asthma, uncomplicated J45.50 ; Allergic rhinitis due to pollen J30.1 ; Allergic rhinitis due to animal (cat) (dog) hair and dander J30.81 ; Other allergic rhinitis J30.89 ; Other chronic allergic conjunctivitis H10.45 ; Cough, unspecified R05.9 and Bronchitis, not specified as acute or chronic J40 [address] [address] 03/07/2024 Supa Zheng Allergic rhinitis du e to pollen J30.1 ; Other allergic rhinitis J30.89 ; Allergic rhinitis due to animal (cat) (dog) hair and dander J30.81 and Other chronic allergic conjunctivitis H10.[address] [address] 03/08/2024 Supa Zheng Encounter for immunization Z23 and Encounter for antibody response examination Z01.[address] [address] 04/04/2024 Supa Zheng Allergic rhinitis du e to pollen J30.1 ; Other allergic rhinitis J30.89 ; Allergic rhinitis due to animal (cat) (dog) hair and dander J30.81 and Other chronic allergic conjunctivitis H10.[address] [address] 04/09/2024 Yamila Mora Severe persistent asthma, uncomplicated J45.50 ; Allergic rhinitis due to pollen J30.1 ; Allergic rhinitis due to animal (cat) (dog) hair and dander J30.81 ; Other allergic rhinitis J30.89 ; Other chronic allergic conjunctivitis H10.45 ; Cough, unspecified R05.9 and Bronchitis, not specified as acute or chronic J40 [address] [address] 04/10/2024 Supa Zheng Allergic rhinitis du e to pollen J30.1 ; Other allergic rhinitis J30.89 ; Allergic rhinitis due to animal (cat) (dog) hair and dander J30.81 and Other chronic allergic conjunctivitis H10.[address] [address] 04/17/2024 Supa Zheng Allergic rhinitis du e to pollen J30.1 ; Other allergic rhinitis J30.89 ; Allergic rhinitis due to animal (cat) (dog) hair and dander J30.81 and Other chronic allergic conjunctivitis H10.45 [facility] [address] [place] [address] 05/07/2024 Earl Mcnamara Severe persistent asthma, uncomplicated J45.50 ; Allergic rhinitis due to pollen J30.1 ; Allergic rhinitis due to animal (cat) (dog) hair and dander J30.81 ; Other allergic rhinitis J30.89 ; Other chronic allergic conjunctivitis H10.45 ; Cough, unspecified R05.9 and Bronchitis, not specified as acute or chronic J40 [facility] [address] [place] [address] 05/15/2024 Supa Zheng Allergic rhinitis du e to pollen J30.1 ; Other allergic rhinitis J30.89 ; Allergic rhinitis due to animal (cat) (dog) hair and dander J30.81 and Other chronic allergic conjunctivitis H10.45 [facility] [address] [place] [address] 05/29/2024 Earl Mcnamara Severe persistent asthma, uncomplicated J45.50 ; Allergic rhinitis due to pollen J30.1 ; Allergic rhinitis due to animal (cat) (dog) hair and dander J30.81 ; Other allergic rhinitis J30.89 ; Other chronic allergic conjunctivitis H10.45 ; Cough, unspecified R05.9 and Bronchitis, not specified as acute or chronic J40 [facility] [address] [place] [address] 06/04/2024 Supa Zheng Severe persistent asthma, uncomplicated J45.50 [facility] [address] [place] [address] 06/12/2024 Supa Zheng Allergic rhinitis du e to pollen J30.1 ; Other allergic rhinitis J30.89 ; Allergic rhinitis due to animal (cat) (dog) hair and dander J30.81 and Other chronic allergic conjunctivitis H10.[address] [address] 07/03/2024 Earl Mcnamara Severe persistent asthma, uncomplicated J45.50 ; Allergic rhinitis due to pollen J30.1 ; Allergic rhinitis due to animal (cat) (dog) hair and dander J30.81 ; Other allergic rhinitis J30.89 ; Other chronic allergic conjunctivitis H10.45 ; Cough, unspecified R05.9 and Bronchitis, not specified as acute or chronic J40 [address] [address] 07/10/2024 Supa Zheng Allergic rhinitis du e to pollen J30.1 ; Other allergic rhinitis J30.89 ; Allergic rhinitis due to animal (cat) (dog) hair and dander J30.81 and Other chronic allergic conjunctivitis H10.[address] [address] 08/14/2024 Earl Mcnamara Severe persistent asthma, uncomplicated J45.50 ; Allergic rhinitis due to pollen J30.1 ; Allergic rhinitis due to animal (cat) (dog) hair and dander J30.81 ; Other allergic rhinitis J30.89 ; Other chronic allergic conjunctivitis H10.45 ; Cough, unspecified R05.9 and Bronchitis, not specified as acute or chronic J40 [address] [address] 08/16/2024 Supa Zheng Allergic rhinitis du e to pollen J30.1 ; Other allergic rhinitis J30.89 ; Allergic rhinitis due to animal (cat) (dog) hair and dander J30.81 and Other chronic allergic conjunctivitis H10.[address] [address] 08/20/2024 Supa Zheng Encounter for immunization Z23 and Encounter for antibody response examination Z01.[address] [address] 09/04/2024 Supa Zheng Allergic rhinitis du e to pollen J30.1 ; Other allergic rhinitis J30.89 ; Allergic rhinitis due to animal (cat) (dog) hair and dander J30.81 and Other chronic allergic conjunctivitis H10.[address] [address] 09/13/2024 Supa Zheng Severe persistent asthma, uncomplicated J45.[address] [address] 10/08/2024 Earl Carterpretty Severe persistent asthma, uncomplicated J45.50 ; Acute upper respiratory infection, unspecified J06.9 ; Allergic rhinitis due to pollen J30.1 ; Allergic rhinitis due to animal (cat) (dog) hair and dander J30.81 ; Other allergic rhinitis J30.89 ; Other chronic allergic conjunctivitis H10.45 ; Cough, unspecified R05.9 and Bronchitis, not specified as acute or chronic J40 [address] [address] 10/18/2024 Supa Zheng Severe persistent asthma, uncomplicated J45.[address] [address] 10/30/2024 Supa Zheng Allergic rhinitis du e to pollen J30.1 ; Other allergic rhinitis J30.89 ; Allergic rhinitis due to animal (cat) (dog) hair and dander J30.81 and Other chronic allergic conjunctivitis H10.[address] [address] 11/20/2024 Earl Carterpretty Severe persistent asthma, uncomplicated J45.50 ; Allergic rhinitis due to pollen J30.1 ; Allergic rhinitis due to animal (cat) (dog) hair and dander J30.81 ; Other allergic rhinitis J30.89 ; Other chronic allergic conjunctivitis H10.45 ; Cough, unspecified R05.9 and Bronchitis, not specified as acute or chronic J40 [address] [address] 02/01/2024 Earl Carterpretty [address] [address] 03/21/2024 Earl Mcnamara Allergic rhinitis du e to pollen J30.[address] [address] 06/04/2024 Earl Machadopretty Acute upper respiratory infection, unspecified J06.9 Assessments Encounter Date Diagnosis (ICD Code) Assessment Notes Treatment Notes Treatment Clinical Notes Section Notes 11/29/2023 Allergic rhinitis due to pollen (ICD-10 [...] tolerated today without issue. Will continue to [facility] [id number]|2024-11-22 09:40:00|2024-11-22 09:39:00|XMS_ITS|BKG DAMAYKEL|External Medical Summaries|[id number]|" Progress note - 11/21/2024 Created on: November 22, 2024 Autumn Hall : 1965 Sex: Female Author Organization [employer] [facility] [place] ([address]) Address [address] [place] [address] Care Team Providers Care Power Technician Name Role Phone Susan Johnson MD Primary Care Provider UnaEarl Bermeo Unavailable [phone] Norbert Gonzalez Unavailable Unavailable Supa Zheng Unavailable [phone] REASON FOR VISIT Needs evaluation fo pre-vaccine health questionaire and medication review Medications Medication SIG (Take, Route, Frequency, Duration) Notes Start Date End Date Status Pepcid 20 MG 1 tab(s) orally 60 minutes prior to SCIT 09/19/2023 Not-Taking Pneumovax 23 - 0.5 ML INTRAMUSCULARLY ONCE for 1 DAYS *Please review and pick correct strength-formula tion from [employer] options. If intended option is not shown, discontinue and re-order from Quick Search* Not-Taking Prevnar 20 0.5 ML as directed Intramuscular 11/20/2024 Active HIBERIX (HIB) - 0.5 mL intramuscularly once for 1 dose(s) Not-Taking TRELEGY ELLIPTA 200 mcg-62.5 mcg-25 mcg/inh 1 puff(s) inhaled once a day Not-Taking Ipratropium Bee 0.06 % 2 sprays in each nostril Nasally Four times a day for 30 days 06/04/2024 Not-Taking Amoxicillin-Pot Clavulanate 875-125 MG 1 tablet Orally every 12 hrs for 10 days 06/04/2024 Not-Taking SIT (CLUSTER) VARIABLE PER SCHEDULE SC PER SCHEDULE for TO BE DETERMINED *Please review for potential replacement for e-prescription and drug interaction check* 09/19/2023 Not-Taking ZyrTEC Allergy 10 MG 1 tablet PO QD Not-Taking Breztri Aerosphere 160-9-4.8 MCG/ACT 2 puffs Inhalation Twice a day Not-Taking Benzonatate 200 MG TAKE 1 CAPSULE BY MOUTH THREE TIMES DAILY NEEDED FOR COUGH Oral for 30 Days Not-Taking Albuterol Sulfate HFA 108 (90 Base) MCG/ACT INHALE 2 PUFFS BY MOUTH EVERY 6 HOURS Inhalation for 25 Days Not-Taking Trelegy Ellipta 200 MCG-62.5 MCG-25 MCG/INH 1 PUFF(S) INHALED ONCE A DAY *Please review and pick correct strength-formula tion from [employer] options. If intended option is not shown, discontinue and re-order from Quick Search* Not-Taking Amoxicillin-Pot Clavulanate 875-125 MG 1 tablet Orally every 12 hrs for 7 days 10/08/2024 Not-Taking Azelastine HCl 137 MCG/SPRAY 2 sprays in each nostril Nasally Twice a day for 90 days Not-Taking Omeprazole 40 MG 1 cap(s) orally once a day Active Triamcinolone Acetonide 0.1 % 1 candi applied topically 3 times a day for 7 days 12/20/2023 Active Olmesartan Medoxomil 20 MG 1 tab(s) orally once a day Active SIT (Traditional) variable - see record per schedule subcutaneous per schedule for 999 days 02/06/2024 Active SIT (Traditional) variable - see record per schedule subcutaneous per schedule for 999 05/29/2024 Active metFORMIN HCl ER 500 MG 1 tab(s) orally once a day Active Letrozole 2.5 MG 1 tab(s) orally once a day Active Gabapentin 300 MG 2 cap(s) orally once a day Active Meloxicam 7.5 MG 1 tab(s) orally once a day Active FLUoxetine HCl 20 MG 1 tab(s) orally once a day Active Montelukast Sodium 10 MG 1 tab(s) orally once a day Active Fluticasone Propionate 50 MCG/ACT 2 spray(s) in each nostril twice a day for 30 days Active Benzonatate 200 MG 1 cap(s) orally 3 times a day Active Vitamin D3 *Please review and pick correct strength-formula tion from [employer] options. If intended option is not shown, discontinue and re-order from Quick Search* Active Ventolin HFA 108 (90 Base) MCG/ACT 2 puff(s) inhaled every 6 hours for 30 days Active Cetirizine HCl 10 MG 1 tab(s) orally once a day for 30 days Active Albuterol Sulfate (2.5 MG/3ML) 0.083% 3 mL by nebulizer every 6 hours Active Tezspire 210 MG/1.91ML as directed Subcutaneous Active SIT (CLUSTER) variable per schedule per schedule for 999 days Active SIT (Traditional) variable - see record per schedule subcutaneous per schedule for 999 days Active TEZSPIRE PRE-FILLED PEN ekko 210 mg/1.91 mL as directed subcutaneously every 4 weeks Active TRIAMCINOLONE TOPICAL 0.1% 1 candi applied topically 3 times a day for 7 days Active Famotidine 40 mg 1 tab(s) orally 30 mins prior to SCIT for 30 days Active Ipratropium Bee 0.06 % 2 sprays in each nostril Nasally Four times a day for 30 days Active Trelegy Ellipta 200-62.5-25 MCG/ACT 1 puff Inhalation Once a day for 30 days Active EpiPen 2-Brian 0.3 mg as directed intramuscularly once for 30 days Active CETIRIZINE 10 mg 1 tab(s) orally [...] mL by nebulizer every 6 hours Active Immunizations Vaccine Route Administration Date Status Comme nts NOC Prevnar 20 IM Intramuscular 11/21/2024 Administered Encounters Encounter Location Date Provider Diagnosis [facility] [address] [place] [address] 11/21/2024 Supa Zheng Encounter for immunization Z23 and Encounter for antibody response examination Z01.84 Assessments Encounter Date Diagnosis (ICD Code) Assessment Notes Treatment Notes Treatment Clinical Notes Section Notes 11/21/2024 Encounter for immunization (ICD-10 - Z23) 11/21/2024 Encounter for antibody response examination (ICD-10 - Z01.84) Plan Of Treatment Next Appt Details Follow Up: as scheduled, Bailee son: Provider Name:Supa Lomax Norm , 11/22/2024 03:00:00 PM, [address] [facility], [address], [place], [address], Progress Notes * Autumn HALLDOB:1965 (59 yo F)Acc No.[id number]:11/21/2024 Prevnar 20 Patient: Autumn DAMON Provider: Aguila Zheng MD :1965 A ge:59 Y S ex:Female Date:11/21/2024 Address:[address] [place], [place] [id number] Pcp:Susan Johnson MD Subjective: * Chief Complaints: * 1 . Needs evaluation fo pre-vaccine health questionaire and medication review. * Medical History: * Medications: T aking MONTELUKAST 10 mg tablet 1 tab(s) orally once a day , Taking ALBUTEROL 2.5 mg/3 mL (0.083%) solution 3 mL by nebulizer every 6 hours , Taking VENTOLIN HFA 90 mcg/inh aerosol 2 puff(s) inhaled every 6 hours , Taking CETIRIZINE 10 mg tablet 1 tab(s) orally once a day , Taking FLUTICASONE NASAL 50 mcg/inh spray 2 spray(s) in each nostril twice a day , Taking NASAL WASHES N/A 1 quart of sterilized tap water or distilled water, 1 tsp NaCl, 1 pinch of baking soda as directed intranasally as needed , Taking EpiPen 2-Brian 0.3 mg kit as directed intramuscularly once , Taking TEZSPIRE PRE-FILLED PEN ekko 210 mg/1.91 mL solution as directed subcutaneously every 4 weeks , Taking Famotidine 40 mg tablet 1 tab(s) orally 30 mins prior to SCIT , Taking TRIAMCINOLONE TOPICAL 0.1% ointment 1 candi applied topically 3 times a day , Taking Trelegy Ellipta 200-62.5-25 MCG/ACT Aerosol Powder Breath Activated 1 puff Inhalation Once a day , Taking Ipratropium Bee 0.06 % Solution 2 sprays in each nostril Nasally Four times a day , Taking SIT (Traditional) variable - see record variable - see record per schedule subcutaneous per schedule , Taking EpiPen 2- Brian 0.3 mg kit as directed intramuscularly once , Taking Famotidine 40 mg tablet 1 tab(s) orally 30 mins prior to SCIT , Taking SIT (CLUSTER) variable see record per schedule per schedule , Taking Tezspire 210 MG/1.91ML Solution Prefilled Syringe as directed Subcutaneous , Taking Albuterol Sulfate (2.5 MG/3ML) 0.083% Nebulization Solution 3 mL by nebulizer every 6 hours , Taking Cetirizine HCl 10 MG Tablet 1 tab(s) orally once a day , Taking Fluticasone Propionate 50 MCG/ACT Suspension 2 spray(s) in each nostril twice a day , Taking Montelukast Sodium 10 MG Tablet 1 tab(s) orally once a day , Taking Ventolin HFA 108 (90 Base) MCG/ACT Aerosol Solution 2 puff(s) inhaled every 6 hours , Taking Vitamin D3 , Notes to Pharmacist: *Please review and pick correct strength-formulation from [employer] options. If intended option is not shown, discontinue and re-order from Quick Search*, Taking Benzonatate 200 MG Capsule 1 cap(s) orally 3 times a day , Taking Gabapentin 300 MG Capsule 2 cap(s) orally once a day , Taking Letrozole 2.5 MG Tablet 1 tab(s) orally once a day , Taking FLUoxetine HCl 20 MG Tablet 1 tab(s) orally once a day , Taking Meloxicam 7.5 MG Tablet 1 tab(s) orally once a day , Taking metFORMIN HCl ER 500 MG Tablet Extended Release 24 Hour 1 tab(s) orally once a day , Taking Omeprazole 40 MG Capsule Delayed Release 1 cap(s) orally once a day , Taking Olmesartan Medoxomil 20 MG Tablet 1 tab(s) orally once a day , Taking Triamcinolone Acetonide 0.1 % Ointment 1 candi applied topically 3 times a day , Taking SIT (Traditional) variable - see record variable - see record per schedule subcutaneous per schedule , Taking SIT (Traditional) variable - see record variable - see record per schedule subcutaneous per schedule , Taking Prevnar 20 0.5 ML Suspension Prefilled Syringe as directed Intramuscular , Not-Taking/PRN Azelastine HCl 137 MCG/SPRAY Solution 2 sprays in each nostril Nasally Twice a day , Not-Taking/PRN Albuterol Sulfate HFA 108 (90 Base) MCG/ACT Aerosol Solution INHALE 2 PUFFS BY MOUTH EVERY 6 HOURS Inhalation , Not-Taking/PRN Benzonatate 200 MG Capsule TAKE 1 CAPSULE BY MOUTH THREE TIMES DAILY NEEDED FOR COUGH Oral , Not- Taking/PRN Amoxicillin-Pot Clavulanate 875-125 MG Tablet 1 tablet Orally every 12 hrs , Not-Taking/PRN Trelegy Ellipta 200 MCG-62.5 MCG-25 MCG/INH POWDER 1 PUFF(S) INHALED ONCE A DAY , Notes to Pharmacist: *Please review and pick correct strength-formulation from [employer] options. If intended option is not shown, discontinue and re-order from Quick Search*, Not-Taking/PRN Amoxicillin-Pot Clavulanate 875-125 MG Tablet 1 tablet Orally every 12 hrs , Not-Taking/PRN Ipratropium Bee 0.06 % Solution 2 sprays in each nostril Nasally Four times a day , Not-Taking/PRN SIT (CLUSTER) VARIABLE SEE RECORD PER SCHEDULE SC PER SCHEDULE , Notes to Pharmacist: *Please review for potential replacement for e-prescription and drug interaction check*, Not-Taking/PRN Breztri Aerosphere 160-9-4.8 MCG/ACT Aerosol 2 puffs Inhalation Twice a day , Not-Taking/PRN ZyrTEC Allergy 10 MG Tablet 1 tablet PO QD , Not-Taking/PRN TRELEGY ELLIPTA 200 mcg-62.5 mcg-25 mcg/inh powder 1 puff(s) inhaled once a day , Not-Taking/PRN HIBERIX (HIB) - powder for injection 0.5 mL intramuscularly once , Not-Taking/PRN Pneumovax 23 - SOLUTION 0.5 ML INTRAMUSCULARLY ONCE , Notes to Pharmacist: *Please review and pick correct strength-formulation from [employer] options. If intended option is not shown, discontinue and re-order from Quick Search*, Not-Taking/PRN Pepcid 20 MG Tablet 1 tab(s) orally 60 minutes prior to SCIT Objective: * Vitals: Assessment: * Assessment: 1. E ncounter for immunization - Z23 (Primary) 2 . E ncounter for antibody response examination - Z01.84 Plan: * Treatment: * Immunizations: NOC Prevnar 20 : 0.5 mL (Route: Intramuscular) given by Hafsa Orr , [employer]st on Left Deltoid (Encounter for immunization) * Follow Up: a s scheduled * Billing Information: * Visit Code: * Procedure Codes: 67329 Immunization Administration (one vaccine). 00407 NOC Prevnar 20 [place]ACC[address] IM. 98254 NOC Prevnar 20 VACCINE IM. * Electronic signature of Patvinod Zheng MD, FAAAAI on 11/22/2024 at 09:39 AM CDT Sign off status: Pending * Provider: Aguila Zheng MD Date: 0 11/21/2024 Generated for Josei gabi/Zayda/Selinaitting on: 11/22/2024 09:39 AM CDT "
--- OUTSIDE RECORDS SUMMARY | 2024-11-22 09:40 | XMS_ITS ---
Author Organization [facility] ([address]) Address [address] [place] [address] Care Team Providers Care [address] Passenger Firer Name Role Phone Susan Johnson MD Primary Care Provider UnaEarl Bermeo Unavailable [phone] Norbert Gonzalez Unavailable Unavailable Supa Zheng Unavailable [phone] REASON FOR VISIT Asthma w/o mention of status asthmaticus or acute exacerbation follow-up, TEZSPIRE administration scheduled today, Needs evaluation for pre-TEZSPIRE health questionaire to assess health status and medication review Encounters Encounter Location Date Provider Diagnosis [facility] [address] [place] [address] 11/22/2024 Supa Zheng Severe persistent asthma, uncomplicated J45.50 Assessments Encounter Date Diagnosis (ICD Code) Assessment Notes Treatment Notes Treatment Clinical Notes Section Notes 11/22/2024 Severe persistent asthma, uncomplicated (ICD-10 - J45.50) 11/22/2024 Other Plan Of Treatment Next Appt Details Follow Up: As scheduled for tezspire, Reason: Provider Name:Supa Zheng , 11/22/2024 03:00:00 PM, [address] [facility], [place], [address], Progress Notes * Autumn MARTINDOB:1965 (59 yo F)Acc No.[id number]:11/22/2024 TEZSPIRE Only Patient: Autumn DAMON Provider: Aguila Zheng MD :1965 A ge:59 Y S ex:Female Date:11/22/2024 Address:[address] [facility] [facility] Pcp:Susan Johnson MD Subjective: * Chief Complaints: * 1 . Asthma w/o mention of status asthmaticus or acute exacerbation follow-up, TEZSPIRE administration scheduled today. 2. Needs evaluation for pre-TEZSPIRE health questionaire to assess health status and medication review. * HPI: * Introduction: The patient is [...] peak flow (if appropriate)). * Medical History: Objective: * Vitals: Assessment: * Assessment: 1. S evere persistent asthma, uncomplicated - J45.50 (Primary) Plan: * Treatment: * Follow Up: A s scheduled for tezspire * Billing Information: * Visit Code: * Procedure Codes: 10532 CHEMO, ANTI-NEOPL, SQ/IM. 71906 PT-FOCUSED [facility] RISK ASSMT. J2356 TEZSPIRE 210 mg - 1 unit (1 mg). Units: 210.00. Modifiers: JZ * Electronic signature of Patvinod Zheng MD, FAAAAI on 11/22/2024 at 09:40 AM CDT Sign off status: Pending * Provider: Aguila Zheng MD Date: 11/22/2024 Generated for Printi ng/Faradhag/eTransmitting on: 11/22/2024 09:40 AM CDT History and Physical [...]
--- NOTE | 2024-12-18 10:32 | WPDSLEEPSTUD ---
Sleep Study Date of Study: 11/22/24 Ordering Provider: Ever Redmond APRN Interpreting Physician: Kristel Diamond DO Sleep Study Type: CPAP Titration Height: 1.7 m Weight: 133.81 kg Body Mass Index: 46.2 Neck Circumference (inches): 16 [place]: 11 Reason for Sleep Study Difficulty tolerating her CPAP at current pressure settings Sleep History The patient is a 59-year-old female with previously diagnosed DIOMEDES on CPAP that had a titration study ordered by the pulmonary group for difficulty tolerating her current pressure settings. The patient occasionally awakens from sleep short breath. She occasionally awakens at night with heartburn, belching or cough. She constantly snores loudly enough that others complain. She constantly has trouble sleeping when she has a cold. She rarely wakes up gasping for air throughout the night. She frequently has breathing problems at night observed by herself or others. She frequently sweats excessively at night. She rarely has heart palpitations or irregular heartbeats during the night. She rarely falls asleep during the day but never while driving. She denies sleep paralysis, cataplexy and hypnagogic/ hypnopompic hallucinations. She rarely has trouble at school or work due to sleepiness. She denies feeling afraid of going to sleep. She denies having nightmares. She rarely remembers her dreams. She occasionally has thoughts racing through her mind. She denies feeling sad, depressed or anxious. She occasionally has muscular tension. She denies noticing parts of her body jerk. She denies kicking during the night. She constantly has crawling and aching feelings in her legs and frequently has leg pain during the night. She denies grinding her teeth during sleep and denies awakening with morning jaw pain. She is constantly bothered by pain during the day but frequently awakened by pain during the night. She constantly wakes up feeling stiff in the morning. She constantly wakes up with sore or achy muscles. She constantly wakes up with pain in the neck, spine and other joints. She goes to bed between 9-10 p.m. on both weekdays and weekends. It takes her 20 30 minutes to fall asleep. She wakes up 2-3 times throughout the night to urinate and is able to fall back asleep within 5-10 minutes. She wakes up at 5:15 a.m. on weekdays and between 7-8 a.m. on the weekends. She typically gets 5-7 hours of sleep per night. She will stay in bed for 5 minutes after waking up in the morning. She currently lives with her she will drink a diet Coke within 2 hours of going to bed. She denies engaging in physical exercise before bedtime. She denies reading and watching television before falling asleep. She will take naps in afternoon or the evening but they are not refreshing. She consumes 3 cans of diet Coke per day. She denies tobacco, alcohol and recreational drug use. 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, thumb, degenerative Trigger thumb of both hands Desensitization to allergy shot Chronic acquired lymphedema Bilateral lower extremity Insomnia, unspecified Idiopathic urticaria Cancer of left breast Amblyopia ex anopsia of both eyes With eye surgery x2 BMI greater than 40 Rotator cuff tendonitis Left knee DJD Vitamin D deficiency Right knee DJD Dizziness Seasonal allergies Fibromyalgia Osteoporosis Sleep apnea Uses CPAP regularly Asthma Wears glasses Vertigo Peroneal tendinitis of left lower leg Acquired heel varus of left foot History of DVT (deep vein thrombosis) Associated with control Surgical History Surgical History History of lumpectomy of left breast (08/2022) History of tonsillectomy and adenoidectomy History of shoulder surgery RTC and Biceps Tear repair-Dr. Krishna Chavis Family History Family History Father Hypertension Family history of cardiovascular disease Family history of dementia Arthritis Family history of mental disorder Diffuse large B-cell lymphoma Mother Arthritis Family history of malignant neoplasm of breast Sibling Arthritis Hypertension Cerebrovascular accident Atrial fibrillation CHF (congestive heart failure) Social History Social History Social History: She lives with her of 38 years. They have 3 healthy children. Patient is a lifelong nonsmoker. She denies significant alcohol use. 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 Code status: Full code Surrogate decision maker: Smoking status: Never smoker Alcohol intake: never Substance use: never Lack of Transportation: No Lack of Food: Never True Current Housing: I Have Housing Concerned About Future Housing: No Difficulty Paying Gas/Electric Bills: No Difficulty Paying for Meds: No Currently Unemployed: No Education: High School Diploma/GED Difficulty w/ Childcare or Family Care: No Living arrangements: with family Occupation/Education: occupation Gender identity (if verbalized by the patient): Female Spiritual care concerns: No Medications Home Medications Medication Instructions Recorded Confirmed Type acetaminophen 325 mg tablet 650 mg PO Q6H PRN Pain (Scale 02/05/20 11/24/24 History (Tylenol) Score 1-3) albuterol sulfate 90 mcg/actuation See Rx Instructions .Route 08/10/21 11/24/24 Rx aerosol inhaler (Ventolin HFA) .COMPLEX #144 grams letrozole 2.5 mg tablet 2.5 mg PO DAILY 09/14/22 11/24/24 History ergocalciferol (vitamin D2) 1,250 See Rx Instructions .Route 08/02/23 11/24/24 Rx mcg (50,000 unit) capsule .COMPLEX #12 caps fluticasone fur. 200 mcg-umeclid 1 inh inhalation DAILY #180 02/01/24 11/24/24 Rx 62.5 mcg-vilant 25 mcg blisters inhalat.powder (Trelegy Ellipta) azelastine 137 mcg (0.1 %) nasal 2 spray intranasal Q12H 02/23/24 11/24/24 History spray benzonatate 200 mg capsule 200 mg PO TID PRN cough #90 caps 02/23/24 11/24/24 Rx fluticasone propionate 50 2 spray intranasal DAILY 02/23/24 11/24/24 History mcg/actuation nasal spray,suspension (Flonase Allergy Relief) omeprazole 40 mg capsule,delayed 40 mg PO DAILY #90 caps 03/19/24 11/24/24 Rx release albuterol sulfate 2.5 mg/3 mL 2.5 mg (3 mL) inhalation Q4-6H PRN 03/26/24 11/24/24 Rx (0.083 %) solution for nebulization shortness of breath or wheezing #360 mL montelukast 10 mg tablet See Rx Instructions .Route 10/14/24 04/26/25 Rx .COMPLEX #90 tabs meloxicam 7.5 mg tablet 15 mg (2 x 7.5 mg) PO DAILY #180 05/15/24 11/24/24 Rx tabs tezepelumab-ekko 210 mg/1.91 mL 210 mg subcut ONCE 05/25/24 11/24/24 History (110 mg/mL) subcutaneous syringe (Tezspire) gabapentin 300 mg capsule 600 mg (2 x 300 mg) PO QPM #180 06/05/24 11/24/24 Rx caps metformin 500 mg tablet See Rx Instructions .Route 08/28/24 11/24/24 Rx .COMPLEX #90 tabs betamethasone valerate 0.1 % 1 applic topical TID PRN nasal 10/31/24 11/24/24 Rx topical cream septal ulceration #15 grams fluoxetine 20 mg tablet 10 mg PO .COMPLEX 10/31/24 11/24/24 History olmesartan 20 mg tablet 20 mg PO DAILY #90 tabs 12/10/24 Rx Sleep Procedure A full night CPAP Titration using the Joyus multi-channel system recorded the standard physiologic parameters including EEG, EOG, submentalis EMG, anterior tibialis EMG, EKG, body position, nasal and oral airflow using nasal pressure sensor and thermistor. Respiratory parameters of chest and abdominal movements were recorded with Respiratory Inductance Plethysmography belts. Oxygen saturation was recorded by pulse oximetry. Video monitoring was also performed. Sleep stages, periodic limb movements, and EEG arousals were scored in 30 second epochs according to the criteria of the AASM Scoring Manual. The Apnea-Hypopnea Index was calculated using CMS guidelines for definition of hypopnea with 4% O2 desaturations while scoring respiratory events. Sleep Architecture The total recording time was 461.2 minutes. The total sleep time was 429.0 minutes. Sleep latency was 9.1 minutes. REM latency was 103.0 minutes. Sleep efficiency was 93.0%. The patient had 20 awakenings for an awakening index of 2.8. Wake after Sleep Onset time was 23.0 minutes. The patient spent 26.5 minutes, 6.2% of total sleep time in Stage N1. The patient spent 259.5 minutes, 60.5% in Stage N2. The patient spent 25.5 minutes, 5.9% in Stage N3. The patient spent 117.5 minutes, 27.4% in Stage REM. Respiratory Analysis The patient had 25 hypopneas, 2 obstructive apneas, 15 mixed apneas, and 8 central apneas for an overall Apnea Hypopnea Index of 7.0 events per hour. The REM Apnea Hypopnea Index was 8.2. The NREM Apnea Hypopnea Index was 6.5. The patient had a Central Apnea Hypopnea Index of 1.1. There was no evidence of Lalit-Morgan Respirations. The patient was started on CPAP 5 cm H2O and titrated to CPAP 15 cm H2O with EPR of 3 due to central apneas, mixed apneas and hypopneas. The patient was able fall asleep starting on CPAP 5 cm H2O. The patient was able to achieve REM sleep starting on CPAP 9 cm H2O. The patient was able to achieve a residual AHI less than 5 with both NREM and REM sleep in the supine position on 14 cm H2O. On CPAP 14 cm H2O with EPR of 3, the patient spent 91 minutes in NREM and 49.5 minutes in REM with 2 central apneas, 6 mixed apneas and 2 hypopneas, resulting in an AHI of 4.3 The patient had a sleep efficiency of 97.9% on this pressure setting. Arousals There were 62 total arousals for an arousal index of 8.7. There were 27 spontaneous arousals for an index of 3.8. There were 9 arousals due to respiratory events for an index of 1.3. There were 15 arousals due to periodic limb movements for an index of 2.1. There were 9 arousals due to isolated limb movements for an index of 1.3. Periodic Limb Movements The patient had 17 isolated limb movements with an index of 2.4. The patient had 70 periodic limb movements with index of 9.8. Patient had a total of 87 limb movements with a total limb movement index of 12.2. Oximetry Data The patient had an average oxygen saturation of 92.6% in sleep with a minimum oxygen saturation of 80.0% and a maximum oxygen saturation of 97.0%. The patient had 38 oxygen desaturations that were 4% or greater resulting in an Oxygen Desaturation Index of 5.3. The patient spent 6.2 minutes, 1.3% of total sleep time with an oxygen saturation below 88%. Snoring Profile Moderate snoring was present in the beginning of the study. The snoring resolved once the patient was titrated to 11 cm H2O. Cardiac Profile The EKG showed normal sinus rhythm. No arrhythmias or premature beats were seen. The patient had an average pulse rate of 67.2 bpm with a minimum pulse rate of 52.0 bpm and a maximum pulse rate of 87.0 bpm. EEG Profile No signs of seizure activity seen. Assessment and Plan Assessment and Plan (1) DIOMEDES (obstructive sleep apnea): Code(s): G47.33 - Obstructive sleep apnea (adult) (pediatric) Status: Acute Assessment and Plan: The patient was started on CPAP 5 cm H2O and titrated to CPAP 15 cm H2O with EPR of 3 due to central apneas, mixed apneas and hypopneas. We were able to find a CPAP pressure that resolved the patient's sleep apnea with a high sleep efficiency. I recommend that the patient be prescribed CPAP 14 cm H2O with EPR of 3, size medium Resmed AirTouch F20 full face mask, CPAP filters/tubing and heated humidity. This should be used with all episodes of sleep. Compliance should be reviewed within 31-90 days of starting therapy for usage greater than 4 hours per night greater than 70% of the nights. The patient should be asked about symptoms such as excessive daytime sleepiness, quality of sleep, decreased nocturia, increased mental functioning such as memory, mood, and concentration. The patient's sleep history is somewhat suggestive of Restless Leg Syndrome. I recommend that the patient have a serum ferritin drawn for evaluation of iron deficiency anemia. If the patient has a serum ferritin less than 75 ng/mL, I recommend starting a daily iron supplement and a Vitamin C supplement for better absorption. If the serum ferritin is greater than 75 ng/mL, I recommend starting a dopamine agonist and titrating the dose until symptoms resolve. There are nonpharmacological methods to treat limb movements including daily exercise, stretching calf muscles before bed, avoiding excessive amounts of caffeine and alcohol, vitamin B supplementation, magnesium lotion massaged into legs before bed, and use of a weighted blanket. Data The data obtained during this sleep study is adequate for interpretation. Certification This sleep study has been reviewed by a board certified sleep medicine physician.
[2024-12-19 09:37] VITALS: BMI 46.2
== END 2024-11-23 06:26 | disposition home or self-care (01) ==
LOC: ANHCSM 09:02
PROVIDERS: PCP Family Medicine; Visit Provider Nurse Practitioner Family
DX: G47.33 Obstructive sleep apnea (adult) (pediatric) (principal)
CPT/HCPCS: 95811

== ENCOUNTER 2024-11-26 15:01 | Outpatient (CLI) | payer OTHER, SELFPAY ==
--- NOTE | ~2024-11-26 | US_ITS ---
EXAMINATION: US soft tissue head and neck DATE: 11/26/2024 15:14 INDICATION: Midline lump at the forehead TECHNIQUE: Multiple grayscale and Doppler ultrasound images of the region of concern at the midline o f the 4 head were obtained. COMPARISON: None FINDINGS: Normal appearance to the scalp at the region of concern with no abnormal masses or fluid collections. Normal smooth curvilinear echogenic margin of the underlying calvarium. IMPRESSION: 1. Study. No abnormal masses or fluid collections identified at the region of concern. Reviewed, dictated and finalized at location B. IMPRESSION: 1. Study. No abnormal masses or fluid collections identified at the region of c oncern.
== END 2024-11-26 15:02 | disposition home or self-care (01) ==
LOC: GOSHIMG 15:01
PROVIDERS: PCP Student in an Organized Health Care Education/Training Program; Visit Provider Student in an Organized Health Care Education/Training Program
DX: R22.9 Localized swelling, mass and lump, unspecified (principal)
CPT/HCPCS: 76536

== ENCOUNTER 2025-05-23 15:01 | Outpatient (CLI) | payer OTHER, SELFPAY ==
--- OUTSIDE RECORDS SUMMARY | 2025-02-14 04:45 | XMS_ITS ---
Author Organization [facility] [place] ([address]) Address [address] [place] [address] Care Team Providers Care Corporate Bond Trader Name Role Phone Susan Johnson MD Primary Care Provider UnaSupa Maloney Unavailable [phone] Norbert Gonzalez Unavailable Unavailable Toya Ribeiro Unavailable [phone] REASON FOR VISIT [facility] follow-up Social History Sex Assigned At : Social History Observation Description Sex Assigned At Female Encounters Encounter Location Date Provider Diagnosis [facility] [address] [place] [address] 02/14/2025 Toya Ribeiro Plan Of Treatment Next Appt Details Provider Name:Supa Zheng , 05/23/2025 04:47:00 PM, [address] [place] [address], [phone], Provider Name:Supa Zheng , 06/04/2025 03:00:00 PM, [email or web address], [place], [address], Provider Name:Supa Zheng , 07/02/2025 03:00:00 PM, [email or web address], [place], [address], Progress Notes * Autumn MARTINDOB:1965 (59 yo F)Acc No.[id number]:02/14/2025 Progress Notes Patient: Autumn DAMON Provider: ISIDRO Garner :1965 A ge:59 Y S ex:Female Date:02/14/2025 Address:[facility] Pcp:Susan Johnson MD Subjective: * Chief Complaints: * 1 . [facility] follow-up. * Medical History: Objective: * Vitals: Assessment: Plan: * Treatment: * Billing Information: * Visit Code: * Procedure Codes: * Electronic signature of ISIDRO Patel on 05/23/2025 at 04:09 PM CDT Sign off status: Pending * Provider: ISIDRO Garner Date: 0 02/14/2025 Generated for Lidya ashley/Zayda/eTautumnsmitting on: 1 04:09 PM CDT
--- NOTE | ~2025-05-23 | DEXA_ITS ---
Bone Density Report Name: JHON HALL Age: 59 Sex: Female Ethnicity: White Date of : 1965 Indication: postmenopausal; screening for osteoporosis; cancer; asthma or emphysema; Referring Provider: CHARISSA NIETO Study: Bone densitometry was performed. Exam Date: May 23, 2025 Accession number: [id number] Bone Density: Region BMD T-score Z-score Classification AP Spine(L1-L4) 1.241 1.8 3.2 Normal Femoral Neck (Left) 0.834 -0.1 1.2 Normal Total Hip (Left) 1.276 2.7 3.7 Normal Femoral Neck (Right) 0.867 0.2 1.5 Normal Total Hip (Right) 1.191 2.0 3.0 Normal Total Hip Mean 1.233 2.4 3.4 Normal World Health Organization criteria for BMD impression classify patients as: Normal (T-score at or above -1.0), Osteopenia (T-score between -1.0 and -2.5), or Osteoporosis (T-score at or below -2.5). 10-year Fracture Risk: FRAX not reported because: All T-scores for Spine Total, Hip Total, Femoral Neck at or above -1.0 Previous Exams: Region Exam Age BMD T-score BMD Change BMD Change Date g/cm2 vs Baseline vs Previous AP Spine (L1-L4) 05/23/2025 59 1.241 1.8 -0.012 (-1.0%) -0.012 (-1.0%) 05/13/2022 56 1.253 1.9 Total Hip(Left) 05/23/2025 59 1.276 2.7 0.035 (2.9%)* 0.035 (2.9%)* 05/13/2022 56 1.240 2.4 Total Hip(Right) 05/23/2025 59 1.191 2.0 -0.040 (-3.3%) -0.040 (-3.3%) 05/13/2022 56 1.231 2.4 *Denotes significance at 95% confidence level, LSC for AP Spine = 0.022 g/cm2, LSC for Total Hip = 0.027 g/cm2 Clinical Information Provided by Patient: Has used the following medications: Vitamin D Has the following medical conditions: Asthma or Emphysema, Cancer Patient maximum height was 67 Menopause Age: 46 No regular weight bearing exercise Drinks caffeinated beverages Onset of menses at age 11 Number of children 3 Impression: The patient has normal bone mass. The BMD for the Total Hip(Right) decreased, changing by -3.3% since the last DXA exam. Discussion: BONE DENSITY IS ABOVE THE MINIMUM DESIRABLE LEVEL AT ALL SKELETAL SITES TESTED. This patient?s bone mineral density is above the minimum desirable level (T-score -1.0 or better) at all sites measured. The patient should follow a healthful lifestyle (good nutrition with adequate calcium and vitamin D, and appropriate weight-bearing exercise). Follow-Up: Consider repeating this study in 3 to 4 years to reassess this patient's status, or sooner if there is some new clinical indication. Reported by: EDINSON on 05/23/2025 3:40:00 PM. Reviewed, dictated and finalized at location A.
--- OUTSIDE RECORDS SUMMARY | 2025-05-23 16:10 | XMS_ITS | Clinical Summary ---
Author Organization [facility] Address [address] [place] [address] Care Team Providers Care Paper Hanger Name Role Phone Sowmya Arana MD Unavailable [phone] Williams Mcfarland DO Unavailable [phone] Norbert Arreguin MD Unavailable [phone] Sowmya Arana MD Unavailable [phone] Susan Johnson MD Primary Care Provider + Allergies Active Allergy Reactions Criticality Noted Date Comments Lisinopril Cough Low 12/01/2018 Morphine Rash Medium 03/30/2018 Medications VENTOLIN HFA 90 mcg/actuation inhaler Inhale 2 puffs every 6 (six) hours as needed 02/24/20 18 Active VITAMIN D2 50,000 unit capsule 1 capsule (50,000 Units total) Takes twice monthly 12/08/19 18 Active FLUoxetine (PROzac) 20 mg capsule [...] (eight) hours as needed for pain Active ipratropium-al buteroL (DUO-NEB) 0.5-2.5 mg/3 mL nebulizer solution 10/13/19 [...] DAILY NEEDED FOR COUGH 11/23/19 24 Active vitamin E 1,000 unit capsule Take 1 capsule (1,000 Units total) by mouth daily Active tezepelumab-ek ko (Tezspire) 210 mg/1.91 mL (110 mg/mL) syringe Inject 1.91 mL (210 mg total) under the skin every 28 (twenty-eight) days Active betamethasone valerate (VALISONE) 0.1 % cream APPLY TO NOSE AND LOWER NASAL SEPTUM THREE TIMES DAILY NEEDED FOR NASLA ULCERATION 11/01/19 25 Active atorvastatin (LIPITOR) 10 mg tablet Take 1 tablet (10 mg total) by mouth daily Active ferrous sulfate 325 mg (65 mg of elemental iron) tabletIndicati ons:Iron Deficiency Anemia Take 1 tablet (65 mg of elemental iron total) by mouth 3 (three) times a day with meals Active letrozole (FEMARA) 2.5 mg tablet TAKE 1 TABLET DAILY 90 tablet 3 04/29/20 25 Active letrozole (FEMARA) 2.5 mg tablet TAKE 1 TABLET DAILY 90 tablet 01/29/20 25 025 Discontinued Active Problems Problem Noted Date Diagnosed Date Personal history of radiation therapy 12/22/2022 Malignant neoplasm of upper- inner quadrant of left breast in female, estrogen receptor positive 07/16/2022 Cancer Staging:Clinical stage from 07/18/2022:Stage IA(cT1a, cN0, cM0, G2, ER+, CA+, HER2-) - Signed by Sowmya Arana MD on 07/18/2022 Pathologic stage from 10/26/2022:Stage IA(pT1a, pN0(sn), cM0, G2, ER+, CA+, HER2- ) - Signed by Sowmya Arana MD on 10/26/2022 Left leg DVT 06/09/2020 Assessment & Plan (06/09/2020 11:12 AM RAILROAD CONSTRUCTION DIRECTOR): Impression: Prior DVT per patient report that [...] 06/09/2020 Assessment & Plan (06/09/2020 11:13 AM RAILROAD CONSTRUCTION DIRECTOR): Impression: Chronic lower extremity edema with subjective [...] (08/30/2018): Added automatically from request for surgery [id number] Adhesive capsulitis of left shoulder 08/30/2018 Overview (08/30/2018): Added automatically from request for surgery [id number] Incomplete tear of left rotator cuff 03/07/2018 Overview (03/07/2018): Added automatically from request for surgery [id number] Left shoulder pain 03/07/2018 Overview (03/07/2018): Added automatically from request for surgery [id number] Bursitis of left shoulder 03/07/2018 Overview (03/07/2018): Added automatically from request for surgery [id number] Varicose veins of bilateral lower extremities wi [...] Anal Fissurectomy - (Added by TW Conv) [place] DELIVERY ONLY Section - (Added by TW [...] Asthma well controlled DVT (deep venous thrombosis) 2003 lef t; spontaneous Neuropathy rubi LE Fibromyalgia Edema of both legs Obesity BMI - 43.85 Seasonal allergies Sleep apnea wears cpap Arthritis Motion sickness Type 2 diabetes mellitus Breast cancer (HCC) 2021 lobular/left History of [...] on file Legal Sex Female 12:15 AM RAILROAD CONSTRUCTION DIRECTOR Gender Identity Female 11/16/2023 1:34 PM CDT Sexual Orientation Not on file 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 Not on file Not on file Not on file Obstetrics History Para Term AB IAB SAB Ectopic Multiple Livin g Live Births 4 3 3 Date Outcome GA Total Labor Labor/2nd/3rd Weight Sex Type Anes PTL Estrella A1 A5 Name Clin Term Term Term Last Filed Vital Signs Vital Sign Reading Time Taken Comments Blood Pressure 121/81 12/31/2024 3:12 PM CDT Pulse 80 12/31/2024 3:12 PM CDT Temperature 36.7 C (98 F) 12/31/2024 3:12 PM CDT Respiratory Rate 18 12/31/2024 3:12 PM CDT Oxygen Saturation 98% 12/31/2024 3:12 PM CDT Inhaled Oxygen Concentration - - Weight 133.2 kg (293 lb 9.6 oz) 12/31/2024 3:12 PM CDT no shoes Height 170 cm (5' 6.93) 12/31/2024 3:12 PM CDT no shoes Body Mass Index 46.08 12/31/2024 3:12 PM CDT Plan of Treatment Health Maintenance Due Date Last Done Comments Cervical Cancer Screening 1965 Colon Cancer Screening-Colonoscopy 1965 Depression Screening 1965 Hepatitis C Screening 1965 Hepatitis B Screening 1982 Regular Well Visit/Exam 18-64 1982 Zoster Vaccine (1 of 2) 1983 Influenza Vaccine (#1) 2025 4, 06/05/2023, 06/03/2020, Additional history exists Breast Cancer Screening-Mammogram 05/31/2025 024, 05/30/2023 DTaP/Tdap/Td Vaccine (2 - Td or Tdap) 03/21/2030 03/21/2020 Pneumococcal vaccine <65 Completed 11/21/2024, 09/02 Medical Devices Implanted Type Area Regional Facilities Specialist Device Identifier Shelf Expiration Date Model / Serial / Lot [employer] Partnership Marker Biospy Site Top Hat Shape Senomark [id number] - [id number] Implanted:Qty: 1 on 07/01/2022 at [facility] Clip Left: Breast [employer] Partnership [id number] [facility]06/20[facility] / [id number] [employer] Ar-2324 Bcm Swivelock 4.75mm 24.5mm Self Punch Vent Shoulder [place] Suture - [id number] Implanted:Qty: 1 on 03/30/2018 by Charbel Chavis MD at [facility] Left: Shoulder [employer] 10/30/2019 AR-2324 BCM / / [id number] Pneumatic Drum [employer] [place] 20ga 7.5cm 2 Part Stabilizer Repositionable Depth Krishna [id number] - [id number] Implanted:Qty: 1 on 08/30/2022 at [facility] Pneumatic Drum [employer] [id number] 04/08/2027 [id number] / / [id number] [employer] Ligaclip Extra 6.2mm Ligate Open Large Clip Internal Titanium Latex Free Lt400 - [id number] Implanted:Qty: 1 on 08/30/2022 by Norbert Arreguin MD at [facility] [employer] LT400 / / Procedures Procedure Name Priority Date/Time Associated Diagnosis Comments DIAGNOSTIC MAMMOGRAM BILATERAL W OMAR Schedule Routine, Read Routine (OP Routine) 05/31/2024 9:19 AM CDT History of breast conservation therapy from Last 3 Months or Most Recently Relevant to Health Maintenance Results * Diagnostic Mammogram Bilateral W Omar (05/31/2024 [...] Marilu Waterman M.D. LD: STEVE Report ID: [id number] [facility] Norbert Arreguin MD IMG MAMMO PROCEDURES Final Res ult from Last 3 Months or Most Recently Relevant to Health Maintenance Insurance [facility] CHOICE PLUS CHOICE PLUS Advance Directives For more information, please contact: [phone] * Full Code (Latest Code Status on File) Date Activated Date Inactivated Comments 08/30/2022 10:12 AM 08/30/2022 5:19 PM Care Teams Paper Hanger Relationship Specialty Start Date End Date Susan Johnson MD [address] [place] [address] [place] [address] PCP - General Family Medicine 12/31/24 Sowmya Arana MD Radiation Oncologist Radiation Oncology 07/18/22 Williams Mcfarland DO [address] [place] [address] [phone] Medical Oncologist/Assistant Auto Center Manager Hematology and Oncology 07/18/22 Norbert Arreguin MD [address] [place] [address] [address] [place], [place] [phone] Surgeon General Surgery 07/18/22 Sowmya Arana MD [address] [place] [address] [phone] Radiation Oncologist Radiation Oncology 10/29/24
--- OUTSIDE RECORDS SUMMARY | 2025-05-23 16:10 | XMS_ITS | Patient Health Record ---
Author Organization [facility] [employer] [place] ([address]) Address [address] [place] [address] Care Team Providers Care Corporate Director Of Pharmacy Name Role Phone Susan Johnson MD Primary Care Provider UnaSupa Maloney Unavailable [phone] Norbert Gonzalez Unavailable Unavailable Jessica Dunn Unavailable [phone] Earl cMnamara Unavailable [phone] Toya Ribeiro Unavailable [phone] Yamila Mora Unavailable [phone] Juan Mathews Unavailable [phone] Allergies Allergen (clinical drug ingredient) Drug/Non Drug Allergy documented on EMR Reaction Allergy Type Onset Date Status lisinopril Lisinopril other reaction Drug Allergy Active morphine Morphine rash Drug Allergy Active Results Component Value Reference Range Notes STREPTOCOCCUS PNEUMONIAE AB (IGG) (23 SEROTYPES) Reviewed date:10/29/2024 08:46:28 AM Interpretation:Abnormal Performing Lab:[facility], [facility],, [address] [place], [address] Nicole Kennedy MD,PhD,AMADO Notes/Report: NON-FASTING SEROTYPE 1 [...] serotype-specific titers may have less robust responses. [employer] uses a multi-analyte immunodetection (MAID) method. The method employs the Ge[employer] flow cytometric system which measures multiple analytes [...] analytical performance characteristics have been determined by [employer]. It has not been cleared or approved by FDA. This assay has been validated pursuant to the CLIA regulations and used for clinical purposes. For additional information, please refer to http://education.Backdoor.Crack /faq/RRP547 (This link is being provided for informational/ educational purposes only.) H. INFLUENZAE TYPE B AB Reviewed date:10/31/2024 08:19:49 AM Interpretation:Abnormal Performing Lab:[facility], [facility],, [address] [place], [address] Nicole Kennedy MD,PhD,AMADO Notes/Report: NON-FASTING HAEMOPHILUS INFLUENZA [...] SpiroPrecentPredictionPost _FEV1_OVER_FVC 0 SpiroPrecentPredictionPost _FVC 0 SpiroPrecentPredictionPre_ [id number]_44 93.4 SpiroPrecentPredictionPre_ FEV1 73 SpiroPrecentPredictionPre_ FEV1_OVER_FVC 106.7 SpiroPrecentPredictionPre_ FVC 69.7 SpiroPredicted_FEF25_75 2.57 SpiroPreBronchodilator_FEV 1_OVER_FVC 81.86 SpiroPreBronchodilator_PEF 5 SpiroPostBronchodilator_FV C 0 SpiroPostBronchodilator_FE V1 0 SpiroPostBronchodilator_FE V1_OVER_FVC 0 SpiroPostBronchodilator_PE F 0 SpiroPredicted_FVC 3.56 SpiroPredicted_FEV1 2.78 SpiroPredicted_FEV1_OVER_F VC 76.7 SpiroPredicted_PEF 6.2 H. INFLUENZAE TYPE B AB Reviewed date:12/28/2024 05:48:46 PM Interpretation:Abnormal Performing Lab:[facility], [facility],, [address] [place], [address] Nicole Kennedy MD,PhD,AMADO Notes/Report: NON-FASTING HAEMOPHILUS INFLUENZA [...] Duration) Notes Start Date End Date Status NASAL WASHES N/A as directed intranasally as needed; Duration: 30 days Active FLUTICASONE NASAL 50 mcg/inh 2 spray(s) in each nostril twice a day; Duration: 30 days Active MONTELUKAST 10 mg 1 tab(s) orally once a day Active Pepcid 20 MG 1 tab(s) orally 60 minutes prior to SCIT 09/19/2023 Not-Taking VENTOLIN HFA 90 mcg/inh 2 puff(s) inhaled every 6 hours; Duration: 30 days Active ALBUTEROL 2.5 mg/3 mL (0.083%) 3 mL by nebulizer every 6 hours Active ZyrTEC Allergy 10 MG 1 tablet PO QD Not-Taking Breztri Aerosphere 160-9-4.8 MCG/ACT 2 puffs Inhalation Twice a day Not-Taking Pneumovax 23 - 0.5 ML INTRAMUSCULARLY ONCE; Duration: 1 DAYS *Please review and pick correct strength-formula tion from [employer] options. If intended option is not shown, discontinue and re-order from Quick Search* Not-Taking HIBERIX (HIB) - 0.5 mL intramuscularly once; Duration: 1 dose(s) Not-Taking CETIRIZINE 10 mg 1 tab(s) orally once a day; Duration: 30 days Active Famotidine 40 mg 1 tab(s) orally 30 mins prior to SCIT; Duration: 30 days Active EpiPen 2-Paul 0.3 mg as directed intramuscularly once; Duration: 30 days Active SIT (CLUSTER) VARIABLE PER SCHEDULE SC PER SCHEDULE; Duration: TO BE DETERMINED *Please review for potential replacement for e-prescription and drug interaction check* 09/19/2023 Not-Taking Benzonatate 200 MG TAKE 1 CAPSULE BY MOUTH THREE TIMES DAILY NEEDED FOR COUGH Oral; Duration: 30 Days Not-Taking Albuterol Sulfate HFA 108 (90 Base) MCG/ACT INHALE 2 PUFFS BY MOUTH EVERY 6 HOURS Inhalation; Duration: 25 Days Not-Taking Trelegy Ellipta 200 MCG-62.5 MCG-25 MCG/INH 1 PUFF(S) INHALED ONCE A DAY *Please review and pick correct strength-formula tion from [employer] options. If intended option is not shown, discontinue and re-order from Quick Search* Not-Taking Amoxicillin-Pot Clavulanate 875-125 MG 1 tablet Orally every 12 hrs; Duration: 7 days 10/08/2024 Not-Taking SIT (Traditional) variable - see record per schedule subcutaneous per schedule; Duration: 999 05/29/2024 Active Triamcinolone Acetonide 0.1 % 1 candi applied topically 3 times a day; Duration: 7 days 12/20/2023 Active Azelastine HCl 137 MCG/SPRAY 2 sprays in each nostril Nasally Twice a day; Duration: 90 days Not-Taking Prevnar 20 0.5 ML as directed Intramuscular 11/20/2024 Active Ipratropium Durham 0.06 % 2 sprays in each nostril Nasally Four times a day; Duration: 30 days 06/04/2024 Not-Taking Amoxicillin-Pot Clavulanate 875-125 MG 1 tablet Orally every 12 hrs; Duration: 10 days 06/04/2024 Not-Taking Letrozole 2.5 MG 1 tab(s) orally once a day Active Gabapentin 300 MG 2 cap(s) orally once a day Active Meloxicam 7.5 MG 1 tab(s) orally once a day Active EPIPEN 2-PAUL 0.3 mg as directed intramuscularly once; Duration: 30 days Active FLUoxetine HCl 20 MG 1 tab(s) orally once a day Active Ventolin HFA 108 (90 Base) MCG/ACT 2 puff(s) inhaled every 6 hours; Duration: 30 days Active FAMOTIDINE 40 mg 1 tab(s) orally 30 mins prior to SCIT; Duration: 30 days Active Benzonatate 200 MG 1 cap(s) orally 3 times a day Active Vitamin D3 *Please review and pick correct strength-formula tion from [employer] options. If intended option is not shown, discontinue and re-order from Quick Search* Active Omeprazole 40 MG 1 cap(s) orally once a day Active metFORMIN HCl ER 500 MG 1 tab(s) orally once a day Active Olmesartan Medoxomil 20 MG 1 tab(s) orally once a day Active Azelastine HCl 137 MCG/SPRAY 2 sprays in each nostril Nasally Twice a day; Duration: 30 days Active SIT (Traditional) variable - see record per schedule subcutaneous per schedule; Duration: 999 days Active SIT (Traditional) variable - see record per schedule subcutaneous per schedule; Duration: 999 days Active Tezspire 210 MG/1.91ML as directed Subcutaneous Active SIT (CLUSTER) variable per schedule per schedule; Duration: 999 days Active TRIAMCINOLONE TOPICAL 0.1% 1 candi applied topically 3 times a day; Duration: 7 days Active TEZSPIRE PRE-FILLED PEN ekko 210 mg/1.91 mL as directed subcutaneously every 4 weeks Active TRELEGY ELLIPTA 200 mcg-62.5 mcg-25 mcg/inh 1 puff(s) inhaled once a day Active Ipratropium Durham 0.06 % 2 sprays in each nostril Nasally Four times a day; Duration: 30 days Active Trelegy Ellipta 200-62.5-25 MCG/ACT 1 puff Inhalation Once a day; Duration: 30 days Active Cetirizine HCl 10 MG 1 tab(s) orally once a day; Duration: 30 days Active Albuterol Sulfate (2.5 MG/3ML) 0.083% 3 mL by nebulizer every 6 hours Active Montelukast Sodium 10 MG 1 tab(s) orally once a day Active Fluticasone Propionate 50 MCG/ACT 2 spray(s) in each nostril twice a day; Duration: 30 days Active Immunizations Vaccine Route Administration Date Status Comme nts NOC PedvaxHIB IM Intramuscular 03/08/2024 Administered NOC PedvaxHIB IM Intramuscular 08/20/2024 Administered Influenza Unknown 06/05/2023 Administered Portal Infor mation NOC Prevnar 20 IM Intramuscular 11/21/2024 Administered Social History Tobacco Use: Social History Observation Description Date Details (start date - stop date) Never Smoker NA - NA Sex Assigned At : Social History Observation Description Sex Assigned At Female Tobacco Control (Standard) Question Answer Notes Tobacco use: Nonsmoker AUDIT-C (Standard) Question Answer Notes Did you have a drink containing alcohol in the p ast year? No Points 0 Interpretation Negative Problems Problem Type SNOMED Code ICD Code Onset Dates Problem Status W/U Status Risk Notes Problem Chronic allergic conjunctivitis (48104799) Other chronic allergic conjunctivitis (H10.45) Active confirmed Problem Essential hypertension (84131877) Essential (primary) hypertension (I10) Active confirmed Problem Allergic rhinitis caused by pollen (disorder) (68559937) Allergic rhinitis due to pollen (J30.1) Active confirmed Problem Allergic rhinitis (42434347) Other allergic rhinitis (J30.89) Active confirmed Problem Uncomplicated severe persistent asthma (790815939) Severe persistent asthma, uncomplicated (J45.50) Active confirmed Problem Urticaria (152507721) Other urticaria (L50.8) Active confirmed Problem Allergic rhinitis caused by animal hair and dander (190346370724744) Allergic rhinitis due to animal (cat) (dog) hair and dander (J30.81) Active confirmed Problem Bronchitis (64299971) Bronchitis, not specified as acute or chronic (J40) Active confirmed Problem Cough (finding) (03194251) Cough, unspecified (R05.9) Active confirmed Vital Signs Respiratory Rate 17 /min 12/27/2024 Oximetry 99 % 03/25/2025 Blood pressure diastolic 84 mm Hg 03/25/2025 Height 67.75 in 03/25/2025 Blood pressure systolic 148 mm Hg 03/25/2025 Weight 295 lbs 03/25/2025 BMI 45.18 kg/m2 03/25/2025 Encounters Encounter Location Date Provider Diagnosis [address] [address] 10/30/2024 Supa Norm Allergic rhinitis du e to pollen J30.1 ; Other allergic rhinitis J30.89 ; Allergic rhinitis due to animal (cat) (dog) hair and dander J30.81 and Other chronic allergic conjunctivitis H10.45 [facility] [address] [place] [phone] 09/04/2024 Supatarik Zheng Allergic rhinitis du e to pollen J30.1 ; Other allergic rhinitis J30.89 ; Allergic rhinitis due to animal (cat) (dog) hair and dander J30.81 and Other chronic allergic conjunctivitis H10.45 [facility] [address] [place] [phone] 08/16/2024 Supatarik Zheng Allergic rhinitis du e to pollen J30.1 ; Other allergic rhinitis J30.89 ; Allergic rhinitis due to animal (cat) (dog) hair and dander J30.81 and Other chronic allergic conjunctivitis H10.[address] [address] 07/10/2024 Supa Zheng Allergic rhinitis du e to pollen J30.1 ; Other allergic rhinitis J30.89 ; Allergic rhinitis due to animal (cat) (dog) hair and dander J30.81 and Other chronic allergic conjunctivitis H10.45 [facility] [address] [place] [phone] 06/12/2024 Supa Zheng Allergic rhinitis du e to pollen J30.1 ; Other allergic rhinitis J30.89 ; Allergic rhinitis due to animal (cat) (dog) hair and dander J30.81 and Other chronic allergic conjunctivitis H10.[address] [address] 05/06/2025 Supa Zheng Allergic rhinitis du e to pollen J30.1 ; Other allergic rhinitis J30.89 ; Allergic rhinitis due to animal (cat) (dog) hair and dander J30.81 and Other chronic allergic conjunctivitis H10.[address] [address] 04/29/2025 Supa Zheng Allergic rhinitis du e to pollen J30.1 ; Other allergic rhinitis J30.89 ; Allergic rhinitis due to animal (cat) (dog) hair and dander J30.81 and Other chronic allergic conjunctivitis H10.[address] [address] 04/22/2025 Supa Zheng Allergic rhinitis du e to pollen J30.1 ; Other allergic rhinitis J30.89 ; Allergic rhinitis due to animal (cat) (dog) hair and dander J30.81 and Other chronic allergic conjunctivitis H10.[address] [address] 03/25/2025 Yamila Mora Other urticaria L50. 8 ; Allergic rhinitis due to pollen J30.1 ; Allergic rhinitis due to animal (cat) (dog) hair and dander J30.81 ; Other allergic rhinitis J30.89 ; Severe persistent asthma, uncomplicated J45.50 ; Other chronic allergic conjunctivitis H10.45 ; Cough, unspecified R05.9 ; Bronchitis, not specified as acute or chronic J40 and Elevated blood-pressure reading, without diagnosis of hypertension R03.[address] [address] 03/18/2025 Supa Zheng Allergic rhinitis du e to pollen J30.1 ; Other allergic rhinitis J30.89 ; Allergic rhinitis due to animal (cat) (dog) hair and dander J30.81 and Other chronic allergic conjunctivitis H10.[address] [address] 02/11/2025 Supa Norm Allergic rhinitis du e to pollen J30.1 ; Other allergic rhinitis J30.89 ; Allergic rhinitis due to animal (cat) (dog) hair and dander J30.81 and Other chronic allergic conjunctivitis H10.45 [facility] [address] [place] [phone] 01/21/2025 Supa Norm Allergic rhinitis du e to pollen J30.1 ; Other allergic rhinitis J30.89 ; Allergic rhinitis due to animal (cat) (dog) hair and dander J30.81 and Other chronic allergic conjunctivitis H10.[address] [address] 05/29/2024 Earl Mcnamara Severe persistent asthma, uncomplicated J45.50 ; Allergic rhinitis due to pollen J30.1 ; Allergic rhinitis due to animal (cat) (dog) hair and dander J30.81 ; Other allergic rhinitis J30.89 ; Other chronic allergic conjunctivitis H10.45 ; Cough, unspecified R05.9 and Bronchitis, not specified as acute or chronic J40 [facility] [address] [place] [phone] 03/12/2025 Yamila Mora Severe persistent asthma, uncomplicated J45.50 ; Allergic rhinitis due to pollen J30.1 ; Allergic rhinitis due to animal (cat) (dog) hair and dander J30.81 ; Other allergic rhinitis J30.89 ; Other chronic allergic conjunctivitis H10.45 ; Cough, unspecified R05.9 ; Bronchitis, not specified as acute or chronic J40 and Elevated blood-pressure reading, without diagnosis of hypertension R03.0 [facility] [address] [place] [phone] 11/20/2024 Earl Mcnamara Severe persistent asthma, uncomplicated J45.50 ; Allergic rhinitis due to pollen J30.1 ; Allergic rhinitis due to animal (cat) (dog) hair and dander J30.81 ; Other allergic rhinitis J30.89 ; Other chronic allergic conjunctivitis H10.45 ; Cough, unspecified R05.9 and Bronchitis, not specified as acute or chronic J40 [address] [address] 08/14/2024 Earl Mcnamara Severe persistent asthma, uncomplicated J45.50 ; Allergic rhinitis due to pollen J30.1 ; Allergic rhinitis due to animal (cat) (dog) hair and dander J30.81 ; Other allergic rhinitis J30.89 ; Other chronic allergic conjunctivitis H10.45 ; Cough, unspecified R05.9 and Bronchitis, not specified as acute or chronic J40 [address] [employer] [address] [address] 07/03/2024 Earl Mcnamara Severe persistent asthma, uncomplicated J45.50 ; Allergic rhinitis due to pollen J30.1 ; Allergic rhinitis due to animal (cat) (dog) hair and dander J30.81 ; Other allergic rhinitis J30.89 ; Other chronic allergic conjunctivitis H10.45 ; Cough, unspecified R05.9 and Bronchitis, not specified as acute or chronic J40 [address] [address] 03/07/2025 Supa Zheng Severe persistent asthma, uncomplicated J45.[address] [address] 02/07/2025 Supa Zheng Severe persistent asthma, uncomplicated J45.[address] [address] 01/10/2025 Supa Win Severe persistent asthma, uncomplicated J45.[address] [address] 11/22/2024 Supa Win Severe persistent asthma, uncomplicated J45.[address] [address] 10/18/2024 Supatarik Zheng Severe persistent asthma, uncomplicated J45.[address] [address] 09/13/2024 Supa Win Severe persistent asthma, uncomplicated J45.[address] [address] 01/14/2025 Supa Zheng Allergic rhinitis du e to pollen J30.1 ; Other allergic rhinitis J30.89 ; Allergic rhinitis due to animal (cat) (dog) hair and dander J30.81 and Other chronic allergic conjunctivitis H10.[address] [address] 10/08/2024 Earl Mcnamara Severe persistent asthma, uncomplicated J45.50 ; Acute upper respiratory infection, unspecified J06.9 ; Allergic rhinitis due to pollen J30.1 ; Allergic rhinitis due to animal (cat) (dog) hair and dander J30.81 ; Other allergic rhinitis J30.89 ; Other chronic allergic conjunctivitis H10.45 ; Cough, unspecified R05.9 and Bronchitis, not specified as acute or chronic J40 [address] [address] 08/20/2024 Supa Zheng Encounter for immunization Z23 and Encounter for antibody response examination Z01.[address] [address] 11/21/2024 Supa Zheng Encounter for immunization Z23 and Encounter for antibody response examination Z01.[address] [address] 06/04/2024 Supa Zheng Severe persistent asthma, uncomplicated J45.[address] [address] 12/27/2024 Juan Mathews Acute laryngitis J04 .0 ; Severe persistent asthma, uncomplicated J45.50 ; Allergic rhinitis due to pollen J30.1 ; Chronic cough R05.3 ; Allergic rhinitis due to animal (cat) (dog) hair and dander J30.81 ; Other allergic rhinitis J30.89 ; Other chronic allergic conjunctivitis H10.45 and Bronchitis, not specified as acute or chronic J40 [address] [address] 01/08/2025 Supa Zheng [address] [address] 01/08/2025 Supa Zheng [facility] [address] [place] [address] 03/06/2025 Supa Zheng Allergic rhinitis du e to pollen J30.1 [facility] [address] [place] [address] 12/25/2024 Yamila Mora [facility] [address] [place] [address] 06/04/2024 Earl Mcnamara Acute upper respiratory infection, unspecified J06.9 Assessments Encounter Date Diagnosis (ICD Code) Assessment Notes Treatment Notes Treatment Clinical Notes Section Notes 05/29/2024 Allergic rhinitis due to pollen (ICD-10 [...] treated with Dr. Gonzalez. Continues Trelegy with Jakir having trialed Breztri without benefit.. AEC earlier [...] 09/04/2024 Other allergic rhinitis (ICD-10 - J30.89) 09/13/2024 Severe persistent asthma, uncomplicated (ICD-10 - J45.50) 10/08/2024 Severe persistent asthma, uncomplicated (ICD-10 - J45.50) History of asthma, treated with Dr. Gonzalez. Continues Trelegy with Jakir having trialed Breztri without benefit.. AEC earlier [...] to asssist with upper airway symptoms er 10/18/2024 Severe persistent asthma, uncomplicated (ICD-10 - J45.50) 10/30/2024 Allergic rhinitis due to pollen (ICD-10 - J30.1) 10/30/2024 Other allergic rhinitis (ICD-10 - J30.89) 11/20/2024 Allergic rhinitis due to pollen (ICD-10 - J30.1) Autumn clearly suffers from atopic disease based upon our skin testing and clinical history. Accordingly, we encouraged her medication regimen, discussed nasal washes and allergy-specific avoidance measures. Plan to continue ipratropium given noted benefit. Procedure tolerated today without issue. Keep on hand 2 hours after SCIT. Continue to triple premedicate 11/20/2024 Severe persistent asthma, uncomplicated (ICD-10 - [...] and 8 weeks for evaluation and management 11/21/2024 Encounter for immunization (ICD-10 - Z23) 11/21/2024 Encounter for antibody response examination (ICD-10 - Z01.84) 11/22/2024 Severe persistent asthma, uncomplicated (ICD-10 - J45.50) 12/27/2024 Acute laryngitis (ICD-10 - J04.0) For her laryngitis symptoms I have recommended no intervention with any medical therapy as she will be seeing ENT next week. I recommended that she discuss this with her ENT physician and have possibly even laryngoscopy for further evaluation. 12/27/2024 Severe persistent asthma, uncomplicated (ICD-10 - J45.50) [...] and Tezspire dosing. Consider trial of Breztri 01/10/2025 Severe persistent asthma, uncomplicated (ICD-10 - J45.50) 01/14/2025 Allergic rhinitis due to pollen (ICD-10 - J30.1) 01/14/2025 Other allergic rhinitis (ICD-10 - J30.89) 01/21/2025 Allergic rhinitis due to pollen (ICD-10 - J30.1) 01/21/2025 Other allergic rhinitis (ICD-10 - J30.89) 02/07/2025 Severe persistent asthma, uncomplicated (ICD-10 - J45.50) 02/11/2025 Other allergic rhinitis (ICD-10 - J30.89) 03/06/2025 Allergic rhinitis due to pollen (ICD-10 - J30.1) 03/07/2025 Severe persistent asthma, uncomplicated (ICD-10 - J45.50) 02/11/2025 Allergic rhinitis due to pollen (ICD-10 - J30.1) 03/12/2025 Allergic rhinitis due to pollen (ICD-10 - J30.1) Autumn clearly suffers from atopic disease based upon our skin testing and clinical history. Accordingly, we encouraged her medication regimen, discussed nasal washes and allergy-specific avoidance measures. - Autumn continues SCIT, dosing tolerated today without issue. Continue to carry AIE to all SCIT visits and for two hours after. - Continue medication regimen as above. - Discussed increasing SCIT frequency in peak season. - Return as scheduled for SCIT and in 2-3 months as above for further evaluation and management 03/12/2025 Severe persistent asthma, uncomplicated (ICD-10 - J45.50) [...] Not due for Tezspire today. - ACT is 20 today, no recent TENZIN use. - Plan to return as scheduled for Tezspire and in 2-3 months for further evaluation and management 03/18/2025 Allergic rhinitis due to pollen (ICD-10 - J30.1) 03/18/2025 Other allergic rhinitis (ICD-10 - J30.89) 03/25/2025 Other urticaria (ICD-10 - L50.8) Autumn presented to the shot room approximately 30 minutes after SCIT dosing reporting pruritus to her right forearm. Vitals were stable and physical exam showed small, erythematous raised bumps on her right forearm, rest of exam WNL. Autumn was speaking appropriately during the event. She was treated with prednisone 60 mg, as well as given additional oral antihistamines. She was monitored for greater than 1 hour after onset of symptoms. - See procedure section for further details on observation and treatment. - Autumn reported taking Zyrtec, Pepcid and Singulair prior to SCIT. According to records this is what she was instructed to premedicate with. - After observation for approximately 90-minutes, Autumn reported improvement in symptoms. - The patient was discharged in stable condition with AIE on hand. Discussed indications for AIE use. - Return in 1 week for SCIT, refer to immunization record for dosing instructions 04/22/2025 Allergic rhinitis due to pollen (ICD-10 - J30.1) 04/22/2025 Other allergic rhinitis (ICD-10 - J30.89) 04/29/2025 Allergic rhinitis due to pollen (ICD-10 - J30.1) 04/29/2025 Other allergic rhinitis (ICD-10 - J30.89) 05/06/2025 Allergic rhinitis due to pollen (ICD-10 - J30.1) 05/06/2025 Other allergic rhinitis (ICD-10 - J30.89) 05/06/2025 Allergic rhinitis due to animal (cat) (dog) hair and dander (ICD-10 - J30.81) 04/29/2025 Allergic rhinitis due to animal (cat) (dog) hair and dander (ICD-10 - J30.81) 04/22/2025 Allergic rhinitis due to animal (cat) (dog) hair and dander (ICD-10 - J30.81) 03/25/2025 Allergic rhinitis due to pollen (ICD-10 - J30.1) Autumn clearly suffers from atopic disease based upon our skin testing and clinical history. Accordingly, we encouraged her medication regimen, discussed nasal washes and allergy-specific avoidance measures. - See plan above in regard to today's dosing. - Continue medication regimen as above. - Discussed increasing SCIT frequency in peak season. - Return as scheduled for SCIT and in 2-3 months as above for further evaluation and management 03/18/2025 Allergic rhinitis due to animal (cat) (dog) hair and dander (ICD-10 - J30.81) 03/12/2025 Allergic rhinitis due to animal (cat) (dog) hair and dander (ICD-10 - J30.81) Follow allergen avoidance, meds and continue SCIT as an adjunctive treatment to current regimen 02/11/2025 Allergic rhinitis due to animal (cat) (dog) hair and dander (ICD-10 - J30.81) 01/21/2025 Allergic rhinitis due to animal (cat) (dog) hair and dander (ICD-10 - J30.81) 01/14/2025 Allergic rhinitis due to animal (cat) (dog) hair and dander (ICD-10 - J30.81) 12/27/2024 Allergic rhinitis due to pollen (ICD-10 - [...] omeprazole for GERD. Continue to triple premedicate 11/20/2024 Allergic rhinitis due to animal (cat) (dog) hair and dander (ICD-10 - J30.81) Follow allergen avoidance, meds and continue SCIT as an adjunctive treatment to current regimen 10/30/2024 Allergic rhinitis due to animal (cat) (dog) hair and dander (ICD-10 - J30.81) 10/08/2024 Allergic rhinitis due to pollen (ICD-10 - J30.1) Autumn clearly suffers from atopic disease based upon our skin testing and clinical history. Accordingly, we encouraged her medication regimen, discussed nasal washes and allergy-specific avoidance measures. Plan to continue ipratropium given noted benefit. Currnetly holding SCIT due to illness. Keep on hand 2 hours after SCIT. Continue to triple premedicate er 09/04/2024 Allergic rhinitis due to animal (cat) [...] as an adjunctive treatment to current regimen 05/29/2024 Other allergic rhinitis (ICD-10 - J30.89) Follow allergen avoidance, meds and continue SCIT as an adjunctive treatment to current regimen 06/12/2024 Other chronic allergic conjunctivitis (ICD-10 - [...] Other chronic allergic conjunctivitis (ICD-10 - H10.45) 10/08/2024 Allergic rhinitis due to animal (cat) (dog) hair and dander (ICD-10 - J30.81) Follow allergen avoidance, meds and continue SCIT as an adjunctive treatment to current regimen er 10/30/2024 Other chronic allergic conjunctivitis (ICD-10 - H10.45) 11/20/2024 Other allergic rhinitis (ICD-10 - J30.89) Follow allergen avoidance, meds and continue SCIT as an adjunctive treatment to current regimen 01/21/2025 Other chronic allergic conjunctivitis (ICD-10 - H10.45) 01/14/2025 Other chronic allergic conjunctivitis (ICD-10 - H10.45) 02/11/2025 Other chronic allergic conjunctivitis (ICD-10 - H10.45) 03/12/2025 Other allergic rhinitis (ICD-10 - J30.89) Follow allergen avoidance, meds and continue SCIT as an adjunctive treatment to current regimen 12/27/2024 Chronic cough (ICD-10 - R05.3) Recurrent cough likely multifactorial with history of ARC, Asthma and possible VCD. Plan to treat as above. Continue VCD exercises in the interval 03/18/2025 Other chronic allergic conjunctivitis (ICD-10 - H10.45) 03/25/2025 Allergic rhinitis due to animal (cat) (dog) hair and dander (ICD-10 - J30.81) Follow allergen avoidance, meds and continue SCIT as an adjunctive treatment to current regimen 04/29/2025 Other chronic allergic conjunctivitis (ICD-10 - H10.45) 05/06/2025 Other chronic allergic conjunctivitis (ICD-10 - H10.45) 04/22/2025 Other chronic allergic conjunctivitis (ICD-10 - H10.45) 03/25/2025 Other allergic rhinitis (ICD-10 - J30.89) Follow allergen avoidance, meds and continue SCIT as an adjunctive treatment to current regimen 03/12/2025 Other chronic allergic conjunctivitis (ICD-10 - H10.45) Given ocular signs and symptoms I encouraged allergy avoidance measures and meds as above. If symptoms persist, consider adding additional medications including intraocular antihistamine/mast cell stabilizer, PRN and continue SCIT as an adjunctive measure 12/27/2024 Allergic rhinitis due to animal (cat) (dog) [...] and continue SCIT as an adjunctive measure 10/08/2024 Other allergic rhinitis (ICD-10 - J30.89) Follow allergen avoidance, meds and continue SCIT as an adjunctive treatment to current regimen er 08/14/2024 Other chronic allergic conjunctivitis (ICD-10 - [...] continue SCIT as an adjunctive measure 07/03/2024 Cough, unspecified (ICD-10 - R05.9) Recurrent [...] above. Continue VCD exercises in the interval 10/08/2024 Other chronic allergic conjunctivitis (ICD-10 - H10.45) Given ocular signs and symptoms I encouraged allergy avoidance measures and meds as above. If symptoms persist, consider adding additional medications including intraocular antihistamine/mast cell stabilizer, PRN and continue SCIT as an adjunctive measure er 12/27/2024 Other allergic rhinitis (ICD-10 - J30.89) Follow allergen avoidance, meds and continue SCIT as an adjunctive treatment to current regimen 11/20/2024 Cough, unspecified (ICD-10 - R05.9) Recurrent cough likely multifactorial with history of ARC, Asthma and possible VCD. Plan to treat as above. Continue VCD exercises in the interval 03/25/2025 Severe persistent asthma, uncomplicated (ICD-10 - J45.50) [...] Not due for Tezspire today. - ACT is 20 today, no recent TENZIN use. - Plan to return as scheduled for Tezspire and in 2-3 months for further evaluation and management 03/25/2025 Other chronic allergic conjunctivitis (ICD-10 - H10.45) Given ocular signs and symptoms I encouraged allergy avoidance measures and meds as above. If symptoms persist, consider adding additional medications including intraocular antihistamine/mast cell stabilizer, PRN and continue SCIT as an adjunctive measure 03/12/2025 Cough, unspecified (ICD-10 - R05.9) Recurrent cough likely multifactorial with history of ARC, Asthma and possible VCD. Plan to treat as above. Continue VCD exercises in the interval 03/12/2025 Bronchitis, not specified as acute or chronic (ICD-10 - J40) Recurrent lower airway infections occurring 3-4 times a year meeting JMF criteria for modified PIDD work-up. PI work-up returned with inadequate protection to Hib and S. pneumo. Has now obtained Pneumovax x 1 and HiB x 2. - Repeat titers have shown inadequate responses. Autumn was seen by Dr. Mora, who sent her to Dr. Delaney. She is slated to start IVIG 03/25/2025 Cough, unspecified (ICD-10 - R05.9) Recurrent cough likely multifactorial with history of ARC, Asthma and possible VCD. Plan to treat as above. Continue VCD exercises in the interval 10/08/2024 Cough, unspecified (ICD-10 - R05.9) Recurrent cough likely multifactorial with history of ARC, Asthma and possible VCD. Plan to treat as above. Continue VCD exercises in the interval er 12/27/2024 Other chronic allergic conjunctivitis (ICD-10 - H10.45) Given ocular signs and symptoms I encouraged allergy avoidance measures and meds as above. If symptoms persist, consider adding additional medications including intraocular antihistamine/mast cell stabilizer, PRN and continue SCIT as an adjunctive measure 11/20/2024 Bronchitis, not specified as acute or [...] 20 and repeat titer. Consider underlying SADNI 08/14/2024 Bronchitis, not specified as acute or [...] - Due for repeat titers, advised obtaining 10/08/2024 Bronchitis, not specified as acute or [...] S, pneumo titer after finishing abx er 12/27/2024 Bronchitis, not specified as acute or chronic (ICD-10 - J40) Recurrent lower airway infections occurring 3-4 times a year meeting JMF criteria for modified PIDD work-up. PI work-up returned with inadequate protection to Hib and S. pneumo. Has obtianed Pneumovax thus far but still needs Hib. Consider [facility], otherwise obtain in office 03/25/2025 Bronchitis, not specified as acute or chronic (ICD-10 - J40) Recurrent lower airway infections occurring 3-4 times a year meeting JMF criteria for modified PIDD work-up. PI work-up returned with inadequate protection to Hib and S. pneumo. Has now obtained Pneumovax x 1 and HiB x 2. - Repeat titers have shown inadequate responses. Autumn was seen by Dr. Mora, who sent her to Dr. Delaney. She is slated to start IVIG 03/12/2025 Elevated blood-pressure reading, without diagnosis of hypertension (ICD-10 - R03.0) BP elevated today without symptoms of urgency or emergency. Continue serial checks and follow-up with PCP 03/25/2025 Elevated blood-pressure reading, without diagnosis of hypertension (ICD-10 - R03.0) BP elevated today without symptoms of urgency or emergency. Continue serial checks and follow-up with PCP 10/18/2024 Other 06/04/2024 Other 03/07/2025 Other 11/22/2024 Other 01/10/2025 Other 09/13/2024 Other 02/07/2025 Other Plan Of Treatment Pending Test Test Name Order Date STREPTOCOCCUS PNEUMONIAE IGG AB (23 SERO TYPES) 07/04/2023 STREPTOCOCCUS PNEUMONIAE IGG AB (23 SERO TYPES) 10/08/2024 TETANUS ANTITOXOID ANTIBODY (EIA) 2022 DIPHTHERIA ANTITOXOID ANTIBODY IMMUNOGLOBULIN E 07/04/2023 CBC (INCLUDES DIFF/PLT) 07/04/2023 IMMUNOGLOBULINS G/A/M 07/04/2023 VITAMIN D, 25-OH, TOTAL, IA 07/04/2023 HAEMOPHILUS INFLUENZAE B ANTIBODY, IGG 0 04/09/2024 HAEMOPHILUS INFLUENZAE B ANTIBODY, IGG 1 09/04/2022 HAEMOPHILUS INFLUENZAE B ANTIBODY, IGG 0 10/08/2024 S. PNEUMONIAE IGG AB, 23 SEROTYPES, S Next Appt Details Provider Name:Supa Zheng , 05/23/2025 04:47:00 PM, [address] [place], [address], Provider Name:Supa Zheng , 06/04/2025 03:00:00 PM, [address], [address], [place], [address], Provider Name:Supa Zheng , 07/02/2025 03:00:00 PM, [address], [address], [place], [address], Insurance Providers Payer Name Payer Address Payer Phone Subscriber Number Group Number Insured Name Patient Relationship to Insured Coverage Start Date Coverage End Date [facility] [employer] Plus [address] [address] [place] [phone] [id number] Martin Autumn Self - patient is the insured 3 Tez[employer] [address] [place] [phone] [id number] Autumn Martin Self - patient is the insured Medical (General) History Medical History History ICD [...]
--- OUTSIDE RECORDS SUMMARY | 2025-05-23 16:10 | XMS_ITS | Encounter Summary ---
Author Organization [facility] Address [address] [place] [address] Care Team Providers Care Finisher Plate Name Role Phone Lorenzo Campbell MD Primary Care Provider [phone] Lorenzo Campbell MD Primary Care Provider [phone] Lorenzo Campbell MD Unavailable Max Guerrero MD Primary Care Provider [phone] Sowmya Arana MD Unavailable [phone] Williams Mcfarland DO Unavailable [phone] Norbert Arreguin MD Unavailable [phone] Sowmya Arana MD Unavailable [phone] Susan Johnson MD Primary Care Provider + Encounter Details Date Type Department Care Team (Late st Contact Info) Description 03/21/2018 Documentation [facility] [address] [place] [id number] Dee Gold NP [address] [place] [address] Social History Tobacco Use Types Packs/Day Years Used Date Smoking Tobacco: Never Smokeless Tobacco: Never Alcohol Use Standard Drinks/Week Comments No 0 (1 standard drink = 0.6 oz pur e alcohol) Comments Unknown Sex and Gender Information Value Date Recorded Sex Assigned at Not on file Legal Sex Female 12:15 AM ORDER FILLER Gender Identity Female 11/16/2023 1:34 PM CDT Sexual Orientation Not on file documented as of this encounter Plan of Treatment Not on file documented as of this encounter Visit Diagnoses Not on filedocumented in this encounter Care Teams Finisher Plate Relationship Specialty Start Date End Date Lorenzo Campbell MD [address] [place] [address] PCP - General Family Medicine 02/02/18 06/04/20 Lorenzo Campbell MD [address] [place] [address] PCP - General 06/05/20 05/23/22 Max Guerrero MD [address] [place] [address] PCP - General Family Medicine 05/24/22 12/30/24 Susan Johnson MD [address] [place] [address] [place] [address] PCP - General Family Medicine 12/31/24 Lorenzo Campbell MD [address] [place] [address] Family Medicine 06/05/20 07/01/24 Sowmya Arana MD [address] [place] [address] Radiation Oncologist Radiation Oncology 07/18/22 Williams Mcfarland DO [address] [place] [address] Medical Oncologist/Chain Splitter Hematology and Oncology 07/18/22 Norbert Arreguin MD [address] [facility] [address] [place], [place] [address] Surgeon General Surgery 07/18/22 Sowmya Arana MD [address] [facility] [address] [place], [place] [address] Radiation Oncologist Radiation Oncology 10/29/24 documented as of this encounter
--- OUTSIDE RECORDS SUMMARY | 2025-05-23 16:10 | XMS_ITS ---
Author Organization [facility] Address [address] [place] [address] Care Team Providers Care Grounding Engineer Name Role Phone Sowmya Arana MD Unavailable [phone] Williams Mcfarland DO Unavailable [phone] Norbert Arreguin MD Unavailable [phone] Sowmya Arana MD Unavailable [phone] Susan Johnson MD Primary Care Provider + Active Problems Problem Noted Date Diagnosed Date Personal history of radiation therapy 12/22/2022 Malignant neoplasm of upper- inner quadrant of left breast in female, estrogen receptor positive 07/16/2022 Cancer Staging:Clinical stage from 07/18/2022:Stage IA(cT1a, cN0, cM0, G2, ER+, VA+, HER2-) - Signed by Sowmya Arana MD on 07/18/2022 Pathologic stage from 10/26/2022:Stage IA(pT1a, pN0(sn), cM0, G2, ER+, VA+, HER2- ) - Signed by Sowmya Arana MD on 10/26/2022 Left leg DVT 06/09/2020 Assessment & Plan (06/09/2020 11:12 AM BRONZER): Impression: Prior DVT per patient report that [...] 06/09/2020 Assessment & Plan (06/09/2020 11:13 AM BRONZER): Impression: Chronic lower extremity edema with subjective [...] (08/30/2018): Added automatically from request for surgery [id number] Adhesive capsulitis of left shoulder 08/30/2018 Overview (08/30/2018): Added automatically from request for surgery [id number] Incomplete tear of left rotator cuff 03/07/2018 Overview (03/07/2018): Added automatically from request for surgery [id number] Left shoulder pain 03/07/2018 Overview (03/07/2018): Added automatically from request for surgery [id number] Bursitis of left shoulder 03/07/2018 Overview (03/07/2018): Added automatically from request for surgery [id number] Varicose veins of bilateral lower extremities wi [...]
--- OUTSIDE RECORDS SUMMARY | 2025-05-23 16:10 | XMS_ITS | Clinical Summary ---
Author Organization [email or web address] Address [address] [facility] [place] [address] Care Team Providers Care Seismograph Operator Helper Name Role Phone Susan Johnson MD Primary Care Provider [phone] Source Comments [email or web address]non-liberty hospital Affiliates and Associated Physician Practices is amultiple site organization consisting of ambulatory clinics and hospital sitesin [place], [place], [place] and [place]. This disclosure is being madepursuant to the Care Everywhere program and may not contain all information available regarding this patient. Last updated 18.[email or web address] Allergies Active Allergy Reactions Criticality Noted Date Comments Lisinopril Cough Low 12/01/2018 Morphine Rash Medium 03/30/2018 Medications * Be aware that medications may not be up to date on this document. Alwaysverify current medications with the patient. acetaminophen CR (Tylenol Arthritis Pain) 650 MG tablet Take 1 (one) tablet by mouth every 8 hours as needed Active albuterol (Proventil;Omer tolin) (2.5 MG/3ML) 0.083% nebulizer solution Inhale 2.5 (two and one-half) mg by mouth 4 times daily as needed Active albuterol HFA (Proventil; Ventolin; Proair) 108 (90 Base) MCG/ACT inhaler Inhale 2 (two) puffs by mouth every 6 hours Active atorvastatin (Lipitor) 10 MG tablet Take 1 (one) tablet by mouth once daily Active Azelastine HCl 137 MCG/SPRAY SOLN [place] 2 sprays into each nostril once daily Active benzonatate (Tessalon) 200 MG capsule Take 1 (one) capsule by mouth 3 times daily as needed 4 Active budeson-glycop yrrol-formoter ol (Breztri Aerosphere) 160-9-4.8 MCG/ACT inhaler Inhale 2 (two) puffs by mouth 2 times daily Active cetirizine (ZyrTEC Allergy) 10 MG gel capsule Take 1 (one) capsule by mouth once daily Active Cholecalcifero l (Vitamin D3) 250 MCG (43273 UT) TABS Take 1 (one) tablet by mouth once daily Active EPINEPHrine (EPIPEN) 0.3 MG/0.3ML auto-injector pen Inject 0.3 mL into muscle once as needed 4 Active famotidine (Pepcid) 40 MG tablet Take 1 (one) tablet by mouth as directed 30 mins prior to SCIT; Duration: 30 days Active ferrous sulfate EC 325 (65 Fe) MG tablet Take 1 (one) tablet by mouth daily with breakfast Active FLUoxetine (PROzac) 20 MG tablet Take 1 (one) tablet by mouth once daily Active fluticasone propionate (Flonase) 50 MCG/ACT nasal spray [place] 2 (two) sprays into each nostril once daily Active fluticasone-um eclidin-vilant (Trelegy Ellipta) 200-62.5-25 MCG/ACT inhaler Inhale 1 (one) puff by mouth once daily Active gabapentin (Neurontin) 300 MG capsule Take 2 (two) capsules by mouth at bedtime Active ipratropium (Atrovent) 0.06 % nasal spray [place] 2 (two) sprays into each nostril once daily 4 Active letrozole (Femara) 2.5 MG tablet Take 1 (one) tablet by mouth once daily 5 Active meloxicam (Mobic) 7.5 MG tablet Take 1 (one) tablet by mouth once daily Active metFORMIN ER 24hr (Glucophage XR) 500 MG tablet Take 1 (one) tablet by mouth 2 times daily Active montelukast (Singulair) 10 MG tablet Take 1 (one) tablet by mouth once daily Active mupirocin (Bactroban) 2 % ointment Apply to affected area as needed 5 Active olmesartan (Benicar) 20 MG tablet Take 1 (one) tablet by mouth once daily Active omeprazole (PriLOSEC) 40 MG capsule Take 1 (one) capsule by mouth 2 times daily, before breakfast and supper 4 Active tezepelumab-ek ko (Tezspire) 210 MG/1.91ML pen Inject 210 (two hundred ten) mg subcutaneously every 30 days Active Vitamin E (E 1000) 450 MG (1000 UT) CAPS Take 1 (one) capsule by mouth once daily Active Active Problems No known active problems Encounters Date Type Department Care Team Description 05/13/2025 8:45 AM CDT Office Visit [facility] - Otolaryngology [address] [place] [phone] Myron Vogt MD Dysphonia (Primary Dx); Chronic throat clearing; Chronic rhinitis; Postnasal drip 05/13/2025 Travel 03/05/2025 8:00 AM CDT Office Visit [facility] - ENT [address] [place] [phone] Evette Hampton SLP Ulcerative laryngitis (Primary Dx); Dysphonia; Chronic cough 03/05/2025 Travel 02/28/2025 8:30 AM CDT Office Visit [facility] - Otolaryngology [address] [place] [phone] Myron Vogt MD Ulcerative laryngitis (Primary Dx); Dysphonia; Chronic cough 02/28/2025 Travel from Last 3 Months Immunizations Immunization Administration Dates Next Due INFLUENZA VACCINE, TRIV. (AF LURIA, FLUZONE TRIVALENT; 6MO+) (IIV3) 05/04/2021,05/14/2019,04/08/2017,2015,05/03/2016,05/22/2015,05/21/2015,1 ,06/23/2012,06/20/2006, 005 FLU VACCINE TRI IIV3 SPLIT P F IM (FLUVIRIN) 05/03/2016,05/21/2015 HIB-PRP-OMP 3 DOSE 08/20/2024,03/08/2024 INFLUENZA A G9O7-20 VACCINE 08/06/2009 INFLUENZA VACCINE, CELL CULT URE, QUADR. (FLUCELVAX QUADRIVALENT; 6MO+), 0.5 ML (CCIIV4) 06/23/2024 INFLUENZA VACCINE, QUADR. (F LUZONE; FLULAVAL; FLUARIX; AFLURIA QUADRIVALENT; 6MO+), 0.5 ML (IIV4) 06/06/2018 PNEUMOCOCCAL PPSV23 09/03/2008 TD VACCINE 08/26/1995 TDAP (7yrs+) 03/21/2020,05/17/2008 iNFLUENZA VACCINE, RECOM-ARTHUR, QUADR. (FLUBLOCK QUADRIVALENT; 18Y+) (RIV4) 05/21/2022,06/03/2020,05/14/2019 Family History Medical History Relation Name Comments Lymphoma Father Cancer - Breast Mother Asthma Sister High Blood Pressure Sister Relation Name Status Comments Father Mother Sister Social History Tobacco Use Types Packs/Day Years Used Date Smoking Tobacco: Never Passive Smoke Exposure: Never Smokeless Tobacco: Never Alcohol Use Standard Drinks/Week Comments Not Currently 0 (1 standard drink = 0.6 oz pur e alcohol) Comments No Sex and Gender Information Value Date Recorded Sex Assigned at Not on file Legal Sex Female 11:04 AM CDT Gender Identity Not on file Sexual Orientation Not on file Last Filed Vital Signs Vital Sign Reading Time Taken Comments Blood Pressure 139/85 05/13/2025 8:42 AM CDT Pulse 66 05/13/2025 8:42 AM CDT Temperature - - Respiratory Rate - - Oxygen Saturation 95% 05/13/2025 8:42 AM CDT Inhaled Oxygen Concentration - - Weight 130.6 kg (288 lb) 05/13/2025 8:42 AM CDT Height 170.2 cm (5' 7) 05/13/2025 8:42 AM CDT Body Mass Index 45.11 05/13/2025 8:42 AM CDT Plan of Treatment Upcoming Encounters Date Type Department Care Team (Late st Contact Info) Description 09/23/2025 3:30 PM COMMISSIONER OF INTERNAL REVENUE Office Visit [facility] - Otolaryngology [address] [place] [address] Myron Vogt MD [address] [facility] [address] DEPT [place] [address] Health Maintenance Due Date Last Done Comments COLOGUARD (AGES 45-75) - COLON CA SCREENING 1965 COLON MONITORING 1964 COLONOSCOPY - COLON CA SCREENING 1964 CT COLONOGRAPHY - COLON CA SCREENING 1965 Colorectal Cancer Screening 1965 FIT - COLON CA SCREENING 1964 FLEX SIG - COLON CA SCREENING 1964 COVID-19 VACCINE (#1) 1969 HIV SCREENING 1979 HEPATITIS C SCREENING 06/15/1982 PAP SMEAR 1985 PNEUMOCOCCAL VACCINE 50+ (2 of 2 - PCV) 2014 09/03/2008 ZOSTER VACCINE (1 of 2) 2014 Respiratory Syncytial Virus (RSV) Vaccine Pt: or over 60 yrs (1 - Risk 60-74 years 1-dose series) 2024 DEPRESSION SCREENING 08/01/2024 SCREENING FOR DIABETES 01/31/2025 INFLUENZA VACCINE (#1) 2025 , 05/21/2022, 05/04/2021, Additional history exists MAMMOGRAM 05/31/2026 05/31/2024, 05/30/2023 DTAP/TDAP/TD VACCINES (4 - Td or Tdap) 03/21/2030 03/21/2020, 05/17/2008, 08/26/1995 HIB VACCINE Aged Out 08/20/2024, 03/08/2024 No lo nger eligible based on patient's age to complete this topic HEPATITIS B VACCINE Aged Out No longe r eligible based on patient's age to complete this topic HPV VACCINE Aged Out No longer eligi ble based on patient's age to complete this topic MENINGOCOCCAL (Group B) VACCINE SHARED DECISION-MAKING Aged Out No longer eligible based on patient's age to complete this topic MENINGOCOCCAL GROUPS A/C/Y/W VACCINE Aged Out No longer eligible based on patient's age to complete this topic Insurance [facility] Care Teams Seismograph Operator Helper Relationship Specialty Start Date End Date Susan Johnson MD [address] [place] [address] PCP - General Family Medicine 01/31/25
== END 2025-05-23 15:02 | disposition home or self-care (01) ==
LOC: ANHFOHIMG 15:02
PROVIDERS: PCP Family Medicine; Visit Provider Student in an Organized Health Care Education/Training Program
DX: Z13.820 Encounter for screening for osteoporosis (principal); C50.919 Malignant neoplasm of unspecified site of unspecified female breast
CPT/HCPCS: 77080